=== PATIENT | female | born 1960 | race Caucasian/White ===

== ENCOUNTER → 2018-07-16 18:35 | Outpatient (CLI) | payer BC, SELFPAY ==
--- NOTE | 2018-07-16 | FLU_PTH ---
PATIENT: ALAY[facility] ERAZO [id number] AGE/SX: 64/F ROOM: RE07/16/[address]: Dr. Michelle Valerio DPM : 1960 BED: DIS: SPEC #: [id number] RECD: 07/17/18 13:59 STATUS: KALANI REYifan #: [id number] CHRISTOPHER: 07/16/18 00:[address]: Michelle Valerio DEPT: CYTOLOGY RECD BY: Rj Kinney ENTERED: 07/17/18 13:59 SP TYPE: Fluid OTHR DR: No Primary Care Phys Tissues: GANGLION CYST Procedures: Special Stain Group II Surgery Specimen Level IV Cytospin Fluid HEADER OPERATION: Not noted PRE-OP DIAGNOSIS: Ganglion cyst; soft tissue mass TISSUE SUBMITTED: Cytologic exam of aspirated fluid DIAGNOSIS CYTOLOGY Fine needle aspiration, ganglion cyst/soft tissue mass (cytospin and cell block): Consistent with benign ganglion cyst with no evidence of malignancy. AM:clinton 07/18/18 COMMENT Immunohistochemistry ([id number]) supports the above diagnosis. CYTOLOGY STUDY Slides are reviewed. CYTOLOGY GROSS Received is 0.5 ml of red cloudy fluid labeled with the patient's name and and designated per the requisition as aspirate. Submitted for cytology preparation including cell block. / 07/17/18 TC:5 CPT: 21397, 54381
--- NOTE | 2018-07-16 | IMM_PTH ---
PATIENT: ALAYNA ERAZO LOC: [facility] U#:[id number] AGE/SX: 64/F ROOM: RE07/16/[address]: Dr. Michelle Valerio DPM : 1960 BED: DIS: SPEC #: [id number] RECD: 07/18/18 12:59 STATUS: ALDENRima REYifan #: [id number] CHRISTOPHER: 07/16/18 00:[address]: Michelle Valerio DEPT: IMMUNOHISTOCHEMISTRY RECD BY: Seema Thompson ENTERED: 07/18/18 13:06 SP TYPE: IMMUNO OTHR DR: No Primary Care Phys Tissues: GANGLION CYST Procedures: SMA (add) CALPONIN-1 (add) KI-67 (add) P53 (add) Pankeratin (add) Vimentin (initial) PHYSICIAN & INSTITUTION [place] [address] SPECIMEN INFORMATION: Tissue Source: Ganglion cyst and soft tissue mass Clinical Info: Ganglion cyst and soft tissue mass Specimen Number: [id number] CPT code: 58927, 86248 x5 METHODOLOGY: Deparaffinized sections of prefer/formalin-fixed tissue or PAP/DQ stained slides are incubated with monoclonal/polyclonal antibodies/oligonucleotide probes. Localization is made via biotin free immunoperoxidase method. Appropriate controls are performed and reacted as expected. Results on target cell population are indicated in the following table: RESULTS: ANTIBODY / CLONE RESULT Vimentin (V9) positive Actin (1A4) negative Calponin-1 (ZP557C) negative P53 (DO-7) negative AE1-3 (AE1/AE3/PCK26) negative Ki-67 (30-9) positive, low These tests were developed and their performance characteristics determined by [facility]. They may not have been cleared or approved by the U.S. Food and Drug Administration. The FDA has determined that such clearance or approval is not necessary. INTERPRETATION: Ganglion cyst and soft tissue mass: Consistent with ganglion cyst contents. AM:clinton 07/19/18
[2018-07-16 18:39] LABS: Cytology, Body Fluid / CSF SEE PATHOLOGY REPORT
== END ==
PROVIDERS: Referring Provider Podiatrist; Visit Provider Podiatrist
DX: M79.672 Pain in left foot (principal); M79.9 Soft tissue disorder, unspecified
CPT/HCPCS: 88108; 88304; 88305; 88313; 88341; 88342

== ENCOUNTER 2022-06-10 10:38 | Inpatient (IN) | payer BC, SELFPAY ==
[2022-06-10] VITALS (9 sets, daily range): BP systolic 96–114; BP diastolic 53–78; PULSE 70–96; RESP 16–24; TEMP 36.3–36.8; O2SAT 93–98; BMI 34.2; BMI 32.0
--- NOTE | 2022-06-10 10:39 | CT_ITS ---
STUDY: CT BRAIN WITHOUT CONTRAST REASON FOR EXAM: Female, 61 years old. Neuro deficit, acute, stroke suspected RADIATION DOSAGE (If Supplied By Facility): CTDIvol = ( 44.99 ) mGy, DLP = ( 745.49 ) mGycm TECHNIQUE: Transaxial CT imaging of the brain was performed without administration of intravenous contrast material. Individualized dose optimization techniques were used for this CT. COMPARISON: No relevant priors. FINDINGS: Normal soft tissue structures. There is hyperostosis frontalis internus. Normal size ventricles and extra-axial spaces for the patient''s age. Normal white matter tracts of the cerebral hemispheres. Normal basal ganglia and thalami. Normal brainstem. Normal cerebellum. There is no intracranial hemorrhage. There are no findings of an acute ischemic infarction. Normal visualized paranasal sinuses. CT/STROKE Brain/Head without Cont IMPRESSION: Normal unenhanced CT scan of the brain. N.B. : The above Results were Read Back by Rocky Pride MD to Lc Poole and understanding confirmed on 06/10/2022 10:51:52 (ET). Electronically Signed: Rocky Pride MD at 10:53 EST ,
--- NOTE | 2022-06-10 10:40 | CT_ITS ---
STUDY: CTA HEAD AND NECK WITH CONTRAST REASON FOR EXAM: Female, 61 years old. Neuro deficit, acute, stroke suspected RADIATION DOSAGE (If Supplied By Facility): CTDIvol = ( 19.26 ) mGy, DLP = ( 750.67 ) mGycm TECHNIQUE: CT angiography was performed with a multi-detector CT scanner. Data acquisition was obtained from the skull base through the vertex following intravenous administration of IV 100mL Isovue-370. MIP images were reconstructed from the axial data set. Post-processing of the angiographic images was performed, with multiplanar reformation and 3D reconstruction. Individualized dose optimization techniques were used for this CT. COMPARISON: No relevant priors. FINDINGS: Normal bilateral petrous carotid arteries. Normal right cavernous carotid artery with a normal supraclinoid bifurcation. Normal left cavernous carotid artery with a normal supraclinoid bifurcation. Normal right A1 segments of the anterior cerebral artery. Normal left A1 segments of the anterior cerebral artery. Normal intact anterior communicating artery (ACOM). Normal bilateral A2 segments of the anterior cerebral arteries. Normal right M1 and M2 segments of the middle cerebral arteries, with a normal M1 bifurcation. Normal left M1 and M2 segments of the middle cerebral arteries, with a normal M1 bifurcation. Normal right posterior communicating artery (PCOM). Normal left posterior communicating artery (PCOM). Normal bilateral vertebral arteries. Normal basilar artery with a normal basilar bifurcation. The visualized bilateral superior cerebellar (SCA) arteries are normal. Normal bilateral P1, P2 and visualized P3 segments of the posterior cerebral arteries. There is no demonstrated aneurysm of the southern ute of [place]. There is no demonstrated abnormality of the visualized brain. AORTIC ARCH: Normal visualized aortic arch. Normal origins of the brachiocephalic, left common carotid, and left subclavian arteries. RIGHT CAROTID ARTERIES: Normal right common carotid artery (CCA). Normal right common carotid bulb. Normal origin of the right internal carotid (ICA) artery without a hemodynamically significant stenosis. Normal visualized cervical portion of the right internal carotid artery. Normal origin of the right external carotid artery (ECA). LEFT CAROTID ARTERIES: Normal left common carotid artery (CCA). Normal left common carotid bulb. Normal origin of the left internal carotid (ICA) artery without a hemodynamically significant stenosis. Normal visualized cervical portion of the left internal carotid artery. Normal origin of the left external carotid artery (ECA). VERTEBRAL ARTERIES: Normal bilateral vertebral arteries. CT/STROKE CTA Head AND Neck W/Con IMPRESSION: Normal CTA Head and neck with contrast. N.B. : The above Results were Read Back by Rocky Pride MD to [facility] and understanding confirmed on 06/10/2022 11:11:39 (ET). Electronically Signed: Rocky Pride MD at 11:12 EST ,
--- NOTE | 2022-06-10 10:45 | EDS_ITS ---
HPI History of Present Illness Chief Complaint: Neuro S/Sx Detail of Chief Complaint: Evaluate for stroke Informant: spouse/S.O., family and EMS Onset/Context/Timing Onset: - (Last known well at 1600 June 09) Context: - (Unknown) Timing: Continuous Quality and Location: Positive for Left Arm Weakness, Slurred Speech and Difficulty with Ambulation Current Severity: Mild Worsened by: Per HPI narrative and MDM Relieved by: Nothing Associated Symptoms Associated Symptoms: Positive for - (Unable to determine) Narrative Narrative: Patient is a 61-year-old woman with no significant medical problems. According to daughter she has history of depression. According to she came home from work yesterday. She vomited at 1600. She went to bed. She awoke this morning. He noted she was confused and had difficulty ambulating. Daughter had to help her to the restroom. Paramedics were called because of concern for stroke. Paramedics states she had slurred speech, weakness left upper extremity. According to daughter her legs were wobbly. She also commented that her urine was strong. Prior similar symptoms: No Recent Illness/Hospitalization: No PFSH PFSH Medical History (Updated 06/10/22 @ 12:[address] Lc Poole MD) delivery delivered Hypothyroid Skin cancer Medical History unable to obtain unable to obtain Home Medications omeprazole 20 mg capsule,delayed release 20 mg PO DAILY 06/10/22 [History Last Taken 06/09/22] Allergy/AdvReac Type Severity Reaction Status Date / Time Penicillins Allergy PT UNSURE Verified 06/10/22 10:40 OF REACTION Social History (Updated 06/10/22 @ 10:[address] Lc Poole MD) household members: spouse and children Smoking Status: Never smoker ROS ROS ED Review of Systems ROS Unobtainable: due to mental status EXAM Physical Exam Const Vital Signs: 06/10/22 10:44 06/10/22 10:40 06/10/22 10:40 Temperature 97.9 F Temperature Source Temporal Pulse Rate 96 96 Respiratory Rate 18 20 H Blood Pressure 106/53 L 106/53 L Blood Pressure Mean 70 70 Pulse Ox 93 95 Oxygen Delivery Method Room Air Room Air Room Air 06/10/22 10:40 06/10/22 11:09 06/10/22 11:30 Temperature 97.4 F L 97.8 F 97.6 F L Temperature Source Temporal Temporal Temporal Pulse Rate 94 94 92 Respiratory Rate 24 H 16 16 Blood Pressure 103/70 108/78 108/76 Blood Pressure Mean 81 88 86 Pulse Ox 94 95 95 Oxygen Delivery Method Room Air Room Air Room Air 06/10/22 12:00 06/10/22 12:00 Temperature 97.8 F 97.6 F L Temperature Source Temporal Temporal Pulse Rate 95 94 Respiratory Rate 20 H 20 H Blood Pressure 103/66 103/66 Blood Pressure Mean 78 78 Pulse Ox 94 94 Oxygen Delivery Method Room Air Room Air Positive well nourished and well developed General Appearance ED: well developed and NAD HEENT Reports TM's clear and dry mucous membranes atraumatic Nose: other Other Details: Nose normal. Posterior pharynx is normal. Uvula is midline. There is no deviation with protrusion. Tympanic Membrane ED: Yes TM's clear Mouth ED: Yes dry mucous membranes Mouth: dry mucous membranes Eyes PERRL and EOMs intact bilaterally General Eye ED: Negative for pale conjunctiva or scleral icterus Neck no lymphadenopathy, supple and no JVD Neck Narrative: There is no carotid bruit. Chest Wall inspection of chest normal and palpation of chest normal Resp normal respiratory effort and clear to auscultation bilaterally Cardio no murmurs Rate: regular rate Rhythm: regular rhythm Heart Sounds: S1 normal and S2 normal GI normal to inspection, nondistended, normoactive bowel sounds, soft to palpation, non-tender, non-distended and no masses Back/Spine no CVA tenderness Neuro No oriented x3 and CN's II-XII intact bilaterally [place] Coma Scale: document GCS findings Spontaneous Obeys Commands Confused 14 Sensorium / Orientation: Negative for alert Speech: Negative for speech normal Psych Psych Narrative: Unable to determine. Daughter states that her mother's been under significant stress since she returned home. Skin no wounds General Skin Exam: Negative for jaundice Lesions: no lesions Rashes: no rashes NIHSS NIHSS Initial: 1a Level of Consciousness: 1 1b LOC Questions (Score 2 if aphasic/stupor): 1 1c LOC Commands (Only score 1st attempt): 0 2 Best Gaze (If aphasic, use reflexive mvmts.): 0 4 Facial Palsy: 0 5 Motor Arm Right (UN = amputation/fusion): 0 5 Motor Arm Left: 1 6 Motor Leg Right: 0 6 Motor Leg Left: 0 7 Limb ataxia (Only + if out of proportion): 1 8 Sensory (Aphasia/stupor=0 or 1, coma=2): 0 (No response when asked.) 9 Best Language: 0 10 Dysarthria (mute, coma=2, intubated=UN): 1 11 Extinction and Inattention (only scored if +): 0 Total Score: 5 MDM MDM MDM Narrative Medical decision making narrative: Differential diagnoses include stroke, conversion reaction, need to evaluate for infectious cephalopathy in light of the fact that she urine is noted to be contracted and has odor per daughter. Stroke order set was initiated. Patient is outside window for thrombolytics. Stroke team was called prior to arrival. History & Record Review Discussion w/independent historian: EMS personnel (EMS inform you of their exam and document in the HPI), Patient, Family and Significant other Additional record(s) reviewed:: Prior inpatient record and No prior records (Only record available for review is from 2019 for foot pain.) Lab Data Attestation: I reviewed the patient's lab results. Lab results narrative: CBC is unremarkable. Coags are normal. Basic metabolic panel shows slight elevation of creatinine of 1.08 with a GFR 55. Glucose is elevated 149 with a normal CO2 and anion gap. Pulmonary normal. UA is unremarkable Labs: Laboratory Results - last 24 hr 06/10/22 06/10/22 06/10/22 10:50 10:50 10:50 WBC 10.5 RBC 4.39 Hgb 13.4 Hct 40.4 MCV 92.0 MCH 30.5 MCHC 33.2 RDW Std Deviation 45.4 H RDW Coeff of Valentine 13.2 Plt Count 209 MPV 11.0 Immature Gran % (Auto) 0.400 Neut % (Auto) 85.3 H Lymph % (Auto) 9.0 L [place] % (Auto) 5.1 Eos % (Auto) 0.0 Baso % (Auto) 0.2 Absolute Neuts (auto) 9.0 H Absolute Lymphs (auto) 0.95 Nucleated RBC % 0 PT 13.7 INR 1.1 APTT 25.6 Sodium 142 Potassium 3.6 Chloride 109 H Carbon Dioxide 23.0 Anion Gap 10 BUN 23 H Creatinine 1.08 H Estim Creat Clear Calc 38.79 Est GFR (MDRD) Af Amer 66 Est GFR (MDRD) Non-Af 55 L BUN/Creatinine Ratio 21.3 H Glucose 149 H Calcium 9.8 Troponin I High Sens 15 Urine Color Urine Clarity Urine pH Ur Specific Joice Urine Protein Urine Glucose (UA) Urine Ketones Urine Occult Blood Urine Nitrite Urine Bilirubin Urine Urobilinogen Ur Leukocyte Esterase Urine RBC Urine WBC Ur Squamous Epith Cells Urine Bacteria Hyaline Casts Urine Mucus 06/10/22 11:15 WBC RBC Hgb Hct MCV MCH MCHC RDW Std Deviation RDW Coeff of Valentine Plt Count MPV Immature Gran % (Auto) Neut % (Auto) Lymph % (Auto) [place] % (Auto) Eos % (Auto) Baso % (Auto) Absolute Neuts (auto) Absolute Lymphs (auto) Nucleated RBC % PT INR APTT Sodium Potassium Chloride Carbon Dioxide Anion Gap BUN Creatinine Estim Creat Clear Calc Est GFR (MDRD) Af Amer Est GFR (MDRD) Non-Af BUN/Creatinine Ratio Glucose Calcium Troponin I High Sens Urine Color Yellow Urine Clarity Clear Urine pH 5.0 Ur Specific Joice 1.025 Urine Protein 30 H Urine Glucose (UA) Normal Urine Ketones Negative Urine Occult Blood 10 H Urine Nitrite Negative Urine Bilirubin Negative Urine Urobilinogen Normal Ur Leukocyte Esterase 25 H Urine RBC 0-5 SEEN Urine WBC 0-5 SEEN Ur Squamous Epith Cells 0-5 SEEN Urine Bacteria 0 SEEN Hyaline Casts 0-5 SEEN Urine Mucus RARE Radiography Diagnostic Testing: Clinical Impression(s) from Imaging Studies Brain CT 06/10/22 10:39 IMPRESSION: Normal unenhanced CT scan of the brain. N.B. : The above Results were Read Back by Rocky Pride MD to Lc Poole and understanding confirmed on 06/10/2022 10:51:52 (ET). Electronically Signed: Rocky Pride MD at 10:53 EST , ADDENDUM: 06/10/22 1100 IMPRESSION: Normal unenhanced CT scan of the brain. N.B. : The above Results were Read Back by Rocky Pride MD to Lc Poole and understanding confirmed on 06/10/2022 10:51:52 (ET). Electronically Signed: Rocky Pride MD at 10:53 EST , Head/Neck CTA 06/10/22 10:40 IMPRESSION: Normal CTA Head and neck with contrast. N.B. : The above Results were Read Back by Rocky Pride MD to [facility] and understanding confirmed on 06/10/2022 11:11:39 (ET). Electronically Signed: Rocky Pride MD at 11:12 EST , ADDENDUM: 06/10/22 1119 IMPRESSION: Normal CTA Head and neck with contrast. N.B. : The above Results were Read Back by Rocky Pride MD to [facility] and understanding confirmed on 06/10/2022 11:11:39 (ET). Electronically Signed: Rocky Pride MD at 11:12 EST , Chest X-Ray 06/10/22 11:27 IMPRESSION: Questionable 8 mm calcified granuloma in the lateral aspect of the left midlung. Electronically Signed: Rocky Pride MD at 12:05 EST , Rhythm Strip Rhythm Strip: Sinus Rhythm Rate: 92 Ectopy: None EKG Initial EKG: Attestation: I personally reviewed and interpreted this EKG as follows: Interpretation: Sinus Rhythm (Rate is 97. There is evidence of first- degree AV block with a [place] interval of 216 ms. Cures duration 100 ms. QT duration is 374 ms. [place] to the right. There is no acute ischemic changes noted.) Differential Diagnosis Differential Diagnosis: Documented in the MDM portion of the chart Management Discussion w/another healthcare provider: Hospitalist, Diplomatic Officer (Neurologist at [facility]. Plan is transfer if evidence of LVO otherwise admit for stroke work-up at [facility].) and Radiologist (I spoke to Dr. Menendez at 1051. The unenhanced scan is unremarkable.) Stroke Documentation Questions Stroke Team Activated: Yes Reviewed Inclusion/Exclusion criteria: No IV Thrombolytic Administered: No (Patient outside window) No contraindications from thrombolytic administration: No Discharge Plan Dx/Rx/DC Orders Clinical Impression: Acute cerebrovascular accident (CVA), Elevated blood sugar level, Acute renal i nsufficiency Disposition Disposition: Acute Care Hospital [facility]
[2022-06-10 11:01] LABS: Absolute Lymphocyte Count 0.95 X10^3/uL (0.83-4.51); Basophil# 0.02 X10^3/uL; Basophil% 0.2 % (0-1); Hematocrit 40.4 % (37-47); Hemoglobin 13.4 g/dL (12.0-15.0); Lymphocyte # 0.95 X10^3/ul (0.83-4.51); Mean Corp Hgb Conc 33.2 g/dL (32-36); Mean Corpuscular Hgb 30.5 pg (27.0-32.0); Monocyte# 0.54 X10^3/uL; Monocyte% 5.1 % (0-10); NRBC Flagged by Analyzer 0 % (0-5); Neutrophil # 8.96 X10^3/uL (2.7-7.7); Neutrophil % 85.3 % (47-70); Platelet Count 209 K/mm3 (150-450); RBC Distribution Width CV 13.2 % (11.6-14.6); RBC Distribution Width SD 45.4 fl (35.1-43.9); Red Blood Count 4.39 M/mm3 (4.2-5.4); White Blood Count 10.5 K/mm3 (4.4-11.0)
[2022-06-10 11:14] LABS: International Normalized Ratio 1.1; Partial Thromboplast Time 25.6 Seconds (24.1-36.2); Prothrombin Time (Protime)PT. 13.7 SECONDS (11.7-14.9)
[2022-06-10 11:18] LABS: Anion Gap 10 (5-15); BUN 23 mg/dL (7-18); BUN/Creat Ratio 21.3 RATIO (10-20); Calcium,Total 9.8 mg/dL (8.5-10.1); Chloride 109 mmol/L (98-107); Creatinine, Serum 1.08 mg/dL (0.55-1.02); EST Glomerular Filtration Rate 55 mL/min (>60); Est Glom Filt Rate - Afr Amer 66 mL/min (>60); Estimated Creatinine Clearance 38.79 ml/min; Glucose 149 mg/dL (74-106); Potassium 3.6 mmol/L (3.5-5.1); Sodium Level 142 mmol/L (136-145); Troponin-I HS 15 pg/mL (3.0-54.0)
[2022-06-10 11:27] LABS: Bacteria 0 SEEN /hpf (None Seen)
--- NOTE | 2022-06-10 11:27 | RAD_ITS ---
STUDY: X-RAY CHEST REASON FOR EXAM: Female, 61 years old. Neuro deficit, acute, stroke suspected TECHNIQUE: Single AP portable view of the chest. COMPARISON: None. FINDINGS: EKG electrodes are seen. Questionable 8 mm granuloma in the lateral aspect of the left mid lung. There is no demonstrated pleural abnormality. Normal size heart. Normal mediastinum and gali. Normal visualized pulmonary arteries. There is atherosclerotic tortuosity of the aortic arch and descending thoracic aorta. There are diffuse degenerative changes of the visualized thoracic spine. Normal visualized ribs, clavicles, and shoulders. There is no demonstrated abnormality of the visualized soft tissue structures of the upper abdomen. RAD/Chest 1 View IMPRESSION: Questionable 8 mm calcified granuloma in the lateral aspect of the left midlung. Electronically Signed: Rocky Pride MD at 12:05 EST ,
[2022-06-10 11:30] LABS: Color, Urine Yellow (Yellow); Glucose, Dipstick Normal (Normal); Ketone-Dipstick Negative (Negative); Leukocyte Esterase-Dipstick 25 /ul (Negative); Nitrite-Dipstick Negative (Negative); Occult Blood-Urine 10 /ul (Negative); Protein-Dipstick 30 mg/dl (Negative); Specific Gravity, Urine 1.025 (1.002-1.030); Urine Bilirubin Dipstick Negative (Negative); Urine Clarity Clear (Clear); Urine Urobilinogen Normal (Normal)
[2022-06-10 11:36] LABS: Hyaline Cast 0-5 SEEN /lpf (0-5); Mucous, Urine RARE /hpf (<or=2+); Red Blood Cells-Urine 0-5 SEEN /hpf (0-5); Squamous Epithelial Cells - UA 0-5 SEEN /hpf (5-10); White Blood Cells 0-5 SEEN /hpf (0-5)
--- NOTE | 2022-06-10 12:21 | PCM.HP.STD ---
HPI - General General Date of Admission: 06/10/22 Date of Service: 06/10/22 Chief Complaint: , AMS, left arm and leg weakness, slurred speech difficulty ambulation, started about 1600 on June 09. HPI Narrative IHSAN ERAZO, is a 61 F was brought in by family member for evaluation of possible stroke. As per the , the patient was mild mental distress and as per daughter she has history of depression but not on any medication. As per , she vomited once at home about 1600 hrs. with and her daughter came to home. Then she went to bed and woke up in the morning. She was noted to be confused and difficulty ambulating, weakness in the leg, wobbly, spaghetti like walking as per the daughter. She also had slurred speech, garbled speech and low tone. EMS found slurred speech and weakness in the left upper extremity. In ED, patient is having hallucination, seeing objects which is not there, talking to herself, low-tone speech hard to understand. She is also confused and looks fearful and afraid. In ED, vitals were noted. BP 103/66. Twelve-lead EKG sinus rhythm with first-degree AV block, RAD, QRS 100 ms, QTc 472 ms. LAFB. Patient had [facility] teleneurology consult and had CT head and CTA head and neck with no LVO found therefore further admitted. Family history: Positive for stroke in her family. [facility] Medical History delivery delivered Hypothyroid Skin cancer Medical History unable to obtain Home Medications omeprazole 20 mg capsule,delayed release 20 mg PO DAILY 06/10/22 [History Last Taken 06/09/22] Allergy/AdvReac Type Severity Reaction Status Date / Time Penicillins Allergy PT UNSURE Verified 06/10/22 10:40 OF REACTION Social History household members: spouse and children Smoking Status: Never smoker ROS ROS Narrative 14 system ROS is incomplete as patient is confused disoriented and having hallucinations and hard to understand because of low tone. : Denies burning micturition, increased frequency and urgency. GI: Denies abdominal pain. Vomiting admission HPI. Respiratory/Chest: No chest pain, shortness of breath at rest or with exertion Musculoskeletal: Denies chronic joint pain and limited range of motion Neurologic: Admission HPI. skin: No ulcer. No rash Review of Systems ROS Unobtainable: due to encephalopathy Vital Signs Vital Signs Vital Signs: 06/10/22 10:44 06/10/22 10:40 06/10/22 10:40 Temperature 97.9 F Temperature Source Temporal Pulse Rate 96 96 Respiratory Rate 18 20 H Blood Pressure 106/53 L 106/53 L Blood Pressure Mean 70 70 Pulse Ox 93 95 Oxygen Delivery Method Room Air Room Air Room Air 06/10/22 10:40 06/10/22 11:09 06/10/22 11:30 Temperature 97.4 F L 97.8 F 97.6 F L Temperature Source Temporal Temporal Temporal Pulse Rate 94 94 92 Respiratory Rate 24 H 16 16 Blood Pressure 103/70 108/78 108/76 Blood Pressure Mean 81 88 86 Pulse Ox 94 95 95 Oxygen Delivery Method Room Air Room Air Room Air 06/10/22 12:00 06/10/22 12:00 Temperature 97.8 F 97.6 F L Temperature Source Temporal Temporal Pulse Rate 95 94 Respiratory Rate 20 H 20 H Blood Pressure 103/66 103/66 Blood Pressure Mean 78 78 Pulse Ox 94 94 Oxygen Delivery Method Room Air Room Air Weight Weight: 175 lb 0.752 oz Body Mass Index (BMI) 34.2 Physical Exam Narrative Physical exam General: Confused, disoriented to time and person. HEENT: Atraumatic, PERRLA, EOMI, Normocephalic Oral: Oral mucosa dry. No Gingival or Mucosal Lesions/ Ulcerations Neck: Supple, No JVD, Negative Carotid Bruits Lungs: Air entry diminished in bilateral lung bases. No crepitation/rhonchi Cardiovascular: Regular rate, Regular Rhythm, Normal S1, Normal S2, No murmurs Abdomen: Bowel Sounds Present, Soft, Non Tender, Non-Distended : No renal angle tenderness. No suprapubic tenderness. Extremities: No edema, Capillary Refill Less than 3 Seconds Skin: No rashes, No breakdown Musculoskeletal: Weakness in left lower extremity, drift,No Tenderness to Palpation of Joints or Extremities Neurological: left-sided facial droop, mild to moderate language deficit, dysarthria. Not alert. Extinction and inattention. NIH 7. Complete neuro exam unobtainable as patient is confused, disoriented does not follow commands adequately Psych/Mental Status: Possible anxiety, visual hallucination. Results Lab / Micro Data Result Diagrams: 06/10/22 10:50 06/10/22 10:50 Labs: Laboratory Results - last 24 hr 06/10/22 10:50: WBC 10.5, RBC 4.39, Hgb 13.4, Hct 40.4, MCV 92.0, MCH 30.5, MCHC 33.2, RDW Std Deviation 45.4 H, RDW Coeff of Valentine 13.2, Plt Count 209, MPV 11.0, Immature Gran % (Auto) 0.400, Neut % (Auto) 85.3 H, Lymph % (Auto) 9.0 L, [place] % (Auto) 5.1, Eos % (Auto) 0.0, Baso % (Auto) 0.2, Absolute Neuts (auto) 9.0 H, Absolute Lymphs (auto) 0.95, Nucleated RBC % 0 06/10/22 10:50: PT 13.7, INR 1.1, APTT 25.6 06/10/22 10:50: Sodium 142, Potassium 3.6, Chloride 109 H, Carbon Dioxide 23.0, Anion Gap 10, BUN 23 H, Creatinine 1.08 H, Estim Creat Clear Calc 38.79, Est GFR (MDRD) Af Amer 66, Est GFR (MDRD) Non-Af 55 L, BUN/Creatinine Ratio 21.3 H, Glucose 149 H, Calcium 9.8, Troponin I High Sens 15 06/10/22 11:15: Urine Color Yellow, Urine Clarity Clear, Urine pH 5.0, Ur Specific [place] 1.025, Urine Protein 30 H, Urine Glucose (UA) Normal, Urine Ketones Negative, Urine Occult Blood 10 H, Urine Nitrite Negative, Urine Bilirubin Negative, Urine Urobilinogen Normal, Ur Leukocyte Esterase 25 H, Urine RBC 0-5 SEEN, Urine WBC 0-5 SEEN, Ur Squamous Epith Cells 0-5 SEEN, Urine Bacteria 0 SEEN, Hyaline Casts 0-5 SEEN, Urine Mucus RARE Rhythm Strip Rhythm Strip: Sinus Rhythm Rate: 92 Ectopy: None Radiology Impression Brain CT 06/10/22 10:39 IMPRESSION: Normal unenhanced CT scan of the brain. N.B. : The above Results were Read Back by Rocky Pride MD to [facility] and understanding confirmed on 06/10/2022 10:51:52 (ET). Electronically Signed: Rocky Pride MD at 10:53 EST , ADDENDUM: 06/10/22 1100 IMPRESSION: Normal unenhanced CT scan of the brain. N.B. : The above Results were Read [facility] and understanding confirmed on 06/10/2022 10:51:52 (ET). Electronically Signed: Rocky Pride MD at 10:53 EST Reading Location ID and State: [facility] / ID , Service support , Head/Neck CTA 06/10/22 10:40 IMPRESSION: Normal CTA Head and neck with contrast. N.B. : The above Results were Read Back by Rocky Pride MD to [facility] and understanding confirmed on 06/10/2022 11:11:39 (ET). Electronically Signed: Rocky Pride MD at 11:12 EST , ADDENDUM: 06/10/22 1119 IMPRESSION: Normal CTA Head and neck with contrast. N.B. : The above Results were Read Back by [facility] Pride [facility] and understanding confirmed on 06/10/2022 11:11:39 (ET). Electronically Signed: Rocky Pride MD at 11:12 EST , Chest X-Ray 06/10/22 11:27 IMPRESSION: Questionable 8 mm calcified granuloma in the lateral aspect of the left midlung. Electronically Signed: Rocky Pride MD at 12:05 EST , Assessment & Plan Assessment/Plan (1) Acute cerebrovascular accident (CVA): (2) Acute encephalopathy: PLAN: Plan This is 61 years Is being admitted forleft-sided weakness, facial droop, mild to moderate language deficit, dysarthria, inattention, confusion and disorientation hallucination suggestive of acute encephalopathy and strokelike. 1. Most probably acute ischemic stroke: Patient is being admitted in PCU. MRI brain ordered. CT brain and CTA head and neck does not show acute abnormality. Patient was evaluated by [facility] teleneurologist and found the patient outside time window. Stroke work-up with MRI brain, 2D echo, lipid profile, A1c and TSH ordered. PT OT speech evaluation. BP control and Accu-Chek as per stroke protocol. Patient started on baby aspirin and high intensity statin. Depending upon MRI findings will need dual antiplatelet agent. 2. Acute encephalopathy, exact etiology unclear possible due to stroke/psychogenic: Patient confusion, disorientation, inattention, hallucination has increased since yesterday. Patient diagnosis of anxiety and depression is unclear as there is inconsistent history from patient's and her daughter. Not on any dedication. 3. Hypothyroidism and possible GERD: Patient is only on omeprazole 20 mg daily at home. Not on thyroid medication. TSH and free T4 tomorrow AM. VTE prophylaxis, enoxaparin 40 mill subcut daily from tomorrow AM. Living will/advanced directive/end of life care: Patient does not have living will or advanced directive. Her is next to kin. After discussion of benefits/risks procedures involved with full code, DNR CC arrest and DNR CC, patient's and son and daughter agreed for for full code. They do want artificial life support including intubation, tube feed, ventilator and/chest compression, central venous catheter, vasopressor and DC shock if needed Total time spent in [id number] encounter in discussion of advanced directive 17 minutes. Clinical Impression(s) from Imaging Studies Brain CT 06/10/22 10:39 IMPRESSION: Normal unenhanced CT scan of the brain. N.B. : The above Results were Read Back by Rocky Pride MD to [facility] and understanding confirmed on 06/10/2022 10:51:52 (ET). Electronically Signed: Rocky Pride MD at 10:53 EST , ADDENDUM: 06/10/22 1100 IMPRESSION: Normal unenhanced CT scan of the brain. N.B. : The above Results were Read Back by Rocky Pride MD to [facility] and understanding confirmed on 06/10/2022 10:51:52 (ET). Electronically Signed: Rocky Pride MD at 10:53 EST , Head/Neck CTA 06/10/22 10:40 IMPRESSION: Normal CTA Head and neck with contrast. Chest X-Ray 06/10/22 11:27 IMPRESSION: Questionable 8 mm calcified granuloma in the lateral aspect of the left midlung. Electronically Signed: Rocky Pride MD at 12:05 EST , Charges/Coding Visit Charges Inpatient E&M: 80933 Init Hosp L3 Procedures Hospitalists Procedures: 77908 Advncd Care Plan 30 Min
[2022-06-10 12:56] LABS: Magnesium 1.8 mg/dL (1.6-2.6)
--- NOTE | 2022-06-10 13:30 | ECHOD_ITS ---
Reason For Study: TIA/CVA Procedure This was a 2D Doppler, Color Flow transthoracic echocardiogram. The study was technically difficult. Exam performed portable in patient room. Left Ventricle Normal LV size. Mild concentric left ventricular hypertrophy. The left ventricular ejection fraction is 70 %. Normal diastology for age. Right Ventricle Normal right ventricle. Atria Normal left atrium. The right atrium is not well visualized. Bubble contrast study is negative for PFO/ASD. Mitral Valve The mitral valve is structurally normal. No prolapse or stenosis seen. Tricuspid Valve Trivial tricuspid valve insufficiency. Normal pulmonary artery pressure. Aortic Valve Normal aortic valve. Pulmonic Valve The pulmonic valve is not well visualized. Great Vessels Normal sized aortic root. Pericardium/Pleural No pericardial effusion. Medication Performed a rapid injection of agitated mix of 9 cc saline and 1cc air to assess for atrial septal defect. MMode/2D Measurements & Calculations LVIDd: 4.1 cm IVSd: 1.3 cm Ao root diam: 2.7 cm LVIDs: 2.7 cm LVPWd: 1.3 cm FS: 34.8 % LAV(MOD-bp): 35.4 ml LVAd ap4: 21.1 cm2 SV(MOD-sp4): 32.2 ml LAV(MOD-bp) Indexed: 20.1 ml/m2 LVLd ap4: 7.8 cm LAV(MOD-sp2): 25.2 ml EDV(MOD-sp4): 48.6 ml LAV(MOD-sp4): 46.3 ml EDV(sp4-el): 48.7 ml LVAs ap4: 11.1 cm2 LVLs ap4: 6.3 cm ESV(MOD-sp4): 16.4 ml ESV(sp4-el): 16.6 ml EF(MOD-sp4): 66.3 % EF(sp4-el): 66.0 % SV(sp4-el): 32.1 ml LA A4 area: 17.7 cm2 LA dimension(2D): 3.5 cm RA A4 area: 11.5 cm2 Time Measurements MV dec time: 0.18 sec Doppler Measurements & Calculations MV E max vivek: 69.7 cm/sec Lat Peak E' Vivek: 14.2 cm/sec Med Peak E' Vivek: 6.3 cm/sec MV A max vivek: 56.2 cm/sec E/E' lat: 4.9 E/E' med: 11.0 MV E/A: 1.2 MV V2 max: 70.5 cm/sec MV dec slope: 378.1 cm/sec2 Ao V2 max: 117.0 cm/sec MV max P.0 mmHg Ao max P.5 mmHg MV V2 mean: 49.0 cm/sec Ao V2 mean: 82.9 cm/sec MV mean P.1 mmHg Ao mean P.1 mmHg MV V2 VTI: 18.7 cm Ao V2 VTI: 26.9 cm AV (velocity ratio): 1.0 LV V1 max: 102.8 cm/sec PA V2 max: 91.9 cm/sec TR max vivek: 229.6 cm/sec LV V1 max P.2 mmHg PA V2 mean: 60.6 cm/sec TR max P.1 mmHg LV V1 mean P.4 mmHg LV V1 mean: 71.9 cm/sec LV V1 VTI: 28.1 cm ECHO/Echo Complete Interpretation Summary Mild concentric left ventricular hypertrophy. The left ventricular ejection fraction is 70 %. Bubble contrast study is negative for PFO/ASD. The study was technically difficult. Ordering Physician: Juvenal Mijares Referring Physician: KAROL LOWRY Performed By: Skye Hector RCS
--- NOTE | 2022-06-10 13:30 | MRI_ITS ---
STUDY: MRI BRAIN WITHOUT CONTRAST REASON FOR EXAM: Female, 61 years old. Stroke TECHNIQUE: Multiplanar multisequence imaging of the brain was performed without the administration of intravenous contrast. COMPARISON: None. FINDINGS: The ventricles, cisterns, and sulci are within normal limits for patients age. There is no restricted diffusion to suggest acute ischemia or infarction. No succeptibility artifict to suggest intracranial hemorrhage or mineralization. Major intracranial signal voids are preserved. There is no midline shift, mass effect, or extra axial fluid collections are seen. No CP angle or IAC mass is seen. The orbits are unremarkable. The sella turcica and craniovertebral junction are within normal limits. The visualized paranasal sinuses are clear. The mastoid air cells are clear. MRI/Brain without Contrast IMPRESSION: No intracranial hemorrhage, acute infarct, or space occupying lesion seen on this noncontrast MRI of the brain. Electronically Signed: Sanchez Mendez MD at 16:02 EST ,
[2022-06-10] MEDS: 0.9% Normal Saline 1,000 ML 75 ML IV (16:02)
[2022-06-10 17:25] LABS: Bedside Glucose 116 mg/dL (74-106)
[2022-06-10] MEDS: Atorvastatin Calcium 80 MG Tablet PO (23:13)
[2022-06-11 03:16] VITALS: BP 113/59; PULSE 63; RESP 18; TEMP 36.8; O2SAT 93
[2022-06-11 03:27] VITALS: BMI 32.0
[2022-06-11 06:00] VITALS: BMI 32.8
[2022-06-11 07:01] LABS: Bedside Glucose 88 mg/dL (74-106)
[2022-06-11 07:15] LABS: Absolute Lymphocyte Count 1.65 X10^3/uL (0.83-4.51); Absolute Neutrophil Count 4.9 X10^3/uL (2.0-7.7); Basophil# 0.04 X10^3/uL; Basophil% 0.6 % (0-1); Eosinophil# 0.02 X10^3/uL; Eosinophils% 0.3 % (0-5); Hematocrit 38.3 % (37-47); Hemoglobin 12.4 g/dL (12.0-15.0); Lymphocyte # 1.65 X10^3/ul (0.83-4.51); Mean Corp Hgb Conc 32.4 g/dL (32-36); Mean Corpuscular Hgb 30.4 pg (27.0-32.0); Mean Corpuscular Volume 93.9 fL (81-99); Monocyte# 0.53 X10^3/uL; Monocyte% 7.4 % (0-10); NRBC Flagged by Analyzer 0 % (0-5); Neutrophil % 68.4 % (47-70); Platelet Count 192 K/mm3 (150-450); RBC Distribution Width CV 13.6 % (11.6-14.6); RBC Distribution Width SD 47.4 fl (35.1-43.9); Red Blood Count 4.08 M/mm3 (4.2-5.4); White Blood Count 7.2 K/mm3 (4.4-11.0)
--- NOTE | 2022-06-11 07:47 | DCINST_ITS ---
Discharge Instructions Diet Discharge Diet: Low fat / Low cholesterol and 2000 mg Sodium Diet Activity Discharge Activity: Return to Normal Activity Weight Bearing Status: Weight bearing as tolerated Dressing / Incision Call your doctor if you observe: Fever of 101 or Higher, Coldness, Increased Pain, Numbness or Tingling, Change in Color, Inability to urinate, Inability to have a bowel movement, Using more than 1 pad per hour, Shortness of breath, Dizziness, Fainting spells, Swelling in the ankles, Chest pain, Prolonged hiccupping, Increased palpitations (irregular heartbeat) and Calf discomfort Follow Up Care When: IN 2 WEEKS Test Results: Test results from this visit will be discussed in further detail at your follow- up appointment, if applicable. Discharge Plan Admission Admit Date/Time: 06/10/22 12:14 Primary Reason for Your Visit: stroke ruled out Attending Provider: Juvenal Mijares Primary Care Provider: Shiela Troy Instructions Additional Instructions / Restrictions: Patient might be benefited by psychiatry consult or psychologist evaluation and counseling. Discharge Orders/Prescriptions Prescriptions: Continued omeprazole 20 mg Capsule,Delayed Release(Dr/Ec) 20 mg PO DAILY Referrals / Follow Up: Shiela Troy MD [Primary Care Provider] - Care Physician,No Primary [Non-Staff] - Disposition Disposition (needs filled in before D/C Order can be placed): Home, Self Care
[2022-06-11 07:56] VITALS: O2SAT 91
[2022-06-11 08:06] LABS: Anion Gap 8 (5-15); BUN 21 mg/dL (7-18); BUN/Creat Ratio 21.5 RATIO (10-20); Calcium,Total 9.1 mg/dL (8.5-10.1); Chloride 109 mmol/L (98-107); Cholesterol 121 mg/dL (200); Creatinine, Serum 0.98 mg/dL (0.55-1.02); EST Glomerular Filtration Rate 61 mL/min (>60); Est Glom Filt Rate - Afr Amer 74 mL/min (>60); Estimated Creatinine Clearance 42.75 ml/min; Glucose 88 mg/dL (74-106); High Density Lipoprotein 54 mg/dL; Potassium 3.7 mmol/L (3.5-5.1); Sodium Level 142 mmol/L (136-145); T4 Free Direct 0.99 ng/dL (0.76-1.46); Thyroid Stim Hormone (TSH) 1.57 uIU/mL (0.358-3.74); Triglycerides 52 mg/dL; Very Low Density Lipoprotein 10 mg/dL (5-40)
[2022-06-11 08:15] LABS: Hemoglobin A1c 5.6 % (3.8-5.6)
[2022-06-11] MEDS: Clopidogrel Bisulfate 75 MG Tablet PO (08:17)
[2022-06-11] MEDS: Aspirin 81 MG TAB.CHEW PO (08:17)
[2022-06-11 09:15] VITALS: BP 125/68; PULSE 68; RESP 18; TEMP 36.6; O2SAT 97
--- NOTE | 2022-06-11 09:41 | CASEMGMT ---
VICKIE ARCHER DC Planning Assessment: Face to Face with patient for initial transition planning/care coordination assessment. VICKIE ARCHER introduced self and role at [facility], pt voices understanding. Pt alert, oriented and agreeable to participating in assessment.? Care providers, pharmacy,?and demographics verified. ? Admitting Dx: CVA PCP: Shiela Troy Specialists: none Preferred Pharmacy: [facility] Insurance: [place] Prescription Benefit: yes? Living Will/HPOA: none LNOK: spouse Devan Living Arrangements: Pt lives with spouse in a single story home with 3 steps to enter with a handrail. Pt states she was independent with all ADLS prior to admission including self care and household tasks. Transportation: Pt drives and spouse is able to drive if pt unable. DME: none SNF/HHC: denies any previous Plan: Pt plans to return home at discharge with the support of her . Pt denies any concerns or needs at this time. Will continue to monitor for any recommendations from PT/OT evaluations and assist with any identified needs. Mckenzie Jenkins RN CM
--- NOTE | 2022-06-11 10:38 | OT ---
JUAN AROM EXERCISE, HANDOUT GIVEN, PATIENT VERBALIZING UNDERSTANDING
[2022-06-11 10:39] VITALS: BMI 32.8
--- NOTE | 2022-06-11 10:41 | PT ---
B LE exercise handout provided
--- NOTE | 2022-06-11 10:48 | DS.PCM_ITS ---
Providers Date of Admission: 06/10/22 Date of Discharge: 06/11/22 Primary Care Physician: Dr. Karol Troy MD Reason For Visit: STROKE Diagnosis Discharge Diagnosis (1) Acute cerebrovascular accident (CVA): Status: Acute Code(s): I63.9 - Cerebral infarction, unspecified (2) Acute encephalopathy: Status: Acute Code(s): G93.40 - Encephalopathy, unspecified Plan This is 61 years Is being admitted forleft-sided weakness, facial droop, mild to moderate language deficit, dysarthria, inattention, confusion and disorientation hallucination suggestive of acute encephalopathy and strokelike. 1. Most probably acute ischemic stroke: Patient is being admitted in PCU. MRI brain ordered. CT brain and CTA head and neck does not show acute abnormality. Patient was evaluated by [facility] teleneurologist and found the patient outside time window. Stroke work-up with MRI brain, 2D echo, lipid profile, A1c and TSH ordered. PT OT speech evaluation. BP control and Accu-Chek as per stroke protocol. Patient started on baby aspirin and high intensity statin. Chest x- ray questionable latent calcified granuloma in lateral aspect of left midlung. Follow with PCP. 06/11: Patient had completed stroke work-up. Fasting profile within normal limit. A1c 5.6% MRI brain reported no acute intracranial abnormality. 2D echo shows no PFO/ASD. EF 70%, mild concentric LVH. Patient is back to normal baseline. Does not have weakness of lower extremity. NIH stroke scale 0. Her speech has improved. Speech therapist recommended regular texture thin liquid with small bites small sips slow rate. Patient is discharged home and advised to follow-up with psychiatrist or psychologist for counseling. I suspect she might have mild depression. 2. Acute encephalopathy, exact etiology unclear possible due to stroke/psychogenic: Patient confusion, disorientation, inattention, hallucination has increased since yesterday. Patient diagnosis of anxiety and depression is unclear as there is inconsistent history from patient's and her daughter. Not on any dedication. 06/11: Acute encephalopathy resolved as patient is alert awake oriented x3. She can answer simple questions like month year and understands. Her speech tone has improved. I think acute distal most likely psychogenic possibility of mild anxiety/depression. Rest as mentioned above. 3. Hypothyroidism and possible GERD: Patient is only on omeprazole 20 mg daily at home. Not on thyroid medication. TSH and free T4 normal limit. 06/11: She might have hypertension but not diagnosed yet. Advised ambulatory BP monitoring at home BP monitoring and follow with PCP for diagnosis. 2D echo shows mild concentric LVH. VTE prophylaxis, enoxaparin 40 mill subcut daily from tomorrow AM. Living will/advanced directive/end of life care: Patient does not have living will or advanced directive. Her is next to kin. After discussion of benefits/risks procedures involved with full code, DNR CC arrest and DNR CC, patient's and son and daughter agreed for for full code. They do want artificial life support including intubation, tube feed, ventilator and/chest compression, central venous catheter, vasopressor and DC shock if needed Laboratory Results 06/10/22 10:50: WBC 10.5, RBC 4.39, Hgb 13.4, Hct 40.4, MCV 92.0, MCH 30.5, MCHC 33.2, RDW Std Deviation 45.4 H, RDW Coeff of Valentine 13.2, Plt Count 209, MPV 11.0, Immature Gran % (Auto) 0.400, Neut % (Auto) 85.3 H, Lymph % (Auto) 9.0 L, Mcdonald % (Auto) 5.1, Eos % (Auto) 0.0, Baso % (Auto) 0.2, Absolute Neuts (auto) 9.0 H, Absolute Lymphs (auto) 0.95, Nucleated RBC % 0 06/10/22 10:50: PT 13.7, INR 1.1, APTT 25.6 06/10/22 10:50: Sodium 142, Potassium 3.6, Chloride 109 H, Carbon Dioxide 23.0, Anion Gap 10, BUN 23 H, Creatinine 1.08 H, Estim Creat Clear Calc 38.79, Est GFR (MDRD) Af Amer 66, Est GFR (MDRD) Non-Af 55 L, BUN/Creatinine Ratio 21.3 H, Glucose 149 H, Calcium 9.8, Troponin I High Sens 15 06/10/22 10:50: Magnesium 1.8 06/10/22 11:15: Urine Color Yellow, Urine Clarity Clear, Urine pH 5.0, Ur Specific [place] 1.025, Urine Protein 30 H, Urine Glucose (UA) Normal, Urine Ketones Negative, Urine Occult Blood 10 H, Urine Nitrite Negative, Urine Bilirubin Negative, Urine Urobilinogen Normal, Ur Leukocyte Esterase 25 H, Urine RBC 0-5 SEEN, Urine WBC 0-5 SEEN, Ur Squamous Epith Cells 0-5 SEEN, Urine Bacteria 0 SEEN, Hyaline Casts 0-5 SEEN, Urine Mucus RARE 06/10/22 17:05: POC Glucose 116 H 06/11/22 06:33: POC Glucose 88 06/11/22 06:42: Sodium 142, Potassium 3.7, Chloride 109 H, Carbon Dioxide 25.0, Anion Gap 8, BUN 21 H, Creatinine 0.98, Estim Creat Clear Calc 42.75, Est GFR (MDRD) Af Amer 74, Est GFR (MDRD) Non-Af 61, BUN/Creatinine Ratio 21.5 H, Glucose 88, Calcium 9.1, Triglycerides 52, Cholesterol 121, LDL Cholesterol 57, VLDL Cholesterol 10, HDL Cholesterol 54, TSH 1.57, Free T4 0.99 06/11/22 06:42: Hemoglobin A1c 5.6 06/11/22 06:42: WBC 7.2, RBC 4.08 L, Hgb 12.4, Hct 38.3, MCV 93.9, MCH 30.4, MCHC 32.4, RDW Std Deviation 47.4 H, RDW Coeff of Valentine 13.6, Plt Count 192, MPV 1 1.0, Immature Gran % (Auto) 0.300, Neut % (Auto) 68.4, Lymph % (Auto) 23.0, Mcdonald % (Auto) 7.4, Eos % (Auto) 0.3, Baso % (Auto) 0.6, Absolute Neuts (auto) 4.9, Absolute Lymphs (auto) 1.65, Nucleated RBC % 0 Medications at Discharge Home Medications omeprazole 20 mg capsule,delayed release 20 mg PO DAILY 06/10/22 Physical Exam Narrative Physical exam General: Confused, disoriented to time and person. HEENT: Atraumatic, PERRLA, EOMI, Normocephalic Oral: Oral mucosa dry. No Gingival or Mucosal Lesions/ Ulcerations Neck: Supple, No JVD, Negative Carotid Bruits Lungs: Air entry diminished in bilateral lung bases. No crepitation/rhonchi Cardiovascular: Regular rate, Regular Rhythm, Normal S1, Normal S2, No murmurs Abdomen: Bowel Sounds Present, Soft, Non Tender, Non-Distended : No renal angle tenderness. No suprapubic tenderness. Extremities: No edema, Capillary Refill Less than 3 Seconds Skin: No rashes, No breakdown Musculoskeletal: Weakness in left lower extremity, drift,No Tenderness to Palpation of Joints or Extremities Neurological: left-sided facial droop, mild to moderate language deficit, dysarthria. Not alert. Extinction and inattention. NIH 7. Complete neuro exam unobtainable as patient is confused, disoriented does not follow commands adequately Psych/Mental Status: Possible anxiety, visual hallucination. Weight / BMI Weight Weight: 167 lb 12.348 oz Body Mass Index (BMI) 32.8 ABG / Lab / Microbiology Data Result Diagrams: 06/11/22 06:42 06/11/22 06:42 Laboratory: Laboratory Results - last 24 hr 06/10/22 10:50: WBC 10.5, RBC 4.39, Hgb 13.4, Hct 40.4, MCV 92.0, MCH 30.5, MCHC 33.2, RDW Std Deviation 45.4 H, RDW Coeff of Valentine 13.2, Plt Count 209, MPV 11.0, Immature Gran % (Auto) 0.400, Neut % (Auto) 85.3 H, Lymph % (Auto) 9.0 L, Mcd[place] % (Auto) 5.1, Eos % (Auto) 0.0, Baso % (Auto) 0.2, Absolute Neuts (auto) 9.0 H, Absolute Lymphs (auto) 0.95, Nucleated RBC % 0 06/10/22 10:50: PT 13.7, INR 1.1, APTT 25.6 06/10/22 10:50: Sodium 142, Potassium 3.6, Chloride 109 H, Carbon Dioxide 23.0, Anion Gap 10, BUN 23 H, Creatinine 1.08 H, Estim Creat Clear Calc 38.79, Est GFR (MDRD) Af Amer 66, Est GFR (MDRD) Non-Af 55 L, BUN/Creatinine Ratio 21.3 H, Glucose 149 H, Calcium 9.8, Troponin I High Sens 15 06/10/22 10:50: Magnesium 1.8 06/10/22 11:15: Urine Color Yellow, Urine Clarity Clear, Urine pH 5.0, Ur Specific [place] 1.025, Urine Protein 30 H, Urine Glucose (UA) Normal, Urine Ketones Negative, Urine Occult Blood 10 H, Urine Nitrite Negative, Urine Bilirubin Negative, Urine Urobilinogen Normal, Ur Leukocyte Esterase 25 H, Urine RBC 0-5 SEEN, Urine WBC 0-5 SEEN, Ur Squamous Epith Cells 0-5 SEEN, Urine Bacteria 0 SEEN, Hyaline Casts 0-5 SEEN, Urine Mucus RARE 06/10/22 17:05: POC Glucose 116 H 06/11/22 06:33: POC Glucose 88 06/11/22 06:42: Sodium 142, Potassium 3.7, Chloride 109 H, Carbon Dioxide 25.0, Anion Gap 8, BUN 21 H, Creatinine 0.98, Estim Creat Clear Calc 42.75, Est GFR (MDRD) Af Amer 74, Est GFR (MDRD) Non-Af 61, BUN/Creatinine Ratio 21.5 H, Glucose 88, Calcium 9.1, Triglycerides 52, Cholesterol 121, LDL Cholesterol 57, VLDL Cholesterol 10, HDL Cholesterol 54, TSH 1.57, Free T4 0.99 06/11/22 06:42: Hemoglobin A1c 5.6 06/11/22 06:42: WBC 7.2, RBC 4.08 L, Hgb 12.4, Hct 38.3, MCV 93.9, MCH 30.4, MCHC 32.4, RDW Std Deviation 47.4 H, RDW Coeff of Valentine 13.6, Plt Count 192, MPV 11.0, Immature Gran % (Auto) 0.300, Neut % (Auto) 68.4, Lymph % (Auto) 23.0, Mcdonald % (Auto) 7.4, Eos % (Auto) 0.3, Baso % (Auto) 0.6, Absolute Neuts (auto) 4.9, Absolute Lymphs (auto) 1.65, Nucleated RBC % 0 Radiography Diagnostic Testing: Radiology Impression Brain CT 06/10/22 10:39 IMPRESSION: Normal unenhanced CT scan of the brain. N.B. : The above Results were Read Back by Rocky Pride MD to [facility] and understanding confirmed on 06/10/2022 10:51:52 (ET). Electronically Signed: Rocky Pride MD at 10:53 EST , ADDENDUM: 06/10/22 1100 IMPRESSION: Normal unenhanced CT scan of the brain. N.B. : The above Results were Read Back by Rocky Pride MD to [facility] and understanding confirmed on 06/10/2022 10:51:52 (ET). Electronically Signed: Rocky Pride MD at 10:53 EST , Head/Neck CTA 06/10/22 10:40 IMPRESSION: Normal CTA Head and neck with contrast. N.B. : The above Results were Read Back by Rocky Pride MD to [facility] and understanding confirmed on 06/10/2022 11:11:39 (ET). Electronically Signed: Rocky Pride MD at 11:12 EST , ADDENDUM: 06/10/22 1119 IMPRESSION: Normal CTA Head and neck with contrast. N.B. : The above Results were Read Back by Rocky Pride MD to [facility] and understanding confirmed on 06/10/2022 11:11:39 (ET). Electronically Signed: Rocky Pride MD at 11:12 EST , Chest X-Ray 06/10/22 11:27 IMPRESSION: Questionable 8 mm calcified granuloma in the lateral aspect of the left midlung. Electronically Signed: Rocky Pride MD at 12:05 EST , Brain MRI 06/10/22 13:30 IMPRESSION: No intracranial hemorrhage, acute infarct, or space occupying lesion seen on this noncontrast MRI of the brain. Electronically Signed: Sanchez Mendez MD at 16:02 EST Reading Location ID and State: [address] [place] [address] Tel , Service support , Echocardiogram 06/10/22 13:30 Interpretation Summary Mild concentric left ventricular hypertrophy. The left ventricular ejection fraction is 70 %. Bubble contrast study is negative for PFO/ASD. The study was technically difficult. Ordering Physician: Juvenal Mijares Referring Physician: KAROL TROY Performed By: Skye Hector RCS D/C Instructions Discharge Diet: Low fat / Low cholesterol and 2000 mg Sodium Diet Weight Bearing Status: Weight bearing as tolerated Call your doctor if you observe: Fever of 101 or Higher, Coldness, Increased Pain, Numbness or Tingling, Change in Color, Inability to urinate, Inability to have a bowel movement, Using more than 1 pad per hour, Shortness of breath, Dizziness, Fainting spells, Swelling in the ankles, Chest pain, Prolonged hiccupping, Increased palpitations (irregular heartbeat) and Calf discomfort When: IN 2 WEEKS Meaningful Use Info Meaningful Use Diagnoses (Choose all that apply): None applicable Discharge Plan Admission Admit Date/Time: 06/10/22 12:14 Primary Reason for Your Visit: stroke ruled out Attending Provider: Juvenal Mijares Primary Care Provider: Karol Troy Instructions Additional Instructions / Restrictions: Patient might be benefited by psychiatry consult or psychologist evaluation and counseling. Discharge Orders/Prescriptions Prescriptions: Continued omeprazole 20 mg Capsule,Delayed Release(Dr/Ec) 20 mg PO DAILY Referrals / Follow Up: Karol Troy MD [Primary Care Provider] - Care Physician,No Primary [Non-Staff] - Disposition Disposition (needs filled in before D/C Order can be placed): Home, Self Care Charges/Coding Addendum Addendum: Patient was admitted as inpatient because she had left-sided weakness, could not walk, gait abnormality, language deficit and dysarthria and symptoms hypermobility of stroke on the basis of NIH stroke scale. MRI brain was negative and patient clinically recovered very soon than expected at time of admission. It seems psychogenic etiology. Visit Charges Inpatient E&M: 14875 Disch Hosp >30min
--- NOTE | 2022-06-11 11:20 | TELEMED_ITS ---
[facility] has confirmed receipt of a request for visit. This document confirms receipt of the order initiating the consult. To find the results of the consultation, please view the patient's reports for the scanned Telemed Consult.
--- NOTE | 2022-06-11 11:56 | PCM.PN.HOSP ---
Reason for Visit Reason for Visit: Diagnoses Encephalopathy, unspecified (06/10/22) Cerebral infarction, unspecified (06/10/22) Objective Data Objective Data Vital Signs: Vital Signs Temp Pulse Resp BP Pulse Ox O2 Del Method 97.9 F 68 18 162/103 H 97 Room Air 06/11/22 09:15 06/11/22 09:15 06/11/22 09:15 06/11/22 09:15 06/11/22 09:15 06/11/22 09:15 Oxygen Delivery Method Room Air Weight: 167 lb 12.348 oz Body Mass Index (BMI) 32.8 Intake & Output: Intake and Output for Last 24 Hours 06/09/22 06/10/22 06/11/22 23:59 23:59 23:59 Intake Total 1180 / 1180 Output Total 0 / 0 Balance 0 / 120 1180 / 1180 Lab / Micro Data Result Diagrams: 06/11/22 06:42 06/11/22 06:42 Labs: Laboratory Results - last 24 hr 06/10/22 10:50: Magnesium 1.8 06/10/22 17:05: POC Glucose 116 H 06/11/22 06:33: POC Glucose 88 06/11/22 06:42: Sodium 142, Potassium 3.7, Chloride 109 H, Carbon Dioxide 25.0, Anion Gap 8, BUN 21 H, Creatinine 0.98, Estim Creat Clear Calc 42.75, Est GFR (MDRD) Af Amer 74, Est GFR (MDRD) Non-Af 61, BUN/Creatinine Ratio 21.5 H, Glucose 88, Calcium 9.1, Triglycerides 52, Cholesterol 121, LDL Cholesterol 57, VLDL Cholesterol 10, HDL Cholesterol 54, TSH 1.57, Free T4 0.99 06/11/22 06:42: Hemoglobin A1c 5.6 06/11/22 06:42: WBC 7.2, RBC 4.08 L, Hgb 12.4, Hct 38.3, MCV 93.9, MCH 30.4, MCHC 32.4, RDW Std Deviation 47.4 H, RDW Coeff of Valentine 13.6, Plt Count 192, MPV 11.0, Immature Gran % (Auto) 0.300, Neut % (Auto) 68.4, Lymph % (Auto) 23.0, [place] % (Auto) 7.4, Eos % (Auto) 0.3, Baso % (Auto) 0.6, Absolute Neuts (auto) 4.9, Absolute Lymphs (auto) 1.65, Nucleated RBC % 0 Radiography Diagnostic Testing: Radiology Impression Chest X-Ray 06/10/22 11:27 IMPRESSION: Questionable 8 mm calcified granuloma in the lateral aspect of the left midlung. Electronically Signed: Rocky Pride MD at 12:05 EST , Brain MRI 06/10/22 13:30 IMPRESSION: No intracranial hemorrhage, acute infarct, or space occupying lesion seen on this noncontrast MRI of the brain. Electronically Signed: Sanchez Mendez MD at 16:02 EST , Echocardiogram 06/10/22 13:30 Interpretation Summary Mild concentric left ventricular hypertrophy. The left ventricular ejection fraction is 70 %. Bubble contrast study is negative for PFO/ASD. The study was technically difficult. Ordering Physician: Juvenal Mijares Referring Physician: KAROL LOWRY Performed By: Skye Hector RCS Rhythm Strip Rhythm Strip: Sinus Rhythm Rate: 92 Ectopy: None Physical Exam Narrative Patient's daughter does not agree with the discharge. She states he is still not back to baseline. Sometimes she has hallucination, weird thinking and feels extra sensitive to rn cardiac stated heart sore pinches. Physical exam General: Still confused, disoriented. Does not participate wholly in conversation. HEENT: Atraumatic, PERRLA, EOMI, Normocephalic Oral: Oral mucosa dry. No Gingival or Mucosal Lesions/ Ulcerations Neck: Supple, No JVD, Negative Carotid Bruits Lungs: Air entry diminished in bilateral lung bases. No crepitation/rhonchi Cardiovascular: Regular rate, Regular Rhythm, Normal S1, Normal S2, No murmurs Abdomen: Bowel Sounds Present, Soft, Non Tender, Non-Distended : No renal angle tenderness. No suprapubic tenderness. Extremities: No edema, Capillary Refill Less than 3 Seconds Skin: No rashes, No breakdown Musculoskeletal: Weakness in left lower extremity, drift,No Tenderness to Palpation of Joints or Extremities Neurological: left-sided facial droop, low-tone speech. No dysarthria or dysphagia. No language deficit Psych/Mental Status: Possible anxiety, visual hallucination. Assessment & Plan Assessment/Plan (1) Acute cerebrovascular accident (CVA): (2) Acute encephalopathy: PLAN: Plan This is 61 years Is being admitted forleft-sided weakness, facial droop, mild to moderate language deficit, dysarthria, inattention, confusion and disorientation hallucination suggestive of acute encephalopathy and strokelike. 1. Most probably acute ischemic stroke: Patient is being admitted in PCU. MRI brain ordered. CT brain and CTA head and neck does not show acute abnormality. Patient was evaluated by [facility] teleneurologist and found the patient outside time window. Stroke work-up with MRI brain, 2D echo, lipid profile, A1c and TSH ordered. PT OT speech evaluation. BP control and Accu-Chek as per stroke protocol. Patient started on baby aspirin and high intensity statin. Chest x-ray questionable latent calcified granuloma in lateral aspect of left midlung. Follow with PCP. 06/11: Patient had completed stroke work-up. Fasting profile within normal limit. A1c 5.6% MRI brain reported no acute intracranial abnormality. 2D echo shows no PFO/ASD. EF 70%, mild concentric LVH. Patient is back to normal baseline. Does not have focal weakness of lower extremity. NIH stroke scale 0. Her speech has improved. Speech therapist recommended regular texture thin liquid with small bites small sips slow rate. FRIAL score 11 11, high risk, the patient had fallen 1-2 times in the last 6 months.patient's family want second opinion from [facility] neurology consult although MRI stroke work-up is negative and patient seen by [facility] neurology yesterday. Crisis management also called. 2. Acute encephalopathy, exact etiology unclear possible due to stroke/psychogenic: Patient confusion, disorientation, inattention, hallucination has increased for 1 day prior to arrival patient diagnosis of anxiety and depression is unclear as there is inconsistent history from patient's and her daughter. Not on any dedication. 06/11: Acute encephalopathy fluctuates. Sometimes patient is good and sometimes confused disoriented. Inattention. Hallucination, easily irritable and sensitive. I think acute distal most likely psychogenic possibility of acute adjustment disorder or psychological stress. Crisis management called. 3. Hypothyroidism and possible GERD: Patient is only on omeprazole 20 mg daily at home. Not on thyroid medication. TSH and free T4 normal limit. 06/11: She might have hypertension but not diagnosed yet. Advised ambulatory BP monitoring at home BP monitoring and follow with PCP for diagnosis. 2D echo shows mild concentric LVH. VTE prophylaxis, enoxaparin 40 mill subcut daily from tomorrow AM. Living will/advanced directive/end of life care: Patient does not have living will or advanced directive. Her is next to kin. After discussion of benefits/risks procedures involved with full code, DNR CC arrest and DNR CC, patient's and son and daughter agreed for for full code. They do want artificial life support including intubation, tube feed, ventilator and/chest compression, central venous catheter, vasopressor and DC shock if needed Total time of the visit including total time spent in counseling or coordination of care, (more than 50% of the total time, spent in obtaining medical information from nurses and other ancillary care providers,explaining to the patient about labs, imaging, diagnosis and management of active complex medical conditions), discussion with family members, crisis management evaluation, [facility] consult, review of labs and imaging is 50 minutes. Laboratory Results 06/10/22 10:50: WBC 10.5, RBC 4.39, Hgb 13.4, Hct 40.4, MCV 92.0, MCH 30.5, MCHC 33.2, RDW Std Deviation 45.4 H, RDW Coeff of Valentine 13.2, Plt Count 209, MPV 11.0, Immature Gran % (Auto) 0.400, Neut % (Auto) 85.3 H, Lymph % (Auto) 9.0 L, [place] % (Auto) 5.1, Eos % (Auto) 0.0, Baso % (Auto) 0.2, Absolute Neuts (auto) 9.0 H, Absolute Lymphs (auto) 0.95, Nucleated RBC % 0 06/10/22 10:50: PT 13.7, INR 1.1, APTT 25.6 06/10/22 10:50: Sodium 142, Potassium 3.6, Chloride 109 H, Carbon Dioxide 23.0, Anion Gap 10, BUN 23 H, Creatinine 1.08 H, Estim Creat Clear Calc 38.79, Est GFR (MDRD) Af Amer 66, Est GFR (MDRD) Non-Af 55 L, BUN/Creatinine Ratio 21.3 H, Glucose 149 H, Calcium 9.8, Troponin I High Sens 15 06/10/22 10:50: Magnesium 1.8 06/10/22 11:15: Urine Color Yellow, Urine Clarity Clear, Urine pH 5.0, Ur Specific [place] 1.025, Urine Protein 30 H, Urine Glucose (UA) Normal, Urine Ketones Negative, Urine Occult Blood 10 H, Urine Nitrite Negative, Urine Bilirubin Negative, Urine Urobilinogen Normal, Ur Leukocyte Esterase 25 H, Urine RBC 0-5 SEEN, Urine WBC 0-5 SEEN, Ur Squamous Epith Cells 0-5 SEEN, Urine Bacteria 0 SEEN, Hyaline Casts 0-5 SEEN, Urine Mucus RARE 06/10/22 17:05: POC Glucose 116 H 06/11/22 06:33: POC Glucose 88 06/11/22 06:42: Sodium 142, Potassium 3.7, Chloride 109 H, Carbon Dioxide 25.0, Anion Gap 8, BUN 21 H, Creatinine 0.98, Estim Creat Clear Calc 42.75, Est GFR (MDRD) Af Amer 74, Est GFR (MDRD) Non-Af 61, BUN/Creatinine Ratio 21.5 H, Glucose 88, Calcium 9.1, Triglycerides 52, Cholesterol 121, LDL Cholesterol 57, VLDL Cholesterol 10, HDL Cholesterol 54, TSH 1.57, Free T4 0.99 06/11/22 06:42: Hemoglobin A1c 5.6 06/11/22 06:42: WBC 7.2, RBC 4.08 L, Hgb 12.4, Hct 38.3, MCV 93.9, MCH 30.4, MCHC 32.4, RDW Std Deviation 47.4 H, RDW Coeff of Valentine 13.6, Plt Count 192, MPV 11.0, Immature Gran % (Auto) 0.300, Neut % (Auto) 68.4, Lymph % (Auto) 23.0, [place] % (Auto) 7.4, Eos % (Auto) 0.3, Baso % (Auto) 0.6, Absolute Neuts (auto) 4.9, Absolute Lymphs (auto) 1.65, Nucleated RBC % 0 Charges/Coding Visit Charges Inpatient E&M: 79531 Subs Hosp L3
--- NOTE | 2022-06-11 12:07 | CASEMGMT ---
Social Work PHQ-9 not completed as pt did not have a stroke. SYLVIA Shah
[2022-06-11 15:08] VITALS: BP 132/62; PULSE 80; RESP 18; TEMP 37.1; O2SAT 95
[2022-06-11 15:16] VITALS: BMI 32.8
[2022-06-11 19:05] LABS: Amphetamine Urine VISTA NEGATIVE (<1000 ng/mL); Barbiturate Urine VISTA NEGATIVE (< 200 ng/mL); Benzodiazepine Urine VISTA NEGATIVE (< 200 ng/mL); Cocaine Urine VISTA NEGATIVE (< 300 ng/mL); Ecstacy Urine VISTA POSITIVE (< 500 ng/mL); Methadone Urine VISTA NEGATIVE (< 300 ng/mL); PCP Urine VISTA NEGATIVE (< 25 ng/mL); THC Urine VISTA NEGATIVE (< 50 ng/mL); Vista UDS pH Range 5
[2022-06-11 20:06] LABS: Erythrocyte Sedimentation Rate 5 mm/hr (0-30)
[2022-06-11 22:01] VITALS: BP 119/73; PULSE 69; RESP 16; TEMP 37.2; O2SAT 96
[2022-06-11] MEDS: 0.9% Saline Lock 10 ML Syringe IV (22:08)
[2022-06-11] MEDS: Atorvastatin Calcium 80 MG Tablet PO (22:08)
[2022-06-12 03:41] VITALS: BP 112/87; PULSE 68; RESP 16; TEMP 36.9; O2SAT 96
[2022-06-12 05:00] VITALS: BMI 32.8
[2022-06-12 06:00] VITALS: BMI 32.5
[2022-06-12 07:15] VITALS: O2SAT 95
--- NOTE | 2022-06-12 07:22 | PCM.PN.HOSP ---
Reason for Visit Reason for Visit: Diagnoses Encephalopathy, unspecified (06/10/22) Cerebral infarction, unspecified (06/10/22) Objective Data Objective Data Vital Signs: Vital Signs Temp Pulse Resp BP Pulse Ox O2 Del Method 98.5 F 68 16 112/87 H 95 Room Air 06/12/22 03:41 06/12/22 03:41 06/12/22 03:41 06/12/22 03:41 06/12/22 07:15 06/12/22 07:15 Oxygen Delivery Method Room Air Weight: 166 lb 10.711 oz Body Mass Index (BMI) 32.5 Intake & Output: Intake and Output for Last 24 Hours 06/10/22 06/11/22 06/13/22 23:59 23:59 00:59 Intake Total 2139 Output Total 0 / 0 Balance 0 / 120 2139 / 2139 Lab / Micro Data Result Diagrams: 06/11/22 06:42 06/11/22 06:42 Labs: Laboratory Results - last 24 hr 06/11/22 06:33: POC Glucose 88 06/11/22 06:42: Sodium 142, Potassium 3.7, Chloride 109 H, Carbon Dioxide 25.0, Anion Gap 8, BUN 21 H, Creatinine 0.98, Estim Creat Clear Calc 42.75, Est GFR (MDRD) Af Amer 74, Est GFR (MDRD) Non-Af 61, BUN/Creatinine Ratio 21.5 H, Glucose 88, Calcium 9.1, Triglycerides 52, Cholesterol 121, LDL Cholesterol 57, VLDL Cholesterol 10, HDL Cholesterol 54, TSH 1.57, Free T4 0.99 06/11/22 06:42: Hemoglobin A1c 5.6 06/11/22 06:42: WBC 7.2, RBC 4.08 L, Hgb 12.4, Hct 38.3, MCV 93.9, MCH 30.4, MCHC 32.4, RDW Std Deviation 47.4 H, RDW Coeff of Valentine 13.6, Plt Count 192, MPV 11.0, Immature Gran % (Auto) 0.300, Neut % (Auto) 68.4, Lymph % (Auto) 23.0, [place] % (Auto) 7.4, Eos % (Auto) 0.3, Baso % (Auto) 0.6, Absolute Neuts (auto) 4.9, Absolute Lymphs (auto) 1.65, Nucleated RBC % 0 06/11/22 18:00: Urine Opiates Screen NEGATIVE, Urine Methadone Screen NEGATIVE, Ur Barbiturates Screen NEGATIVE, Ur Phencyclidine Scrn NEGATIVE, Ur Amphetamines Screen NEGATIVE, MDMA (Ecstasy) Screen POSITIVE H, U Benzodiazepines Scrn NEGATIVE, Urine Cocaine Screen NEGATIVE, U Cannabinoids Screen NEGATIVE, Ur Drug Screen Comment 06/11/22 19:18: ESR 5 06/11/22 19:18: C-React Prot Ext Range 10.10 H, Folate 10.70 Micro: Microbiology 06/11/22 14:45 Nasal Secretion SARS-CoV-2 Antigen (Rapid) - Final Rhythm Strip Rhythm Strip: Sinus Rhythm Rate: 92 Ectopy: None Physical Exam Narrative Patient mental status returned to almost baseline. She remembers talking to [facility] neurologist yesterday when she did not had breakfast today. She denies burning micturition. Denies fever. Physical exam General: AAOx3. Speaks in full sentences. Fully comprehensive. HEENT: Atraumatic, PERRLA, EOMI, Normocephalic Oral: Oral mucosa dry. No Gingival or Mucosal Lesions/ Ulcerations Neck: Supple, No JVD, Negative Carotid Bruits Lungs: Air entry diminished in bilateral lung bases. No crepitation/rhonchi Cardiovascular: Regular rate, Regular Rhythm, Normal S1, Normal S2, No murmurs Abdomen: Bowel Sounds Present, Soft, Non Tender, Non-Distended : No renal angle tenderness. No suprapubic tenderness. Extremities: No edema, Capillary Refill Less than 3 Seconds Skin: No rashes, No breakdown Musculoskeletal: Weakness in left lower extremity, drift,No Tenderness to Palpation of Joints or Extremities Neurological: Muscle strength 5/5 at knee and hip joints. No dysarthria or dysphagia. No language deficit Psych/Mental Status: Possible anxiety, visual hallucination. Assessment & Plan Assessment/Plan (1) Acute cerebrovascular accident (CVA): (2) Acute encephalopathy: PLAN: Plan This is 61 years Is being admitted forleft-sided weakness, facial droop, mild to moderate language deficit, dysarthria, inattention, confusion and disorientation hallucination suggestive of acute encephalopathy and strokelike. 1. Most probably acute ischemic stroke: Patient is being admitted in PCU. MRI brain ordered. CT brain and CTA head and neck does not show acute abnormality. Patient was evaluated by [facility] teleneurologist and found the patient outside time window. Stroke work-up with MRI brain, 2D echo, lipid profile, A1c and TSH ordered. PT OT speech evaluation. BP control and Accu-Chek as per stroke protocol. Patient started on baby aspirin and high intensity statin. Chest x-ray questionable latent calcified granuloma in lateral aspect of left midlung. Follow with PCP. 06/11: Patient had completed stroke work-up. Fasting profile within normal limit. A1c 5.6% MRI brain reported no acute intracranial abnormality. 2D echo shows no PFO/ASD. EF 70%, mild concentric LVH. Patient is back to normal baseline. Does not have focal weakness of lower extremity. NIH stroke scale 0. Her speech has improved. Speech therapist recommended regular texture thin liquid with small bites small sips slow rate. FRIAL score 11 11, high risk, the patient had fallen 1-2 times in the last 6 months.patient's family want second opinion from [facility] neurology consult although MRI stroke work-up is negative and patient seen by [facility] neurology yesterday. Crisis management also called. 2. Acute encephalopathy, exact etiology unclear possible due to stroke/psychogenic: Patient confusion, disorientation, inattention, hallucination has increased for 1 day prior to arrival patient diagnosis of anxiety and depression is unclear as there is inconsistent history from patient's and her daughter. Not on any dedication. 06/11: Acute encephalopathy fluctuates. Sometimes patient is good and sometimes confused disoriented. Inattention. Hallucination, easily irritable and sensitive. I think acute distal most likely psychogenic possibility of acute adjustment disorder or psychological stress. Crisis management called. 3. Hypothyroidism and possible GERD: Patient is only on omeprazole 20 mg daily at home. Not on thyroid medication. TSH and free T4 normal limit. 06/11: She might have hypertension but not diagnosed yet. Advised ambulatory BP monitoring at home BP monitoring and follow with PCP for diagnosis. 2D echo shows mild concentric LVH. VTE prophylaxis, enoxaparin 40 mill subcut daily from tomorrow AM. Living will/advanced directive/end of life care: Patient does not have living will or advanced directive. Her is next to kin. After discussion of benefits/risks procedures involved with full code, DNR CC arrest and DNR CC, patient's and son and daughter agreed for for full code. They do want artificial life support including intubation, tube feed, ventilator and/chest compression, central venous catheter, vasopressor and DC shock if needed Total time of the visit including total time spent in counseling or coordination of care, (more than 50% of the total time, spent in obtaining medical information from nurses and other ancillary care providers,explaining to the patient about labs, imaging, diagnosis and management of active complex medical conditions), discussion with family members, crisis management evaluation, [facility] consult, review of labs and imaging is 50 minutes. Laboratory Results 06/10/22 10:50: WBC 10.5, RBC 4.39, Hgb 13.4, Hct 40.4, MCV 92.0, MCH 30.5, MCHC 33.2, RDW Std Deviation 45.4 H, RDW Coeff of Valentine 13.2, Plt Count 209, MPV 11.0, Immature Gran % (Auto) 0.400, Neut % (Auto) 85.3 H, Lymph % (Auto) 9.0 L, Frederick % (Auto) 5.1, Eos % (Auto) 0.0, Baso % (Auto) 0.2, Absolute Neuts (auto) 9.0 H, Absolute Lymphs (auto) 0.95, Nucleated RBC % 0 06/10/22 10:50: PT 13.7, INR 1.1, APTT 25.6 06/10/22 10:50: Sodium 142, Potassium 3.6, Chloride 109 H, Carbon Dioxide 23.0, Anion Gap 10, BUN 23 H, Creatinine 1.08 H, Estim Creat Clear Calc 38.79, Est GFR (MDRD) Af Amer 66, Est GFR (MDRD) Non-Af 55 L, BUN/Creatinine Ratio 21.3 H, Glucose 149 H, Calcium 9.8, Troponin I High Sens 15 06/10/22 10:50: Magnesium 1.8 06/10/22 11:15: Urine Color Yellow, Urine Clarity Clear, Urine pH 5.0, Ur Specific [place] 1.025, Urine Protein 30 H, Urine Glucose (UA) Normal, Urine Ketones Negative, Urine Occult Blood 10 H, Urine Nitrite Negative, Urine Bilirubin Negative, Urine Urobilinogen Normal, Ur Leukocyte Esterase 25 H, Urine RBC 0-5 SEEN, Urine WBC 0-5 SEEN, Ur Squamous Epith Cells 0-5 SEEN, Urine Bacteria 0 SEEN, Hyaline Casts 0-5 SEEN, Urine Mucus RARE 06/10/22 17:05: POC Glucose 116 H 06/11/22 06:33: POC Glucose 88 06/11/22 06:42: Sodium 142, Potassium 3.7, Chloride 109 H, Carbon Dioxide 25.0, Anion Gap 8, BUN 21 H, Creatinine 0.98, Estim Creat Clear Calc 42.75, Est GFR (MDRD) Af Amer 74, Est GFR (MDRD) Non-Af 61, BUN/Creatinine Ratio 21.5 H, Glucose 88, Calcium 9.1, Triglycerides 52, Cholesterol 121, LDL Cholesterol 57, VLDL Cholesterol 10, HDL Cholesterol 54, TSH 1.57, Free T4 0.99 06/11/22 06:42: Hemoglobin A1c 5.6 06/11/22 06:42: WBC 7.2, RBC 4.08 L, Hgb 12.4, Hct 38.3, MCV 93.9, MCH 30.4, MCHC 32.4, RDW Std Deviation 47.4 H, RDW Coeff of Valentine 13.6, Plt Count 192, MPV 11.0, Immature Gran % (Auto) 0.300, Neut % (Auto) 68.4, Lymph % (Auto) 23.0, Frederick % (Auto) 7.4, Eos % (Auto) 0.3, Baso % (Auto) 0.6, Absolute Neuts (auto) 4.9, Absolute Lymphs (auto) 1.65, Nucleated RBC % 0
[2022-06-12 08:46] LABS: Ammonia < 10.0 umol/L (11-32)
[2022-06-12 09:41] VITALS: BP 110/51; PULSE 74; RESP 18; TEMP 37.6; O2SAT 95
[2022-06-12] MEDS: Aspirin 81 MG TAB.CHEW PO (09:42)
[2022-06-12] MEDS: 0.9% Saline Lock 10 ML Syringe IV (09:44)
[2022-06-12 10:00] VITALS: BMI 32.5
--- NOTE | 2022-06-12 10:45 | DCINST_ITS ---
Discharge Instructions Diet Discharge Diet: Low fat / Low cholesterol and 2000 mg Sodium Diet Activity Weight Bearing Status: Weight bearing as tolerated Dressing / Incision Call your doctor if you observe: Fever of 101 or Higher, Coldness, Increased Pain, Numbness or Tingling, Change in Color, Inability to urinate, Inability to have a bowel movement, Using more than 1 pad per hour, Shortness of breath, Dizziness, Fainting spells, Swelling in the ankles, Chest pain, Prolonged hiccupping, Increased palpitations (irregular heartbeat) and Calf discomfort Follow Up Care Test Results: Test results from this visit will be discussed in further detail at your follow- up appointment, if applicable. Discharge Plan Admission Admit Date/Time: 06/10/22 12:14 Primary Reason for Your Visit: stroke ruled out Attending Provider: Juvenal Mijares Primary Care Provider: Shiela Troy Instructions Additional Instructions / Restrictions: Patient might be benefited by psychiatry consult or psychologist evaluation and counseling. Discharge Orders/Prescriptions Prescriptions: Continued omeprazole 20 mg Capsule,Delayed Release(Dr/Ec) 20 mg PO DAILY Referrals / Follow Up: Shiela Troy MD [Primary Care Provider] - Ty Wilson MD [Non-Staff -Ordering Privileges] - Within 2 Weeks (FOR AMS, encephalopathy) Chandu Woodruff DO [Med Staff - Mainstreaming Facilitator] - Within 1 Month Care Physician,No Primary [Non-Staff] - Disposition Disposition (needs filled in before D/C Order can be placed): Home, Self Care
[2022-06-12 10:48] VITALS: BP 134/91; PULSE 88; RESP 18; TEMP 36.7; O2SAT 98
--- NOTE | 2022-06-12 11:35 | PCM.DC.SUM ---
Providers Date of Admission: 06/10/22 Date of Discharge: 06/12/22 Primary Care Physician: Dr. Shiela Troy MD Reason For Visit: STROKE Diagnosis Discharge Diagnosis (1) Acute cerebrovascular accident (CVA): Status: Acute Code(s): I63.9 - Cerebral infarction, unspecified (2) Acute encephalopathy: Status: Acute Code(s): G93.40 - Encephalopathy, unspecified Plan This is 61 years Is being admitted forleft-sided weakness, facial droop, mild to moderate language deficit, dysarthria, inattention, confusion and disorientation hallucination suggestive of acute encephalopathy and strokelike. 1. Most probably acute ischemic stroke: Patient is being admitted in PCU. MRI brain ordered. CT brain and CTA head and neck does not show acute abnormality. Patient was evaluated by [facility] teleneurologist and found the patient outside time window. Stroke work-up with MRI brain, 2D echo, lipid profile, A1c and TSH ordered. PT OT speech evaluation. BP control and Accu-Chek as per stroke protocol. Patient started on baby aspirin and high intensity statin. Chest x-ray questionable latent calcified granuloma in lateral aspect of left midlung. Follow with PCP. 06/11: Patient had completed stroke work-up. Fasting profile within normal limit. A1c 5.6% MRI brain reported no acute intracranial abnormality. 2D echo shows no PFO/ASD. EF 70%, mild concentric LVH. Patient is back to normal baseline. Does not have focal weakness of lower extremity. NIH stroke scale 0. Her speech has improved. Speech therapist recommended regular texture thin liquid with small bites small sips slow rate. FRIAL score 11 11, high risk, the patient had fallen 1-2 times in the last 6 months.patient's family want second opinion from [facility] neurology consult although MRI stroke work-up is negative and patient seen by [facility] neurology yesterday. Crisis management also called. Patient was seen by [facility] neurologist and discussed with her. She recommended blood test and was done. She also recommended MRI with contrast, EEG and LP if her mental status does not improve. 06/12: Patient had much improvement in mental status. She remembers yesterday evening events and today morning events. She talks current with full eye contact, comprehensive speech. No dysarthria or dysphagia. CRP mildly elevated, ammonia normal, folic acid normal. B12 pending. I discussed about the positive after she is U-Tox about the patient and her . She is a never smoker and denies any substance use. She denies any recent [id number] cold medication, antispasmodic, antidepressant or SSRI. Earlier does not want to introduce MRI brain with contrast and patient does not want to do LP. I talked to the patient's over the phone and he is coming and possible discharge. I recommended to follow-up with in person neurologist Dr. Wilson in [address] Woodruff in about 1 month.. Exact etiology of acute encephalopathy unclear what patient almost recovered and acute encephalopathy resolved. As per nursing staff, patient walked code and does not need walking assistance or rehab. 2. Acute encephalopathy, exact etiology unclear possible due to stroke/psychogenic: Patient confusion, disorientation, inattention, hallucination has increased for 1 day prior to arrival patient diagnosis of anxiety and depression is unclear as there is inconsistent history from patient's and her daughter. 06/11: Acute encephalopathy fluctuates. Sometimes patient is good and sometimes confused disoriented. Inattention. Hallucination, easily irritable and sensitive. I think acute distal most likely psychogenic possibility of acute adjustment disorder or psychological stress. Crisis management called. 06/12: Admission of acute symptoms resolved and patient does not need inpatient psych transfer as suggested yesterday by crisis management because her mental status, hallucination and confusion has improved. 3. Hypothyroidism and possible GERD: Patient is only on omeprazole 20 mg daily at home. Not on thyroid medication. TSH and free T4 normal limit. 06/11: She might have hypertension but not diagnosed yet. Advised ambulatory BP monitoring at home BP monitoring and follow with PCP for diagnosis. 2D echo shows mild concentric LVH. VTE prophylaxis, enoxaparin 40 mill subcut daily Living will/advanced directive/end of life care: Patient does not have living will or advanced directive. Her is next to kin. After discussion of benefits/risks procedures involved with full code, DNR CC arrest and DNR CC, patient's and son and daughter agreed for for full code. They do want artificial life support including intubation, tube feed, ventilator and/chest compression, central venous catheter, vasopressor and DC shock if needed I talked to the patient, her , son and daughter present in the room in the presence of patient's nurse, Nuzhat. She does not have any acute complaint. She also walked around her hallway and no issues of off-balance disequilibrium. Family's question about after she presented in urine tox was answered to the best of my knowledge. Family agree to take the patient home Microbiology Past 72 Hours 06/11/22 14:45 Nasal Secretion SARS-CoV-2 Antigen (Rapid) - Final Laboratory Results 06/11/22 18:00: Urine Opiates Screen NEGATIVE, Urine Methadone Screen NEGATIVE, Ur Barbiturates Screen NEGATIVE, Ur Phencyclidine Scrn NEGATIVE, Ur Amphetamines Screen NEGATIVE, MDMA (Ecstasy) Screen POSITIVE H, U Benzodiazepines Scrn NEGATIVE, Urine Cocaine Screen NEGATIVE, U Cannabinoids Screen NEGATIVE, Ur Drug Screen Comment 06/11/22 19:18: ESR 5 06/11/22 19:18: C-React Prot Ext Range 10.10 H, Folate 10.70 06/11/22 19:18: Vitamin B12 Pending 06/11/22 19:18: JUNIOR-1 Antibody Pending, SS-A/Ro IgG Antibody Pending, SS-B/La IgG Antibody Pending, Sm ([place]) Antibody Pending, COUNTY EXTENSION AGENT Antibody Pending, Scl-70 Scleroderma Ab Pending, Double Strand DNA Ab Pending, Centromere B Antibody Pending 06/12/22 07:57: Ammonia < 10.0 L Medications at Discharge Home Medications omeprazole 20 mg capsule,delayed release 20 mg PO DAILY 06/10/22 Physical Exam Narrative Patient mental status returned to almost baseline. She remembers talking to [facility] neurologist yesterday when she did not had breakfast today. She denies burning micturition. Denies fever. Physical exam General: AAOx3. Speaks in full sentences. Fully comprehensive. HEENT: Atraumatic, PERRLA, EOMI, Normocephalic Oral: Oral mucosa dry. No Gingival or Mucosal Lesions/ Ulcerations Neck: Supple, No JVD, Negative Carotid Bruits Lungs: Air entry diminished in bilateral lung bases. No crepitation/rhonchi Cardiovascular: Regular rate, Regular Rhythm, Normal S1, Normal S2, No murmurs Abdomen: Bowel Sounds Present, Soft, Non Tender, Non-Distended : No renal angle tenderness. No suprapubic tenderness. Extremities: No edema, Capillary Refill Less than 3 Seconds Skin: No rashes, No breakdown Musculoskeletal: Weakness in left lower extremity, drift,No Tenderness to Palpation of Joints or Extremities Neurological: Muscle strength 5/5 at knee and hip joints. No dysarthria or dysphagia. No language deficit Psych/Mental Status: Possible anxiety, visual hallucination. Weight / BMI Weight Weight: 166 lb 10.711 oz Body Mass Index (BMI) 32.5 ABG / Lab / Microbiology Data Result Diagrams: 06/11/22 06:42 06/11/22 06:42 Laboratory: Laboratory Results - last 24 hr 06/11/22 18:00: Urine Opiates Screen NEGATIVE, Urine Methadone Screen NEGATIVE, Ur Barbiturates Screen NEGATIVE, Ur Phencyclidine Scrn NEGATIVE, Ur Amphetamines Screen NEGATIVE, MDMA (Ecstasy) Screen POSITIVE H, U Benzodiazepines Scrn NEGATIVE, Urine Cocaine Screen NEGATIVE, U Cannabinoids Screen NEGATIVE, Ur Drug Screen Comment 06/11/22 19:18: ESR 5 06/11/22 19:18: C-React Prot Ext Range 10.10 H, Folate 10.70 06/12/22 07:57: Ammonia < 10.0 L Microbiology: Microbiology 06/11/22 14:45 Nasal Secretion SARS-CoV-2 Antigen (Rapid) - Final D/C Instructions Discharge Diet: Low fat / Low cholesterol and 2000 mg Sodium Diet Weight Bearing Status: Weight bearing as tolerated Call your doctor if you observe: Fever of 101 or Higher, Coldness, Increased Pain, Numbness or Tingling, Change in Color, Inability to urinate, Inability to have a bowel movement, Using more than 1 pad per hour, Shortness of breath, Dizziness, Fainting spells, Swelling in the ankles, Chest pain, Prolonged hiccupping, Increased palpitations (irregular heartbeat) and Calf discomfort When: IN 2 WEEKS Meaningful Use Info Meaningful Use Diagnoses (Choose all that apply): None applicable Discharge Plan Admission Admit Date/Time: 06/10/22 12:14 Primary Reason for Your Visit: stroke ruled out Attending Provider: Juvenal Mijares Primary Care Provider: Shiela Troy Instructions Additional Instructions / Restrictions: Patient might be benefited by psychiatry consult or psychologist evaluation and counseling. Discharge Orders/Prescriptions Prescriptions: Continued omeprazole 20 mg Capsule,Delayed Release(Dr/Ec) 20 mg PO DAILY Referrals / Follow Up: Shiela Troy MD [Primary Care Provider] - Ty Wilson MD [Non-Staff -Ordering Privileges] - Within 2 Weeks (FOR AMS, encephalopathy) Chandu Woodruff DO [Med Staff - Territory Sales Consultant] - Within 1 Month Care Physician,No Primary [Non-Staff] - Disposition Disposition (needs filled in before D/C Order can be placed): Home, Self Care Charges/Coding Visit Charges Inpatient E&M: 23071 Disch Hosp >30min
[2022-06-12 13:18] VITALS: BMI 32.5
[2022-06-13 09:19] LABS: Vitamin B12 318 pg/mL (211-911)
[2022-06-14 19:07] LABS: Anti-Centromere B Ab <0.2 AI (0.0-0.9); Anti-Chromatin <0.2 AI (0.0-0.9); Anti-Jo <0.2 AI (0.0-0.9); Anti-Scleroderma-70 AB <0.2 AI (0.0-0.9); RNP Ab <0.2 AI (0.0-0.9); SJOGREN'S Anti-SS-A test < 0.2 AI (0.0-0.9); SJOGREN'S Anti-SS-B test < 0.2 AI (0.0-0.9); Smith Ab <0.2 AI (0.0-0.9)
[2022-06-15 08:14] LABS: Anti-dsDNA Ab 1 IU/mL (0-9)
== END 2022-06-12 15:15 | disposition home or self-care (01) | DRG 71 ==
LOC: ED 12:12 → PCU 13:26
PROVIDERS: Admitting Provider Internal Medicine; Emergency Provider Emergency Medicine; PCP Pediatrics; Visit Provider Internal Medicine
DX: G93.40 Encephalopathy, unspecified (principal); F32.0 Major depressive disorder, single episode, mild; E03.9 Hypothyroidism, unspecified; I10 Essential (primary) hypertension; K21.9 Gastro-esophageal reflux disease without esophagitis; R29.707 NIHSS score 7; Z51.5 Encounter for palliative care; N28.9 Disorder of kidney and ureter, unspecified; R73.9 Hyperglycemia, unspecified
CPT/HCPCS: 36415; 70450; 70496; 70498; 70551; 71045; 80048; 80061; 80307; 81001; 82140; 82607; 82746; 82962; 83036; 83735; 84439; 84443; 84484; 85025; 85610; 85652; 85730; 86140; 86225; 86235; 87426; 92526; 92610; 93005; 93306; 94668; 94762; 95819; 97162; 97165; 97535; 97802; 99252; 99285; J7030; P9612; Q9967; A4216; G0463

== ENCOUNTER 2024-11-25 03:09 | Observation (INO) | payer MEDICARE, OTHER, SELFPAY ==
[2024-11-25] VITALS (18 sets, daily range): BP systolic 105–178; BP diastolic 54–85; PULSE 50–88; RESP 12–18; TEMP 36.1–36.8; O2SAT 93–100; BMI 35.7; BMI 35.3
--- NOTE | 2024-11-25 03:29 | CT_ITS ---
PROCEDURE: ABDOMEN/PELVIS W IV CONT ONLY 11/25/2024 REASON FOR EXAM: ABD PAIN TECHNIQUE: ABDOMEN/PELVIS W IV CONT ONLY Coronal and Sagittal reconstruction series were provided. CONTRAST: Isovue-300 50 VOLUME: 100 mL One or more dose reduction techniques were used (e.g., Automated exposure control, adjustment of the mA and/or kV according to patient size, use of iterative reconstruction technique. RADIATION DOSE SUMMARY: CTDlvol: 23.07 mGy DLP: 1118 mGycm COMPARISON: None. FINDINGS: An impacted appendicolith in the base of the appendix. Enlarged diffusely thickened appendix measuring 1.3 cm. Diffuse thickening enhancement of the wall of the appendix suggestive of uncomplicated acute appendicitis without perforation or abscess formation. Small sliding hiatal hernia. Mild gastroparesis/gastritis. Scattered fluid-filled small bowels, probably enteritis. Fat containing umbilical hernia without incarceration. The visualized lung bases are unremarkable. Normal liver. Normal gallbladder and extrahepatic biliary system. Normal spleen. Normal pancreas. Normal bilateral adrenal glands. Normal size of the right kidney. There is no right renal mass. There are no right renal calculi. There is no right hydronephrosis. Normal visualized right ureter. Normal size of the left kidney. There is no left renal mass. There are no left renal calculi. There is no left hydronephrosis. Normal visualized left ureter. Normal colon. There is no demonstrated peritoneal fluid. Normal abdominal aorta. Normal inferior vena cava. Normal retroperitoneum. Normal urinary bladder. There is no pelvic mass lesion or lymphadenopathy. There is no pelvic fluid. Normal abdominal wall. Normal osseous structures. CT/Abdomen/Pelvis W IV Cont ONLY IMPRESSION: An impacted appendicolith in the base of the appendix. Enlarged diffusely thickened appendix measuring 1.3 cm. Diffuse thickening enhancement of the wall of the appendix suggestive of uncomp licated acute appendicitis without perforation or abscess formation. Small sliding hiatal hernia. Mild gastroparesis/gastritis. Scattered fluid-filled small bowels, probably enteritis. Fat containing umbilical hernia without incarceration. Reading Location: [place] [id number]
[2024-11-25] MEDS: 0.9% Normal Saline (1000mL) 1,000 ML 999 ML IV (03:43)
[2024-11-25 03:48] LABS: Hematocrit 42.6 % (37-47); Hemoglobin 14.4 g/dL (12.0-15.0); Immature Granulocytes Count 0.050 X10^3/uL (0.0-0.0); Mean Corp Hgb Conc 33.8 g/dL (32-36); Mean Corpuscular Volume 90.1 fL (81-99); Mean Platelet Vol. 11.7 fl (6.2-12.0); NRBC Flagged by Analyzer 0 % (0-5); Platelet Count 178 K/mm3 (150-450); RBC Distribution Width CV 13.4 % (11.6-14.6); RBC Distribution Width SD 44.2 fl (35.1-43.9); Red Blood Count 4.73 M/mm3 (4.2-5.4); White Blood Count 10.3 K/mm3 (4.4-11.0)
--- NOTE | 2024-11-25 04:05 | EDS_ITS ---
HPI History of Present Illness Chief Complaint: Abd Pain Informant: patient Narrative Narrative: Patient is 63-year-old female with past medical history of hypertension. She states that over the past 4 to 5 days she has been having mild nausea without vomiting and bouts of diarrhea. She denies any dark discoloration or blood in the stool. She states has been no known sick contact. She states this evening she was sleeping and she awoke with increased pain in the abdomen. She states her father from a history of cancer causing a gastric perforation. She states that with her sudden increase in pain she is concerned for that and therefore comes in for evaluation [facility] Medical History Hypertension Elevated blood sugar level Skin cancer delivery delivered Hypothyroid Home Medications ?Medication ?Instructions ?Recorded ?Last Taken ?Type omeprazole 20 mg capsule,delayed 20 mg PO DAILY 06/09/22 History release Allergy/AdvReac Type Severity Reaction Status Date / Time Penicillins Allergy PT UNSURE Verified 11/25/24 03:10 OF REACTION Social History household members: spouse and children Smoking Status: Never smoker ROS ROS ED Constitutional Constitutional ED: Denies chills or fever(s) Eyes Eyes: Denies change in vision ENT ENT ED: Denies sore throat Cardiovascular Cardiovascular: Denies chest pain Respiratory/Chest Respiratory/Chest: Denies cough or dyspnea Gastrointestinal Gastrointestinal: Reports abdominal pain, diarrhea and nausea; Denies vomiting Genitourinary Genitourinary ED: Denies dysuria or hematuria Musculoskeletal Musculoskeletal: Denies back pain Integumentary Denies rash Neurologic Neurologic: Denies headache(s) Hematologic/Lymphatic Hematologic/Lymphatic: Denies easy bleeding or easy bruising EXAM Physical Exam Const Vital Signs: 11/25/24 03:10 11/25/24 05:10 11/25/24 06:46 Temperature 98.2 F 98.3 F Temperature Source Oral Pulse Rate 58 L 59 L 53 L Respiratory Rate 18 18 18 Blood Pressure 178/73 H 178/71 H 131/57 H Blood Pressure Mean 108 106 81 Pulse Ox 100 100 99 Oxygen Delivery Method Room Air Room Air 11/25/24 07:00 Temperature Temperature Source Pulse Rate 50 L Respiratory Rate 18 Blood Pressure 127/54 H Blood Pressure Mean 78 Pulse Ox 98 Oxygen Delivery Method Room Air Positive well nourished and well developed General Appearance ED: well developed; Negative for pallor HEENT HEENT Narrative: Normocephalic atraumatic Eyes PERRL and EOMs intact bilaterally General Eye ED: Negative for scleral icterus Neck supple Neck Narrative: No nuchal rigidity or meningeal signs Resp normal respiratory effort and clear to auscultation bilaterally Cardio regular rate and regular rhythm Rate: other Other Details: Regular rate and rhythm without murmurs rubs or gallop Radial and carotid pulses are equal and symmetric GI non-distended and no masses GI Narrative: Abdomen is soft and nondistended with normal active bowel sounds. There is diffuse pain with palpation. No voluntary guarding or rigidity. No pulsatile mass or fluid wave. No peritoneal signs noted. Auscultation: normoactive bowel sounds Palpation: soft Extremity normal to inspection Neuro oriented x3, CN's II-XII intact bilaterally and no sensory deficits noted Sensorium / Orientation: alert Motor Exam: strength 5/5 throughout Psych Mood & Affect: anxious Skin no rashes or lesions noted and no wounds General Skin Exam: Negative for jaundice or pallor MDM MDM MDM Narrative Medical decision making narrative: Patient arrived to the ER hypertensive otherwise with stable vitals. She denies a history of hypertension and therefore this is most likely stress secondary to pain driving the higher blood pressure. With concern for gastritis versus perforated ulcer versus pancreatitis or biliary colic or intestinal infection such as colitis or diverticulitis I did elect to perform basic laboratory studies as well as a CT scan with IV contrast. Labs revealed no leukocytosis or left shift. Lipase is normal going against pancreatitis. Patient's liver enzymes are also normal going against biliary colic or acute cholecystitis. The patient CT scan does show findings consistent with gastritis which would fit her history of previous ulcer and there is mild intestinal information which would correlate with enteritis. However there is an appendicolith with a dilated appendix consistent with acute appendicitis. As there is no intestinal perforation or obstruction this is most likely the cause of her increased pain. Secondary to this the case was discussed with general surgeon Dr. Do. He will come to evaluate the patient in the ER. He recommends patient be given Invanz based on her penicillin allergy therefore this was ordered as well. As the patient will require further treatment regarding her acute appendicitis she will be admitted to the hospital for continued care History & Record Review Discussion w/independent historian: Patient Lab Data Attestation: I reviewed the patient's lab results. Labs: Laboratory Results - last 24 hr 11/25/24 03:17 WBC 10.3 RBC 4.73 Hgb 14.4 Hct 42.6 MCV 90.1 MCH 30.4 MCHC 33.8 RDW Std Deviation 44.2 H RDW Coeff of Valentine 13.4 Plt Count 178 MPV 11.7 Immature Gran % (Auto) 0.500 Neut % (Auto) 62.0 Lymph % (Auto) 28.2 [place] % (Auto) 6.9 Eos % (Auto) 1.9 Baso % (Auto) 0.5 Absolute Neuts (auto) 6.4 Absolute Lymphs (auto) 2.90 Nucleated RBC % 0 Sodium 141 Potassium 3.9 Chloride 103 Carbon Dioxide 23.1 Anion Gap 16 H BUN 21 H Creatinine 0.92 Estim Creat Clear Calc 59.04 Est GFR (MDRD) Non-Af 69 BUN/Creatinine Ratio 22.4 H Glucose 126 H Lactic Acid 1.3 Calcium 10.2 Total Bilirubin 0.46 Direct Bilirubin 0.20 AST 18 ALT 17 Alkaline Phosphatase 73 Total Protein 7.1 Albumin 4.3 Globulin 2.8 Lipase 18 Radiography Diagnostic Testing: Clinical Impression(s) from Imaging Studies Abdomen/Pelvis CT 11/25/24 03:29 IMPRESSION: An impacted appendicolith in the base of the appendix. Enlarged diffusely thickened appendix measuring 1.3 cm. Diffuse thickening enhancement of the wall of the appendix suggestive of uncomplicated acute appendicitis without perforation or abscess formation. Small sliding hiatal hernia. Mild gastroparesis/gastritis. Scattered fluid-filled small bowels, probably enteritis. Fat containing umbilical hernia without incarceration. Reading [facility] [id number] Management Discussion w/another healthcare provider: Director Of [employer] And Bever[employer] Services Discharge Plan Dx/Rx/DC Orders Clinical Impression: Acute appendicitis, Gastritis Disposition Disposition: [facility]
[2024-11-25 04:23] LABS: AST(SGOT) 18 U/L (<=31); Alanine Aminotransfer ALT/SGPT 17 U/L (<=34); Albumin, Serum 4.3 g/dL (3.4-4.8); Alkaline Phosphatase 73 U/L (35-104); Anion Gap 16 (5-15); BUN 21 mg/dL (4-19); BUN/Creat Ratio 22.4 RATIO (10-20); Bilirubin, Direct 0.20 mg/dL (0.00-0.30); Calcium,Total 10.2 mg/dL (7.6-11.0); Carbon Dioxide 23.1 mmol/L (21.0-32.0); Chloride 103 mmol/L (98-108); Estimated Creatinine Clearance 59.04 ml/min (50-250); Globulin 2.8 g/dL (2.2-4.2); Glucose 126 mg/dL (70-99); Lipase 18 U/L (13-75); Potassium 3.9 mmol/L (3.3-5.1)
[2024-11-25] MEDS: Lidocaine 2% Viscous15 ML UDC 15 ML PO (04:45)
--- OUTSIDE RECORDS SUMMARY | 2024-11-25 05:29 | XMS RPT_ITS | CCD ---
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 Lc Poole Emergency Provider [phone] Shiela Troy Primary Care Provider [phone] Dr. Juvenal Mijares Admit Provider [phone] Juvenal Mijares Attending Provider Dr. Juvenal Mijares Other Provider Dr. Mame Rock Attending Provider Juvenal Mijares Attending Unavailable Juvenal Mijares Admitting Unavailable Shiela Troy Primary Care Unavailable Juvenal Mijares Consulting Unavailable Juvenal Mijares Attending Unavailable Juvenal Mijares Admitting Unavailable Shiela Troy Primary Care Unavailable Mame [place] Attending Unavailable Shiela Troy Primary Care Unavailable Shiela Troy MD Primary Care Provider Shiela Troy MD Unavailable Juanito Braxton RN Unavailable Unavailable Allergies Allergy Classification Reported Allergen(s) Allergy Type Date of Onset Reaction(s) Facility (2 sources) Penicillins Allergy to substance 3 PT UNSURE OF REACTION [facility] (1 source) Penicillins Drug allergy (disorder) 3 [facility] Repository Medications Current Medications Medication Drug Class(es) Dates Sig (Normalized) Sig (Original) [id number] 200 actuat albuterol 0.09 mg/actuat metered dose inhaler (2 sources) beta2-Adrenergic Agonist Start: 12-12-2012 take 2 puff(s) by inhalation every four hours for cough albuterol 90 mcg/actuation inhaler Inhale 2 puffs every 4 hours if needed for wheezing (cough). 0 12/12/2012 Active Start: 12-12-2012 take 2 puff(s) by in halation every four hours as needed for cough Albuterol Sulfate HFA 108 (90 Base) MCG/ACT Inhalation Aerosol Solution INHALE 2 PUFFS EVERY 4 HOURS NEEDED FOR COUGH AND WHEEZE. Quantity: 1 Refills: 0 Ordered: 29-Jan-2021 Shiela Troy MD Start : 12-Dec-2012 Active aspirin 81 mg delayed release oral tablet (1 source) Platelet Aggregation Inhibitor, Nonsteroidal Anti-inflammatory Drug take 1 tablet by mouth once daily aspirin 81 mg EC tablet Take 1 tablet (81 mg) by mouth once daily. 0 Active atorvastatin 80 mg oral tablet (1 source) HMG-CoA Reductase Inhibitor take 0.5 tablet by mouth once daily atorvastatin (Lipitor) 80 mg tablet Indications: prevention of cerebrovascular accident Take 0.5 tablets (40 mg) by mouth once daily. 0 Active ergocalciferol 1.25 mg oral capsule (8 sources) Provitamin D2 Compound Start: 2017 take 1 capsule by mouth every week ergocalciferol (Vitamin D-2) 1.25 MG (33178 UT) capsule Take 1 capsule (1,250 mcg) by mouth 1 (one) time per week. 0 10/12/2017 Active Start: 10-12-2017 take 1 capsule by [facility] every week Vitamin D (Ergocalciferol) 1.25 MG (47468 UT) Oral Capsule TAKE 1 CAPSULE WEEKLY. Quantity: 12 Refills: 0 Ordered: 12-Oct-2017 Shiela Troy MD Start : 12-Oct-2017 Active levothyroxine sodium 0.025 mg oral tablet (1 source) l-Thyroxine take 1 tablet by mouth once daily levothyroxine (Synthroid, Levoxyl) 25 mcg tablet Take 1 tablet (25 mcg) by mouth once daily. 0 Active mupirocin 0.02 mg/mg topical ointment (5 sources) RNA Synthetase Inhibitor Antibacterial Start: 11-14-19 21 mupirocin (Bactroban) 2 % ointment 3 times a day. APPLY A SMALL AMOUNT as directed 0 11/13/2020 Active Start: 11-13-2020 Mupirocin 2 % External Ointment APPLY A SMALL AMOUNT 3 TIMES DAILY DIRECTED. Quantity: 1 Refills: 0 Ordered: 13-Nov-2020 Shiela Troy MD Start : 13-Nov-2020 Active omeprazole 20 mg delayed release oral capsule (10 sources) Proton Pump Inhibitor Start: 06-10-2022 take 20 mg by mouth once daily Omeprazole Active 20 MG PO DAILY June 10, 2022 1:00am Start: 05-22-2012 take 1 capsule by [facility] once daily before mealtime omeprazole (PriLOSEC) [address] capsule Take 1 capsule (40 mg) by mouth once daily in the morning. Take before meals. 0 05/22/2012 Active Completed/Discontinued Medications Medication Drug Class(es) Dates Sig (Normalized) Sig (Original) cephalexin 500 mg oral tablet (4 sources) Cephalosporin Antibacterial Start: 11-13-2020 take 1 tablet by mouth three times daily Cephalexin 500 MG Oral Tablet TAKE 1 TABLET 3 TIMES DAILY. Quantity: 42 Refills: 0 Ordered: 13-Nov-2020 Shiela Troy MD Start : 13-Nov-2020 Active Problems Active Problems Problem Classification Problem Date Documented Da te Episodic/Chronic Acute cerebrovascular disease (6 sources) Cerebrovascular accident; Translations: [Cerebral infarction, unspecified] Onset: 3 06-10-2022 Chronic Asthma (8 sources) Asthma; Translations: [Asthma, unspecified type, unspecified] Onset: 3 07-04-2022 Chronic Coagulation and hemorrhagic disorders (5 sources) Platelet count below reference range; Translations: [Thrombocytopenia, unspecified] Onset: 3 07-04-2022 Chronic Diabetes mellitus without complication (4 sources) Hyperglycemia; Translations: [Hyperglycemia, unspecified] 06-10-2022 Episodic Esophageal disorders (8 sources) Gastroesophageal reflux disease; Translations: [Esophageal reflux] Onset: 3 07-04-2022 Chronic Malaise and fatigue (8 sources) Fatigue; Translations: [Other malaise and fatigue] Onset: 3 07-04-2022 Episodic Nutritional deficiencies (8 sources) Vitamin D deficiency; Translations: [Unspecified vitamin D deficiency] Onset: 3 07-04-2022 Chronic Other diseases of kidney and ureters (2 sources) Acute renal insufficiency; Translations: [Disorder of kidney and ureter, unspecified] 06-10-2022 Episodic Other diseases of kidney and ureters (2 sources) Disorder of kidney and ureter, unspecified; Translations: [Unspecified disorder of kidney and ureter] 06-10-2022 Episodic Other gastrointestinal disorders (7 sources) Personal history of other diseases of the digestive system; Translations: [History of gastroesophageal reflux disease] Episodic Other lower respiratory disease (1 source) Nodule of lung; Translations: [Solitary pulmonary nodule] 07-04-2022 Episodic Other nervous system disorders (2 sources) Disorder of brain; Translations: [Encephalopathy, unspecified] 06-10-2022 Chronic Other nervous system disorders (3 sources) Encephalopathy, unspecified; Translations: [Encephalopathy, unspecified] Onset: 3 06-10-2022 Chronic Other screening for suspected conditions (not mental disorders or infectious disease) (20 sources) Platelet count below reference range; Translations: [Thyroid function tests abnormal] Onset: Resolved: 3 07-04-2022 Episodic Other upper respiratory infections (7 sources) Acute sinusitis; Translations: [Acute sinusitis, unspecified] Episodic Screening and history of mental health and substance abuse codes (1 source) Patient condition resolved; Translations: [Personal history of other mental and behavioral disorders] 07-04-2022 Episodic Past or Other Problems Problem Classification Problem Date Documented Date Episodic/Chronic Menopausal disorders (5 sources) Postmenopausal bleeding; Translations: [Postmenopausal bleeding] Onset: 07-04-2022 Resolved: 07-04-2022 07-04-2022 Chronic Other and unspecified benign neoplasm (8 sources) Benign neoplasm of soft tissue; Translations: [Benign neoplasm of skin, site unspecified] Onset: 07-04-2022 Resolved: 07-04-2022 07-04-2022 Episodic Other connective tissue disease (5 sources) Pain in limb; Translations: [Pain in limb] Onset: 07-04-2022 Resolved: 07-04-2022 07-04-2022 Episodic Skin and subcutaneous tissue infections (5 sources) Impetigo; Translations: [Impetigo] Onset: 07-04-2022 Resolved: 07-04-2022 07-04-2022 Episodic Unclassified (3 sources) Patient encounter status; Translations: [Visit for screening mammogram] NEGATED: Highlighted row has not occurred!Residual codes; unclassified (4 sources) Disease Episodic Results Test Name Value Interpretation Reference Range Facility [facility]TT[facility] Comprehensive Panelon COLLETTE TABLE Comment Normal . [facility] Comment on above: Result Comment: Auto antibody Disease Association Condition Frequency --------- Antinuclear Antibody, SLE, mixed connective Direct (COLLETTE-D) tissue diseases --------- dsDNA SLE 40 - 60% --------- Chromatin Drug induced SLE 90% SLE 48 - 97% --------- SSA (Ro) SLE 25 - 35% Sjogren's Syndrome 40 - 70% Lupus 100% --------- SSB (La) SLE 10% Sjogren's Syndrome 30% --------- Sm (anti-Mckeon) SLE 15 - 30% --------- OFFSET PROOF PRESS OPERATOR Mixed Connective Tissue Disease 95% (U1 nRNP, SLE 30 - 50% anti-ribonucleoprotein) Polymyositis and/or Dermatomyositis 20% --------- Scl-70 (antiDNA Scleroderma (diffuse) 20 - 35% topoisomerase) Crest 13% --------- Rayne-1 Polymyositis and/or Dermatomyositis 20 - 40% --------- Centromere B Scleroderma - Crest variant 80% Performed at: [address] [id number] Nursing Agency Manager: Ezequiel Marin PhD, Phone: [phone] Performed By: #### L 926.3685, X952.4201, A533.7698, P925.4293 #### [facility] [place], [address] ANTI-DNA (DS)AB 1 IU/mL Normal 0-9 [facility] Comment on above: Result Comment: Nega tive <5 Equivocal 5 - 9 Positive >9 Performed By: #### L 506.0400, L500.4100, L500.2500, L501.9520 #### [facility] [address] [place], [address] COLLETTE Comprehensive Panelon ANTI-CENT B AB <0.2 Normal 0.0-0.9 [facility] Comment on above: Performed By: #### L 506.0400, L500.4100, L500.2500, L501.9520 #### [facility] [address] [place], [address] ANTI-RAYNE-1 <0.2 Normal 0.0-0.9 [facility] Comment on above: Performed By: #### L 506.0400, L500.4100, L500.2500, L501.9520 #### [facility] [address] [place], [address] ANTI-SS-A < 0.2 Normal 0.0-0.9 [facility] Comment on above: Performed By: #### L 506.0400, L500.4100, L500.2500, L501.9520 #### [facility] [address] [place], [address] Anti-SS-B < 0.2 Normal 0.0-0.9 [facility] Comment on above: Performed By: #### L 506.0400, L500.4100, L500.2500, L501.9520 #### [facility] [address] [place], [address] ANTICHROMATIN <0.2 Normal 0.0-0.9 [facility] Comment on above: Performed By: #### L 506.0400, L500.4100, L500.2500, L501.9520 #### [facility] [address] [place], [address] ANTISCLERODERM <0.2 Normal 0.0-0.9 [facility] Comment on above: Performed By: #### L 506.0400, L500.4100, L500.2500, L501.9520 #### [facility] [address] [place], [address] OFFSET PROOF PRESS OPERATOR Ab <0.2 Normal 0.0-0.9 [facility] Comment on above: Performed By: #### L 506.0400, L500.4100, L500.2500, L501.9520 #### [facility] [address] [place], [address] MCKEON Ab <0.2 Normal 0.0-0.9 [facility] Comment on above: Performed By: #### L 506.0400, L500.4100, L500.2500, L501.9520 #### [facility] [address] [place], [address] Vitamin B12on 06-13-2022 Cobalamin (Vitamin B12) [Mass/Vol] 318 pg/mL Normal 211-911 [facility] Comment on above: Performed By: #### L 501.6710, L503.0105, L101.9900, L506.0250 #### [facility] [address] [place], [address] Ammoniaon 06-12-2022 Ammonia (P) [Mass/Vol] ug/dL Low - [facility] Comment on above: Performed By: #### L 503.5510 #### [facility] [address] [place], [address] Basophil percentageOrdered B y: Dr. Mijares on 06-12-2022 Basophil percentage < 10.0 umol/L [facility] Discharge Instructionon 06-01 Discharge Instruction [facility] Medical Records Department [address] [place] [address] Instructions for Home/Discharge Instructions 06/12/22 1045 MR#: [id number] Acct: [id number] Name: IHSAN MARCELO Rep #: [id number] : 1960 61 From: Juvenal Mijares MD PCP: Dr. Shiela Troy MD Status:ADM IN Discharge Instructions Diet Discharge Diet: Low fat / Low cholesterol and 2000 mg Sodium Diet Activity Weight Bearing Status: Weight bearing as tolerated Dressing / Incision Call your doctor if you observe: Fever of 101 or Higher, Coldness, Increased Pain, Numbness or Tingling, Change in Color, Inability to urinate, Inability to have a bowel movement, Using more than 1 pad per hour, Shortness of breath, Dizziness, Fainting spells, Swelling in the ankles, Chest pain, Prolonged hiccupping, Increased palpitations (irregular heartbeat) and Calf discomfort Follow Up Care Test Results: Test results from this visit will be discussed in further detail at your follow-up appointment, if applicable. Discharge Plan Admission Admit Date/Time: 06/10/22 12:14 Primary Reason for Your Visit: stroke ruled out Attending Provider: Juvenal Mijares Primary Care Provider: Shiela Troy Instructions Additional Instructions / Restrictions: Patient might be benefited by psychiatry consult or psychologist evaluation and counseling. Discharge Orders/Prescriptions Prescriptions: Continued omeprazole 20 mg Capsule,Delayed Release(Dr/Ec) 20 mg PO DAILY Referrals / Follow Up: Shiela Troy MD [Primary Care Provider] - Ty Wilson MD [Non-Staff -Ordering Privileges] - Within 2 Weeks (FOR AMS, encephalopathy) Chandu Woodruff DO [Med Staff - Truck Packer] - Within 1 Month Care Physician,No Primary [Non-Staff] - Disposition Disposition (needs filled in before D/C Order can be placed): Home, Self Care 06/12/22 1224 Juvenal Mijares MD CC: Dr. Shiela Troy MD Signed Normal [facility] Absolute lymphocyte countOrd ered By: Dr. Mijares on 06-11-2022 Lymphocytes Auto (Unsp spec) [#/Vol] 1.65 10*3/uL 0.83-4.51 [facility] Basic Metabolic Profile (BMP )on 06-11-2022 BUN/CRE 21.5 RATIO High 01-20 [facility] Comment on above: Performed By: #### L 506.0400, L500.4100, L500.2500, L501.9520 #### [facility] [address] [place], [address] CA,Total 9.1 mg/dL Normal 8.5-10.1 [facility] Comment on above: Performed By: #### L 506.0400, L500.4100, L500.2500, L501.9520 #### [facility] [address] [place], [address] Chloride [Moles/Vol] 109 mmol/L High 98-107 [facility] Comment on above: Performed By: #### L 506.0400, L500.4100, L500.2500, L501.9520 #### [facility] [address] [place], [address] CO2 [Moles/Vol] 25.0 mmol/L Normal 21.0-32.0 [facility] Comment on above: Performed By: #### L 506.0400, L500.4100, L500.2500, L501.9520 #### [facility] [address] [place], [address] Creatinine [Mass/Vol] 0.98 mg/dL Normal 0.55-1.02 [facility] Comment on above: Result Comment: The validity of the calculated GFR GFRAA in patients over 70 years has not been determined. Clinical correlation is essential. Performed By: #### L 506.0400, L500.4100, L500.2500, L501.9520 #### [facility] [address] [place], [address] ECRCL 42.75 ml/min Normal [facility] Comment on above: Performed By: #### L 506.0400, L500.4100, L500.2500, L501.9520 #### [facility] [address] [place], [address] EST GFR - AA 74 mL/min Normal >60 [facility] Comment on above: Result Comment: Afri can Niuean GFR Calc Performed By: #### L 506.0400, L500.4100, L500.2500, L501.9520 #### [facility] [address] [place], [address] GAP 8 Normal 5-15 [facility] Comment on above: Performed By: #### L 506.0400, L500.4100, L500.2500, L501.9520 #### [facility] [address] [place], [address] GFR/1.73 sq M.predicted among non-blacks MDRD (S/P/Bld) [Vol rate/Area] 61 mL/min/{1.73_m2} Normal >60 [facility] Comment on above: Result Comment: Non- GFR Calc Performed By: #### L 506.0400, L500.4100, L500.2500, L501.9520 #### [facility] [address] [place], [address] Glucose [Mass/Vol] 88 mg/dL Normal 74-106 [facility] Comment on above: Performed By: #### L 506.0400, L500.4100, L500.2500, L501.9520 #### [facility] [address] [place], [address] Potassium [Moles/Vol] 3.7 mmol/L Normal 3.5-5.1 [facility] Comment on above: Performed By: #### L 506.0400, L500.4100, L500.2500, L501.9520 #### [facility] [address] [place], [address] Sodium [Moles/Vol] 142 mmol/L Normal 136-145 [facility] Comment on above: Performed By: #### L 506.0400, L500.4100, L500.2500, L501.9520 #### [facility] [address] [place], [address] Urea nitrogen [Mass/Vol] 21 mg/dL High 7-18 [facility] Comment on above: Performed By: #### L 506.0400, L500.4100, L500.2500, L501.9520 #### [facility] [address] [place], [address] Basophil percentageOrdered B y: Dr. Mijares on 06-11-2022 Basophils/100 WBC (Bld) 0.6 % 0-1 [facility] Chloride [Moles/Vol] 109 mmol/L 98-107 [facility] Cholesterol [Mass/Vol] 121 mg/dL <200 [facility] Comment on above: <200 mg/dL Desirable 200-240 mg/dL Borderline >240 mg/dL High Risk Eosinophils/100 WBC (Bld) 0.3 % 0-5 [facility] Glucose [Mass/Vol] 88 mg/dL 74-106 [facility] Neutrophils (Bld) [#/Vol] 4.9 10*3/uL 2.0-7.7 [facility] Neutrophils/100 WBC (Bld) 68.4 % 47-70 [facility] Potassium [Moles/Vol] 3.7 mmol/L 3.5-5.1 [facility] Sodium [Moles/Vol] 142 mmol/L 136-145 [facility] Triglyceride [Mass/Vol] 52 mg/dL <199 [facility] Comment on above: The drugs N-Acetylcy steine and Metamizole may falsely depress this assay.Serum Triglycerides Reference Interval Normal <150 mg/dL Borderline high 150 - 199 mg/dL High 200 - 499 mg/dL Very High > or = 500 mg/dL WBC (Bld) [#/Vol] 7.2 10*3/uL 4.4-11.0 [facility] Bedside Glucoseon 06-11-2022 FINGERSTICK GLU 88 mg/dL Normal 74-106 [facility] Comment on above: Result Comment: YADY MCCORMICK OF PATIENT CARE PER NURSING PROTOCOL Performed By: #### L 506.0400, L500.4100, L500.2500, L501.9520 #### [facility] [address] [place], [address] Blood erythrocytes count (nu mber/volume)Ordered By: Dr. Mijares on 06-11-2022 RBC (Bld) [#/Vol] 4.08 10*6/uL 4.2-5.4 [facility] Blood hemoglobin measurement (mass/volume)Ordered By: Dr. Mijares on 06-11-2022 Hemoglobin (Bld) [Mass/Vol] 12.4 g/dL 12.0-15.0 [facility] Blood lymphocytes/100 leukoc ytesOrdered By: Dr. Mijares on 06-11-2022 Lymphocytes/100 WBC (Bld) 23.0 % 19-41 [facility] Blood monocytes/100 leukocyt esOrdered By: Dr. Mijares on 06-11-2022 Monocytes/100 WBC (Bld) 7.4 % 0-10 [facility] Blood platelet mean volumeOr dered By: Dr. Mijares on 06-11-2022 Platelet mean volume (Bld) [Entitic vol] 11.0 fL 6.2-12.0 [facility] CBC W/Diff, Automatedon 06-01 Absolute Lymph 1.65 X10 3/uL Normal 0.83-4.51 [facility] Comment on above: Performed By: #### L 506.0400, L500.4100, L500.2500, L501.9520 #### [facility] [address] [place], [address] Absolute Neut 4.9 X10 3/uL Normal 2.0-7.7 [facility] Comment on above: Performed By: #### L 506.0400, L500.4100, L500.2500, L501.9520 #### [facility] [address] [place], [address] Basophils/100 WBC (Bld) 0.6 % Normal 0-1 [facility] Comment on above: Performed By: #### L 506.0400, L500.4100, L500.2500, L501.9520 #### [facility] [address] [place], [address] Eosinophils/100 WBC (Bld) 0.3 % Normal 0-5 [facility] Comment on above: Performed By: #### L 506.0400, L500.4100, L500.2500, L501.9520 #### [facility] [address] [place], [address] Erythrocyte distribution width (RBC) [Ratio] 13.6 % Normal 11.6-14.6 [facility] Comment on above: Performed By: #### L 506.0400, L500.4100, L500.2500, L501.9520 #### [facility] [address] [place], [address] Hematocrit (Bld) [Volume fraction] 38.3 % Normal 37-47 [facility] Comment on above: Performed By: #### L 506.0400, L500.4100, L500.2500, L501.9520 #### [facility] [address] [place], [address] Hemoglobin (Bld) [Mass/Vol] 12.4 g/dL Normal 12.0-15.0 [facility] Comment on above: Performed By: #### L 506.0400, L500.4100, L500.2500, L501.9520 #### [facility] [address] [place], [address] IG% 0.300 Normal 0.0-0.9 [facility] Comment on above: Result Comment: IG% - Immature Granulocytes (promyelocytes, myelocytes and metamyelocytes) > 1% indicates that a LEFT SHIFT is Present. Performed By: #### L 506.0400, L500.4100, L500.2500, L501.9520 #### [facility] [address] [place], [address] Lymphocytes/100 WBC (Bld) 23.0 % Normal 19-41 [facility] Comment on above: Performed By: #### L 506.0400, L500.4100, L500.2500, L501.9520 #### [facility] [address] [place], [address] MCH (RBC) [Entitic mass] 30.4 pg Normal 27.0-32.0 [facility] Comment on above: Performed By: #### L 506.0400, L500.4100, L500.2500, L501.9520 #### [facility] [address] [place], [address] MCHC (RBC) [Mass/Vol] 32.4 g/dL Normal 32-36 [facility] Comment on above: Performed By: #### L 506.0400, L500.4100, L500.2500, L501.9520 #### [facility] [address] [place], [address] MCV (RBC) [Entitic vol] 93.9 fL Normal 81-99 [facility] Comment on above: Performed By: #### L 506.0400, L500.4100, L500.2500, L501.9520 #### [facility] [address] [place], [address] Monocytes/100 WBC (Bld) 7.4 % Normal 0-10 [facility] Comment on above: Performed By: #### L 506.0400, L500.4100, L500.2500, L501.9520 #### [facility] [address] [place], [address] Neutrophils/100 WBC (Bld) 68.4 % Normal 47-70 [facility] Comment on above: Performed By: #### L 506.0400, L500.4100, L500.2500, L501.9520 #### [facility] [address] [place], [address] Nucleated RBC (Bld) [#/Vol] 0 10*3/uL Normal 0-5 [facility] Comment on above: Performed By: #### L 506.0400, L500.4100, L500.2500, L501.9520 #### [facility] [address] [place], [address] Platelet mean volume (Bld) [Entitic vol] 11.0 fL Normal 6.2-12.0 [facility] Comment on above: Performed By: #### L 506.0400, L500.4100, L500.2500, L501.9520 #### [facility] [address] [place], [address] Platelets (Bld) [#/Vol] 192 10*3/uL Normal 150-450 [facility] Comment on above: Performed By: #### L 506.0400, L500.4100, L500.2500, L501.9520 #### [facility] [address] [place], [address] RBC (Bld) [#/Vol] 4.08 10*6/uL Low 4.2-5.4 [facility] Comment on above: Performed By: #### L 506.0400, L500.4100, L500.2500, L501.9520 #### [facility] [address] [place], [address] RDW SD 47.4 fl High 35.1-43.9 [facility] Comment on above: Performed By: #### L 506.0400, L500.4100, L500.2500, L501.9520 #### [facility] [address] [place], [address] WBC (Bld) [#/Vol] 7.2 10*3/uL Normal 4.4-11.0 [facility] Comment on above: Performed By: #### L 506.0400, L500.4100, L500.2500, L501.9520 #### [facility] [address] [place], [address] COVID 19 AG RAPID (RN COLLEC T)on 06-11-2022 SARS-CoV-2 (COVID-19) RNA RAFY+probe Ql (Unsp spec) SARS-CoV-2 (COVID 19) Negative RAPID METHOD Quidel Lori Analyzer JUAN DAVID Normal [facility] Comment on above: Performed By: #### L 506.0400, L500.4100, L500.2500, L501.9520 #### [facility] [address] [place], [address] COVID-19 virus antigen assay Ordered By: Dr. Mijares on 06-11-2022 SARS-CoV-2 (COVID-19) Ag IA.rapid Ql (Resp) [facility] CRPon 06-11-2022 C-REACTIVE PROT 10.10 mg/L High 0.0-3.0 [facility] Comment on above: Result Comment: C-Re active Protein (CRP) provides useful information for the diagnosis, therapy and monitoring of inflammatory processes and associated diseases. For the evaluation of Relative Risk for Cardiovascular Disease, a High Sensitivity CRP (HSCRP) should be ordered. Performed By: #### L 501.6710, L503.0105, L101.9900, L506.0250 #### [facility] [address] [place], [address] Consult: TeleCare Non-Emerge nton 06-11-2022 Consult: TeleCare Non-Emergent [facility] Medical Records Department [address] [place] [address] Telemedicine Confirmation Receipt 06/11/22 MR#: [id number] Acct: [id number] Name: IHSAN MARCELO Rep #: [id number] : 1960 61 From: Juvenal Mijares MD PCP: Dr. Shiela Troy MD Status:ADM IN [facility] has confirmed receipt of a request for visit. This document confirms receipt of the order initiating the consult. To find the results of the consultation, please view the patient's reports for the scanned Telemed Consult. Normal [facility] Determination of erythrocyte mean corpuscular volume (MCV)Ordered By: Dr. Mijares on 06-11-2022 MCV (RBC) [Entitic vol] 93.9 fL 81-99 [facility] Discharge Instructionon 06-01 Discharge Instruction [facility] Medical Records Department [address] [place] [address] Instructions for Home/Discharge Instructions 06/11/22 0747 MR#: [id number] Acct: [id number] Name: IHSAN MARCELO Rep #: [id number] : 1960 61 From: Juvenal Mijares MD PCP: Dr. Shiela Troy MD Status:ADM IN Discharge Instructions Diet Discharge Diet: Low fat / Low cholesterol and 2000 mg Sodium Diet Activity Discharge Activity: Return to Normal Activity Weight Bearing Status: Weight bearing as tolerated Dressing / Incision Call your doctor if you observe: Fever of 101 or Higher, Coldness, Increased Pain, Numbness or Tingling, Change in Color, Inability to urinate, Inability to have a bowel movement, Using more than 1 pad per hour, Shortness of breath, Dizziness, Fainting spells, Swelling in the ankles, Chest pain, Prolonged hiccupping, Increased palpitations (irregular heartbeat) and Calf discomfort Follow Up Care When: IN 2 WEEKS Test Results: Test results from this visit will be discussed in further detail at your follow-up appointment, if applicable. Discharge Plan Admission Admit Date/Time: 06/10/22 12:14 Primary Reason for Your Visit: stroke ruled out Attending Provider: Juvenal Mijares Primary Care Provider: Shiela Troy Instructions Additional Instructions / Restrictions: Patient might be benefited by psychiatry consult or psychologist evaluation and counseling. Discharge Orders/Prescriptions Prescriptions: Continued omeprazole 20 mg Capsule,Delayed Release(Dr/Ec) 20 mg PO DAILY Referrals / Follow Up: Shiela Troy MD [Primary Care Provider] - Care Physician,No Primary [Non-Staff] - Disposition Disposition (needs filled in before D/C Order can be placed): Home, Self Care 06/11/22 1048 Juvenal Mijares MD CC: Dr. Shiela Troy MD Signed Normal [facility] Erythrocyte Sed Rateon 06-11 SED RATE 5 mm/hr Normal 0-30 [facility] Comment on above: Performed By: #### L 501.6710, L503.0105, L101.9900, L506.0250 #### [facility] [address] [place], [address] Erythrocyte sedimentation ra teOrdered By: Dr. Mijares on 06-11-2022 ESR (Bld) [Velocity] 5 mm/h 0-30 [facility] Folates, (Folic Acid)on 06-01 FOLATES 10.70 ng/mL Normal 3.1-55.4 [facility] Comment on above: Performed By: #### L 501.6710, L503.0105, L101.9900, L506.0250 #### [facility] [address] [place], [place], [address] Glucose Glucometer (BldC) [M ass/Vol]Ordered By: Dr. Mijares on 06-11-2022 Glucose [Mass/Vol] 88 mg/dL 74-106 [facility] Comment on above: MANAGEMENT OF PATIEN T CARE PER NURSING PROTOCOL Hematocrit Auto (Bld) [Volum e fraction]Ordered By: Dr. Mijares on 06-11-2022 Hematocrit (Bld) [Volume fraction] 38.3 % 37-47 [facility] Hemoglobin A1con 06-11-2022 HbA1c (Bld) [Mass fraction] 5.6 % Normal 3.8-5.6 [facility] Comment on above: Result Comment: Norm al < 5.7 % Prediabetic 5.7 - 6.4 % Diabetic >or= 6.5 % Please note range changes. Performed By: #### L 506.0400, L500.4100, L500.2500, L501.9520 #### [facility] [address] [place], [address] Laboratory - Chemistry and C hemistry - challengeOrdered By: Dr. Mijares on 06-11-2022 CO2 [Moles/Vol] 25.0 mmol/L 21.0-32.0 [facility] Free T4 [Mass/Vol] 0.99 ng/dL 0.76-1.46 [facility] Urea nitrogen/Creatinine [Mass ratio] 21.5 mg/mg 10-20 [facility] - Drug toxicology Ordered By: Dr. Mijares on 06-11-2022 Amphetamines Ql (U) Negative <1000 ng/mL [facility] Benzodiazepines Ql (U) Negative < 200 ng/mL [facility] Cannabinoids Screen Ql (U) Negative < 50 ng/mL [facility] Cocaine Ql (U) Negative < 300 ng/mL [facility] Opiates Ql (U) Negative < 300 ng/mL [facility] - Hematology and Cell countsOrdered By: Dr. Mijares on 06-11-2022 Erythrocyte distribution width (RBC) [Entitic vol] 47.4 fL 35.1-43.9 [facility] Erythrocyte distribution width (RBC) [Ratio] 13.6 % 11.6-14.6 [facility] Immature granulocytes/100 WBC (Bld) 0.300 % 0.0-0.9 [facility] Comment on above: IG% - Immature Granu locytes (promyelocytes, myelocytes and metamyelocytes) > 1% indicates that a LEFT SHIFT is Present. MCH (RBC) [Entitic mass] 30.4 pg 27.0-32.0 [facility] Nucleated RBC/100 WBC (Bld) [Ratio] 0 % 0-5 [facility] Lipid Profileon 06-11-2022 Cholesterol [Mass/Vol] 121 mg/dL Normal 200 [facility] Comment on above: Result Comment: <200 mg/dL Desirable 200-240 mg/dL Borderline >240 mg/dL High Risk Performed By: #### L 506.0400, L500.4100, L500.2500, L501.1617 #### [facility] [address] [place], [address] Cholesterol in HDL [Mass/Vol] 54 mg/dL Normal [facility] Comment on above: Result Comment: The drugs N-Acetylcysteine and Metamizole may falsely depress this assay. Reference Range HDL <40 mg/dL Low HDL Cholesterol HDL >or= 60 mg/dL High HDL Cholesterol Performed By: #### L 506.0400, L500.4100, L500.2500, L501.9520 #### [facility] [address] [place], [address] Cholesterol in LDL [Mass/Vol] 57 mg/dL Normal 0-130 [facility] Comment on above: Performed By: #### L 506.0400, L500.4100, L500.2500, L501.9520 #### [facility] [address] [place], [address] Cholesterol in VLDL [Mass/Vol] 10 mg/dL Normal 5-40 [facility] Comment on above: Performed By: #### L 506.0400, L500.4100, L500.2500, L501.9520 #### [facility] [address] [place], [address] Triglyceride [Mass/Vol] 52 mg/dL Normal [facility] Comment on above: Result Comment: The drugs N-Acetylcysteine and Metamizole may falsely depress this assay. Serum Triglycerides Reference Interval Normal <150 mg/dL Borderline high 150 - 199 mg/dL High 200 - 499 mg/dL Very High > or = 500 mg/dL Performed By: #### L 506.0400, L500.4100, L500.2500, L501.9520 #### [facility] [address] [place], [address] MCHC Auto (RBC) [Mass/Vol]Or dered By: Dr. Mijares on 06-11-2022 MCHC (RBC) [Mass/Vol] 32.4 g/dL 32-36 [facility] No Panel InformationOrdered By: Dr. Mijares on 06-11-2022 MDMA (Ecstasy) Screen Positive < 500 ng/mL [facility] Urine Barbiturates Screen Negative < 200 ng/mL [facility] Urine Drug Screen Comment [facility] Comment on above: CONFIRMATORY TESTING FOR ALL POSITIVE URINE DRUG SCREENRESULTS WILL ONLY BE SENT OUT UPON PHYSICIAN ORDER. [facility]IST[facility] Urine Drug Screen methods provide only preliminaryanalytical test results. A more specific alternate chemicalmethod must be used in order to obtain a confirmedanalytical result. Gas chromatography/mass spectrometery(GC/MS) is the preferred confirmatory method. Clinicalconsideration and professional judgement should be appliedto any drug of abuse test result, particularly whenpreliminary positive results are used. URINE TCA TESTING MUST BE ORDERED SEPARATELY. USE TESTMNEMONIC: [facility] Urine Methadone Screen Negative < 300 ng/mL [facility] Estimated Creatinine Clearance Calc 42.75 ml/min [facility] Estimated GFR (MDRD) Amer 74 mL/min >60 [facility] Comment on above: GFR Calc Estimated GFR (MDRD) Non-Af Amer 61 mL/min >60 [facility] Comment on above: Non- GFR Calc Thyroid Stimulating Hormone (TSH) 1.57 uIU/mL 0.358-3.74 [facility] Platelets bldOrdered By: Dr. Mijares on 06-11-2022 Platelets (Bld) [#/Vol] 192 10*3/uL 150-450 [facility] Serum or plasma C reactive p rotein measurement (mass/volume)Ordered By: Dr. Mijares on 06-11-2022 CRP [Mass/Vol] 10.10 mg/L 0.0-3.0 [facility] Comment on above: C-Reactive Protein ( CRP) provides useful information for thediagnosis, therapy and monitoring of inflammatory processesand associated diseases. For the evaluation of Relative Riskfor Cardiovascular Disease, a High Sensitivity CRP (HSCRP)should be ordered. Serum or plasma calcium marlen urement (mass/volume)Ordered By: Dr. Mijares on 06-11-2022 Calcium [Mass/Vol] 9.1 mg/dL 8.5-10.1 [facility] Serum or plasma cholesterol in HDL measurement (mass/volume)Ordered By: Dr. Mijares on 06-11-2022 Cholesterol in HDL [Mass/Vol] 54 mg/dL >40 [facility] Comment on above: The drugs N-Acetylcy steine and Metamizole may falsely depress this assay. Reference Range HDL <40 mg/dL Low HDL Cholesterol HDL >or= 60 mg/dL High HDL Cholesterol Serum or plasma cholesterol in VLDL measurement (mass/volume)Ordered By: Dr. Mijares on 06-11-2022 Cholesterol in VLDL [Mass/Vol] 10 mg/dL 5-40 [facility] Serum or plasma creatinine m easurement (mass/volume)Ordered By: Dr. Mijares on 06-11-2022 Creatinine [Mass/Vol] 0.98 mg/dL 0.55-1.02 [facility] Comment on above: The validity of the calculated GFR & GFRAA in patients over 70 years has not been determined. Clinical correlation is essential. Serum or plasma folate measu rement (mass/volume)Ordered By: Dr. Mijares on 06-11-2022 Folate [Mass/Vol] 10.70 ng/mL 3.1-55.4 [facility] Serum or plasma low density lipoprotein (LDL) cholesterol measurement (mass/volume)Ordered By: Dr. Mijares on 06-11-2022 Cholesterol in LDL [Mass/Vol] 57 mg/dL 0-130 [facility] Serum or plasma urea nitroge n measurement (mass/volume)Ordered By: Dr. Mijares on 06-11-2022 Urea nitrogen [Mass/Vol] 21 mg/dL 7-18 [facility] T4 Free Directon 06-11-2022 T4 FREE DIRECT 0.99 ng/dL Normal 0.76-1.46 [facility] Comment on above: Performed By: #### L 506.0400, L500.4100, L500.2500, L501.9520 #### [facility] [address] [facility] [place], [address] [facility] EEG Read/Int-PSN ON [place] 06-11-2022 [facility] EEG Read/Int-PSN ONLY [facility] Medical Records Department [address] [place] [address] Telemedicine Confirmation Receipt 06/11/22 MR#: [id number] Acct: [id number] Name: IHSAN MARCELO Rep #: [id number] : 1960 61 From: Juvenal Mijares MD PCP: Dr. Shiela Sydni, MD Status:ADM IN [facility] has confirmed receipt of a request for visit. This document confirms receipt of the order initiating the consult. To find the results of the consultation, please view the patient's reports for the scanned Telemed Consult. Normal [facility] Thin prep Papanicolaou smear with manual screeningOrdered By: Dr. Mijares on 06-11-2022 Thin prep Papanicolaou smear with manual screening 8 5-15 [facility] Thyroid Stim Hormone (TSH)on 06-11-2022 TSH 1.57 uIU/mL Normal 0.358-3.74 [facility] Comment on above: Performed By: #### L 506.0400, L500.4100, L500.2500, L501.9520 #### [facility] [address] [place], [address] Urine Drug Screen (VISTA)on 06-11-2022 AMPHETAMINES Negative Normal <1000 ng/mL [facility] Comment on above: Order Comment: SENT LABEL TO FLOOR FOR COLLECTIONplease add on to urine from ED Performed By: #### L 506.0400, L500.4100, L500.2500, L501.9520 #### [facility] [address] [place], [address] BARBITIURATES Negative Normal < 200 ng/mL [facility] Comment on above: Order Comment: SENT LABEL TO FLOOR FOR COLLECTIONplease add on to urine from ED Performed By: #### L 506.0400, L500.4100, L500.2500, L501.9520 #### [facility] [address] [place], [address] BENZODIAZIPINE Negative Normal < 200 ng/mL [facility] Comment on above: Order Comment: SENT LABEL TO FLOOR FOR COLLECTIONplease add on to urine from ED Performed By: #### L 506.0400, L500.4100, L500.2500, L501.9520 #### [facility] [address] [place], [address] COCAINE Negative Normal < 300 ng/mL [facility] Comment on above: Order Comment: SENT LABEL TO FLOOR FOR COLLECTIONplease add on to urine from ED Performed By: #### L 506.0400, L500.4100, L500.2500, L501.9520 #### [facility] [address] [place], [address] ECSTACY Positive Abnormal < 500 ng/mL [facility] Comment on above: Order Comment: SENT LABEL TO FLOOR FOR COLLECTIONplease add on to urine from ED Performed By: #### L 506.0400, L500.4100, L500.2500, L501.9520 #### [facility] [address] [place], [address] METHADONE Negative Normal < 300 ng/mL [facility] Comment on above: Order Comment: SENT LABEL TO FLOOR FOR COLLECTIONplease add on to urine from ED Performed By: #### L 506.0400, L500.4100, L500.2500, L501.9520 #### [facility] [address] [place], [address] OPIATES Negative Normal < 300 ng/mL [facility] Comment on above: Order Comment: SENT LABEL TO FLOOR FOR COLLECTIONplease add on to urine from ED Performed By: #### L 506.0400, L500.4100, L500.2500, L501.9520 #### [facility] [address] [facility] [address] PCP Negative Normal < 25 ng/mL [facility] Comment on above: Order Comment: SENT LABEL TO FLOOR FOR COLLECTIONplease add on to urine from ED Performed By: #### L 506.0400, L500.4100, L500.2500, L501.9520 #### [facility] [address] [facility] [address] THC Negative Normal < 50 ng/mL [facility] Comment on above: Order Comment: SENT LABEL TO FLOOR FOR COLLECTIONplease add on to urine from ED Performed By: #### L 506.0400, L500.4100, L500.2500, L501.9520 #### [facility] [address] [place], [address] VISTA UDS PH 5 Normal [facility] Comment on above: Order Comment: SENT LABEL TO FLOOR FOR COLLECTIONplease add on to urine from ED Performed By: #### L 506.0400, L500.4100, L500.2500, L501.9520 #### [facility] [address] [place], [address] Urine phencyclidine (PCP) de tectionOrdered By: Dr. Mijares on 06-11-2022 Phencyclidine Ql (U) Negative < 25 ng/mL [facility] Whole blood hemoglobin A1c/t otal hemoglobin ratio (mass fraction)Ordered By: Dr. Mijares on 06-11-2022 HbA1c (Bld) [Mass fraction] 5.6 % 3.8-5.6 [facility] Comment on above: Normal < 5.7 % Predi abetic 5.7 - 6.4 % Diabetic >or= 6.5 % Please note range changes. Absolute lymphocyte countOrd ered By: Dr. Poole on 06-10-2022 Lymphocytes Auto (Unsp spec) [#/Vol] 0.95 10*3/uL 0.83-4.51 [facility] Basic Metabolic Profile (BMP )on 06-10-2022 BUN/CRE 21.3 RATIO High - [facility] Comment on above: Order Comment: 'TROP ' Serial specimen #1, #2 or #3: 1 Performed By: #### L 506.0400, L500.4100, L500.2500, L501.9520 #### [facility] [address] [place], [address] CA,Total 9.8 mg/dL Normal 8.5-10.1 [facility] Comment on above: Order Comment: 'TROP ' Serial specimen #1, #2 or #3: 1 Performed By: #### L 506.0400, L500.4100, L500.2500, L501.9520 #### [facility] [address] [place], [address] Chloride [Moles/Vol] 109 mmol/L High 98-107 [facility] Comment on above: Order Comment: 'TROP ' Serial specimen #1, #2 or #3: 1 Performed By: #### L 506.0400, L500.4100, L500.2500, L501.9520 #### [facility] [address] [place], [address] CO2 [Moles/Vol] 23.0 mmol/L Normal 21.0-32.0 [facility] Comment on above: Order Comment: 'TROP ' Serial specimen #1, #2 or #3: 1 Performed By: #### L 506.0400, L500.4100, L500.2500, L501.9520 #### [facility] [address] [place], [address] Creatinine [Mass/Vol] 1.08 mg/dL High 0.55-1.02 [facility] Comment on above: Order Comment: 'TROP ' Serial specimen #1, #2 or #3: 1 Result Comment: The validity of the calculated GFR GFRAA in patients over 70 years has not been determined. Clinical correlation is essential. Performed By: #### L 506.0400, L500.4100, L500.2500, L501.9520 #### [facility] [address] [place], [address] ECRCL 38.79 ml/min Normal [facility] Comment on above: Order Comment: 'TROP ' Serial specimen #1, #2 or #3: 1 Performed By: #### L 506.0400, L500.4100, L500.2500, L501.9520 #### [facility] [address] [place], [address] EST GFR - AA 66 mL/min Normal >60 [facility] Comment on above: Order Comment: 'TROP ' Serial specimen #1, #2 or #3: 1 Result Comment: Afri can Niuean GFR Calc Performed By: #### L 506.0400, L500.4100, L500.2500, L501.9520 #### [facility] [address] [place], [address] GAP 10 Normal 5-15 [facility] Comment on above: Order Comment: 'TROP ' Serial specimen #1, #2 or #3: 1 Performed By: #### L 506.0400, L500.4100, L500.2500, L501.9520 #### [facility] [address] [place], [address] GFR/1.73 sq M.predicted among non-blacks MDRD (S/P/Bld) [Vol rate/Area] 55 mL/min/{1.73_m2} Low >60 [facility] Comment on above: Order Comment: 'TROP ' Serial specimen #1, #2 or #3: 1 Result Comment: Non- GFR Calc Performed By: #### L 506.0400, L500.4100, L500.2500, L501.9520 #### [facility] [address] [place], [address] Glucose [Mass/Vol] 149 mg/dL High 74-106 [facility] Comment on above: Order Comment: 'TROP ' Serial specimen #1, #2 or #3: 1 Result Comment: Fast ing Glucose result greater than or equal to 126 mg/dL suggests DIABETES MELLITUS per A.D.A. criteria. Performed By: #### L 506.0400, L500.4100, L500.2500, L501.9520 #### [facility] [address] [place], [address] Potassium [Moles/Vol] 3.6 mmol/L Normal 3.5-5.1 [facility] Comment on above: Order Comment: 'TROP ' Serial specimen #1, #2 or #3: 1 Performed By: #### L 506.0400, L500.4100, L500.2500, L501.9520 #### [facility] [address] [place], [address] Sodium [Moles/Vol] 142 mmol/L Normal 136-145 [facility] Comment on above: Order Comment: 'TROP ' Serial specimen #1, #2 or #3: 1 Performed By: #### L 506.0400, L500.4100, L500.2500, L501.9520 #### [facility] [address] [place], [address] Urea nitrogen [Mass/Vol] 23 mg/dL High 7-18 [facility] Comment on above: Order Comment: 'TROP ' Serial specimen #1, #2 or #3: 1 Performed By: #### L 506.0400, L500.4100, L500.2500, L501.9520 #### [facility] [address] [place], [address] Basophil percentageOrdered B y: Dr. Poole on 06-10-2022 Basophil percentage 0-5 SEEN /hpf 0-5 [facility] Basophils/100 WBC (Bld) 0.2 % 0-1 [facility] Chloride [Moles/Vol] 109 mmol/L 98-107 [facility] Eosinophils/100 WBC (Bld) 0.0 % 0-5 [facility] Glucose [Mass/Vol] 149 mg/dL 74-106 [facility] Comment on above: Fasting Glucose resu lt greater than or equal to 126 mg/dL suggests DIABETES MELLITUS per A.D.A. criteria. Neutrophils (Bld) [#/Vol] 9.0 10*3/uL 2.0-7.7 [facility] Neutrophils/100 WBC (Bld) 85.3 % 47-70 [facility] Potassium [Moles/Vol] 3.6 mmol/L 3.5-5.1 [facility] Sodium [Moles/Vol] 142 mmol/L 136-145 [facility] WBC (Bld) [#/Vol] 10.5 10*3/uL 4.4-11.0 [facility] Bedside Glucoseon 06-10-2022 FINGERSTICK GLU 116 mg/dL High 74-106 [facility] Comment on above: Result Comment: YADY MCCORMICK OF PATIENT CARE PER NURSING PROTOCOL Performed By: #### L 506.0400, L500.4100, L500.2500, L501.9510 #### [facility] [address] [place], [address] Bilirubin Test strip Ql (U)O rdered By: Dr. Poole on 06-10-2022 Bilirubin Ql (U) Negative Negative [facility] Blood erythrocytes count (nu mber/volume)Ordered By: Dr. Poole on 06-10-2022 RBC (Bld) [#/Vol] 4.39 10*6/uL 4.2-5.4 [facility] Blood hemoglobin measurement (mass/volume)Ordered By: Dr. Poole on 06-10-2022 Hemoglobin (Bld) [Mass/Vol] 13.4 g/dL 12.0-15.0 [facility] Blood lymphocytes/100 leukoc ytesOrdered By: Dr. Poole on 06-10-2022 Lymphocytes/100 WBC (Bld) 9.0 % 19-41 [facility] Blood monocytes/100 leukocyt esOrdered By: Dr. Poole on 06-10-2022 Monocytes/100 WBC (Bld) 5.1 % 0-10 [facility] Blood platelet mean volumeOr dered By: Dr. Poole on 06-10-2022 Platelet mean volume (Bld) [Entitic vol] 11.0 fL 6.2-12.0 [facility] Brain without Contraston Brain without Contrast [facility] Imaging Services [address] [place] [address] Brain without Contrast MR#: [id number] Acct: [id number] Name: IHSAN MARCELO Claude Rep #: [id number] : 1960 F 61 From: Sanchez Mendez MD PCP: Dr. Shiela Troy MD Status: ADM IN Study: Brain without Contrast Date of Exam: 06/10/22 Exam# [id number] Ordering Dr: Juvenal Mijares MD STUDY: MRI BRAIN WITHOUT CONTRAST REASON FOR EXAM: Female, 61 years old. Stroke TECHNIQUE: Multiplanar multisequence imaging of the brain was performed without the administration of intravenous contrast. COMPARISON: None. FINDINGS: The ventricles, cisterns, and sulci are within normal limits for patients age. There is no restricted diffusion to suggest acute ischemia or infarction. No succeptibility artifict to suggest intracranial hemorrhage or mineralization. Major intracranial signal voids are preserved. There is no midline shift, mass effect, or extra axial fluid collections are seen. No CP angle or IAC mass is seen. The orbits are unremarkable. The sella turcica and craniovertebral junction are within normal limits. The visualized paranasal sinuses are clear. The mastoid air cells are clear. MRI/Brain without Contrast IMPRESSION: No intracranial hemorrhage, acute infarct, or space occupying lesion seen on this noncontrast MRI of the brain. Electronically Signed: Sanchez Mendez MD at 16:02 EST , CC: Dr. Shiela Troy MD; Dr. Juvenal Mijares MD Recreation Activities Coordinator: Signed Normal [facility] CBC W/Diff, Automatedon 06-01 Absolute Lymph 0.95 X10 3/uL Normal 0.83-4.51 [facility] Comment on above: Performed By: #### L 506.0400, L500.4100, L500.2500, L501.9520 #### [facility] [address] [place], [place], [id number] Absolute Neut 9.0 X10 3/uL High 2.0-7.7 [facility] Comment on above: Performed By: #### L 506.0400, L500.4100, L500.2500, L501.9520 #### [facility] [address] [place], [address] Basophils/100 WBC (Bld) 0.2 % Normal 0-1 [facility] Comment on above: Performed By: #### L 506.0400, L500.4100, L500.2500, L501.9520 #### [facility] [address] [place], [address] Eosinophils/100 WBC (Bld) 0.0 % Normal 0-5 [facility] Comment on above: Performed By: #### L 506.0400, L500.4100, L500.2500, L501.9520 #### [facility] [address] [place], [address] Erythrocyte distribution width (RBC) [Ratio] 13.2 % Normal 11.6-14.6 [facility] Comment on above: Performed By: #### L 506.0400, L500.4100, L500.2500, L501.9520 #### [facility] [address] [place], [address] Hematocrit (Bld) [Volume fraction] 40.4 % Normal 37-47 [facility] Comment on above: Performed By: #### L 506.0400, L500.4100, L500.2500, L501.9520 #### [facility] [address] [place], [address] Hemoglobin (Bld) [Mass/Vol] 13.4 g/dL Normal 12.0-15.0 [facility] Comment on above: Performed By: #### L 506.0400, L500.4100, L500.2500, L501.9520 #### [facility] [address] [place], [address] IG% 0.400 Normal 0.0-0.9 [facility] Comment on above: Result Comment: IG% - Immature Granulocytes (promyelocytes, myelocytes and metamyelocytes) > 1% indicates that a LEFT SHIFT is Present. Performed By: #### L 506.0400, L500.4100, L500.2500, L501.9520 #### [facility] [address] [place], [address] Lymphocytes/100 WBC (Bld) 9.0 % Low 19-41 [facility] Comment on above: Performed By: #### L 506.0400, L500.4100, L500.2500, L501.9520 #### [facility] [address] [place], [address] MCH (RBC) [Entitic mass] 30.5 pg Normal 27.0-32.0 [facility] Comment on above: Performed By: #### L 506.0400, L500.4100, L500.2500, L501.9520 #### [facility] [address] [place], [address] MCHC (RBC) [Mass/Vol] 33.2 g/dL Normal 32-36 [facility] Comment on above: Performed By: #### L 506.0400, L500.4100, L500.2500, L501.9520 #### [facility] [address] [place], [address] MCV (RBC) [Entitic vol] 92.0 fL Normal 81-99 [facility] Comment on above: Performed By: #### L 506.0400, L500.4100, L500.2500, L501.9520 #### [facility] [address] [place], [address] Monocytes/100 WBC (Bld) 5.1 % Normal 0-10 [facility] Comment on above: Performed By: #### L 506.0400, L500.4100, L500.2500, L501.9520 #### [facility] [address] [place], [address] Neutrophils/100 WBC (Bld) 85.3 % High 47-70 [facility] Comment on above: Performed By: #### L 506.0400, L500.4100, L500.2500, L501.9520 #### [facility] [address] [place], [address] Nucleated RBC (Bld) [#/Vol] 0 10*3/uL Normal 0-5 [facility] Comment on above: Performed By: #### L 506.0400, L500.4100, L500.2500, L501.9520 #### [facility] [address] [place], [address] Platelet mean volume (Bld) [Entitic vol] 11.0 fL Normal 6.2-12.0 [facility] Comment on above: Performed By: #### L 506.0400, L500.4100, L500.2500, L501.9520 #### [facility] [address] [place], [address] Platelets (Bld) [#/Vol] 209 10*3/uL Normal 150-450 [facility] Comment on above: Performed By: #### L 506.0400, L500.4100, L500.2500, L501.9520 #### [facility] [address] [place], [address] RBC (Bld) [#/Vol] 4.39 10*6/uL Normal 4.2-5.4 [facility] Comment on above: Performed By: #### L 506.0400, L500.4100, L500.2500, L501.9520 #### [facility] [address] [place], [address] RDW SD 45.4 fl High 35.1-43.9 [facility] Comment on above: Performed By: #### L 506.0400, L500.4100, L500.2500, L501.9520 #### [facility] [address] [place], [address] WBC (Bld) [#/Vol] 10.5 10*3/uL Normal 4.4-11.0 [facility] Comment on above: Performed By: #### L 506.0400, L500.4100, L500.2500, L501.9520 #### [facility] [address] [place], [address] Chest 1 Viewon 06-10-[address] [facility] Imaging Services [address] [place] [address] Chest 1 View MR#: [id number] Acct: [id number] Name: IHSAN MARCELO Rep #: [id number] : 1960 F 61 From: Rocky blakely MD PCP: Care Physician,No Primary Status: [facility] ER Study: Chest 1 View Date of Exam: 06/10/22 Exam# [id number] Ordering Dr: Lc Poole MD STUDY: X-RAY CHEST REASON FOR EXAM: Female, 61 years old. Neuro deficit, acute, stroke suspected TECHNIQUE: Single AP portable view of the chest. COMPARISON: None. FINDINGS: EKG electrodes are seen. Questionable 8 mm granuloma in the lateral aspect of the left mid lung. There is no demonstrated pleural abnormality. Normal size heart. Normal mediastinum and gali. Normal visualized pulmonary arteries. There is atherosclerotic tortuosity of the aortic arch and descending thoracic aorta. There are diffuse degenerative changes of the visualized thoracic spine. Normal visualized ribs, clavicles, and shoulders. There is no demonstrated abnormality of the visualized soft tissue structures of the upper abdomen. RAD/Chest 1 View IMPRESSION: Questionable 8 mm calcified granuloma in the lateral aspect of the left midlung. Electronically Signed: Rocky Pride MD at 12:05 EST , CC: Dr. Lc Poole MD; No Primary Care Physician Recreation Activities Coordinator: Signed Normal [facility] Determination of erythrocyte mean corpuscular volume (MCV)Ordered By: Dr. Poole on 06-10-2022 MCV (RBC) [Entitic vol] 92.0 fL 81-99 [facility] Echo Completeon 06-10-2022 Echo Complete [facility] [address] [place] [address] Echo Complete 06/10/22 1418 MR#: [id number] Acct: [id number] Name: IHSAN MARCELO Rep #: [id number] : 1960 61 From: Mame Rock MD Attending Dr: Dr. Juvenal Mijares MD Status: ADM IN Ordering Dr: Juvenal Mijares MD Date: 06/10/22 Location: PCU Sex: F C Admitted: 06/10/22 Reason For Study: TIA/CVA Procedure This was a 2D Doppler, Color Flow transthoracic echocardiogram. The study was technically difficult. Exam performed portable in patient room. Left Ventricle Normal LV size. Mild concentric left ventricular hypertrophy. The left ventricular ejection fraction is 70 %. Normal diastology for age. Right Ventricle Normal right ventricle. Atria Normal left atrium. The right atrium is not well visualized. Bubble contrast study is negative for PFO/ASD. Mitral Valve The mitral valve is structurally normal. No prolapse or stenosis seen. Tricuspid Valve Trivial tricuspid valve insufficiency. Normal pulmonary artery pressure. Aortic Valve Normal aortic valve. Pulmonic Valve The pulmonic valve is not well visualized. Great Vessels Normal sized aortic root. Pericardium/Pleural No pericardial effusion. Medication Performed a rapid injection of agitated mix of 9 cc saline and 1cc air to assess for atrial septal defect. MMode/2D Measurements Calculations LVIDd: 4.1 cm IVSd: 1.3 cm Ao root diam: 2.7 cm LVIDs: 2.7 cm LVPWd: 1.3 cm FS: 34.8 % LAV(MOD-bp): 35.4 ml LVAd ap4: 21.1 cm2 SV(MOD-sp4): 32.2 ml LAV(MOD-bp) Indexed: 20.1 ml/m2 LVLd ap4: 7.8 cm LAV(MOD-sp2): 25.2 ml EDV(MOD-sp4): 48.6 ml LAV(MOD-sp4): 46.3 ml EDV(sp4-el): 48.7 ml LVAs ap4: 11.1 cm2 LVLs ap4: 6.3 cm ESV(MOD-sp4): 16.4 ml ESV(sp4-el): 16.6 ml EF(MOD-sp4): 66.3 % EF(sp4-el): 66.0 % SV(sp4-el): 32.1 ml LA A4 area: 17.7 cm2 LA dimension(2D): 3.5 cm RA A4 area: 11.5 cm2 Time Measurements MV dec time: 0.18 sec Doppler Measurements Calculations MV E max vivek: 69.7 cm/sec Lat Peak E' Vivek: 14.2 cm/sec Med Peak E' Vivek: 6.3 cm/sec MV A max vivek: 56.2 cm/sec E/E' lat: 4.9 E/E' med: 11.0 MV E/A: 1.2 MV V2 max: 70.5 cm/sec MV dec slope: 378.1 cm/sec2 Ao V2 max: 117.0 cm/sec MV max P.0 mmHg Ao max P.5 mmHg MV V2 mean: 49.0 cm/sec Ao V2 mean: 82.9 cm/sec MV mean P.1 mmHg Ao mean P.1 mmHg MV V2 VTI: 18.7 cm Ao V2 VTI: 26.9 cm AV (velocity ratio): 1.0 LV V1 max: 102.8 cm/sec PA V2 max: 91.9 cm/sec TR max vivek: 229.6 cm/sec LV V1 max P.2 mmHg PA V2 mean: 60.6 cm/sec TR max P.1 mmHg LV V1 mean P.4 mmHg LV V1 mean: 71.9 cm/sec LV V1 VTI: 28.1 cm ECHO/Echo Complete Interpretation Summary Mild concentric left ventricular hypertrophy. The left ventricular ejection fraction is 70 %. Bubble contrast study is negative for PFO/ASD. The study was technically difficult. Ordering Physician: Juvenal Mijares Referring Physician: SHIELA TROY Performed By: Skye Hector RCS 06/10/22 1510 Date Mame Rock MD CC: Dr. Shiela Troy MD; Dr. Juvenal Mijares MD Date Dictated: 06/10/22 1418 Date Transcribed: 06/10/22 151 Recreation Activities Coordinator: Signed Normal [facility] Emergency Department Summary on 06-10-2022 Emergency Department Summary [facility] Medical Records Department [address] [place] [address] Emergency Department Summary 06/10/22 MR#: [id number] Acct: [id number] Name: IHSAN MARCELO Rep #: [id number] : 1960 61 From: Lc Poole MD PCP: Dr. Shiela Troy MD Status:REG ER Location: ED HPI History of Present Illness Chief Complaint: Neuro S/Sx Detail of Chief Complaint: Evaluate for stroke Informant: spouse/S.O., family and EMS Onset/Context/Timing Onset: - (Last known well at 1600 June 09) Context: - (Unknown) Timing: Continuous Quality and Location: Positive for Left Arm Weakness, Slurred Speech and Difficulty with Ambulation Current Severity: Mild Worsened by: Per HPI narrative and MDM Relieved by: Nothing Associated Symptoms Associated Symptoms: Positive for - (Unable to determine) Narrative Narrative: Patient is a 61-year-old woman with no significant medical problems. According to daughter she has history of depression. According to she came home from work yesterday. She vomited at 1600. She went to bed. She awoke this morning. He noted she was confused and had difficulty ambulating. Daughter had to help her to the restroom. Paramedics were called because of concern for stroke. Paramedics states she had slurred speech, weakness left upper extremity. According to daughter her legs were wobbly. She also commented that her urine was strong. Prior similar symptoms: No Recent Illness/Hospitalization : No PFSH PFSH Medical History (Updated 06/10/22 @ 12:[address] Lc Poole MD) delivery delivered Hypothyroid Skin cancer Medical History unable to obtain unable to obtain Home Medications omeprazole 20 mg capsule,delayed release 20 mg PO DAILY 06/10/22 [History Last Taken 06/09/22] Allergy/AdvReac Type Severity Reaction Status Date / Time Penicillins Allergy PT UNSURE Verified 06/10/22 10:40 OF REACTION Social History (Updated 06/10/22 @ 10:[address] Lc Poole MD) household members: spouse and children Smoking Status: Never smoker ROS ROS ED Review of Systems ROS Unobtainable: due to mental status EXAM Physical Exam Const Vital Signs: 06/10/22 10:44 06/10/22 10:40 06/10/22 10:40 Temperature 97.9 F Temperature Source Temporal Pulse Rate 96 96 Respiratory Rate 18 20 H Blood Pressure 106/53 L 106/53 L Blood Pressure Mean 70 70 Pulse Ox 93 95 Oxygen Delivery Method Room Air Room Air Room Air 06/10/22 10:40 06/10/22 11:09 06/10/22 11:30 Temperature 97.4 F L 97.8 F 97.6 F L Temperature Source Temporal Temporal Temporal Pulse Rate 94 94 92 Respiratory Rate 24 H 16 16 Blood Pressure 103/70 108/78 108/76 Blood Pressure Mean 81 88 86 Pulse Ox 94 95 95 Oxygen Delivery Method Room Air Room Air Room Air 06/10/22 12:00 06/10/22 12:00 Temperature 97.8 F 97.6 F L Temperature Source Temporal Temporal Pulse Rate 95 94 Respiratory Rate 20 H 20 H Blood Pressure 103/66 103/66 Blood Pressure Mean 78 78 Pulse Ox 94 94 Oxygen Delivery Method Room Air Room Air Positive well nourished and well developed General Appearance ED: well developed and NAD HEENT Reports TM's clear and dry mucous membranes atraumatic Nose: other Other Details: Nose normal. Posterior pharynx is normal. Uvula is midline. There is no deviation with protrusion. Tympanic Membrane ED: Yes TM's clear Mouth ED: Yes dry mucous membranes Mouth: dry mucous membranes Eyes PERRL and EOMs intact bilaterally General Eye ED: Negative for pale conjunctiva or scleral icterus Neck no lymphadenopathy, supple and no JVD Neck Narrative: There is no carotid bruit. Chest Wall inspection of chest normal and palpation of chest normal Resp normal respiratory effort and clear to auscultation bilaterally Cardio no murmurs Rate: regular rate Rhythm: regular rhythm Heart Sounds: S1 normal and S2 normal GI normal to inspection, nondistended, normoactive bowel sounds, soft to palpation, non-tender, non- distended and no masses Back/Spine no CVA tenderness Neuro No oriented x3 and CN's II-XII intact bilaterally Deborah Coma Scale: document GCS findings Spontaneous Obeys Commands Confused 14 Sensorium / Orientation: Negative for alert Speech: Negative for speech normal Psych Psych Narrative: Unable to determine. Daughter states that her mother's been under significant stress since she returned home. Skin no wounds General Skin Exam: Negative for jaundice Lesions: no lesions Rashes: no rashes NIHSS NIHSS Initial: 1a Level of Consciousness: 1 1b LOC Questions (Score 2 if aphasic/stupor): 1 1c LOC Commands (Only score 1st attempt): 0 2 Best Gaze (If aphasic, use reflexive mvmts.): 0 4 Facial Palsy: 0 5 Motor Arm Right (UN = (more content not included)... Normal [facility] H AND P Exam - Hospitaliston 06-10-2022 H&P Exam - Hospitalist [facility] Medical Records Department [address] [place] [address] H P Exam - Hospitalist 06/10/22 1221 MR#: [id number] Acct: [id number] Name: IHSAN MARCELO Rep #: [id number] : 1960 61 From: Juvenal Mijares MD PCP: Dr. Shiela Troy MD Status:ADM IN Location: [place] [id number] HPI - General General Date of Admission: 06/10/22 Date of Service: 06/10/22 Chief Complaint: , AMS, left arm and leg weakness, slurred speech difficulty ambulation, started about 1600 on June 09. HPI Narrative IHSAN MARCELO, is a 61 F was brought in by family member for evaluation of possible stroke. As per the , the patient was mild mental distress and as per daughter she has history of depression but not on any medication. As per , she vomited once at home about 1600 hrs. with and her daughter came to home. Then she went to bed and woke up in the morning. She was noted to be confused and difficulty ambulating, weakness in the leg, wobbly, spaghetti like walking as per the daughter. She also had slurred speech, garbled speech and low tone. EMS found slurred speech and weakness in the left upper extremity. In ED, patient is having hallucination, seeing objects which is not there, talking to herself, low- tone speech hard to understand. She is also confused and looks fearful and afraid. In ED, vitals were noted. BP 103/66. Twelve-lead EKG sinus rhythm with first-degree AV block, RAD, QRS 100 ms, QTc 472 ms. LAFB. Patient had [facility] teleneurology consult and had CT head and CTA head and neck with no LVO found therefore further admitted. Family history: Positive for stroke in her family. [facility] Medical History delivery delivered Hypothyroid Skin cancer Medical History unable to obtain Home Medications omeprazole 20 mg capsule,delayed release 20 mg PO DAILY 06/10/22 [History Last Taken 06/09/22] Allergy/AdvReac Type Severity Reaction Status Date / Time Penicillins Allergy PT UNSURE Verified 06/10/22 10:40 OF REACTION Social History household members: spouse and children Smoking Status: Never smoker ROS ROS Narrative 14 system ROS is incomplete as patient is confused disoriented and having hallucinations and hard to understand because of low tone. : Denies burning micturition, increased frequency and urgency. GI: Denies abdominal pain. Vomiting admission HPI. Respiratory/Chest: No chest pain, shortness of breath at rest or with exertion Musculoskeletal: Denies chronic joint pain and limited range of motion Neurologic: Admission HPI. skin: No ulcer. No rash Review of Systems ROS Unobtainable: due to encephalopathy Vital Signs Vital Signs Vital Signs: 06/10/22 10:44 06/10/22 10:40 06/10/22 10:40 Temperature 97.9 F Temperature Source Temporal Pulse Rate 96 96 Respiratory Rate 18 20 H Blood Pressure 106/53 L 106/53 L Blood Pressure Mean 70 70 Pulse Ox 93 95 Oxygen Delivery Method Room Air Room Air Room Air 06/10/22 10:40 06/10/22 11:09 06/10/22 11:30 Temperature 97.4 F L 97.8 F 97.6 F L Temperature Source Temporal Temporal Temporal Pulse Rate 94 94 92 Respiratory Rate 24 H 16 16 Blood Pressure 103/70 108/78 108/76 Blood Pressure Mean 81 88 86 Pulse Ox 94 95 95 Oxygen Delivery Method Room Air Room Air Room Air 06/10/22 12:00 06/10/22 12:00 Temperature 97.8 F 97.6 F L Temperature Source Temporal Temporal Pulse Rate 95 94 Respiratory Rate 20 H 20 H Blood Pressure 103/66 103/66 Blood Pressure Mean 78 78 Pulse Ox 94 94 Oxygen Delivery Method Room Air Room Air Weight Weight: 175 lb 0.752 oz Body Mass Index (BMI) 34.2 Physical Exam Narrative Physical exam General: Confused, disoriented to time and person. HEENT: Atraumatic, PERRLA, EOMI, Normocephalic Oral: Oral mucosa dry. No Gingival or Mucosal Lesions/ Ulcerations Neck: Supple, No JVD, Negative Carotid Bruits Lungs: Air entry diminished in bilateral lung bases. No crepitation/rhonchi Cardiovascular: Regular rate, Regular Rhythm, Normal S1, Normal S2, No murmurs Abdomen: Bowel Sounds Present, Soft, Non Tender, Non-Distended : No renal angle tenderness. No suprapubic tenderness. Extremities: No edema, Capillary Refill Less than 3 Seconds Skin: No rashes, No breakdown Musculoskeletal: Weakness in left lower extremity, drift,No Tenderness to Palpation of Joints or Extremities Neurological: left-sided facial droop, mild to moderate language deficit, dysarthria. Not alert. Extinction and inattention. NIH 7. Complete neuro exam unobtainable as patient is confused, disoriented does not follow commands adequately Psych/Mental Status: Possible an (more content not included)... Normal [facility] Hematocrit Auto (Bld) [Volum e fraction]Ordered By: Dr. Poole on 06-10-2022 Hematocrit (Bld) [Volume fraction] 40.4 % 37-47 [facility] Hyaline casts LM.LPF (Urine sed) [#/Area]Ordered By: Dr. Poole on 06-10-2022 Hyaline casts (Urine sed) [#/Area] 0 /[LPF] 0-5 [facility] INR in Blood by Coagulation assayOrdered By: Dr. Poole on 06-10-2022 INR Coag (Bld) [Relative time] 1.1 {INR} [facility] Ketones Test strip Ql (U)Ord ered By: Dr. Poole on 06-10-2022 Ketones Ql (U) Negative Negative [facility] L501.4020on 06-10-2022 TROPONIN-I HS 15 pg/mL Normal 3.0-54.0 [facility] Comment on above: Order Comment: 'TROP ' Serial specimen #1, #2 or #3: 1 Result Comment: Plea se Note: New Test Units and Gender Specific Reference Ranges. For more information see Policy Stat Procedure [place] High Sensitivity Troponin (TNIH) and attachments. Performed By: #### L 506.0400, L500.4100, L500.2500, L501.9520 #### [facility] [address] [place], [place], [id number] Laboratory - Chemistry and C hemistry - challengeOrdered By: Dr. Poole on 06-10-2022 CO2 [Moles/Vol] 23.0 mmol/L 21.0-32.0 [facility] Urea nitrogen/Creatinine [Mass ratio] 21.3 mg/mg 10-20 [facility] - Chemistry and C hemistry - challengeOrdered By: Dr. Mijares on 06-10-2022 Magnesium [Mass/Vol] 1.8 mg/dL 1.6-2.6 [facility] - CoagulationOrde red By: Dr. Poole on 06-10-2022 aPTT Coag (Bld) [Time] 25.6 s 24.1-36.2 [facility] PT Coag (PPP) [Time] 13.7 s 11.7-14.9 [facility] - Hematology and Cell countsOrdered By: Dr. Poole on 06-10-2022 Erythrocyte distribution width (RBC) [Entitic vol] 45.4 fL 35.1-43.9 [facility] Erythrocyte distribution width (RBC) [Ratio] 13.2 % 11.6-14.6 [facility] Immature granulocytes/100 WBC (Bld) 0.400 % 0.0-0.9 [facility] Comment on above: IG% - Immature Granu locytes (promyelocytes, myelocytes and metamyelocytes) > 1% indicates that a LEFT SHIFT is Present. MCH (RBC) [Entitic mass] 30.5 pg 27.0-32.0 [facility] Nucleated RBC/100 WBC (Bld) [Ratio] 0 % 0-5 [facility] MCHC Auto (RBC) [Mass/Vol]Or dered By: Dr. Poole on 06-10-2022 MCHC (RBC) [Mass/Vol] 33.2 g/dL 32-36 [facility] Magnesiumon 06-10-2022 Magnesium [Mass/Vol] 1.8 mg/dL Normal 1.6-2.6 [facility] Comment on above: Performed By: #### L 506.0400, L500.4100, L500.2500, L501.9520 #### [facility] [address] [place] [address], [address] Mucus LM Ql (Urine sed)Order ed By: Dr. Poole on 06-10-2022 Mucus Ql (Urine sed) RARE /hpf [facility] Nitrite Test strip Ql (U)Ord ered By: Dr. Poole on 06-10-2022 Nitrite Ql (U) Negative Negative [facility] No Panel InformationOrdered By: Dr. Poole on 06-10-2022 Estimated Creatinine Clearance Calc 38.79 ml/min [facility] Estimated GFR (MDRD) Amer 66 mL/min >60 [facility] Comment on above: GFR Calc Estimated GFR (MDRD) Non-Af Amer 55 mL/min >60 [facility] Comment on above: Non- GFR Calc Troponin I High Sensitivity 15 pg/mL 3.0-54.0 [facility] Comment on above: Please Note: New [place] t Units and Gender Specific Reference Ranges. For more information see Policy Stat Procedure [place] High Sensitivity Troponin (TNIH) and attachments. Partial Thromboplast Timeon 06-10-2022 aPTT Coag (Bld) [Time] 25.6 s Normal 24.1-36.2 [facility] Comment on above: Performed By: #### L 506.0400, L500.4100, L500.2500, L501.9520 #### [facility] [address] [place], [address] Platelets bldOrdered By: Dr. Poole on 06-10-2022 Platelets (Bld) [#/Vol] 209 10*3/uL 150-450 [facility] Protein Test strip Ql (U)Ord ered By: Dr. Poole on 06-10-2022 Protein Ql (U) 30 mg/dl Negative [facility] Prothrombin Time w/INRon INR Coag (PPP) [Relative time] 1.1 {INR} Normal [facility] Comment on above: Performed By: #### L 506.0400, L500.4100, L500.2500, L501.9520 #### [facility] [address] [place], [address] PT Coag (PPP) [Time] 13.7 s Normal 11.7-14.9 [facility] Comment on above: Performed By: #### L 506.0400, L500.4100, L500.2500, L501.9520 #### [facility] [address] [place], [address] STROKE Brain/Head without Co nton 06-10-2022 STROKE Brain/Head without Cont [facility] Imaging Services [address] [place] [address] STROKE Brain/Head without Cont MR#: [id number] Acct: [id number] Name: IHSAN MARCELO Rep #: [id number] : 1960 F 61 From: Rocky blakely MD PCP: Care Physician,No Primary Status: REG ER Study: STROKE Brain/Head without Cont Date of Exam: 0 06/10/22 Exam# [id number] Ordering Dr: Lc Poole MD ADDENDUM by Dr. Rocky Pride MD on 06/10/22 at 1053 STUDY: CT BRAIN WITHOUT CONTRAST REASON FOR EXAM: Female, 61 years old. Neuro deficit, acute, stroke suspected RADIATION DOSAGE (If Supplied By Facility): CTDIvol = ( 44.99 ) mGy, DLP = ( 745.49 ) mGycm TECHNIQUE: Transaxial CT imaging of the brain was performed without administration of intravenous contrast material. Individualized dose optimization techniques were used for this CT. COMPARISON: No relevant priors. FINDINGS: Normal soft tissue structures. There is hyperostosis frontalis internus. Normal size ventricles and extra-axial spaces for the patient''s age. Normal white matter tracts of the cerebral hemispheres. Normal basal ganglia and thalami. Normal brainstem. Normal cerebellum. There is no intracranial hemorrhage. There are no findings of an acute ischemic infarction. Normal visualized paranasal sinuses. 06/10/22 1053 Date cc: Dr. Lc Poole MD; No Primary Care Physician * Signed ADDENDUM by Dr. Rocky Pride MD on 06/10/[address]/STROKE Brain/Head without Cont IMPRESSION: Normal unenhanced CT scan of the brain. N.B. : The above Results were Read Back by Rocky Pride MD to Lc Poole and understanding confirmed on 06/10/2022 10:51:52 (ET). Electronically Signed: Rocky Pride MD at 10:53 EST , 06/10/22 1100 Date cc: Dr. Lc Poole MD; No Primary Care Physician * Signed STUDY: CT BRAIN WITHOUT CONTRAST REASON FOR EXAM: Female, 61 years old. Neuro deficit, acute, stroke suspected RADIATION DOSAGE (If Supplied By Facility): CTDIvol = ( 44.99 ) mGy, DLP = ( 745.49 ) mGycm TECHNIQUE: Transaxial CT imaging of the brain was performed without administration of intravenous contrast material. Individualized dose optimization techniques were used for this CT. COMPARISON: No relevant priors. FINDINGS: Normal soft tissue structures. There is hyperostosis frontalis internus. Normal size ventricles and extra-axial spaces for the patient''s age. Normal white matter tracts of the cerebral hemispheres. Normal basal ganglia and thalami. Normal brainstem. Normal cerebellum. There is no intracranial hemorrhage. There are no findings of an acute ischemic infarction. Normal visualized paranasal sinuses. CT/STROKE Brain/Head without Cont IMPRESSION: Normal unenhanced CT scan of the brain. N.B. : The above Results were Read Back by Rocky Pride MD to Lc Poole and understanding confirmed on 06/10/2022 10:51:52 (ET). Electronically Signed: Rocky Pride MD at 10:53 EST Reading Location ID and State: [facility] / [place] , Service support , CC: Dr. Lc Poole MD; No Primary Care Physician Recreation Activities Coordinator: Signed Normal [facility] STROKE CTA Head AND Neck W/C onon 06-10-2022 STROKE CTA Head AND Neck W/Con [facility] Imaging Services [address] [place] [id number] STROKE CTA Head AND Neck W/Con MR#: [id number] Acct: [id number] Name: IHSAN MARCELO Rep #: [id number] : 1960 F 61 From: Rocky blakely MD PCP: Care Physician,No Primary Status: REG ER Study: STROKE CTA Head AND Neck W/Con Date of Exam: 0 06/10/22 Exam# [id number] Ordering Dr: Lc Poole MD ADDENDUM by Dr. Rocky Pride MD on 06/10/22 at 1112 STUDY: CTA HEAD AND NECK WITH CONTRAST REASON FOR EXAM: Female, 61 years old. Neuro deficit, acute, stroke suspected RADIATION DOSAGE (If Supplied By Facility): CTDIvol = ( 19.26 ) mGy, DLP = ( 750.67 ) mGycm TECHNIQUE: CT angiography was performed with a multi-detector CT scanner. Data acquisition was obtained from the skull base through the vertex following intravenous administration of IV 100mL Isovue-370. MIP images were reconstructed from the axial data set. Post-processing of the angiographic images was performed, with multiplanar reformation and 3D reconstruction. Individualized dose optimization techniques were used for this CT. COMPARISON: No relevant priors. FINDINGS: Normal bilateral petrous carotid arteries. Normal right cavernous carotid artery with a normal supraclinoid bifurcation. Normal left cavernous carotid artery with a normal supraclinoid bifurcation. Normal right A1 segments of the anterior cerebral artery. Normal left A1 segments of the anterior cerebral artery. Normal intact anterior communicating artery (ACOM). Normal bilateral A2 segments of the anterior cerebral arteries. Normal right M1 and M2 segments of the middle cerebral arteries, with a normal M1 bifurcation. Normal left M1 and M2 segments of the middle cerebral arteries, with a normal M1 bifurcation. Normal right posterior communicating artery (PCOM). Normal left posterior communicating artery (PCOM). Normal bilateral vertebral arteries. Normal basilar artery with a normal basilar bifurcation. The visualized bilateral superior cerebellar (SCA) arteries are normal. Normal bilateral P1, P2 and visualized P3 segments of the posterior cerebral arteries. There is no demonstrated aneurysm of the [place]. There is no demonstrated abnormality of the visualized brain. AORTIC ARCH: Normal visualized aortic arch. Normal origins of the brachiocephalic, left common carotid, and left subclavian arteries. RIGHT CAROTID ARTERIES: Normal right common carotid artery (CCA). Normal right common carotid bulb. Normal origin of the right internal carotid (ICA) artery without a hemodynamically significant stenosis. Normal visualized cervical portion of the right internal carotid artery. Normal origin of the right external carotid artery (ECA). LEFT CAROTID ARTERIES: Normal left common carotid artery (CCA). Normal left common carotid bulb. Normal origin of the left internal carotid (ICA) artery without a hemodynamically significant stenosis. Normal visualized cervical portion of the left internal carotid artery. Normal origin of the left external carotid artery (ECA). VERTEBRAL ARTERIES: Normal bilateral vertebral arteries. 06/10/22 1112 Date cc: Dr. Lc Poole MD; No Primary Care Physician * Signed ADDENDUM by Dr. Rocky Pride MD on 06/10/[address]/STROKE CTA Head AND Neck W/Con IMPRESSION: Normal CTA Head and neck with contrast. N.B. : The above Results were Read Back by Rocky Pride MD to Lc Poole and understanding confirmed on 06/10/2022 11:11:39 (ET). Electronically Signed: Rocky Pride MD at 11:12 EST Reading Location ID and State: [address] [place] [address] , Service support , 06/10/22 1119 Date cc: Dr. Lc Poole MD; No Primary Care Physician * Signed STUDY: CTA HEAD AND NECK WITH CONTRAST REASON FOR EXAM: Female, 61 years old. Neuro deficit, acute, stroke suspected RADIATION DOSAGE (If Supplied By Facility): CTDIvol = ( 19.26 ) mGy, DLP = ( 750.67 ) mGycm TECHNIQUE: CT angiography was performed with a multi-detector CT scanner. Data acquisition was obtained from the skull base through the vertex following intravenous administration of IV 100mL Isovue-370. MIP images were reconstructed from the axial data set. Post-processing of the angiographic images was performed, with multiplanar reformation and 3D reconstruction. Individualized dose optimization techniques were used for this CT. COMPARISON: No relevant priors. FINDINGS: Normal bilateral petrous carotid arteries. Normal right cavernous carotid artery with a normal supraclinoid bifurcation. Normal left cavernous carotid artery with a normal supraclino (more content not included)... Normal [facility] Serum or plasma calcium marlen urement (mass/volume)Ordered By: Dr. Poole on 06-10-2022 Calcium [Mass/Vol] 9.8 mg/dL 8.5-10.1 [facility] Serum or plasma creatinine m easurement (mass/volume)Ordered By: Dr. Poole on 06-10-2022 Creatinine [Mass/Vol] 1.08 mg/dL 0.55-1.02 [facility] Comment on above: The validity of the calculated GFR & GFRAA in patients over 70 years has not been determined. Clinical correlation is essential. Serum or plasma urea nitroge n measurement (mass/volume)Ordered By: Dr. Poole on 06-10-2022 Urea nitrogen [Mass/Vol] 23 mg/dL 7-18 [facility] Squamous epithelial cells de tection in urine sediment by light microscopyOrdered By: Dr. Poole on 06-10-2022 Epithelial cells.squamous LM Ql (Urine sed) 0-5 SEEN /hpf -10 [facility] Thin prep Papanicolaou smear with manual screeningOrdered By: Dr. Poole on 06-10-2022 Thin prep Papanicolaou smear with manual screening 10 -15 [facility] Urinalysis, Completeon 06-10 CAST,HYALINE 0-5 SEEN Normal 0-5 [facility] Comment on above: Order Comment: LOREN CTOR TO SPECIFY Performed By: #### L 400.0001 #### [facility] [address] [place], [address] EPI,SQUAMOUS 0-5 SEEN Normal -10 [facility] Comment on above: Order Comment: LOREN CTOR TO SPECIFY Performed By: #### L 400.0001 #### [facility] [address] [place], [address] Mucus Ql (Urine sed) RARE Normal [facility] Comment on above: Order Comment: COLLE CTOR TO SPECIFY Performed By: #### L 400.0001 #### [facility] [address] [place], [address] RBC 0-5 SEEN Normal 0-5 [facility] Comment on above: Order Comment: COLLE CTOR TO SPECIFY Performed By: #### L 400.0001 #### [facility] [address] [place], [address] WBC 0-5 SEEN Normal 0-5 [facility] Comment on above: Order Comment: LOREN CTOR TO SPECIFY Performed By: #### L 400.0001 #### [facility] [address] [place], [address] BACTERIA 0 SEEN Normal None Seen [facility] Comment on above: Order Comment: LOREN CTOR TO SPECIFY Performed By: #### L 400.0001 #### [facility] [address] [place], [address] Urine blood detectionOrdered By: Dr. Poole on 06-10-2022 RBC Ql (U) 10 /ul Negative [facility] RBC Ql (U) 0-5 SEEN /hpf 0-5 [facility] Urine clarityOrdered By: Dr. Poole on 06-10-2022 Clarity (U) Clear Clear [facility] Urine color determinationOrd ered By: Dr. Poole on 06-10-2022 Color (U) Yellow Yellow [facility] Urine glucose detectionOrder ed By: Dr. Poole on 06-10-2022 Glucose Ql (U) Normal mg/dl Normal [facility] Urine leukocyte esterase det ection by dipstickOrdered By: Dr. Poole on 06-10-2022 Leukocyte esterase Test strip Ql (U) 25 /ul Negative [facility] Urine pHOrdered By: Dr. Rut seaman on 06-10-2022 pH (U) 5.0 [pH] 5.0 - 8.0 [facility] Urine sediment bacteria coun t by microscopy (number/high power field)Ordered By: Dr. Poole on 06-10-2022 Bacteria LM.HPF (Urine sed) [#/Area] 0 /[HPF] None Seen [facility] Urine specific gravity measu rementOrdered By: Dr. Poole on 06-10-2022 Specific gravity (U) [Rel density] 1.025 1.002-1.030 [facility] Urobilinogen Auto test strip Ql (U)Ordered By: Dr. Poole on 06-10-2022 Urobilinogen Ql (U) Normal mg/dl Normal [facility] BASIC METABOLIC PANELon 11-01 Anion gap [Moles/Vol] 13 mmol/L Normal 10 - 20 [facility] Comment on above: Performed By: #### B MP #### [facility] [address] [place] [address] Calcium [Mass/Vol] 10.9 mg/dL High 8.6 - 10.6 [facility] [place] Comment on above: Performed By: #### B MP #### [facility] [address] [place] [address] Chloride [Moles/Vol] 108 mmol/L High 98 - 107 [facility] Comment on above: Performed By: #### B MP #### [facility] [address] [place] [address] Creatinine [Mass/Vol] 0.96 mg/dL Normal 0.50 - 1.05 [facility] Comment on above: Performed By: #### B MP #### [facility] [address] [place] [address] GFR- AM. 71 mL/min/1.73m2 Normal >60 [facility] Comment on above: Result Comment: CALC ULATIONS OF ESTIMATED GFR ARE PERFORMED USING THE MDRD STUDY EQUATION FOR THE IDMS-TRACEABLE CREATININE METHODS. CLIN CHEM 2007;53:766-72 Performed By: #### B MP #### [facility] [address] [place] [address] GFR-NON AM. 59 mL/min/1.73m2 Abnormal >60 [facility] Comment on above: Performed By: #### B MP #### [facility] [address] [place] [address] Glucose [Mass/Vol] 92 mg/dL Normal 74 - 99 [facility] [place] Comment on above: Performed By: #### B MP #### [facility] [address] [place] [address] HCO3 (Bld) [Moles/Vol] 26 mmol/L Normal 21 - 32 [facility] Comment on above: Performed By: #### B MP #### [facility] [address] [place] [address] Potassium [Moles/Vol] 4.4 mmol/L Normal 3.5 - 5.3 [facility] Comment on above: Performed By: #### B MP #### [facility] [address] [place] [address] Sodium [Moles/Vol] 143 mmol/L Normal 136 - 145 [facility] [place] Comment on above: Performed By: #### B MP #### [facility] [address] [place] [address] Urea nitrogen [Mass/Vol] 19 mg/dL Normal 6 - 23 [facility] Comment on above: Performed By: #### B MP #### [facility] [address] [place] [address] CBC AND DIFFERENTIALon 11-14 % AUTOMATED IMMATURE GRAN 0.2 % Normal 0.0 - 0.9 [facility] Comment on above: Result Comment: Estephania ture Granulocyte Count (IG) includes promyelocytes, myelocytes and metamyelocytes but does not include bands. Percent differential counts (%) should be interpreted in the context of the absolute cell counts (cells/L). Performed By: #### C BCDF #### [facility] [address] [place] [address] Basophils (Bld) [#/Vol] 0.03 10*3/uL Normal 0.00 - 0.1 0 [facility] Comment on above: Performed By: #### C BCDF #### [facility] [address] [place] [address] Basophils/100 WBC (Bld) 0.5 % Normal 0.0 - 2.0 [facility] Comment on above: Performed By: #### C BCDF #### [facility] [address] [place] [address] Eosinophils (Bld) [#/Vol] 0.08 10*3/uL Normal 0.00 - 0.70 [facility] Comment on above: Performed By: #### C BCDF #### [facility] [address] [place] [address] Eosinophils/100 WBC (Bld) 1.3 % Normal 0.0 - 6.0 [facility] Comment on above: Performed By: #### C BCDF #### [facility] [address] [place] [address] Erythrocyte distribution width (RBC) [Ratio] 13.2 % Normal 11.5 - 14.5 [facility] Comment on above: Performed By: #### C BCDF #### [facility] [address] [place] [address] Hematocrit (Bld) [Volume fraction] 44.2 % Normal 36.0 - 46.0 [facility] Comment on above: Performed By: #### C BCDF #### [facility] [address] [place] [address] Hemoglobin (Bld) [Mass/Vol] 14.7 g/dL Normal 12.0 - 16.0 [facility] Comment on above: Performed By: #### C BCDF #### [facility] [address] [place] [address] Lymphocytes (Bld) [#/Vol] 1.83 10*3/uL Normal 1.20 - 4.80 [facility] Comment on above: Performed By: #### C BCDF #### [facility] [address] [place] [address] Lymphocytes/100 WBC (Bld) 30.8 % Normal 13.0 - 44.0 [facility] Comment on above: Performed By: #### C BCDF #### [facility] [address] [place] [address] MCHC (RBC) [Mass/Vol] 33.3 g/dL Normal 32.0 - 36.0 [facility] Comment on above: Performed By: #### C BCDF #### [facility] [address] [place] [address] MCV (RBC) [Entitic vol] 95 fL Normal 80 - 100 [facility] Comment on above: Performed By: #### C BCDF #### [facility] [address] [place] [address] Monocytes (Bld) [#/Vol] 0.46 10*3/uL Normal 0.10 - 1.0 0 [facility] Comment on above: Performed By: #### C BCDF #### [facility] [address] [place] [address] Monocytes/100 WBC (Bld) 7.7 % Normal 2.0 - 10.0 [facility] Comment on above: Performed By: #### C BCDF #### [facility] [address] [place] [address] Neutrophils (Bld) [#/Vol] 3.53 10*3/uL Normal 1.20 - 7.70 [facility] Comment on above: Performed By: #### C BCDF #### [facility] [address] [place] [address] Neutrophils/100 WBC (Bld) 59.5 % Normal 40.0 - 80.0 [facility] Comment on above: Performed By: #### C BCDF #### [facility] [address] [place] [address] NUCLEATED RBC 0.0 /100 WBC Normal 0.0-0.0 [facility] Comment on above: Performed By: #### C BCDF #### [facility] [address] [place] [address] Platelets (Bld) [#/Vol] 198 10*3/uL Normal 150 - 450 [facility] Comment on above: Performed By: #### C BCDF #### [facility] [address] [place] [address] RBC 4.67 x10E12/L Normal 4.00 - 5.20 [facility] [place] Comment on above: Performed By: #### C BCDF #### [facility] [address] [place] [address] WBC (Bld) [#/Vol] 5.9 10*3/uL Normal 4.4 - 11.3 [facility] [place] Comment on above: Performed By: #### C BCDF #### [facility] [address] [place] [address] LIPID PANEL (CORONARY RISK 2 )on 11-14-2020 Cholesterol [Mass/Vol] 173 mg/dL Normal 0 - 199 [facility] Comment on above: Result Comment: . AGE DESIRABLE BORDERLINE HIGH HIGH 0-19 Y 0 - 169 170 - 199 >/= 200 20-24 Y 0 - 189 190 - 224 >/= 225 >24 Y 0 - 199 200 - 239 >/= 240 All ranges are based on fasting samples. Specific therapeutic targets will vary based on patient-specific cardiac risk. . Pediatric guidelines reference:Pediatrics 2011, 128(S5). Adult guidelines reference: NCEP ATPIII Guidelines, LUISITO 2001, 258:2486-97 . Venipuncture immediately after or during the administration of Metamizole may lead to falsely low results. Testing should be performed immediately prior to Metamizole dosing. Performed By: #### L IPID #### [facility] [address] [place] [address] Cholesterol in HDL [Mass/Vol] 57.1 mg/dL Normal [facility] Comment on above: Result Comment: . AGE VERY LOW LOW NORMAL HIGH 0-19 Y < 35 < 40 40-45 ---- 20-24 Y ---- < 40 >45 ---- >24 Y ---- < 40 40-60 >60 . Performed By: #### L IPID #### [facility] [address] [place] [address] Cholesterol in LDL [Mass/Vol] 97 mg/dL Normal 0 - 99 [facility] Comment on above: Result Comment: . NEAR BORD AGE DESIRABLE OPTIMAL HIGH HIGH VERY HIGH 0-19 Y 0 - 109 --- 110-129 >/= 130 ---- 20-24 Y 0 - 119 --- 120-159 >/= 160 ---- >24 Y 0 - 99 100-129 130-159 160-189 >/=190 . Performed By: #### L IPID #### [facility] [address] [place] [address] Cholesterol in VLDL [Mass/Vol] 19 mg/dL Normal 0 - 40 [facility] Comment on above: Performed By: #### L IPID #### [facility] [address] [place] [address] Cholesterol.total/Bea sterol in HDL [Mass ratio] 3.0 {ratio} Normal [facility] Comment on above: Result Comment: REF VALUES DESIRABLE < 3.4 HIGH RISK > 5.0 Performed By: #### L IPID #### [facility] [address] [place] [address] Triglyceride [Mass/Vol] 94 mg/dL Normal 0 - 149 [facility] Comment on above: Result Comment: . AGE DESIRABLE BORDERLINE HIGH HIGH VERY HIGH 0 D-90 D 19 - 174 ---- ---- ---- 91 D- 9 Y 0 - 74 75 - 99 >/= 100 ---- 10-19 Y 0 - 89 90 - 129 >/= 130 ---- 20-24 Y 0 - 114 115 - 149 >/= 150 ---- >24 Y 0 - 149 150 - 199 200- 499 >/= 500 . Venipuncture immediately after or during the administration of Metamizole may lead to falsely low results. Testing should be performed immediately prior to Metamizole dosing. Performed By: #### L IPID #### [facility] [address] [place] [address] THYROXINE,FREEon 11-14-2020 THYROXINE,FREE 1.13 ng/dL Normal 0.78 - 1.48 [facility] Comment on above: Result Comment: Thyr oxine Free testing is performed using different testing methodology at [facility] than at other [facility]. Direct result comparisons should only be made within the same method. Performed By: #### T 4FRE #### [facility] [address] [place] [address] TRIIODOTHYRONINEon TRIIODOTHYRONINE 130 ng/dL Normal 60 - 200 [facility] Comment on above: Performed By: #### T 3 #### [facility] [address] [place] [address] TSHon 11-14-2020 TSH Qn 2.69 m[IU]/L Normal 0.44 - 3.98 [facility] Comment on above: Result Comment: TSH testing is performed using different testing methodology at [facility] than at other [facility]. Direct result comparisons should only be made within the same method. Performed By: #### T SH2 #### [facility] [address] [place] [address] VITAMIN D, 25-HYDROXYon 11-01 VITAMIN D, 25-HYDROXY 32 ng/mL Normal [facility] Comment on above: Result Comment: . DEFICIENCY: < 20 NG/ML INSUFFICIENCY: 20-29 NG/ML SUFFICIENCY: 30-100 NG/ML THIS ASSAY ACCURATELY QUANTIFIES THE SUM OF VITAMIN D3, 25-HYDROXY AND VIT D2,25-HYDROXY. Performed By: #### V TDOH #### [facility] [address] [place] [address] Complete Blood Count + Diffe rentialon 11-13-2020 Basophils/100 WBC (Bld) 0.5 % 0.0 - 2.0 M [facility] Work Phone: Erythrocyte distribution width (RBC) [Ratio] 13.2 % See Below [facility] Work Phone: Comment on above: Reference Range: 11. 5 - 14.5 Hematocrit (Bld) [Volume fraction] 44.2 % See Below [facility] Work Phone: Comment on above: Reference Range: 36. 0 - 46.0 Hemoglobin (Bld) [Mass/Vol] 14.7 g/dL See Below [facility] Work Phone: Comment on above: Reference Range: 12. 0 - 16.0 Lymphocytes/100 WBC (Bld) 30.8 % See Below [facility] Work Phone: Comment on above: Reference Range: 13. 0 - 44.0 MCHC (RBC) [Mass/Vol] 33.3 g/dL See Below [facility] Work Phone: Comment on above: Reference Range: 32. 0 - 36.0 MCV (RBC) [Entitic vol] 95 fL 80 - 100 [facility] Work Phone: [phone] Monocytes/100 WBC (Bld) 7.7 % 2.0 - 10.0 M [facility] Work Phone: [phone] Neutrophils/100 WBC (Bld) 59.5 % See Below [facility] Work Phone: Comment on above: Reference Range: 40. 0 - 80.0 Platelets (Bld) [#/Vol] 198 10*3/uL 150 - 450 [facility] Work Phone: [phone] RBC (Bld) [#/Vol] 4.67 {x10E12/L} See Below [facility] Work Phone: Comment on above: Reference Range: 4.0 0 - 5.20 WBC (Bld) [#/Vol] 5.9 10*3/uL 4.4 - 11.3 [facility] Work Phone: [phone] Complete Blood Count + Differential 0.03 {x10E9/L} See Below [facility] Work Phone: [phone] Comment on above: Reference Range: 0.0 0 - 0.10 Complete Blood Count + Differential 0.08 {x10E9/L} See Below [facility] Work Phone: [phone] Comment on above: Reference Range: 0.0 0 - 0.70 Complete Blood Count + Differential 0.46 {x10E9/L} See Below [facility] Work Phone: [phone] Comment on above: Reference Range: 0.1 0 - 1.00 Complete Blood Count + Differential 1.83 {x10E9/L} See Below [facility] Work Phone: Comment on above: Reference Range: 1.2 0 - 4.80 Complete Blood Count + Differential 3.53 {x10E9/L} See Below [facility] Work Phone: Comment on above: Reference Range: 1.2 0 - 7.70 Complete Blood Count + Differential 1.3 % 0.0 - 6.0 [facility] Work Phone: Complete Blood Count + Differential 0.2 % 0.0 - 0.9 [facility] Work Phone: Comment on above: Immature Granulocyte Count (IG) includes promyelocytes, myelocytes and metamyelocytes but does not include bands. Percent differential counts (%) should be interpreted in the context of the absolute cell counts (cells/L). Complete Blood Count + Differential 0.0 {/100_WBC} 0.0-0.0 [facility] Work Phone: Laboratory - Chemistry and C hemistry - challengeon 11-13-2020 Anion gap [Moles/Vol] 13 mmol/L 10 - 20 [facility] Work Phone: Calcium [Mass/Vol] 10.9 mg/dL above high threshold 8.6 - 10.6 [facility] Work Phone: [phone] Chloride [Moles/Vol] 108 mmol/L above high threshold 98 - 107 [facility] Work Phone: [phone] CO2 [Moles/Vol] 26 mmol/L 21 - 32 [facility] Physician [facility] Work Phone: [phone] Creatinine [Mass/Vol] 0.96 mg/dL See Below [facility] Work Phone: [phone] Comment on above: Reference Range: 0.5 0 - 1.05 Glucose [Mass/Vol] 92 mg/dL 74 - 99 [facility] Work Phone: [phone] Potassium [Moles/Vol] 4.4 mmol/L 3.5 - 5.3 [facility] Work Phone: Sodium [Moles/Vol] 143 mmol/L 136 - 145 [facility] Work Phone: Urea nitrogen [Mass/Vol] 19 mg/dL 6 - 23 [facility] Work Phone: Lipid Panelon 11-13-2020 Cholesterol [Mass/Vol] 173 mg/dL 0 - 199 [facility] Work Phone: Comment on above: . AGE DESIRABLE BORD KOBI HIGH HIGH 0-19 Y 0 - 169 170 - 199 >/= 200 20-24 Y 0 - 189 190 - 224 >/= 225 >24 Y 0 - 199 200 - 239 >/= 240 All ranges are based on fasting samples. Specific therapeutic targets will vary based on patient-specific cardiac risk.. Pediatric guidelines reference:Pediatrics 2011, 128(S5). Adult guidelines reference: NCEP ATPIII Guidelines, LUISITO 2001, 258:2486-97. Venipuncture immediately after or during the administration of Metamizole may lead to falsely low results. Testing should be performed immediately prior to Metamizole dosing. Cholesterol in HDL [Mass/Vol] 57.1 mg/dL [facility] Physician [facility] Work Phone: Comment on above: . AGE VERY LOW LOW N ORMAL HIGH 0-19 Y < 35 < 40 40-45 ---- 20-24 Y ---- < 40 >45 ---- >24 Y ---- < 40 40-60 >60. Cholesterol in LDL [Mass/Vol] 97 mg/dL 0 - 99 [facility] Work Phone: Comment on above: . NEAR BORD AGE ANA LUISA RABLE OPTIMAL HIGH HIGH VERY HIGH 0-19 Y 0 - 109 --- 110-129 >/= 130 ---- 20-24 Y 0 - 119 --- 120-159 >/= 160 ---- >24 Y 0 - 99 100-129 130-159 160-189 >/=190. Cholesterol.total/Bea sterol in HDL [Mass ratio] 3.0 {ratio} [facility] Work Phone: Comment on above: REF VALUESDESIRABLE < 3.4HIGH RISK > 5.0 Triglyceride [Mass/Vol] 94 mg/dL 0 - 149 M [facility] Work Phone: Comment on above: . AGE DESIRABLE BORD KOBI HIGH HIGH VERY HIGH 0 D-90 D 19 - 174 ---- ---- ----91 D- 9 Y 0 - 74 75 - 99 >/= 100 ---- 10-19 Y 0 - 89 90 - 129 >/= 130 ---- 20-24 Y 0 - 114 115 - 149 >/= 150 ---- >24 Y 0 - 149 150 - 199 200- 499 >/= 500. Venipuncture immediately after or during the administration of Metamizole may lead to falsely low results. Testing should be performed immediately prior to Metamizole dosing. Lipid Panel 19 mg/dL 0 - 40 [facility] Work Phone: No Panel Informationon 11-13 71 {mL/min/1.73m2} >60 [facility] Work Phone: Comment on above: CALCULATIONS OF ANGEL MATED GFR ARE PERFORMED USING THE MDRD STUDY EQUATION FOR THE IDMS-TRACEABLE CREATININE METHODS. CLIN CHEM 2007;53:766-72 59 {mL/min/1.73m2} Abnormal >60 [facility] Work Phone: Office Visit ([facility])on 11-13-2020 Follow-up visit Diagnoses/Problems Thrombocytopenia (287.5) (D69.6) Vitamin D deficiency, unspecified (268.9) (E55.9) Abnormal thyroid screen (blood) (790.6) (R79.89) Postmenopausal bleeding (627.1) (N95.0) Impetigo (684) (L01.00) Limb pain (729.5) (M79.609) Orders Abnormal thyroid screen (blood), Health Maintenance, Thrombocytopenia, Vitamin D deficiency, unspecified Basic Metabolic Panel; Status:In Progress - Specimen/Data Collected; Done: [id number] Education Material Provided for Patient; Status:Complete; Done: [id number] Complete Blood Count + Differential; Status:In Progress - Specimen/Data Collected; Done: [id number] Lipid Panel; Status:In Progress - Specimen/Data Collected; Done: [id number] T4 - Free Thyroxine, Serum; Status:In Progress - Specimen/Data Collected; Done: [id number] Triiodothyronine, Level (T3); Status:In Progress - Specimen/Data Collected; Done: [id number] TSH - Thyroid Stimulating Hormone, Serum; Status:In Progress - Specimen/Data Collected; Done: [id number] Vitamin D 25-Hydroxy; Status:In Progress - Specimen/Data Collected; Done: [id number] Impetigo Start: Cephalexin 500 MG Oral Tablet (Cephalexin Monohydrate); TAKE 1 TABLET 3 TIMES DAILY Start: Mupirocin 2 % External Ointment; APPLY A SMALL AMOUNT 3 TIMES DAILY DIRECTED Postmenopausal bleeding Gynecology Referral Evaluation and Treatment Evaluate AND Treat Status: Hold For - Scheduling Requested for: [id number] Patient Discussion/Summary By signing my name below, I, Samir Polanco, attest that this documentation has been prepared under the direction and in the presence of Dr. Shiela Troy. All medical record entries made by the Scribe were at my direction and personally dictated by me. I have reviewed the chart and agree that the record accurately reflects my personal performance of the history, physical exam, discussion and plan. Provider Impressions Referral to camp advisor. Dr. Hernandez or Jose for breakthrough vaginal bleeding. Keflex, mupirocin ointment Rx sent to pharmacy. Will do Keflex for 1 week only, has extra Rx in case of repeat symptoms. Call with issues or if symptoms worsen or don't improve. Blood work ordered, fasting, BMP, CBCD, lipid panel, T3, T4, TSH, vit D. Follow up with me for a full physical. Chief Complaint Chief Complaint: ALEJANDRA MARCELO is here with a chief complaint of . red raised area under chin that has yellow drainage ,pt also had a day og vaginal bleeding. History of Present Illness 59 year old female presenting for red raised area under chin that has yellow drainage. Patient also had a day breakthrough vaginal bleeding. Rash onset 2 months ago. She reports yellow crusting Is not spreading. waxes and wanes No fever, chills. She has not seen a doctor in a while. Has not been taking Synthroid in a while. No recent blood work. Reports Synthroid was not helping her. She reports a breakthrough bleeding. Only for 1 day. Does not have grid maker. her dter told her to go but she did not Has thigh pain. Has started walking. Thinks pain is due to weight. feels better since started walking no blood work in a long time Review of Systems Constitutional: no chills, no fever and no night sweats. Eyes: no blurred vision and no eyesight problems. ENT: no hearing loss, no nasal congestion, no nasal discharge, no hoarseness and no sore throat. Neck: no mass(es) and no swelling. Cardiovascular: no chest pain, no intermittent leg claudication, no lower extremity edema, no palpitations and no syncope. Respiratory: no cough, no shortness of breath during exertion, no shortness of breath at rest and no wheezing. Gastrointestinal: no abdominal pain, no constipation, no diarrhea, no nausea and no vomiting. Genitourinary: unexplained vaginal bleeding, but as noted in HPI, no dysuria, no change in urinary frequency, no urinary hesitancy, no feelings of urinary urgency and no vaginal discharge. Musculoskeletal: limb pain, but as noted in HPI, no arthralgias, no back pain and no myalgias. Integumentary: new skin lesion, but as noted in HPI and no rashes . crusty, no current yellow. Neurological: no difficulty walking, no headache, no limb weakness, no numbness and no tingling. Psychiatric: no anxiety, no depression, no anhedonia and no substance use disorders. Endocrine: no recent weight gain and no recent weight loss. Hematologic/Lymphatic: no tendency for easy bruising and no swollen glands. Active Problems Abnormal thyroid screen (blood) (790.6) (R79.89) Acute sinusitis (461.9) (J01.90) Asthma (493.90) (J45.909) Borderline abnormal thyroid function test (794.5) (R94.6) Colon cancer screening (V76.51) (Z12.11) Fatigue (780.79) (R53.83) GERD (gastroesophageal reflux disease) (530.81) (K21.9) Nevus (216.9) (D22.9) Thrombocytopenia (287.5) (D69.6) Visit for screening mammogram (V76.12) (Z12.31) Vitamin D deficiency, unspecified (268.9) (E55.9) Past Medical Histo (more content not included)... Normal [facility] T4 - Free Thyroxine, Serumon 11-13-2020 Free T4 [Mass/Vol] 1.13 ng/dL See Below [facility] Work Phone: Comment on above: Reference Range: 0.7 8 - 1.48 Thyroxine Free testing is performed using different testing methodology at [facility] than at other [facility]. Direct result comparisons should only be made within the same method. TSH - Thyroid Stimulating Ho rmone, Serumon 11-13-2020 TSH Qn 2.69 m[IU]/L See Below [facility] Work Phone: Comment on above: Reference Range: 0.4 4 - 3.98 TSH testing is performed using different testing methodology at [facility] than at other [facility]. Direct result comparisons should only be made within the same method. Triiodothyronine, Level (T3) on 11-13-2020 T3 [Mass/Vol] 130 ng/dL 60 - 200 [facility] Work Phone: Vitamin D 25-Hydroxyon 11-13 25-hydroxyvitamin D3 [Mass/Vol] 32 ng/mL [facility] Work Phone: Comment on above: .DEFICIENCY: < 20 NG /MLINSUFFICIENCY: 20-29 NG/MLSUFFICIENCY: 30-100 NG/MLTHIS ASSAY ACCURATELY QUANTIFIES THE SUM OFVITAMIN D3, 25-HYDROXY AND VIT D2,25-HYDROXY. Complete Blood Count + Diffe rentialon 12-01-2018 Basophils (Bld) [#/Vol] 0.04 {x10E9/L} See Art ngo [facility] Work Phone: Comment on above: Reference Range: 0.0 0 - 0.10 Basophils/100 WBC (Bld) 0.7 % 0.0 - 2.0 [facility] Work Phone: Eosinophils (Bld) [#/Vol] 0.11 {x10E9/L} See Below [facility] Work Phone: [phone] Comment on above: Reference Range: 0.0 0 - 0.70 Eosinophils/100 WBC (Bld) 1.9 % 0.0 - 6.0 [facility] Work Phone: [phone] Erythrocyte distribution width (RBC) [Ratio] 13.1 % See Below [facility] Work Phone: [phone] Comment on above: Reference Range: 11. 5 - 14.5 Hematocrit (Bld) [Volume fraction] 43.6 % See Below [facility] Work Phone: [phone] Comment on above: Reference Range: 36. 0 - 46.0 Hemoglobin (Bld) [Mass/Vol] 13.9 g/dL See Below [facility] Work Phone: [phone] Comment on above: Reference Range: 12. 0 - 16.0 Lymphocytes (Bld) [#/Vol] 2.01 {x10E9/L} See Below [facility] Work Phone: [phone] Comment on above: Reference Range: 1.2 0 - 4.80 Lymphocytes/100 WBC (Bld) 34.0 % See Below [facility] Work Phone: [phone] Comment on above: Reference Range: 13. 0 - 44.0 MCHC (RBC) [Mass/Vol] 31.9 g/dL below low threshold See Below [facility] Work Phone: [phone] Comment on above: Reference Range: 32. 0 - 36.0 MCV (RBC) [Entitic vol] 94 fL 80 - 100 M [facility] Work Phone: [phone] Monocytes (Bld) [#/Vol] 0.51 {x10E9/L} See Bel[place] w [facility] Work Phone: [phone] Comment on above: Reference Range: 0.1 0 - 1.00 Monocytes/100 WBC (Bld) 8.6 % 2.0 - 10.0 [facility] Work Phone: Neutrophils (Bld) [#/Vol] 3.21 {x10E9/L} See Below [facility] Physician [facility] Work Phone: Comment on above: Reference Range: 1.2 0 - 7.70 Neutrophils/100 WBC (Bld) 54.3 % See Below [facility] Physician [facility] Work Phone: Comment on above: Reference Range: 40. 0 - 80.0 Platelets (Bld) [#/Vol] 189 {x10E9/L} 150 - 450 [facility] Physician [facility] Work Phone: RBC (Bld) [#/Vol] 4.66 {x10E12/L} See Below [facility] Work Phone: Comment on above: Reference Range: 4.0 0 - 5.20 WBC (Bld) [#/Vol] 5.9 {x10E9/L} 4.4 - 11.3 [facility] Physician [facility] Work Phone: WBC (Bld) [#/Vol] 0.0 {/100_WBC} 0.0-0.0 [facility] Work Phone: Complete Blood Count + Differential 0.5 % 0.0 - 0.9 [facility] Work Phone: Comment on above: Percent differential counts (%) should be interpreted in the context of the absolute cell counts (cells/L). Lipid Panelon 12-01-2018 Cholesterol [Mass/Vol] 186 mg/dL 0 - 199 [facility] Physician [facility] Work Phone: Comment on above: . AGE DESIRABLE BORD KOBI HIGH HIGH 0-19 Y 0 - 169 170 - 199 >/= 200 20-24 Y 0 - 189 190 - 224 >/= 225 >24 Y 0 - 199 200 - 239 >/= 240 All ranges are based on fasting samples. Specific therapeutic targets will vary based on patient-specific cardiac risk.. Pediatric guidelines reference:Pediatrics 2011, 128(S5). Adult guidelines reference: NCEP ATPIII Guidelines, LUISITO 2001, 258:2486-97. Venipuncture immediately after or during the administration of Metamizole may lead to falsely low results. Testing should be performed immediately prior to Metamizole dosing. Cholesterol in HDL [Mass/Vol] 48.3 mg/dL [facility] Work Phone: Comment on above: . AGE VERY LOW LOW N ORMAL HIGH 0-19 Y < 35 < 40 40-45 ---- 20-24 Y ---- < 40 >45 ---- >24 Y ---- < 40 40-60 >60. Cholesterol in LDL [Mass/Vol] 123 mg/dL above high threshold 0 - 99 [facility] Physician [facility] Work Phone: Comment on above: . NEAR BORD AGE ANA LUISA RABLE OPTIMAL HIGH HIGH VERY HIGH 0-19 Y 0 - 109 --- 110-129 >/= 130 ---- 20-24 Y 0 - 119 --- 120-159 >/= 160 ---- >24 Y 0 - 99 100-129 130-159 160-189 >/=190. Cholesterol.total/Bea sterol in HDL [Mass ratio] 3.9 {ratio} [facility] Work Phone: Comment on above: REF VALUESDESIRABLE < 3.4HIGH RISK > 5.0 Triglyceride [Mass/Vol] 76 mg/dL 0 - 149 M [facility] Work Phone: Comment on above: . AGE DESIRABLE BORD KOBI HIGH HIGH VERY HIGH 0 D-90 D 19 - 174 ---- ---- ----91 D- 9 Y 0 - 74 75 - 99 >/= 100 ---- 10-19 Y 0 - 89 90 - 129 >/= 130 ---- 20-24 Y 0 - 114 115 - 149 >/= 150 ---- >24 Y 0 - 149 150 - 199 200- 499 >/= 500. Venipuncture immediately after or during the administration of Metamizole may lead to falsely low results. Testing should be performed immediately prior to Metamizole dosing. Lipid Panel 15 mg/dL 0 - 40 [facility] Work Phone: Metabolic Panelon 12-01-2018 Anion gap [Moles/Vol] 13 mmol/L 10 - 20 [facility] Work Phone: Calcium [Mass/Vol] 9.8 mg/dL 8.6 - 10.6 [facility] Physician [facility] Work Phone: Chloride [Moles/Vol] 106 mmol/L 98 - 107 [facility] Physician [facility] Work Phone: CO2 [Moles/Vol] 26 mmol/L 21 - 32 [facility] Work Phone: Creatinine [Mass/Vol] 0.78 mg/dL See Below [facility] Work Phone: Comment on above: Reference Range: 0.5 0 - 1.05 Glucose [Mass/Vol] 108 mg/dL above high threshold 74 - 99 [facility] Work Phone: Potassium [Moles/Vol] 4.0 mmol/L 3.5 - 5.3 [facility] Work Phone: Sodium [Moles/Vol] 141 mmol/L 136 - 145 [facility] Work Phone: Urea nitrogen [Mass/Vol] 16 mg/dL 6 - 23 [facility] Work Phone: Otheron 12-01-2018 >60 >60 [facility] Work Phone: Comment on above: CALCULATIONS OF ANGEL MATED GFR ARE PERFORMED USING THE MDRD STUDY EQUATION FOR THE IDMS-TRACEABLE CREATININE METHODS. CLIN CHEM 2007;53:766-72 T4 - Free Thyroxine, Serumon 12-01-2018 Free T4 [Mass/Vol] 1.00 ng/dL See Below [facility] Physician [facility] Work Phone: Comment on above: Reference Range: 0.7 8 - 1.48 Thyroxine Free testing is performed using different testing methodology at [facility] than at [facility]. Direct result comparisons should only be made within the same method.. Patients receiving more than 5 mg/day of biotin may have interference in test results. A sample should be taken no sooner than eight hours after previous dose. Contact [phone] for additional information. TSH - Thyroid Stimulating Ho estrella, Serumon 12-01-2018 TSH Qn 3.39 {mIU/L} See Below [facility] Work Phone: Comment on above: Reference Range: 0.4 4 - 3.98 TSH testing is performed using different testing methodology at [facility] than at other [facility]. Direct result comparisons should only be made within the same method.. Patients receiving more than 5 mg/day of biotin may have interference in test results. A sample should be taken no sooner than eight hours after previous dose. Contact [phone] for additional information. Vitamin D 25-Hydroxyon 12-01 Calcidiol [Mass/Vol] 29 ng/mL Abnormal [facility] Work Phone: Comment on above: .DEFICIENCY: < 20 NG /MLINSUFFICIENCY: 20-29 NG/MLOPTIMUM LEVEL: 30-80 NG/MLPOSSIBLE TOXICITY: > 80 NG/MLTHIS ASSAY ACCURATELY QUANTIFIES THE SUM OFVITAMIN D3, 25-HYDROXY AND VIT D2,25-HYDROXY. Vital Signs Date Time Vital Sign Value Performing Clinician Faci lity 06-12-2022 13:18-0400 Body mass index (BMI) [Ratio] 32.5 kg/m2 Dr. Lc Poole Work Phone: [facility] 06-12-2022 09:41-0400 Body temperature 99.6 [degF] Dr. Lc Poole Work Phone: [facility] 06-12-2022 09:41-0400 Diastolic blood pressure 51 mm[Hg] Dr. Lc Poole Work Phone: [facility] 06-12-2022 09:41-0400 Heart rate 74 /min Dr. Lc Poole Work Phone: [facility] 06-12-2022 09:41-0400 Respiratory rate 18 /min Dr. Lc Poole Work Phone: [facility] 06-12-2022 09:41-0400 SaO2% (BldA) [Mass fraction] 95 % Dr. Lc Poole Work Phone: [facility] 06-12-2022 09:41-0400 Systolic blood pressure 110 mm[Hg] Dr. Lc Poole Work Phone: [facility] 06-12-2022 06:00-0400 Body weight 75.[address] Lc Poole Work Phone: [facility] 06-11-2022 13:44-0500 Body height 152.[address] Lc Poole Work Phone: [facility] 06-10-2022 12:44-0500 Body temperature 97.6 [degF] [facility] 06-10-2022 12:44-0500 Diastolic blood pressure 69 mm[Hg] [facility] 06-10-2022 12:44-0500 Heart rate 86 /min [facility] 06-10-2022 12:44-0500 Respiratory rate 16 /min [facility] 06-10-2022 12:44-0500 SaO2% (BldA) [Mass fraction] 97 % [facility] 06-10-2022 12:44-0500 Systolic blood pressure 110 mm[Hg] [facility] 06-10-2022 10:40-0500 Body height 152.4 cm [facility] 06-10-2022 10:40-0500 Body mass index (BMI) [Ratio] 34.2 kg/m2 [facility] 06-10-2022 10:40-0500 Body weight 79.4 kg [facility] 11-13-2020 11:19-0400 Body height 152.4 cm Shiela Troy Work Phone: [facility] Work Phone: 11-13-2020 11:19-0400 Body mass index (BMI) [Ratio] 34.76 kg/m2 Shiela Troy Work Phone: [facility] Work Phone: 11-13-2020 11:19-0400 Body surface area Derived from formula 1.78 m2 Shiela Troy Work Phone: [facility] Work Phone: 11-13-2020 11:19-0400 Body temperature 98.5 [degF] Shiela Troy Work Phone: [facility] Work Phone: 11-13-2020 11:19-0400 Body weight 80.74 kg Shiela Troy Work Phone: [facility] Work Phone: 11-13-2020 11:19-0400 Diastolic blood pressure 72 mm[Hg] Shiela Troy Work Phone: [facility] Work Phone: 11-13-2020 11:19-0400 Heart rate 70 /min Shiela Troy Work Phone: [facility] Work Phone: 11-13-2020 11:19-0400 Respiratory rate 18 /min Shiela Troy Work Phone: [facility] Work Phone: 11-13-2020 11:19-0400 Systolic blood pressure 124 mm[Hg] Shiela Troy Work Phone: [facility] Work Phone: 11-27-2018 17:13-0400 BMI (Body Mass Index) 35.74 kg/m2 Shiela Tiradomel [facility] Work Phone: 11-27-2018 17:13-0400 Body Temperature 98.2 [degF] Shiela Tiradomel [facility] Work Phone: 11-27-2018 17:13-0400 Body weight 83.01 kg [facility] Work Phone: 11-27-2018 17:13-0400 BP Diastolic 74 mm[Hg] [facility] Work Phone: 11-27-2018 17:13-0400 BP Systolic 116 mm[Hg] [facility] Work Phone: 11-27-2018 17:13-0400 BSA (Body Surface Area) 1.8 m2 [facility] Work Phone: 11-27-2018 17:13-0400 Height 152.4 cm [facility] Work Phone: 11-27-2018 17:13-0400 Pulse (Heart Rate) 60 /min [facility] Work Phone: 11-27-2018 17:13-0400 Pulse Oximetry 99 % [facility] Work Phone: Encounters Encounter Date Encounter Type Care Provider Facility Start: 07-04-2022 End: 07-04-2022 Office outpatient visit 25 minutes Shiela Troy MD Work Phone: [facility] Internal Medicine/Peds Comment on above: Mental status change resolved (Primary Dx); Pulmonary nodule Start: 06-12-2022 Non-patient / Non-visit Dr. Vale Poole Work Phone: [facility] Start: 06-11-2022 Non-patient / Non-visit Dr. Vale Poole Work Phone: [facility] Start: 06-10-2022 ambulatory Mame Pranav Facility:[facility] Start: 06-10-2022 Non-patient / Non-visit Dr. Vale Poole Work Phone: [facility] Start: [facility] Start: 06-10-2022 End: 06-12-2022 Evaluation and management of inpatient [facility] Facility:[facility] Start: 06-10-2022 Non-patient / Non-visit Dr. Vale Poole Work Phone: [facility] Start: 06-10-2022 End: 06-12-2022 Evaluation and management of inpatient [facility]-Pro[facility] Unit Start: 01-29-2021 AUDIT Shiela Troy Work Phone: [facility] Work Phone: Start: 11-13-2020 Office outpatient vi sit 25 minutes Shiela Troy Work Phone: [facility] Work Phone: Start: 11-27-2018 Patient encounter procedure Shiela Troy [facility] Work Phone: Start: 10-03-2017 Patient encounter procedure Shiela Troy [facility] Work Phone: Procedures Date Procedure Procedure Detail Performing Clinician Start: 06-10-2022 MRI of brain without contrast Dr. Lc Poole Work Phone: Start: 06-10-2022 Plain chest X-ray Start: 06-10-2022 CT angiography of he ad and neck Start: 06-10-2022 CT of head without contrast Start: 11-13-2020 Lipid 1996 panel - S yenni or Plasma Shiela Troy MD Work Phone: Start: 11-13-2020 Thyrotropin [Units/v olume] in Serum or Plasma Shiela Troy MD Work Phone: Start: 11-27-2018 25 hydroxy includes fractions if performed Shiela Troy Start: 11-27-2018 Assay of free thyroxine Shiela Troy Start: 11-27-2018 Assay of thyroid stimulating hormone tsh Shiela Troy Start: 11-27-2018 Basic metabolic 1998 panel - Serum or Plasma Shiela Troy Start: 11-27-2018 Blood count complete auto&auto difrntl wbc Shiela Troy Start: 11-27-2018 Lipid panel Shiela Grimaldo el section Shiela Samson l Tonsillectomy Shiela Troy Viral antigen assay Dr. Lc Poole Work Phone: Plan of Treatment Date Care Activity Detail Author Start: 11-13-2025 Lipid panel Lipid Panel [facility] Start: 12-02-2022 Influenza vaccination Influenz a Vaccine (Season Ended) [facility] Start: 08-10-2022 End: 08-10-2022 Patient encounter procedure 08/10/2022 4:00 PM EDT Office Visit [facility] Internal Medicine/Peds [address] [facility] [address] [place] [address] Shiela Troy MD [address] [facility] [address] [place] [address] [facility]/Peds Start: 07-04-2022 End: 07-05-2023 25-hydroxyvitamin D3 [Mass/volume] in Serum or Plasma Vitamin D 25-Hydroxy,Total Lab Routine Mental status change resolved Expected: 07/04/2022 (Approximate), Expires: 07/05/2023 [facility] Work Phone: Comment on above: Expected: 07/04/2022 (Approximate), Expires: 07/05/2023 Start: 07-04-2022 End: 07-05-2023 [facility] reactive protein [Mass/volume] in Serum or Plasma C-Reactive Protein Lab Routine Mental status change resolved Expected: 07/04/2022 (Approximate), Expires: 07/05/2023 [facility] Work Phone: Comment on above: Expected: 07/04/2022 (Approximate), Expires: 07/05/2023 Start: 07-04-2022 End: 07-05-2023 CBC W Auto Differential panel - Blood CBC and Auto Differential Lab Routine Mental status change resolved Expected: 07/04/2022 (Approximate), Expires: 07/05/2023 [facility] Service Area Work Phone: Comment on above: Expected: 07/04/2022 (Approximate), Expires: 07/05/2023 Start: 07-04-2022 End: 07-05-2023 Comprehensive metabolic 2000 panel - Serum or Plasma Comprehensive Metabolic Panel Lab Routine Mental status change resolved Expected: 07/04/2022 (Approximate), Expires: 07/05/2023 [facility] Work Phone: Comment on above: Expected: 07/04/2022 (Approximate), Expires: 07/05/2023 Start: 07-04-2022 End: 07-05-2023 CT Chest W contrast IV CT chest w IV contrast Imaging Routine Pulmonary nodule Expected: 07/04/2022, Expires: 07/05/2023 [facility] Work Phone: Comment on above: Expected: 07/04/2022 , Expires: 07/05/2023 Start: 07-04-2022 End: 07-05-2023 Magnesium [Mass/volume] in Serum or Plasma Magnesium Lab Routine Mental status change resolved Expected: 07/04/2022 (Approximate), Expires: 07/05/2023 [facility] Work Phone: Comment on above: Expected: 07/04/2022 (Approximate), Expires: 07/05/2023 Start: 07-04-2022 End: 07-05-2023 TSH with reflex to Free T4 if abnormal TSH with reflex to Free T4 if abnormal Lab Routine Mental status change resolved Expected: 07/04/2022 (Approximate), Expires: 07/05/2023 [facility] Work Phone: Comment on above: Expected: 07/04/2022 (Approximate), Expires: 07/05/2023 Start: 06-12-2022 Patient discharge [facility] Start: 06-11-2022 Vitamin B12 measurement [facility] Start: 06-11-2022 [facility] Start: 06-11-2022 Consultation [facility] Start: 06-11-2022 Thyroid stimulating hormone measurement [facility] Start: 06-10-2022 [facility] Start: 06-10-2022 Following clinical pathway protocol [facility] Start: 06-10-2022 Ambulation without limitation [facility] Start: 06-10-2022 Assessment of risk o f venous thromboembolism [facility] Start: 06-10-2022 Cardiac monitoring [facility] Start: 06-10-2022 Care regimes management [facility] Start: 06-10-2022 Catheterization of vein [facility] Start: 06-10-2022 Elevation of head of bed [facility] Start: 06-10-2022 Exercises [facility] Start: 06-10-[address] anned interventions [facility] Start: 06-10-2022 Insertion of cathete r into peripheral vein [facility] Start: 06-10-2022 Measuring intake and output [facility] Start: 06-10-2022 Notification of physician [facility] Start: 06-10-2022 Providing care accor ding to standard [facility] Start: 06-10-2022 Referral to occupati onal therapist [facility] Start: 06-10-2022 Referral to service [facility] Start: 06-10-2022 Speech therapy assessment [facility] Start: 06-10-2022 Tobacco use cessatio n education [facility] Start: 06-10-2022 [facility] Start: 06-10-2022 Admission procedure [facility] Start: 06-10-2022 Oxygen therapy [facility] Start: 06-10-2022 End: 06-10-2022 [facility] Start: 06-10-2022 Patient referral to dietitian [facility] Start: 11-13-2021 Thyroid stimulating hormone measurement TSH Level [facility] Start: 11-28-2009 Zoster Vaccines (1 of 2) Zoste r Vaccines (1 of 2) [facility] Start: 1999 Screening for malign ant neoplasm of breast Mammogram [facility] Start: 11-28-1981 DTaP/Tdap/Td Vaccine s (1 - Tdap) DTaP/Tdap/Td Vaccines (1 - Tdap) [facility] Start: 11-28-1980 Screening for malign ant neoplasm of cervix [facility] Start: 11-28-1977 Diabetes mellitus screening Diabetes Screening [facility] Start: 11-28-1977 Hepatitis C screening Hepatitis C [facility] Start: 11-28-1960 MMR Vaccines (1 of 1 - Standard series) MMR Vaccines (1 of 1 - Standard series) [facility] Start: 05-31-1960 COVID-19 Vaccine (#1) COVID-19 Vacci ne (#1) [facility] Start: 1959 HIV screening HIV Screening [facility] Start: 1959 Screening for malign ant neoplasm of colon [facility] Start: 1960 Yearly Adult Physical Yearly Adult P hysical [facility] Antibody to lupus La protein measurement [facility] Antibody to SS-A measurement [facility] Centromere protein B Ab [Units/volume] in Serum [facility] Chromatin Ab [Units/volume] in Serum or Plasma [facility] DNA double strand Ab [Units/volume] in Serum [facility] Rayne-1 extractable nuc lear Ab [Units/volume] in Serum [facility] Patient referral [facility] Work Phone: SCL-70 extractable nuclear Ab [Units/volume] in Serum by Immunoassay [facility] Mckeon extractable nu clear Ab [Presence] in Serum [facility] Payers Date Payer Category Payer Self-pay [id number] 2022 Unknown [id number] 2021 Unknown Unknown [id number] Unknown [id number] Unknown [id number] Unknown [id number] Unknown [id number] Social History Date Type Detail Facility Assertion Unknown if ever smoked [facility] Work Phone: [facility] Work Phone: Start: 06-10-2022 End: 06-12-2022 Tobacco smoking status NHIS Unknown if ever smoked [facility] Start: 1960 Sex Assigned At Female [facility] Start: 1960 Sex Assigned At Not on file [facility] Work Phone: Gender identity Not on file [facility] Work Phone: Start: 06-24-2022 End: 07-04-2022 Exposure to SARS-CoV-2 (event) Not sure [facility] NEGATED: Highlighted row Denies Social alcohol use Denies Social alcohol use [facility] Work Phone: Goals Date Patient Goal Desired Activity /State Functional Status Date Assessment Result Facility 06-12-2022 Functional status Ambulates;Bath room Privilege [facility] Work Phone: NEGATED: Highlighted row Functional performance Functional status health issues are not documented Disease [facility] Work Phone: Mental Status Date Assessment Result Facility 06-12-2022 Cognitive function Voice/Name [facility] Work Phone: 06-10-2022 Cognitive function Alert;Drowsy [facility] Work Phone: NEGATED: Highlighted row Cognitive function [Interpretation] Cognitive status health issues are not documented Disease [facility] Work Phone: Clinical Notes 09-15-2020 to 07-04-2022 Shiela Troy MD - 07/04/2022 2:45 PM EDT Note Date & Type Note Facility 07-04-2022 History of Present illness Narrative Subjective Patient ID: Alejandra Marcelo is a 61 y.o. female who presents for No chief complaint on file.. HPI Patient presents today for follow-up hospital. She was discharged from [facility] on 313. She was admitted for 4 days for the diagnosis of change of mental status. She states she has been very busy she has been sleeping a lot between shifts at 2 different jobs. On this particular day she had come home and falling asleep and her was unable to arouse her. Squad was called she was taken in the hospital on evening on and Monday she was in and out of consciousness and does not recall much of the time. All of her test evaluations for cardiac and neurological findings were negative. She was found to have a lung granuloma on chest x-ray which needs follow-up. Ultimately they felt it was a anxiety/depressive episode and she was discharged home. She is not interested in seeking counseling. She states her has been going through a transition at work and they are not sure if they will be moving or not and her daughter was recently discharged from the and has bought a house nearby. She states that she quit one of her jobs after this incident she is going to work every day for the last 2 weeks and has been doing well without issue Denies chest pain shortness of breath swelling edema or any other issues. No further neurological issues no numbness weakness or tingling Review of Systems Review of systems was performed and is otherwise negative except as noted in HPI. Objective There were no vitals filed for this visit. Physical Exam CONSTITUTIONAL - well nourished, well developed, looks like stated age, in no acute distress, not ill-appearing, and not tired appearing SKIN - normal skin color and pigmentation, normal skin turgor without rash, lesions, or nodules visualized HEAD - no trauma, normocephalic EYES -normal ENT - TM's intact, no injection, no exudate, nasal passage without discharge and patent NECK - supple without rigidity, no neck mass was observed, no thyromegaly or thyroid nodules CHEST - clear to auscultation, no wheezing, no crackles and no rales, good effort CARDIAC - regular rate and regular rhythm, no skipped beats, no murmur ABDOMEN - no organomegaly, soft, nontender, nondistended, normal bowel sounds, no guarding/rebound/rigidity EXTREMITIES - no edema, no deformities NEUROLOGICAL -no acute deficits PSYCHIATRIC - alert, pleasant and cordial, age-appropriate LYMPHATIC- no cervical lymphadenopathy Assessment/Plan Diagnoses and all orders for this visit: Mental status change resolved - CBC and Auto Differential; Future - Magnesium; Future - TSH with reflex to Free T4 if abnormal; Future - Comprehensive Metabolic Panel; Future - C-Reactive Protein; Future - CBC and Auto Differential; Future - Vitamin D 25-Hydroxy,Total; Future - Referral to Neurology; Future Pulmonary nodule - CT chest w IV contrast; Future Patient will be referred to neurology Blood work orders were placed Due to probable granulomas seen on the chest x-ray I ordered a chest CT Shiela Troy MD documented in this encounter [facility] Work Phone: 06-12-2022 Discharge summary Note Date/Time June 12, 2022 11:41am [facility] Medical Records Department [address] [place] [address] Discharge Summary 06/12/22 1135 MR#: [id number] Acct: [id number] Name: IHSAN MARCELO Rep #:[id number] : 1960 61 From: Juvenal Degroot PCP: Dr. Shiela Troy MD Status:ADM I N Location: [place] [address] Providers Date of Admission: 06/10/22 Date of Discharge: 06/12/22 Primary Care Physician: Dr. Shiela Troy MD Reason For Visit: STROKE Diagnosis Discharge Diagnosis (1) Acute cerebrovascular accident (CVA): Status: Acute Code(s): I63.9 - Cerebral infarction, unspecified (2) Acute encephalopathy: Status: Acute Code(s): G93.40 - Encephalopathy, unspecified Plan This is 61 years Is being admitted forleft-sided weakness, facial droop, mild tomoderate language deficit, dysarthria, inattention, confusion and disorientationhallucination suggestive of acute encephalopathy and strokelike. 1. Most probably acute ischemic stroke: Patient is being admitted in PCU. MRI brain ordered. CT brain and CTA head and neck does not show acute abnormality. Patient was evaluated by [facility] teleneurologist and found the patient outside time window. Stroke work-up with MRI brain, 2D echo, lipid profile, A1c and TSH ordered. PT OT speech evaluation. BP control and Accu-Chek as per stroke protocol. Patient started on baby aspirin and high intensity statin. Chest x-ray questionable latent calcified granuloma in lateral aspect of left midlung. Follow with PCP. 06/11: Patient had completed stroke work-up. Fasting profile within normal limit. A1c 5.6% MRI brain reported no acute intracranial abnormality. 2D echo shows no PFO/ASD. EF 70%, mild concentric LVH. Patient is back to normal baseline. Does not have focal weakness of lower extremity. NIH stroke scale 0. Her speech has improved. Speech therapist recommended regular texture thin liquid with small bites small sips slow rate. FRIAL score 11 11, high risk, the patient had fallen 1-2 times in the last 6 months.patient's family want second opinion from [facility] neurology consult although MRI stroke work-up is negative and patient seen by [facility] neurology yesterday. Crisis management also called. Patient was seen by [facility] neurologist and discussed with her. She recommended blood test and was done. She also recommended MRI with contrast, EEG and LP if her mental status does not improve. 06/12: Patient had much improvement in mental status. She remembers yesterday evening events and today morning events. She talks current with full eye contact, comprehensive speech. No dysarthria or dysphagia. CRP mildly elevated, ammonia normal, folic acid normal. B12 pending. I discussed about the positive after she is U-Tox about the patient and her . She is a never smoker and denies any substance use. She denies any recent [id number] cold medication, antispasmodic, antidepressant or SSRI. Earlier does not want to introduce MRI brain with contrast and patient does not want to do LP. I talked to the patient's over the phone and heis coming and possible discharge. I recommended to follow-up with in person neurologist Dr. Wilson in [address] Woodruff in about 1 month.. Exact etiology of acute encephalopathy unclear what patient almost recovered andacute encephalopathy resolved. As per nursing staff, patient walked code and does not need walking assistance or rehab. 2. Acute encephalopathy, exact etiology unclear possible due to stroke/psychogenic: Patient confusion, disorientation, inattention, hallucination has increased for 1 day prior to arrival patient diagnosis of anxiety and depression is unclear as there is inconsistent history from patient's and her daughter. 06/11: Acute encephalopathy fluctuates. Sometimes patient is good and sometimes confused disoriented. Inattention. Hallucination, easily irritable and sensitive. I think acute distal most likely psychogenic possibility of acute adjustment disorder or psychological stress. Crisis management called. 06/12: Admission of acute symptoms resolved and patient does not need inpatient psych transfer as suggested yesterday by crisis management because her mental status, hallucination and confusion has improved. 3. Hypothyroidism and possible GERD: Patient is only on omeprazole 20 mg daily at home. Not on thyroid medication. TSH and free T4 normal limit. 06/11: She might have hypertension but not diagnosed yet. Advised ambulatory BP monitoring at home BP monitoring and follow with PCP for diagnosis. 2D echo shows mild concentric LVH. VTE prophylaxis, enoxaparin 40 mill subcut daily Living will/advanced directive/end of life care: Patient does not have living will or advanced directive. Her is next to kin. After discussion of benefits/risks procedures involved with full code, DNR CC arrest and DNR CC, patient's and son and daughter agreed for for full code. They do want artificial life support including intubation, tube feed, ventilatorand/chest compression, central venous catheter, vasopressor and DC shock if needed I talked to the patient, her , son and daughter present in the room in the presence of patient's nurse, Nuzhat. She does not have any acute complaint. She also walked around her hallway and no issues of off-balance disequilibrium. Family's question about after she presented in urine tox was answered to the best of my knowledge. Family agree to take the patient home Microbiology Past 72 Hours 06/11/22 14:45 Nasal Secretion SARS-CoV-2 Antigen (Rapid) - Final Laboratory Results 06/11/22 18:00: Urine Opiates Screen NEGATIVE, Urine Methadone Screen NEGATIVE, Ur Barbiturates Screen NEGATIVE, Ur Phencyclidine Scrn NEGATIVE, Ur AmphetaminesScreen NEGATIVE, MDMA (Ecstasy) Screen POSITIVE H, U Benzodiazepines Scrn NEGATIVE, Urine Cocaine Screen NEGATIVE, U Cannabinoids Screen NEGATIVE, Ur DrugScreen Comment 06/11/22 19:18: ESR 5 06/11/22 19:18: C-React Prot Ext Range 10.10 H, Folate 10.70 06/11/22 19:18: Vitamin B12 Pending 06/11/22 19:18: RAYNE-1 Antibody Pending, SS-A/Ro IgG Antibody Pending, SS-B/La IgGAntibody Pending, Sm (Mckeon) Antibody Pending, OFFSET PROOF PRESS OPERATOR Antibody Pending, Scl-70 Scleroderma Ab Pending, Double Strand DNA Ab Pending, Centromere B Antibody Pending 06/12/22 07:57: Ammonia < 10.0 L Medications at Discharge Home Medications omeprazole 20 mg capsule,delayed release 20 mg PO DAILY 06/10/22 Physical Exam Narrative Patient mental status returned to almost baseline. She remembers talking to [facility] yesterday when she did not had breakfast today. She denies burning micturition. Denies fever. Physical exam General: AAOx3. Speaks in full sentences. Fully comprehensive. HEENT: Atraumatic, PERRLA, EOMI, Normocephalic Oral: Oral mucosa dry. No Gingival or Mucosal Lesions/ Ulcerations Neck: Supple, No JVD, Negative Carotid Bruits Lungs: Air entry diminished in bilateral lung bases. No crepitation/rhonchi Cardiovascular: Regular rate, Regular Rhythm, Normal S1, Normal S2, No murmurs Abdomen: Bowel Sounds Present, Soft, Non Tender, Non-Distended : No renal angle tenderness. No suprapubic tenderness. Extremities: No edema, Capillary Refill Less than 3 Seconds Skin: No rashes, No breakdown Musculoskeletal: Weakness in left lower extremity, drift,No Tenderness to Palpation of Joints or Extremities Neurological: Muscle strength 5/5 at knee and hip joints. No dysarthria or dysphagia. No language deficit Psych/Mental Status: Possible anxiety, visual hallucination. Weight / BMI Weight Weight: 166 lb 10.711 oz Body Mass Index (BMI) 32.5 ABG / Lab / Microbiology Data Result Diagrams: 06/11/22 06:42 06/11/22 06:42 Laboratory: Laboratory Results - last 24 hr 06/11/22 18:00: Urine Opiates Screen NEGATIVE, Urine Methadone Screen NEGATIVE, Ur Barbiturates Screen NEGATIVE, Ur Phencyclidine Scrn NEGATIVE, Ur AmphetaminesScreen NEGATIVE, MDMA (Ecstasy) Screen POSITIVE H, U Benzodiazepines Scrn NEGATIVE, Urine Cocaine Screen NEGATIVE, U Cannabinoids Screen NEGATIVE, Ur DrugScreen Comment 06/11/22 19:18: ESR 5 06/11/22 19:18: C-React Prot Ext Range 10.10 H, Folate 10.70 06/12/22 07:57: Ammonia < 10.0 L Microbiology: Microbiology 06/11/22 14:45 Nasal Secretion SARS-CoV-2 Antigen (Rapid) - Final D/C Instructions Discharge Diet: Low fat / Low cholesterol and 2000 mg Sodium Diet Weight Bearing Status: Weight bearing as tolerated Call your doctor if you observe: Fever of 101 or Higher, Coldness, Increased Pain, Numbness or Tingling, Change in Color, Inability to urinate, Inability to have a bowel movement, Using more than 1 pad per hour, Shortness of breath, Dizziness, Fainting spells, Swelling in the ankles, Chest pain, Prolonged hiccupping, Increased palpitations (irregular heartbeat) and Calf discomfort When: IN 2 WEEKS Meaningful Use Info Meaningful Use Diagnoses (Choose all that apply): None applicable Discharge Plan Admission Admit Date/Time: 06/10/22 12:14 Primary Reason for Your Visit: stroke ruled out Attending Provider: Juvenal Mijares Primary Care Provider: Shiela Troy Instructions Additional Instructions / Restrictions: Patient might be benefited by psychiatry consult or psychologist evaluation and counseling. Discharge Orders/Prescriptions Prescriptions: Continued omeprazole 20 mg Capsule,Delayed Release(Dr/Ec) 20 mg PO DAILY Referrals / Follow Up: Shiela Troy MD [Primary Care Provider] - Ty Wilson MD [Non-Staff -Ordering Privileges] - Within 2 Weeks (FOR AMS, encephalopathy) Chandu Woodruff DO [Med Staff - Truck Packer] - Within 1 Month Care Physician,No Primary [Non-Staff] - Disposition Disposition (needs filled in before D/C Order can be placed): Home, Self Care Charges/Coding Visit Charges Inpatient E&M: 71933 Disch Hosp >30min 06/12/22 1226 <Electronically signed by Juvenal Mijares MD> Cosigner Signature (if applicable): CC: Dr. Shiela Troy MD; Dr. Juvenal Mijares MD~ Signed [facility] Work Phone: 1(348) 214-516003-12-[address] [facility] [facility] June 12, 2022 12:24pm Note Date/Time June 12, 2022 11: 34am [facility] Medical Records Department [address] [place] [address] Instructions for Home/Discharge Instructions 06/12/22 1045 MR#: [id number] Acct: [id number] Name: IHSAN MARCELO Rep #:[id number] : 1960 61 From: Juvenal Degroot PCP: Dr. Shiela Troy MD Status:ADM I N Discharge Instructions Diet Discharge Diet: Low fat / Low cholesterol and 2000 mg Sodium Diet Activity Weight Bearing Status: Weight bearing as tolerated Dressing / Incision Call your doctor if you observe: Fever of 101 or Higher, Coldness, Increased Pain, Numbness or Tingling, Change in Color, Inability to urinate, Inability to have a bowel movement, Using more than 1 pad per hour, Shortness of breath, Dizziness, Fainting spells, Swelling in the ankles, Chest pain, Prolonged hiccupping, Increased palpitations (irregular heartbeat) and Calf discomfort Follow Up Care Test Results: Test results from this visit will be discussed in further detail at your follow- up appointment, if applicable. Discharge Plan Admission Admit Date/Time: 06/10/22 12:14 Primary Reason for Your Visit: stroke ruled out Attending Provider: Juvenal Mjiares Primary Care Provider: Shiela Troy Instructions Additional Instructions / Restrictions: Patient might be benefited by psychiatry consult or psychologist evaluation and counseling. Discharge Orders/Prescriptions Prescriptions: Continued omeprazole 20 mg Capsule,Delayed Release(Dr/Ec) 20 mg PO DAILY Referrals / Follow Up: Shiela Troy MD [Primary Care Provider] - Ty Wilson MD [Non-Staff -Ordering Privileges] - Within 2 Weeks (FOR AMS, encephalopathy) Chandu Woodruff DO [Med Staff - Truck Packer] - Within 1 Month Care Physician,No Primary [Non-Staff] - Disposition Disposition (needs filled in before D/C Order can be placed): Home, Self Care 06/12/22 1224<Electronically signed by Juvenal Mijares MD>Juvenal Mijares MD CC: Dr. Shiela Troy MD ~ Signed [facility] Work Phone: 1(665) 176-535203-12-2023 [facility] Medical Records Department [address] [place] [address] Discharge Summary 06/12/22 1135 MR#: [id number] Acct: [id number] Name: IHSAN MARCELO Rep #: [id number] : 1960 61 From: Juvenal Mijares MD PCP: Dr. Shiela Troy MD Status:ADM IN Location: PCU [id number] Providers Date of Admission: 06/10/22 Date of Discharge: 06/12/22 Primary Care Physician: Dr. Shiela Troy MD Reason For Visit: STROKE Diagnosis Discharge Diagnosis (1) Acute cerebrovascular accident (CVA): Status: Acute Code(s): I63.9 - Cerebral infarction, unspecified (2) Acute encephalopathy: Status: Acute Code(s): G93.40 - Encephalopathy, unspecified Plan This is 61 years Is being admitted forleft-sided weakness, facial droop, mild to moderate language deficit, dysarthria, inattention, confusion and disorientation hallucination suggestive of acute encephalopathy and strokelike. 1. Most probably acute ischemic stroke: Patient is being admitted in PCU. MRI brain ordered. CT brain and CTA head and neck does not show acute abnormality. Patient was evaluated by [facility] teleneurologist and found the patient outside time window. Stroke work-up with MRI brain, 2D echo, lipid profile, A1c and TSH ordered. PT OT speech evaluation. BP control and Accu-Chek as per stroke protocol. Patient started on baby aspirin and high intensity statin. Chest x-ray questionable latent calcified granuloma in lateral aspect of left midlung. Follow with PCP. 06/11: Patient had completed stroke work-up. Fasting profile within normal limit. A1c 5.6% MRI brain reported no acute intracranial abnormality. 2D echo shows no PFO/ASD. EF 70%, mild concentric LVH. Patient is back to normal baseline. Does not have focal weakness of lower extremity. NIH stroke scale 0. Her speech has improved. Speech therapist recommended regular texture thin liquid with small bites small sips slow rate. FRIAL score 11 11, high risk, the patient had fallen 1-2 times in the last 6 months.patient's family want second opinion from [facility] neurology consult although MRI stroke work-up is negative and patient seen by [facility] neurology yesterday. Crisis management also called. Patient was seen by [facility] neurologist and discussed with her. She recommended blood test and was done. She also recommended MRI with contrast, EEG and LP if her me ntal status does not improve. 06/12: Patient had much improvement in mental status. She remembers yesterday evening events and today morning events. She talks current with full eye contact, comprehensive speech. No dysarthria or dysphagia. CRP mildly elevated, ammonia normal, folic acid normal. B12 pending. I discussed about the positive after she is [employer] about the patient and her . She is a never smoker and denies any substance use. She denies any recent [id number] cold medication, antispasmodic, antidepressant or SSRI. Earlier does not want to introduce MRI brain with contrast and patient does not want to do LP. I talked to the patient's over the phone and he is coming and possible discharge. I recommended to follow-up with in person neurologist Dr. Wilson in [address] Woodruff in about 1 month.. Exact etiology of acute encephalopathy unclear what patient almost recovered and acute encephalopathy resolved. As per nursing staff, patient walked code and does not need walking assistance or rehab. 2. Acute encephalopathy, exact etiology unclear possible due to stroke/psychogenic: Patient confusion, disorientation, inattention, hallucination has increased for 1 day prior to arrival patient diagnosis of anxiety and depression is unclear as there is inconsistent history from patient's and her daughter. 06/11: Acute encephalopathy fluctuates. Sometimes patient is good and sometimes confused disoriented. Inattention. Hallucination, easily irritable and sensitive. I think acute distal most likely psychogenic possibility of acute adjustment disorder or psychological stress. Crisis management called. 06/12: Admission of acute symptoms resolved and patient does not need inpatient psych transfer as suggested yesterday by crisis management because her mental status, hallucination and confusion has improved. 3. Hypothyroidism and possible GERD: Patient is only on omeprazole 20 mg daily at home. Not on th yroid medication. TSH and free T4 normal limit. 06/11: She might have hypertension but not diagnosed yet. Advised ambulatory BP monitoring at home BP monitoring and follow with PCP for diagnosis. 2D echo shows mild concentric LVH. VTE prophylaxis, enoxaparin 40 mill subcut daily Living will/advanced directive/end of life care: Patient does not have living will or advanced directive. Her is next to kin. After discussion of benefits/risks procedures involved with full code, DNR CC arrest and DNR CC, patient's husban (more content not included)...[facility]03-11-[address] Mijares [facility] June 11, 2022 5:29pm Note Date/Time June 11, 2022 5:[address] [facility] Medical Records Department [address] [place] [address] Telemedicine Confirmation Receipt 06/11/22 MR#: [id number] Acct: [id number] Name: IHSAN MARCELO Rep #:[id number] : 1960 61 From: Juvenal Degroot PCP: Dr. Shiela Troy MD Status:ADM I N [facility] has confirmed receipt of a request for visit. This document confirms receipt of the order initiating the consult. To find the results of the consultation, please view the patient's reports for the scanned Telemed Consult. [facility] Work Phone: 1(877) 730-529703-11-[address] Mijares [facility] June 11, 2022 2:51pm Note Date/Time June 11, 2022 12: 04pm [facility] Medical Records Department [address] [place] [id number] Progress Note - Hospitalist 06/11/22 1156 MR#: [id number] Acct: [id number] Name: IHSAN MARCELO Rep #:[id number] : 1960 61 From: Juvenal Degroot PCP: Dr. Shiela Troy MD Status:ADM I N Location: [place] [address] Reason for Visit Reason for Visit: Diagnoses Encephalopathy, unspecified (06/10/22) Cerebral infarction, unspecified (06/10/22) Objective Data Objective Data Vital Signs: Vital Signs Temp Pulse Resp BP Pulse Ox O2 Del Method 97.9 F 68 18 162/103 H 97 Room Air 06/11/22 09:15 06/11/22 09:15 06/11/22 09:15 06/11/22 09:15 06/11/22 09:15 06/11/22 09:15 Oxygen Delivery Method Room Air Weight: 167 lb 12.348 oz Body Mass Index (BMI) 32.8 Intake & Output: Intake and Output for Last 24 Hours 06/09/22 06/10/22 06/11/22 23:59 23:59 23:59 Intake Total 1180 / 1180 Output Total 0 / 0 Balance 0 / 120 1180 / 1180 Lab / Micro Data Result Diagrams: 06/11/22 06:42 06/11/22 06:42 Labs: Laboratory Results - last 24 hr 06/10/22 10:50: Magnesium 1.8 06/10/22 17:05: POC Glucose 116 H 06/11/22 06:33: POC Glucose 88 06/11/22 06:42: Sodium 142, Potassium 3.7, Chloride 109 H, Carbon Dioxide 25.0, Anion Gap 8, BUN 21 H, Creatinine 0.98, Estim Creat Clear Calc 42.75, Est GFR (MDRD) Af Amer 74, Est GFR (MDRD) Non-Af 61, BUN/Creatinine Ratio 21.5 H, Glucose 88, Calcium 9.1, Triglycerides 52, Cholesterol 121, LDL Cholesterol 57, VLDL Cholesterol 10, HDL Cholesterol 54, TSH 1.57, Free T4 0.99 06/11/22 06:42: Hemoglobin A1c 5.6 06/11/22 06:42: WBC 7.2, RBC 4.08 L, Hgb 12.4, Hct 38.3, MCV 93.9, MCH 30.4, MCHC 32.4, RDW Std Deviation 47.4 H, RDW Coeff of Valentine 13.6, Plt Count 192, MPV 11.0, Immature Gran % (Auto) 0.300, Neut % (Auto) 68.4, Lymph % (Auto) 23.0, [place] % (Auto) 7.4, Eos % (Auto) 0.3, Baso % (Auto) 0.6, Absolute Neuts (auto) 4.9, Absolute Lymphs (auto) 1.65, Nucleated RBC % 0 Radiography Diagnostic Testing: Radiology Impression Chest X-Ray 06/10/22 11:27 IMPRESSION: Questionable 8 mm calcified granuloma in the lateral aspect of the left midlung. Electronically Signed: Rocky Pride MD at 12:05 EST , Brain MRI 06/10/22 13:30 IMPRESSION: No intracranial hemorrhage, acute infarct, or space occupying lesion seen on this noncontrast MRI of the brain. Electronically Signed: Sanchez Mendez MD at 16:02 EST , Echocardiogram 06/10/22 13:30 Interpretation Summary Mild concentric left ventricular hypertrophy. The left ventricular ejection fraction is 70 %. Bubble contrast study is negative for PFO/ASD. The study was technically difficult. Ordering Physician: Juvenal Mijares Referring Physician: SHIELA TROY Performed By: Skye Hector RCS Rhythm Strip Rhythm Strip: Sinus Rhythm Rate: 92 Ectopy: None Physical Exam Narrative Patient's daughter does not agree with the discharge. She states he is still not back to baseline. Sometimes she has hallucination, weird thinking and feelsextra sensitive to cardiac cath lab manager stated heart sore pinches. Physical exam General: Still confused, disoriented. Does not participate wholly in conversation. HEENT: Atraumatic, PERRLA, EOMI, Normocephalic Oral: Oral mucosa dry. No Gingival or Mucosal Lesions/ Ulcerations Neck: Supple, No JVD, Negative Carotid Bruits Lungs: Air entry diminished in bilateral lung bases. No crepitation/rhonchi Cardiovascular: Regular rate, Regular Rhythm, Normal S1, Normal S2, No murmurs Abdomen: Bowel Sounds Present, Soft, Non Tender, Non-Distended : No renal angle tenderness. No suprapubic tenderness. Extremities: No edema, Capillary Refill Less than 3 Seconds Skin: No rashes, No breakdown Musculoskeletal: Weakness in left lower extremity, drift,No Tenderness to Palpation of Joints or Extremities Neurological: left-sided facial droop, low-tone speech. No dysarthria or dysphagia. No language deficit Psych/Mental Status: Possible anxiety, visual hallucination. Assessment & Plan Assessment/Plan (1) Acute cerebrovascular accident (CVA): (2) Acute encephalopathy: PLAN: Plan This is 61 years Is being admitted forleft-sided weakness, facial droop, mild tomoderate language deficit, dysarthria, inattention, confusion and disorientationhallucination suggestive of acute encephalopathy and strokelike. 1. Most probably acute ischemic stroke: Patient is being admitted in PCU. MRI brain ordered. CT brain and CTA head and neck does not show acute abnormality. Patient was evaluated by [facility] teleneurologist and found the patient outside time window. Stroke work-up with MRI brain, 2D echo, lipid profile, A1c and TSH ordered. PT OT speech evaluation. BP control and Accu-Chek as per stroke protocol. Patient started on baby aspirin and high intensity statin. Chest x-ray questionable latent calcified granuloma in lateral aspect of left midlung. Follow with PCP. 06/11: Patient had completed stroke work-up. Fasting profile within normal limit. A1c 5.6% MRI brain reported no acute intracranial abnormality. 2D echo shows no PFO/ASD. EF 70%, mild concentric LVH. Patient is back to normal baseline. Does not have focal weakness of lower extremity. NIH stroke scale 0. Her speech has improved. Speech therapist recommended regular texture thin liquid with small bites small sips slow rate. FRIAL score 11 11, high risk, the patient had fallen 1-2 times in the last 6 months.patient's family want second opinion from [facility] neurology consult although MRI stroke work-up is negative and patient seen by [facility] neurology yesterday. Crisis management also called. 2. Acute encephalopathy, exact etiology unclear possible due to stroke/psychogenic: Patient confusion, disorientation, inattention, hallucination has increased for 1 day prior to arrival patient diagnosis of anxiety and depression is unclear as there is inconsistent history from patient's and her daughter. Not on any dedication. 06/11: Acute encephalopathy fluctuates. Sometimes patient is good and sometimes confused disoriented. Inattention. Hallucination, easily irritable and sensitive. I think acute distal most likely psychogenic possibility of acute adjustment disorder or psychological stress. Crisis management called. 3. Hypothyroidism and possible GERD: Patient is only on omeprazole 20 mg daily at home. Not on thyroid medication. TSH and free T4 normal limit. 06/11: She might have hypertension but not diagnosed yet. Advised ambulatory BP monitoring at home BP monitoring and follow with PCP for diagnosis. 2D echo shows mild concentric LVH. VTE prophylaxis, enoxaparin 40 mill subcut daily from tomorrow AM. Living will/advanced directive/end of life care: Patient does not have living will or advanced directive. Her is next to kin. After discussion of benefits/risks procedures involved with full code, DNR CC arrest and DNR CC, patient's and son and daughter agreed for for full code. They do want artificial life support including intubation, tube feed, ventilatorand/chest compression, central venous catheter, vasopressor and DC shock if needed Total time of the visit including total time spent in counseling or coordination of care, (more than 50% of the total time, spent in obtaining medical information from nurses and other ancillary care providers,explaining tothe patient about labs, imaging, diagnosis and management of active complex medical conditions), discussion with family members, crisis management evaluation, [facility] consult, review of labs and imaging is 50 minutes. Laboratory Results 06/10/22 10:50: WBC 10.5, RBC 4.39, Hgb 13.4, Hct 40.4, MCV 92.0, MCH 30.5, MCHC33.2, RDW Std Deviation 45.4 H, RDW Coeff of Valentine 13.2, Plt Count 209, MPV 11.0, Immature Gran % (Auto) 0.400, Neut % (Auto) 85.3 H, Lymph % (Auto) 9.0 L, [place] %(Auto) 5.1, Eos % (Auto) 0.0, Baso % (Auto) 0.2, Absolute Neuts (auto) 9.0 H, Absolute Lymphs (auto) 0.95, Nucleated RBC % 0 06/10/22 10:50: PT 13.7, INR 1.1, APTT 25.6 06/10/22 10:50: Sodium 142, Potassium 3.6, Chloride 109 H, Carbon Dioxide 23.0, Anion Gap 10, BUN 23 H, Creatinine 1.08 H, Estim Creat Clear Calc 38.79, Est GFR(MDRD) Af Amer 66, Est GFR (MDRD) Non-Af 55 L, BUN/Creatinine Ratio 21.3 H, Glucose 149 H, Calcium 9.8, Troponin I High Sens 15 06/10/22 10:50: Magnesium 1.8 06/10/22 11:15: Urine Color Yellow, Urine Clarity Clear, Urine pH 5.0, Ur Specific [place] 1.025, Urine Protein 30 H, Urine Glucose (UA) Normal, Urine Ketones Negative, Urine Occult Blood 10 H, Urine Nitrite Negative, Urine Bilirubin Negative, Urine Urobilinogen Normal, Ur Leukocyte Esterase 25 H, UrineRBC 0-5 SEEN, Urine WBC 0- 5 SEEN, Ur Squamous Epith Cells 0-5 SEEN, Urine Bacteria 0 SEEN, Hyaline Casts 0-5 SEEN, Urine Mucus RARE 06/10/22 17:05: POC Glucose 116 H 06/11/22 06:33: POC Glucose 88 06/11/22 06:42: Sodium 142, Potassium 3.7, Chloride 109 H, Carbon Dioxide 25.0, Anion Gap 8, BUN 21 H, Creatinine 0.98, Estim Creat Clear Calc 42.75, Est GFR (MDRD) Af Amer 74, Est GFR (MDRD) Non-Af 61, BUN/Creatinine Ratio 21.5 H, Glucose 88, Calcium 9.1, Triglycerides 52, Cholesterol 121, LDL Cholesterol 57, VLDL Cholesterol 10, HDL Cholesterol 54, TSH 1.57, Free T4 0.99 06/11/22 06:42: Hemoglobin A1c 5.6 06/11/22 06:42: WBC 7.2, RBC 4.08 L, Hgb 12.4, Hct 38.3, MCV 93.9, MCH 30.4, MCHC 32.4, RDW Std Deviation 47.4 H, RDW Coeff of Valentine 13.6, Plt Count 192, MPV 11.0, Immature Gran % (Auto) 0.300, Neut % (Auto) 68.4, Lymph % (Auto) 23.0, [place] % (Auto) 7.4, Eos % (Auto) 0.3, Baso % (Auto) 0.6, Absolute Neuts (auto) 4.9, Absolute Lymphs (auto) 1.65, Nucleated RBC % 0 Charges/Coding Visit Charges Inpatient E&M: 77361 Subs Hosp L3 06/11/22 1204 <Electronically signed by Juvenal Mijares MD> Cosigner Signature (if applicable): CC: ~ Signed ADDENDUM by Dr. Juvenal Mijares MD on 06/11/22 at 1451 Addendum I again saw the patient about 2:30 PM and talk to the family member. Her son and daughter present in the room. Had question regarding incidental finding of 8 mm calcified granuloma in left midlung. I said usually it is benign causes. Patient can have CT chest throughPCP to decide further about that calcified granuloma. Patient initially was evaluated by crisis management team and suggested patient might need inpatient psych facility. Family decided greenly do not want inpatient psych facility. [facility] is yet to see the patient. Patient's feels that she has improved. 06/11/22 1451<Electronically signed by Juvenal Mijares MD> Cosigner Signature (if applicable): cc: ~* Signed [facility] Work Phone: [phone]) 944-844103-11-[address] Mijares [facility] June 11, 2022 11:23am Note Date/Time June 11, 2022 11: 23am [facility] Medical Records Department [address] [place] [id number] Telemedicine Confirmation Receipt 06/11/22 MR#: [id number] Acct: [id number] Name: IHSAN MARCELO Rep #:[id number] : 1960 61 From: Juvenal Degroot PCP: Dr. Shiela Troy MD Status:ADM I N [facility] has confirmed receipt of a request for visit. This document confirms receipt of the order initiating the consult. To find the results of the consultation, please view the patient's reports for the scanned Telemed Consult. [facility] Work Phone: [phone]) 999-801803-11-[address] Mijares [facility] June 11, 2022 10:56am Note Date/Time June 11, 2022 10: 56am [facility] Medical Records Department [address] [place] [address] Discharge Summary 06/11/22 1048 MR#: [id number] Acct: [id number] Name: IHSAN MARCELO Rep #:[id number] : 1960 61 From: Juvenal Degroot PCP: Dr. Shiela Troy MD Status:ADM I N Location: [facility] [place] [address] Providers Date of Admission: 06/10/22 Date of Discharge: 06/11/22 Primary Care Physician: Dr. Shiela Troy MD Reason For Visit: STROKE Diagnosis Discharge Diagnosis (1) Acute cerebrovascular accident (CVA): Status: Acute Code(s): I63.9 - Cerebral infarction, unspecified (2) Acute encephalopathy: Status: Acute Code(s): G93.40 - Encephalopathy, unspecified Plan This is 61 years Is being admitted forleft-sided weakness, facial droop, mild tomoderate language deficit, dysarthria, inattention, confusion and disorientationhallucination suggestive of acute encephalopathy and strokelike. 1. Most probably acute ischemic stroke: Patient is being admitted in PCU. MRI brain ordered. CT brain and CTA head and neck does not show acute abnormality. Patient was evaluated by [facility] teleneurologist and found the patient outside time window. Stroke work-up with MRI brain, 2D echo, lipid profile, A1c and TSH ordered. PT OT speech evaluation. BP control and Accu-Chek as per stroke protocol. Patient started on baby aspirin and high intensity statin. Chest x-ray questionable latent calcified granuloma in lateral aspect of left midlung. Follow with PCP. 06/11: Patient had completed stroke work-up. Fasting profile within normal limit. A1c 5.6% MRI brain reported no acute intracranial abnormality. 2D echo shows no PFO/ASD. EF 70%, mild concentric LVH. Patient is back to normal baseline. Does not have weakness of lower extremity. NIH stroke scale 0. Her speech has improved. Speech therapist recommended regular texture thin liquid with small bites small sips slow rate. Patient is discharged home and advised to follow-up with psychiatrist or psychologist for counseling. I suspect she might have mild depression. 2. Acute encephalopathy, exact etiology unclear possible due to stroke/psychogenic: Patient confusion, disorientation, inattention, hallucination has increased since yesterday. Patient diagnosis of anxiety and depression is unclear as there is inconsistent history from patient's and her daughter. Not on any dedication. 06/11: Acute encephalopathy resolved as patient is alert awake oriented x3. She can answer simple questions like month year and understands. Her speech tone has improved. I think acute distal most likely psychogenic possibility of mild anxiety/depression. Rest as mentioned above. 3. Hypothyroidism and possible GERD: Patient is only on omeprazole 20 mg daily at home. Not on thyroid medication. TSH and free T4 normal limit. 06/11: She might have hypertension but not diagnosed yet. Advised ambulatory BP monitoring at home BP monitoring and follow with PCP for diagnosis. 2D echo shows mild concentric LVH. VTE prophylaxis, enoxaparin 40 mill subcut daily from tomorrow AM. Living will/advanced directive/end of life care: Patient does not have living will or advanced directive. Her is next to kin. After discussion of benefits/risks procedures involved with full code, DNR CC arrest and DNR CC, patient's and son and daughter agreed for for full code. They do want artificial life support including intubation, tube feed, ventilatorand/chest compression, central venous catheter, vasopressor and DC shock if needed Laboratory Results 06/10/22 10:50: WBC 10.5, RBC 4.39, Hgb 13.4, Hct 40.4, MCV 92.0, MCH 30.5, MCHC33.2, RDW Std Deviation 45.4 H, RDW Coeff of Valentine 13.2, Plt Count 209, MPV 11.0, Immature Gran % (Auto) 0.400, Neut % (Auto) 85.3 H, Lymph % (Auto) 9.0 L, [place] %(Auto) 5.1, Eos % (Auto) 0.0, Baso % (Auto) 0.2, Absolute Neuts (auto) 9.0 H, Absolute Lymphs (auto) 0.95, Nucleated RBC % 0 06/10/22 10:50: PT 13.7, INR 1.1, APTT 25.6 06/10/22 10:50: Sodium 142, Potassium 3.6, Chloride 109 H, Carbon Dioxide 23.0, Anion Gap 10, BUN 23 H, Creatinine 1.08 H, Estim Creat Clear Calc 38.79, Est GFR(MDRD) Af Amer 66, Est GFR (MDRD) Non-Af 55 L, BUN/Creatinine Ratio 21.3 H, Glucose 149 H, Calcium 9.8, Troponin I High Sens 15 06/10/22 10:50: Magnesium 1.8 06/10/22 11:15: Urine Color Yellow, Urine Clarity Clear, Urine pH 5.0, Ur Specific [place] 1.025, Urine Protein 30 H, Urine Glucose (UA) Normal, Urine Ketones Negative, Urine Occult Blood 10 H, Urine Nitrite Negative, Urine Bilirubin Negative, Urine Urobilinogen Normal, Ur Leukocyte Esterase 25 H, Urine RBC 0-5 SEEN, Urine WBC 0-5 SEEN, Ur Squamous Epith Cells 0-5 SEEN, Urine Bacteria 0 SEEN, Hyaline Casts 0-5 SEEN, Urine Mucus RARE 06/10/22 17:05: POC Glucose 116 H 06/11/22 06:33: POC Glucose 88 06/11/22 06:42: Sodium 142, Potassium 3.7, Chloride 109 H, Carbon Dioxide 25.0, Anion Gap 8, BUN 21 H, Creatinine 0.98, Estim Creat Clear Calc 42.75, Est GFR (MDRD) Af Amer 74, Est GFR (MDRD) Non-Af 61, BUN/Creatinine Ratio 21.5 H, Glucose 88, Calcium 9.1, Triglycerides 52, Cholesterol 121, LDL Cholesterol 57, VLDL Cholesterol 10, HDL Cholesterol 54, TSH 1.57, Free T4 0.99 06/11/22 06:42: Hemoglobin A1c 5.6 06/11/22 06:42: WBC 7.2, RBC 4.08 L, Hgb 12.4, Hct 38.3, MCV 93.9, MCH 30.4, MCHC 32.4, RDW Std Deviation 47.4 H, RDW Coeff of Valentine 13.6, Plt Count 192, MPV 11.0, Immature Gran % (Auto) 0.300, Neut % (Auto) 68.4, Lymph % (Auto) 23.0, [place] % (Auto) 7.4, Eos % (Auto) 0.3, Baso % (Auto) 0.6, Absolute Neuts (auto) 4.9, Absolute Lymphs (auto) 1.65, Nucleated RBC % 0 Medications at Discharge Home Medications omeprazole 20 mg capsule,delayed release 20 mg PO DAILY 06/10/22 Physical Exam Narrative Physical exam General: Confused, disoriented to time and person. HEENT: Atraumatic, PERRLA, EOMI, Normocephalic Oral: Oral mucosa dry. No Gingival or Mucosal Lesions/ Ulcerations Neck: Supple, No JVD, Negative Carotid Bruits Lungs: Air entry diminished in bilateral lung bases. No crepitation/rhonchi Cardiovascular: Regular rate, Regular Rhythm, Normal S1, Normal S2, No murmurs Abdomen: Bowel Sounds Present, Soft, Non Tender, Non-Distended : No renal angle tenderness. No suprapubic tenderness. Extremities: No edema, Capillary Refill Less than 3 Seconds Skin: No rashes, No breakdown Musculoskeletal: Weakness in left lower extremity, drift,No Tenderness to Palpation of Joints or Extremities Neurological: left-sided facial droop, mild to moderate language deficit, dysarthria. Not alert. Extinction and inattention. NIH 7. Complete neuro examunobtainable as patient is confused, disoriented does not follow commands adequately Psych/Mental Status: Possible anxiety, visual hallucination. Weight / BMI Weight Weight: 167 lb 12.348 oz Body Mass Index (BMI) 32.8 ABG / Lab / Microbiology Data Result Diagrams: 06/11/22 06:42 06/11/22 06:42 Laboratory: Laboratory Results - last 24 hr 06/10/22 10:50: WBC 10.5, RBC 4.39, Hgb 13.4, Hct 40.4, MCV 92.0, MCH 30.5, MCHC33.2, RDW Std Deviation 45.4 H, RDW Coeff of Valentine 13.2, Plt Count 209, MPV 11.0, Immature Gran % (Auto) 0.400, Neut % (Auto) 85.3 H, Lymph % (Auto) 9.0 L, [place] %(Auto) 5.1, Eos % (Auto) 0.0, Baso % (Auto) 0.2, Absolute Neuts (auto) 9.0 H, Absolute Lymphs (auto) 0.95, Nucleated RBC % 0 06/10/22 10:50: PT 13.7, INR 1.1, APTT 25.6 06/10/22 10:50: Sodium 142, Potassium 3.6, Chloride 109 H, Carbon Dioxide 23.0, Anion Gap 10, BUN 23 H, Creatinine 1.08 H, Estim Creat Clear Calc 38.79, Est GFR(MDRD) Af Amer 66, Est GFR (MDRD) Non-Af 55 L, BUN/Creatinine Ratio 21.3 H, Glucose 149 H, Calcium 9.8, Troponin I High Sens 15 06/10/22 10:50: Magnesium 1.8 06/10/22 11:15: Urine Color Yellow, Urine Clarity Clear, Urine pH 5.0, Ur Specific [place] 1.025, Urine Protein 30 H, Urine Glucose (UA) Normal, Urine Ketones Negative, Urine Occult Blood 10 H, Urine Nitrite Negative, Urine Bilirubin Negative, Urine Urobilinogen Normal, Ur Leukocyte Esterase 25 H, UrineRBC 0-5 SEEN, Urine WBC 0- 5 SEEN, Ur Squamous Epith Cells 0-5 SEEN, Urine Bacteria 0 SEEN, Hyaline Casts 0-5 SEEN, Urine Mucus RARE 06/10/22 17:05: POC Glucose 116 H 06/11/22 06:33: POC Glucose 88 06/11/22 06:42: Sodium 142, Potassium 3.7, Chloride 109 H, Carbon Dioxide 25.0, Anion Gap 8, BUN 21 H, Creatinine 0.98, Estim Creat Clear Calc 42.75, Est GFR (MDRD) Af Amer 74, Est GFR (MDRD) Non-Af 61, BUN/Creatinine Ratio 21.5 H, Glucose 88, Calcium 9.1, Triglycerides 52, Cholesterol 121, LDL Cholesterol 57, VLDL Cholesterol 10, HDL Cholesterol 54, TSH 1.57, Free T4 0.99 06/11/22 06:42: Hemoglobin A1c 5.6 06/11/22 06:42: WBC 7.2, RBC 4.08 L, Hgb 12.4, Hct 38.3, MCV 93.9, MCH 30.4, MCHC 32.4, RDW Std Deviation 47.4 H, RDW Coeff of Valentine 13.6, Plt Count 192, MPV 11.0, Immature Gran % (Auto) 0.300, Neut % (Auto) 68.4, Lymph % (Auto) 23.0, [place]% (Auto) 7.4, Eos % (Auto) 0.3, Baso % (Auto) 0.6, Absolute Neuts (auto) 4.9, Absolute Lymphs (auto) 1.65, Nucleated RBC % 0 Radiography Diagnostic Testing: Radiology Impression Brain CT 06/10/22 10:39 IMPRESSION: Normal unenhanced CT scan of the brain. N.B. : The above Results were Read Back by Rocky Pride MD to [facility] Poole and understanding confirmed on 06/10/2022 10:51:52 (ET). Electronically Signed: Rocky Pride MD at 10:53 EST , ADDENDUM: 06/10/22 1100 IMPRESSION: Normal unenhanced CT scan of the brain. N.B. : The above Results were Read Back by Rocky Pride MD to [facility] Po[facility] and understanding confirmed on 06/10/2022 10:51:52 (ET). Electronically Signed: Rocky Pride MD at 10:53 EST , Head/Neck CTA 06/10/22 10:40 IMPRESSION: Normal CTA Head and neck with contrast. N.B. : The above Results were Read Back by Rocky Pride MD to [facility] and understanding confirmed on 06/10/2022 11:11:39 (ET). Electronically Signed: Rocky Pride MD at 11:12 EST , ADDENDUM: 06/10/22 1119 IMPRESSION: Normal CTA Head and neck with contrast. N.B. : The above Results were Read Back by Rocky Pride MD to [facility] Poole and understanding confirmed on 06/10/2022 11:11:39 (ET). Electronically Signed: Rocky Pride MD at 11:12 EST , Chest X-Ray 06/10/22 11:27 IMPRESSION: Questionable 8 mm calcified granuloma in the lateral aspect of the left midlung. Electronically Signed: Rocky Pride MD at 12:05 EST , Brain MRI 06/10/22 13:30 IMPRESSION: No intracranial hemorrhage, acute infarct, or space occupying lesion seen on this noncontrast MRI of the brain. Electronically Signed: Sanchez Mendez MD at 16:02 EST , Echocardiogram 06/10/22 13:30 Interpretation Summary Mild concentric left ventricular hypertrophy. The left ventricular ejection fraction is 70 %. Bubble contrast study is negative for PFO/ASD. The study was technically difficult. Ordering Physician: Juvenal Mijares Referring Physician: SHIELA TROY Performed By: Skye Hector RCS D/C Instructions Discharge Diet: Low fat / Low cholesterol and 2000 mg Sodium Diet Weight Bearing Status: Weight bearing as tolerated Call your doctor if you observe: Fever of 101 or Higher, Coldness, Increased Pain, Numbness or Tingling, Change in Color, Inability to urinate, Inability to have a bowel movement, Using more than 1 pad per hour, Shortness of breath, Dizziness, Fainting spells, Swelling in the ankles, Chest pain, Prolonged hiccupping, Increased palpitations (irregular heartbeat) and Calf discomfort When: IN 2 WEEKS Meaningful Use Info Meaningful Use Diagnoses (Choose all that apply): None applicable Discharge Plan Admission Admit Date/Time: 06/10/22 12:14 Primary Reason for Your Visit: stroke ruled out Attending Provider: Juvenal Mijares Primary Care Provider: Shiela Troy Instructions Additional Instructions / Restrictions: Patient might be benefited by psychiatry consult or psychologist evaluation and counseling. Discharge Orders/Prescriptions Prescriptions: Continued omeprazole 20 mg Capsule,Delayed Release(Dr/Ec) 20 mg PO DAILY Referrals / Follow Up: Shiela Troy MD [Primary Care Provider] - Care Physician,No Primary [Non-Staff] - Disposition Disposition (needs filled in before D/C Order can be placed): Home, Self Care Charges/Coding Addendum Addendum: Patient was admitted as inpatient because she had left-sided weakness, could notwalk, gait abnormality, language deficit and dysarthria and symptoms hypermobility of stroke on the basis of NIH stroke scale. MRI brain was negative and patient clinically recovered very soon than expected at time of admission. It seems psychogenic etiology. Visit Charges Inpatient E&M: 75924 Disch Hosp >30min 06/11/22 1056 <Electronically signed by Juvenal Mijares MD> Cosigner Signature (if applicable): CC: Dr. Shiela Troy MD; Dr. Juvenal Mijares MD~ Signed [facility] Work Phone: 1(193) 810-343603-11-[address] Mijares [facility] June 11, 2022 10:48am Note Date/Time June 11, 2022 7:4 8am [facility] Medical Records Department [address] [place] [address] Instructions for Home/Discharge Instructions 06/11/22 0747 MR#: [id number] Acct: [id number] Name: IHSAN MARCELO Rep #:[id number] : 1960 61 From: Juvenal Degroot PCP: Dr. Shiela Troy MD Status:ADM I N Discharge Instructions Diet Discharge Diet: Low fat / Low cholesterol and 2000 mg Sodium Diet Activity Discharge Activity: Return to Normal Activity Weight Bearing Status: Weight bearing as tolerated Dressing / Incision Call your doctor if you observe: Fever of 101 or Higher, Coldness, Increased Pain, Numbness or Tingling, Change in Color, Inability to urinate, Inability to have a bowel movement, Using more than 1 pad per hour, Shortness of breath, Dizziness, Fainting spells, Swelling in the ankles, Chest pain, Prolonged hiccupping, Increased palpitations (irregular heartbeat) and Calf discomfort Follow Up Care When: IN 2 WEEKS Test Results: Test results from this visit will be discussed in further detail at your follow- up appointment, if applicable. Discharge Plan Admission Admit Date/Time: 06/10/22 12:14 Primary Reason for Your Visit: stroke ruled out Attending Provider: Juvenal Mijares Primary Care Provider: Shiela Troy Instructions Additional Instructions / Restrictions: Patient might be benefited by psychiatry consult or psychologist evaluation and counseling. Discharge Orders/Prescriptions Prescriptions: Continued omeprazole 20 mg Capsule,Delayed Release(Dr/Ec) 20 mg PO DAILY Referrals / Follow Up: Shiela Troy MD [Primary Care Provider] - Care Physician,No Primary [Non-Staff] - Disposition Disposition (needs filled in before D/C Order can be placed): Home, Self Care 06/11/22 1048<Electronically signed by Juvenal Mijares MD>Juvenal Mijares MD CC: Dr. Shiela Troy MD ~ Signed [facility] Work Phone: [phone]) 666-143303-11-[address] [facility] Medical Records Department [address] [place] [address] Discharge Summary 06/11/22 1048 MR#: [id number] Acct: [id number] Name: IHSAN MARCELO Rep #: [id number] : 1960 61 From: Juevnal Mijares MD PCP: Dr. Shiela Troy MD Status:ADM IN [id number] Providers Date of Admission: 06/10/22 Date of Discharge: 06/11/22 Primary Care Physician: Dr. Shiela Troy MD Reason For Visit: STROKE Diagnosis Discharge Diagnosis (1) Acute cerebrovascular accident (CVA): Status: Acute Code(s): I63.9 - Cerebral infarction, unspecified (2) Acute encephalopathy: Status: Acute Code(s): G93.40 - Encephalopathy, unspecified Plan This is 61 years Is being admitted forleft-sided weakness, facial droop, mild to moderate language deficit, dysarthria, inattention, confusion and disorientation hallucination suggestive of acute encephalopathy and strokelike. 1. Most probably acute ischemic stroke: Patient is being admitted in PCU. MRI brain ordered. CT brain and CTA head and neck does not show acute abnormality. Patient was evaluated by [facility] teleneurologist and found the patient outside time window. Stroke work-up with MRI brain, 2D echo, lipid profile, A1c and TSH ordered. PT OT speech evaluation. BP control and Accu-Chek as per stroke protocol. Patient started on baby aspirin and high intensity statin. Chest x-ray questionable latent calcified granuloma in lateral aspect of left midlung. Follow with PCP. 06/11: Patient had completed stroke work-up. Fasting profile within normal limit. A1c 5.6% MRI brain reported no acute intracranial abnormality. 2D echo shows no PFO/ASD. EF 70%, mild concentric LVH. Patient is back to normal baseline. Does not have weakness of lower extremity. NIH stroke scale 0. Her speech has improved. Speech therapist recommended regular texture thin liquid with small bites small sips slow rate. Patient is discharged home and advised to follow-up with psychiatrist or psychologist for counseling. I suspect she might have mild depression. 2. Acute encephalopathy, exact etiology unclear possible due to stroke/psychogenic: Patient confusion, disorientation, inattention, hallucination has increased since yesterday. Patient d iagnosis of anxiety and depression is unclear as there is inconsistent history from patient's husban d and her daughter. Not on any dedication. 3: Acute encephalopathy resolved as patient is alert awake oriented x3. She can answer simple questions like month year and understands. Her speech tone has improved. I think acute distal most likely psychogenic possibility of mild anxiety/depression. Rest as mentioned above. 3. Hypothyroidism and possible GERD: Patient is only on omeprazole 20 mg daily at home. Not on thyroid medication. TSH and free T4 normal limit. 06/11: She might have hypertension but not diagnosed yet. Advised ambulatory BP monitoring at home BP monitoring and follow with PCP for diagnosis. 2D echo shows mild concentric LVH. VTE prophylaxis, enoxaparin 40 mill subcut daily from tomorrow AM. Living will/advanced directive/end of life care: Patient does not have living will or advanced directive. Her is next to kin. After discussion of benefits/risks procedures involved with full code, DNR CC arrest and DNR CC, patient's and son and daughter agreed for for full code. They do want artificial life support including intubation, tube feed, ventilator and/chest compression, central venous catheter, vasopressor and DC shock if needed Laboratory Results 06/10/22 10:50: WBC 10.5, RBC 4.39, Hgb 13.4, Hct 40.4, MCV 92.0, MCH 30.5, MCHC 33.2, RDW Std Deviation 45.4 H, RDW Coeff of Valentine 13.2, Plt Count 209, MPV 11.0, Immature Gran % (Auto) 0.400, Neut % (Auto) 85.3 H, Lymph % (Auto) 9.0 L, [place] % (Auto) 5.1, Eos % (Auto) 0.0, Baso % (Auto) 0.2, Absolute Neuts (auto) 9.0 H, Absolute Lymphs (auto) 0.95, Nucleated RBC % 0 06/10/22 10:50: PT 13.7, INR 1.1, APTT 25.6 06/10/22 10:50: Sodium 142, Potassium 3.6, Chloride 109 H, Carbon Dioxide 23.0, Anion Gap 10, BUN 23 H, Creatinine 1.08 H, Estim Creat Clear Calc 38.79, Est GFR (MDRD) Af Amer 66, Est GFR (MDRD) Non-Af 55 L, BUN/Creatinine Ratio 21.3 H, Glucose 149 H, Calcium 9.8, Troponin I High Sens 15 06/10/22 10:50: Magnesium 1.8 06/10/22 11:15: Urine Color Yellow, Urine Clarity Clear, Urine pH 5.0, Ur Specific [place] 1.025, Urine Protein 30 H, Urine Glucose (UA) Normal, Urine Ketones Negative, Urine Occult Blood 10 H, Urine Nitrite Negative, Urine Bilirubin Negative, Urine Urobilinogen Normal, Ur Leukocyte Esterase 25 H, Urine RBC 0-5 SEEN, Urine WBC 0-5 SEEN, Ur Squamous Epith Cells 0-5 SEEN, Urine Bacteria 0 SEEN, Hyaline Casts 0-5 SEEN, Urine Mucus RARE 06/10/22 17:05: POC Glucose 116 H 06/11/22 06:33: POC Glucose 88 06/11/22 06:42: Sodium 142, Potassium 3.7, Chloride 109 H, Carbon (more content not included)...[facility]03-10-2023 History and physical note Author Dr. Mijares [facility] June 10, 2022 1:28pm Note Date/Time June 10, 2022 12: 22pm [facility] Medical Records Department [address] [place] [address] H&P Exam - Hospitalist 06/10/22 1221 MR#: [id number] Acct: [id number] Name: IHSAN MARCELO Rep #:[id number] : 1960 61 From: Juvenal Degroot PCP: Dr. Shiela Troy MD Status:ADM I N Location: [place] [address] HPI - General General Date of Admission: 06/10/22 Date of Service: 06/10/22 Chief Complaint: , AMS, left arm and leg weakness, slurred speech difficulty ambulation, started about 1600 on June 09. HPI Narrative IHSAN MARCELO, is a 61 F was brought in by family member for evaluation of possible stroke. As per the , the patient was mild mental distress and as per daughter she has history of depression but not on any medication. As perhusband, she vomited once at home about 1600 hrs. with and her daughter came to home. Then she went to bed and woke up in the morning. She was noted to be confused and difficulty ambulating, weakness in the leg, wobbly, spaghettilike walking as per the daughter. She also had slurred speech, garbled speech and low tone. EMS found slurred speech and weakness in the left upper extremity. In ED, patient is having hallucination, seeing objects which is not there, talking to herself, low-tone speech hard to understand. She is also confused and looks fearful and afraid. In ED, vitals were noted. BP 103/66. Twelve-lead EKG sinus rhythm with first- degree AV block, RAD, QRS 100 ms, QTc 472 ms. LAFB. Patient had [facility] teleneurology consult and had CT head and CTA head and neck with no LVO found therefore further admitted. Family history: Positive for stroke in her family. [facility] Medical History delivery delivered Hypothyroid Skin cancer Medical History unable to obtain Home Medications omeprazole 20 mg capsule,delayed release 20 mg PO DAILY 06/10/22 [History Last Taken 06/09/22] Allergy/AdvReac Type Severity Reaction Status Date / Time Penicillins Allergy PT UNSURE Verified 06/10/22 10:40 OF REACTION Social History household members: spouse and children Smoking Status: Never smoker ROS ROS Narrative 14 system ROS is incomplete as patient is confused disoriented and having hallucinations and hard to understand because of low tone. : Denies burning micturition, increased frequency and urgency. GI: Denies abdominal pain. Vomiting admission HPI. Respiratory/Chest: No chest pain, shortness of breath at rest or with exertion Musculoskeletal: Denies chronic joint pain and limited range of motion Neurologic: Admission HPI. skin: No ulcer. No rash Review of Systems ROS Unobtainable: due to encephalopathy Vital Signs Vital Signs Vital Signs: 06/10/22 10:44 06/10/22 10:40 06/10/22 10:40 Temperature 97.9 F Temperature Source Temporal Pulse Rate 96 96 Respiratory Rate 18 20 H Blood Pressure 106/53 L 106/53 L Blood Pressure Mean 70 70 Pulse Ox 93 95 Oxygen Delivery Method Room Air Room Air Room Air 06/10/22 10:40 06/10/22 11:09 06/10/22 11:30 Temperature 97.4 F L 97.8 F 97.6 F L Temperature Source Temporal Temporal Temporal Pulse Rate 94 94 92 Respiratory Rate 24 H 16 16 Blood Pressure 103/70 108/78 108/76 Blood Pressure Mean 81 88 86 Pulse Ox 94 95 95 Oxygen Delivery Method Room Air Room Air Room Air 06/10/22 12:00 06/10/22 12:00 Temperature 97.8 F 97.6 F L Temperature Source Temporal Temporal Pulse Rate 95 94 Respiratory Rate 20 H 20 H Blood Pressure 103/66 103/66 Blood Pressure Mean 78 78 Pulse Ox 94 94 Oxygen Delivery Method Room Air Room Air Weight Weight: 175 lb 0.752 oz Body Mass Index (BMI) 34.2 Physical Exam Narrative Physical exam General: Confused, disoriented to time and person. HEENT: Atraumatic, PERRLA, EOMI, Normocephalic Oral: Oral mucosa dry. No Gingival or Mucosal Lesions/ Ulcerations Neck: Supple, No JVD, Negative Carotid Bruits Lungs: Air entry diminished in bilateral lung bases. No crepitation/rhonchi Cardiovascular: Regular rate, Regular Rhythm, Normal S1, Normal S2, No murmurs Abdomen: Bowel Sounds Present, Soft, Non Tender, Non-Distended : No renal angle tenderness. No suprapubic tenderness. Extremities: No edema, Capillary Refill Less than 3 Seconds Skin: No rashes, No breakdown Musculoskeletal: Weakness in left lower extremity, drift,No Tenderness to Palpation of Joints or Extremities Neurological: left-sided facial droop, mild to moderate language deficit, dysarthria. Not alert. Extinction and inattention. NIH 7. Complete neuro examunobtainable as patient is confused, disoriented does not follow commands adequately Psych/Mental Status: Possible anxiety, visual hallucination. Results Lab / Micro Data Result Diagrams: 06/10/22 10:50 06/10/22 10:50 Labs: Laboratory Results - last 24 hr 06/10/22 10:50: WBC 10.5, RBC 4.39, Hgb 13.4, Hct 40.4, MCV 92.0, MCH 30.5, MCHC33.2, RDW Std Deviation 45.4 H, RDW Coeff of Valentine 13.2, Plt Count 209, MPV 11.0, Immature Gran % (Auto) 0.400, Neut % (Auto) 85.3 H, Lymph % (Auto) 9.0 L, [place] %(Auto) 5.1, Eos % (Auto) 0.0, Baso % (Auto) 0.2, Absolute Neuts (auto) 9.0 H, Absolute Lymphs (auto) 0.95, Nucleated RBC % 0 06/10/22 10:50: PT 13.7, INR 1.1, APTT 25.6 06/10/22 10:50: Sodium 142, Potassium 3.6, Chloride 109 H, Carbon Dioxide 23.0, Anion Gap 10, BUN 23 H, Creatinine 1.08 H, Estim Creat Clear Calc 38.79, Est GFR(MDRD) Af Amer 66, Est GFR (MDRD) Non-Af 55 L, BUN/Creatinine Ratio 21.3 H, Glucose 149 H, Calcium 9.8, Troponin I High Sens 15 06/10/22 11:15: Urine Color Yellow, Urine Clarity Clear, Urine pH 5.0, Ur Specific [place] 1.025, Urine Protein 30 H, Urine Glucose (UA) Normal, Urine Ketones Negative, Urine Occult Blood 10 H, Urine Nitrite Negative, Urine Bilirubin Negative, Urine Urobilinogen Normal, Ur Leukocyte Esterase 25 H, UrineRBC 0-5 SEEN, Urine WBC 0- 5 SEEN, Ur Squamous Epith Cells 0-5 SEEN, Urine Bacteria 0 SEEN, Hyaline Casts 0-5 SEEN, Urine Mucus RARE Rhythm Strip Rhythm Strip: Sinus Rhythm Rate: 92 Ectopy: None Radiology Impression Brain CT 06/10/22 10:39 IMPRESSION: Normal unenhanced CT scan of the brain. N.B. : The above Results were Read Back by Rocky Pride MD to [facility] Poole and understanding confirmed on 06/10/2022 10:51:52 (ET). Electronically Signed: Rocky Pride MD at 10:53 EST , ADDENDUM: 06/10/22 1100 IMPRESSION: Normal unenhanced CT scan of the brain. N.B. : The above Results were Read Back by Rocky Pride MD to [facility] and understanding confirmed on 06/10/2022 10:51:52 (ET). Electronically Signed: Rocky Pride MD at 10:53 EST , Head/Neck CTA 06/10/22 10:40 IMPRESSION: Normal CTA Head and neck with contrast. N.B. : The above Results were Read Back by Rocky Pride MD to [facility] Poole and understanding confirmed on 06/10/2022 11:11:39 (ET). Electronically Signed: Rocky Pride MD at 11:12 EST , ADDENDUM: 06/10/22 1119 IMPRESSION: Normal CTA Head and neck with contrast. N.B. : The above Results were Read Back by Rocky Pride MD to [facility] Poole and understanding confirmed on 06/10/2022 11:11:39 (ET). Electronically Signed: Rocky Pride MD at 11:12 EST , Chest X-Ray 06/10/22 11:27 IMPRESSION: Questionable 8 mm calcified granuloma in the lateral aspect of the left midlung. Electronically Signed: Rocky Pride MD at 12:05 EST , Assessment & Plan Assessment/Plan (1) Acute cerebrovascular accident (CVA): (2) Acute encephalopathy: PLAN: Plan This is 61 years Is being admitted forleft-sided weakness, facial droop, mild tomoderate language deficit, dysarthria, inattention, confusion and disorientationhallucination suggestive of acute encephalopathy and strokelike. 1. Most probably acute ischemic stroke: Patient is being admitted in PCU. MRI brain ordered. CT brain and CTA head and neck does not show acute abnormality. Patient was evaluated by [facility] teleneurologist and found the patient outside time window. Stroke work-up with MRI brain, 2D echo, lipid profile, A1c and TSH ordered. PT OT speech evaluation. BP control and Accu-Chek as per stroke protocol. Patient started on baby aspirin and high intensity statin. Depending upon MRI findings will need dual antiplatelet agent. 2. Acute encephalopathy, exact etiology unclear possible due to stroke/psychogenic: Patient confusion, disorientation, inattention, hallucination has increased since yesterday. Patient diagnosis of anxiety and depression is unclear as there is inconsistent history from patient's and her daughter. Not on any dedication. 3. Hypothyroidism and possible GERD: Patient is only on omeprazole 20 mg daily at home. Not on thyroid medication. TSH and free T4 tomorrow AM. VTE prophylaxis, enoxaparin 40 mill subcut daily from tomorrow AM. Living will/advanced directive/end of life care: Patient does not have living will or advanced directive. Her is next to kin. After discussion of benefits/risks procedures involved with full code, DNR CC arrest and DNR CC, patient's and son and daughter agreed for for full code. They do want artificial life support including intubation, tube feed, ventilatorand/chest compression, central venous catheter, vasopressor and DC shock if needed Total time spent in [id number] encounter in discussion of advanced directive 17 minutes. Clinical Impression(s) from Imaging Studies Brain CT 06/10/22 10:39 IMPRESSION: Normal unenhanced CT scan of the brain. N.B. : The above Results were Read Back by Rocky Pride MD to [facility] and understanding confirmed on 06/10/2022 10:51:52 (ET). Electronically Signed: Rocky Pride MD at 10:53 EST , ADDENDUM: 06/10/22 1100 IMPRESSION: Normal unenhanced CT scan of the brain. N.B. : The above Results were Read Back by Rocky Pride MD to [facility] and understanding confirmed on 06/10/2022 10:51:52 (ET). Electronically Signed: Rocky Pride MD at 10:53 EST , Head/Neck CTA 06/10/22 10:40 IMPRESSION: Normal CTA Head and neck with contrast. Chest X-Ray 06/10/22 11:27 IMPRESSION: Questionable 8 mm calcified granuloma in the lateral aspect of the left midlung. Electronically Signed: Rocky Pride MD at 12:05 EST Reading Location ID and State: [address] [place] [address] , Service support , Charges/Coding Visit Charges Inpatient E&M: 53214 Init Hosp L3 Procedures Hospitalists Procedures: 87754 Advncd Care Plan 30 Min 06/10/22 1328 <Electronically signed by Juvenal Mijares MD> Cosigner Signature (if applicable): CC: Dr. Shiela Troy MD; Dr. Juvenal Mijares MD~ Signed [facility] Work Phone: 1(711) 411-232103-10-[address] Poole [facility] June 10, 2022 12:24pm Note Date/Time June 10, 2022 10: 51am [facility] Medical Records Department [address] [place] [address] Emergency Department Summary 06/10/22 MR#: [id number] Acct: [id number] Name: IHSAN MARCELO Rep #:[id number] : 1960 61 From: Lc Poole MD PCP: Dr. Shiela Troy MD Status:REG E R Location: ED HPI History of Present Illness Chief Complaint: Neuro S/Sx Detail of Chief Complaint: Evaluate for stroke Informant: spouse/S.O., family and EMS Onset/Context/Timing Onset: - (Last known well at 1600 June 09) Context: - (Unknown) Timing: Continuous Quality and Location: Positive for Left Arm Weakness, Slurred Speech and Difficulty with Ambulation Current Severity: Mild Worsened by: Per HPI narrative and MDM Relieved by: Nothing Associated Symptoms Associated Symptoms: Positive for - (Unable to determine) Narrative Narrative: Patient is a 61-year-old woman with no significant medical problems. According to daughter she has history of depression. According to she came home from work yesterday. She vomited at 1600. She went to bed. She awoke this morning. He noted she was confused and had difficulty ambulating. Daughter hadto help her to the restroom. Paramedics were called because of concern for stroke. Paramedics states she had slurred speech, weakness left upper extremity. According to daughter her legs were wobbly. She also commented that her urine was strong. Prior similar symptoms: No Recent Illness/Hospitalization: No PFSH PFSH Medical History (Updated 06/10/22 @ 12:[address] Lc Poole MD) delivery delivered Hypothyroid Skin cancer Medical History unable to obtain unable to obtain Home Medications omeprazole 20 mg capsule,delayed release 20 mg PO DAILY 06/10/22 [History Last Taken 06/09/22] Allergy/AdvReac Type Severity Reaction Status Date / Time Penicillins Allergy PT UNSURE Verified 06/10/22 10:40 OF REACTION Social History (Updated 06/10/22 @ 10:[address] Lc Poole MD) household members: spouse and children Smoking Status: Never smoker ROS ROS ED Review of Systems ROS Unobtainable: due to mental status EXAM Physical Exam Const Vital Signs: 06/10/22 10:44 06/10/22 10:40 06/10/22 10:40 Temperature 97.9 F Temperature Source Temporal Pulse Rate 96 96 Respiratory Rate 18 20 H Blood Pressure 106/53 L 106/53 L Blood Pressure Mean 70 70 Pulse Ox 93 95 Oxygen Delivery Method Room Air Room Air Room Air 06/10/22 10:40 06/10/22 11:09 06/10/22 11:30 Temperature 97.4 F L 97.8 F 97.6 F L Temperature Source Temporal Temporal Temporal Pulse Rate 94 94 92 Respiratory Rate 24 H 16 16 Blood Pressure 103/70 108/78 108/76 Blood Pressure Mean 81 88 86 Pulse Ox 94 95 95 Oxygen Delivery Method Room Air Room Air Room Air 06/10/22 12:00 06/10/22 12:00 Temperature 97.8 F 97.6 F L Temperature Source Temporal Temporal Pulse Rate 95 94 Respiratory Rate 20 H 20 H Blood Pressure 103/66 103/66 Blood Pressure Mean 78 78 Pulse Ox 94 94 Oxygen Delivery Method Room Air Room Air Positive well nourished and well developed General Appearance ED: well developed and NAD HEENT Reports TM's clear and dry mucous membranes atraumatic Nose: other Other Details: Nose normal. Posterior pharynx is normal. Uvula is midline. There is no deviation with protrusion. Tympanic Membrane ED: Yes TM's clear Mouth ED: Yes dry mucous membranes Mouth: dry mucous membranes Eyes PERRL and EOMs intact bilaterally General Eye ED: Negative for pale conjunctiva or scleral icterus Neck no lymphadenopathy, supple and no JVD Neck Narrative: There is no carotid bruit. Chest Wall inspection of chest normal and palpation of chest normal Resp normal respiratory effort and clear to auscultation bilaterally Cardio no murmurs Rate: regular rate Rhythm: regular rhythm Heart Sounds: S1 normal and S2 normal GI normal to inspection, nondistended, normoactive bowel sounds, soft to palpation,non-tender, non-distended and no masses Back/Spine no CVA tenderness Neuro No oriented x3 and CN's II-XII intact bilaterally Deborah Coma Scale: document GCS findings Spontaneous Obeys Commands Confused 14 Sensorium / Orientation: Negative for alert Speech: Negative for speech normal Psych Psych Narrative: Unable to determine. Daughter states that her mother's been under significant stress since she returned home. Skin no wounds General Skin Exam: Negative for jaundice Lesions: no lesions Rashes: no rashes NIHSS NIHSS Initial: 1a Level of Consciousness: 1 1b LOC Questions (Score 2 if aphasic/stupor): 1 1c LOC Commands (Only score 1st attempt): 0 2 Best Gaze (If aphasic, use reflexive mvmts.): 0 4 Facial Palsy: 0 5 Motor Arm Right (UN = amputation/fusion): 0 5 Motor Arm Left: 1 6 Motor Leg Right: 0 6 Motor Leg Left: 0 7 Limb ataxia (Only + if out of proportion): 1 8 Sensory (Aphasia/stupor=0 or 1, coma=2): 0 (No response when asked.) 9 Best Language: 0 10 Dysarthria (mute, coma=2, intubated=UN): 1 11 Extinction and Inattention (only scored if +): 0 Total Score: 5 MDM MDM MDM Narrative Medical decision making narrative: Differential diagnoses include stroke, conversion reaction, need to evaluate forinfectious cephalopathy in light of the fact that she urine is noted to be contracted and has odor per daughter. Stroke order set was initiated. Patient is outside window for thrombolytics. Stroke team was called prior to arrival. History & Record Review Discussion w/independent historian: EMS personnel (EMS inform you of their exam and document in the HPI), Patient, Family and Significant other Additional record(s) reviewed:: Prior inpatient record and No prior records (Only record available for review is from 2019 for foot pain.) Lab Data Attestation: I reviewed the patient's lab results. Lab results narrative: CBC is unremarkable. Coags are normal. Basic metabolic panel shows slight elevation of creatinine of 1.08 with a GFR 55. Glucose is elevated 149 with a normal CO2 and anion gap. Pulmonary normal. UA is unremarkable Labs: Laboratory Results - last 24 hr 06/10/22 06/10/22 06/10/22 10:50 10:50 10:50 WBC 10.5 RBC 4.39 Hgb 13.4 Hct 40.4 MCV 92.0 MCH 30.5 MCHC 33.2 RDW Std Deviation 45.4 H RDW Coeff of Valentine 13.2 Plt Count 209 MPV 11.0 Immature Gran % (Auto) 0.400 Neut % (Auto) 85.3 H Lymph % (Auto) 9.0 L [place] % (Auto) 5.1 Eos % (Auto) 0.0 Baso % (Auto) 0.2 Absolute Neuts (auto) 9.0 H Absolute Lymphs (auto) 0.95 Nucleated RBC % 0 PT 13.7 INR 1.1 APTT 25.6 Sodium 142 Potassium 3.6 Chloride 109 H Carbon Dioxide 23.0 Anion Gap 10 BUN 23 H Creatinine 1.08 H Estim Creat Clear Calc 38.79 Est GFR (MDRD) Af Amer 66 Est GFR (MDRD) Non-Af 55 L BUN/Creatinine Ratio 21.3 H Glucose 149 H Calcium 9.8 Troponin I High Sens 15 Urine Color Urine Clarity Urine pH Ur Specific [place] Urine Protein Urine Glucose (UA) Urine Ketones Urine Occult Blood Urine Nitrite Urine Bilirubin Urine Urobilinogen Ur Leukocyte Esterase Urine RBC Urine WBC Ur Squamous Epith Cells Urine Bacteria Hyaline Casts Urine Mucus 06/10/22 11:15 WBC RBC Hgb Hct MCV MCH MCHC RDW Std Deviation RDW Coeff of Valentine Plt Count MPV Immature Gran % (Auto) Neut % (Auto) Lymph % (Auto) [place] % (Auto) Eos % (Auto) Baso % (Auto) Absolute Neuts (auto) Absolute Lymphs (auto) Nucleated RBC % PT INR APTT Sodium Potassium Chloride Carbon Dioxide Anion Gap BUN Creatinine Estim Creat Clear Calc Est GFR (MDRD) Af Amer Est GFR (MDRD) Non-Af BUN/Creatinine Ratio Glucose Calcium Troponin I High Sens Urine Color Yellow Urine Clarity Clear Urine pH 5.0 Ur Specific [place] 1.025 Urine Protein 30 H Urine Glucose (UA) Normal Urine Ketones Negative Urine Occult Blood 10 H Urine Nitrite Negative Urine Bilirubin Negative Urine Urobilinogen Normal Ur Leukocyte Esterase 25 H Urine RBC 0-5 SEEN Urine WBC 0-5 SEEN Ur Squamous Epith Cells 0-5 SEEN Urine Bacteria 0 SEEN Hyaline Casts 0-5 SEEN Urine Mucus RARE Radiography Diagnostic Testing: Clinical Impression(s) from Imaging Studies Brain CT 06/10/22 10:39 IMPRESSION: Normal unenhanced CT scan of the brain. N.B. : The above Results were Read Back by Rocky Pride MD to [facility] and understanding confirmed on 06/10/2022 10:51:52 (ET). Electronically Signed: Rocky Pride MD at 10:53 EST , ADDENDUM: 06/10/22 1100 IMPRESSION: Normal unenhanced CT scan of the brain. N.B. : The above Results were Read Back by Rocky Pride MD to [facility] and understanding confirmed on 06/10/2022 10:51:52 (ET). Electronically Signed: Rocky Pride MD at 10:53 EST , Head/Neck CTA 06/10/22 10:40 IMPRESSION: Normal CTA Head and neck with contrast. N.B. : The above Results were Read Back by Rocky Pride MD to [facility] and understanding confirmed on 06/10/2022 11:11:39 (ET). Electronically Signed: Rocky Pride MD at 11:12 EST , ADDENDUM: 06/10/22 1119 IMPRESSION: Normal CTA Head and neck with contrast. N.B. : The above Results were Read Back by Rocky Pride MD to L[facility] Poole and understanding confirmed on 06/10/2022 11:11:39 (ET). Electronically Signed: Rocky Pride MD at 11:12 EST , Chest X-Ray 06/10/22 11:27 IMPRESSION: Questionable 8 mm calcified granuloma in the lateral aspect of the left midlung. Electronically Signed: Rocky Pride MD at 12:05 EST , Rhythm Strip Rhythm Strip: Sinus Rhythm Rate: 92 Ectopy: None EKG Initial EKG: Attestation: I personally reviewed and interpreted this EKG as follows: Interpretation: Sinus Rhythm (Rate is 97. There is evidence of first-degree AV block with a SC interval of 216 ms. Cures duration 100 ms. QT duration is 374 ms. [place] to the right. There is no acute ischemic changes noted.) Differential Diagnosis Differential Diagnosis: Documented in the MDM portion of the chart Management Discussion w/another healthcare provider: Hospitalist, Veterinary Receptionist (Neurologist at [facility]. Plan is transfer if evidence of LVO otherwise admit for stroke work-up at [facility].) and Radiologist (I spoke to Dr. Menendez at 1051. The unenhanced scan is unremarkable.) Stroke Documentation Questions Stroke Team Activated: Yes Reviewed Inclusion/Exclusion criteria: No IV Thrombolytic Administered: No (Patient outside window) No contraindications from thrombolytic administration: No Discharge Plan Dx/Rx/DC Orders Clinical Impression: Acute cerebrovascular accident (CVA), Elevated blood sugar level, Acute renal insufficiency Disposition Disposition: Acute Care Hospital [facility] What to do if you have Problems For any increased pain, shortness of breath, bleeding, nausea or vomiting, chestpain, or any unexpected problems, contact your Primary Care Provider. Call [facility] ([phone]) or report to the closest Emergency Room. Call 911 if necessary. 06/10/22 1215 <Electronically signed by Lc Poole MD> Cosigner Signature (if applicable): CC: Dr. Shiela Troy MD ~ Signed ADDENDUM by Dr. Lc Poole MD on 06/10/22 at 1224 Chest x-ray was obtained per stroke protocol. Patient has 5 to 1 cm nodule noted left lung mid field. There is no prior for comparison. This will need marge evaluated. This was independently viewed and interpreted by me. 06/10/22 1224<Electronically signed by Lc Poole MD> Cosigner Signature (if applicable): cc: Dr. Shiela Troy MD ~* Signed [facility] Work Phone: [phone] 376-435903-10-[address] Poole [facility] June 10, 2022 12:24pm Note Date/Time June 10, 2022 10: 51am [facility] Medical Records Department [address] [place] [id number] Emergency Department Summary 06/10/22 MR#: [id number] Acct: [id number] Name: IHSAN MARCELO Rep #:[id number] : 1960 61 From: Lc Poole MD PCP: Dr. Shiela Troy MD Status:REG E R Location: ED HPI History of Present Illness Chief Complaint: Neuro S/Sx Detail of Chief Complaint: Evaluate for stroke Informant: spouse/S.O., family and EMS Onset/Context/Timing Onset: - (Last known well at 1599June 09) Context: - (Unknown) Timing: Continuous Quality and Location: Positive for Left Arm Weakness, Slurred Speech and Difficulty with Ambulation Current Severity: Mild Worsened by: Per HPI narrative and MDM Relieved by: Nothing Associated Symptoms Associated Symptoms: Positive for - (Unable to determine) Narrative Narrative: Patient is a 61-year-old woman with no significant medical problems. According to daughter she has history of depression. According to she came home from work yesterday. She vomited at 1600. She went to bed. She awoke this morning. He noted she was confused and had difficulty ambulating. Daughter hadto help her to the restroom. Paramedics were called because of concern for stroke. Paramedics states she had slurred speech, weakness left upper extremity. According to daughter her legs were wobbly. She also commented that her urine was strong. Prior similar symptoms: No Recent Illness/Hospitalization: No PFSH PFSH Medical History (Updated 06/10/22 @ 12:[address] Lc Poole MD) delivery delivered Hypothyroid Skin cancer Medical History unable to obtain unable to obtain Home Medications omeprazole 20 mg capsule,delayed release 20 mg PO DAILY 06/10/22 [History Last Taken 06/09/22] Allergy/AdvReac Type Severity Reaction Status Date / Time Penicillins Allergy PT UNSURE Verified 06/10/22 10:40 OF REACTION Social History (Updated 06/10/22 @ 10:[address] Lc Poole MD) household members: spouse and children Smoking Status: Never smoker ROS ROS ED Review of Systems ROS Unobtainable: due to mental status EXAM Physical Exam Const Vital Signs: 06/10/22 10:44 06/10/22 10:40 06/10/22 10:40 Temperature 97.9 F Temperature Source Temporal Pulse Rate 96 96 Respiratory Rate 18 20 H Blood Pressure 106/53 L 106/53 L Blood Pressure Mean 70 70 Pulse Ox 93 95 Oxygen Delivery Method Room Air Room Air Room Air 06/10/22 10:40 06/10/22 11:09 06/10/22 11:30 Temperature 97.4 F L 97.8 F 97.6 F L Temperature Source Temporal Temporal Temporal Pulse Rate 94 94 92 Respiratory Rate 24 H 16 16 Blood Pressure 103/70 108/78 108/76 Blood Pressure Mean 81 88 86 Pulse Ox 94 95 95 Oxygen Delivery Method Room Air Room Air Room Air 06/10/22 12:00 06/10/22 12:00 Temperature 97.8 F 97.6 F L Temperature Source Temporal Temporal Pulse Rate 95 94 Respiratory Rate 20 H 20 H Blood Pressure 103/66 103/66 Blood Pressure Mean 78 78 Pulse Ox 94 94 Oxygen Delivery Method Room Air Room Air Positive well nourished and well developed General Appearance ED: well developed and NAD HEENT Reports TM's clear and dry mucous membranes atraumatic Nose: other Other Details: Nose normal. Posterior pharynx is normal. Uvula is midline. There is no deviation with protrusion. Tympanic Membrane ED: Yes TM's clear Mouth ED: Yes dry mucous membranes Mouth: dry mucous membranes Eyes PERRL and EOMs intact bilaterally General Eye ED: Negative for pale conjunctiva or scleral icterus Neck no lymphadenopathy, supple and no JVD Neck Narrative: There is no carotid bruit. Chest Wall inspection of chest normal and palpation of chest normal Resp normal respiratory effort and clear to auscultation bilaterally Cardio no murmurs Rate: regular rate Rhythm: regular rhythm Heart Sounds: S1 normal and S2 normal GI normal to inspection, nondistended, normoactive bowel sounds, soft to palpation,non-tender, non-distended and no masses Back/Spine no CVA tenderness Neuro No oriented x3 and CN's II-XII intact bilaterally Deborah Coma Scale: document GCS findings Spontaneous Obeys Commands Confused 14 Sensorium / Orientation: Negative for alert Speech: Negative for speech normal Psych Psych Narrative: Unable to determine. Daughter states that her mother's been under significant stress since she returned home. Skin no wounds General Skin Exam: Negative for jaundice Lesions: no lesions Rashes: no rashes NIHSS NIHSS Initial: 1a Level of Consciousness: 1 1b LOC Questions (Score 2 if aphasic/stupor): 1 1c LOC Commands (Only score 1st attempt): 0 2 Best Gaze (If aphasic, use reflexive mvmts.): 0 4 Facial Palsy: 0 5 Motor Arm Right (UN = amputation/fusion): 0 5 Motor Arm Left: 1 6 Motor Leg Right: 0 6 Motor Leg Left: 0 7 Limb ataxia (Only + if out of proportion): 1 8 Sensory (Aphasia/stupor=0 or 1, coma=2): 0 (No response when asked.) 9 Best Language: 0 10 Dysarthria (mute, coma=2, intubated=UN): 1 11 Extinction and Inattention (only scored if +): 0 Total Score: 5 MDM MDM MDM Narrative Medical decision making narrative: Differential diagnoses include stroke, conversion reaction, need to evaluate forinfectious cephalopathy in light of the fact that she urine is noted to be contracted and has odor per daughter. Stroke order set was initiated. Patient is outside window for thrombolytics. Stroke team was called prior to arrival. History & Record Review Discussion w/independent historian: EMS personnel (EMS inform you of their exam and document in the HPI), Patient, Family and Significant other Additional record(s) reviewed:: Prior inpatient record and No prior records (Only record available for review is from 2019 for foot pain.) Lab Data Attestation: I reviewed the patient's lab results. Lab results narrative: CBC is unremarkable. Coags are normal. Basic metabolic panel shows slight elevation of creatinine of 1.08 with a GFR 55. Glucose is elevated 149 with a normal CO2 and anion gap. Pulmonary normal. UA is unremarkable Labs: Laboratory Results - last 24 hr 06/10/22 06/10/22 06/10/22 10:50 10:50 10:50 WBC 10.5 RBC 4.39 Hgb 13.4 Hct 40.4 MCV 92.0 MCH 30.5 MCHC 33.2 RDW Std Deviation 45.4 H RDW Coeff of Valentine 13.2 Plt Count 209 MPV 11.0 Immature Gran % (Auto) 0.400 Neut % (Auto) 85.3 H Lymph % (Auto) 9.0 L [place] % (Auto) 5.1 Eos % (Auto) 0.0 Baso % (Auto) 0.2 Absolute Neuts (auto) 9.0 H Absolute Lymphs (auto) 0.95 Nucleated RBC % 0 PT 13.7 INR 1.1 APTT 25.6 Sodium 142 Potassium 3.6 Chloride 109 H Carbon Dioxide 23.0 Anion Gap 10 BUN 23 H Creatinine 1.08 H Estim Creat Clear Calc 38.79 Est GFR (MDRD) Af Amer 66 Est GFR (MDRD) Non-Af 55 L BUN/Creatinine Ratio 21.3 H Glucose 149 H Calcium 9.8 Troponin I High Sens 15 Urine Color Urine Clarity Urine pH Ur Specific [place] Urine Protein Urine Glucose (UA) Urine Ketones Urine Occult Blood Urine Nitrite Urine Bilirubin Urine Urobilinogen Ur Leukocyte Esterase Urine RBC Urine WBC Ur Squamous Epith Cells Urine Bacteria Hyaline Casts Urine Mucus 06/10/22 11:15 WBC RBC Hgb Hct MCV MCH MCHC RDW Std Deviation RDW Coeff of Valentine Plt Count MPV Immature Gran % (Auto) Neut % (Auto) Lymph % (Auto) [place] % (Auto) Eos % (Auto) Baso % (Auto) Absolute Neuts (auto) Absolute Lymphs (auto) Nucleated RBC % PT INR APTT Sodium Potassium Chloride Carbon Dioxide Anion Gap BUN Creatinine Estim Creat Clear Calc Est GFR (MDRD) Af Amer Est GFR (MDRD) Non-Af BUN/Creatinine Ratio Glucose Calcium Troponin I High Sens Urine Color Yellow Urine Clarity Clear Urine pH 5.0 Ur Specific [place] 1.025 Urine Protein 30 H Urine Glucose (UA) Normal Urine Ketones Negative Urine Occult Blood 10 H Urine Nitrite Negative Urine Bilirubin Negative Urine Urobilinogen Normal Ur Leukocyte Esterase 25 H Urine RBC 0-5 SEEN Urine WBC 0-5 SEEN Ur Squamous Epith Cells 0-5 SEEN Urine Bacteria 0 SEEN Hyaline Casts 0-5 SEEN Urine Mucus RARE Radiography Diagnostic Testing: Clinical Impression(s) from Imaging Studies Brain CT 06/10/22 10:39 IMPRESSION: Normal unenhanced CT scan of the brain. N.B. : The above Results were Read Back by Rocky Pride MD to [facility] and understanding confirmed on 06/10/2022 10:51:52 (ET). Electronically Signed: Rocky Pride MD at 10:53 EST , ADDENDUM: 06/10/22 1100 IMPRESSION: Normal unenhanced CT scan of the brain. N.B. : The above Results were Read Back by Rocky Pride MD to [facility] and understanding confirmed on 06/10/2022 10:51:52 (ET). Electronically Signed: Rocky Pride MD at 10:53 EST , Head/Neck CTA 06/10/22 10:40 IMPRESSION: Normal CTA Head and neck with contrast. N.B. : The above Results were Read Back by Rocky Pride MD to [facility] and understanding confirmed on 06/10/2022 11:11:39 (ET). Electronically Signed: Rocky Pride MD at 11:12 EST , ADDENDUM: 06/10/22 1119 IMPRESSION: Normal CTA Head and neck with contrast. N.B. : The above Results were Read Back by Rocky Pride MD to [facility] and understanding confirmed on 06/10/2022 11:11:39 (ET). Electronically Signed: Rocky Pride MD at 11:12 EST , Chest X-Ray 06/10/22 11:27 IMPRESSION: Questionable 8 mm calcified granuloma in the lateral aspect of the left midlung. Electronically Signed: Rocky Pride MD at 12:05 EST , Rhythm Strip Rhythm Strip: Sinus Rhythm Rate: 92 Ectopy: None EKG Initial EKG: Attestation: I personally reviewed and interpreted this EKG as follows: Interpretation: Sinus Rhythm (Rate is 97. There is evidence of first-degree AV block with a SC interval of 216 ms. Cures duration 100 ms. QT duration is 374 ms. [place] to the right. There is no acute ischemic changes noted.) Differential Diagnosis Differential Diagnosis: Documented in the MDM portion of the chart Management Discussion w/another healthcare provider: Hospitalist, Veterinary Receptionist (Neurologist at [facility]. Plan is transfer if evidence of LVO otherwise admit for stroke work-up at [facility].) and Radiologist (I spoke to Dr. Menendez at 1051. The unenhanced scan is unremarkable.) Stroke Documentation Questions Stroke Team Activated: Yes Reviewed Inclusion/Exclusion criteria: No IV Thrombolytic Administered: No (Patient outside window) No contraindications from thrombolytic administration: No Discharge Plan Dx/Rx/DC Orders Clinical Impression: Acute cerebrovascular accident (CVA), Elevated blood sugar level, Acute renal insufficiency Disposition Disposition: Acute Care Hospital [facility] What to do if you have Problems For any increased pain, shortness of breath, bleeding, nausea or vomiting, chestpain, or any unexpected problems, contact your Primary Care Provider. Call [facility] ([phone]) or report to the closest Emergency Room. Call 911 if necessary. 06/10/22 1215 <Electronically signed by Lc Poole MD> Cosigner Signature (if applicable): CC: Dr. Shiela Troy MD ~ Signed ADDENDUM by Dr. Lc Poole MD on 06/10/22 at 1224 Chest x-ray was obtained per stroke protocol. Patient has 5 to 1 cm nodule noted left lung mid field. There is no prior for comparison. This will need marge evaluated. This was independently viewed and interpreted by me. 06/10/22 1224<Electronically signed by Lc Poole MD> Cosigner Signature (if applicable): cc: Dr. Shiela Troy MD ~* Signed [facility] Work Phone: [phone] 221-372706-24-2021 History of Present illness Narrative* 59 year old female presenting for red raised area under chin that has yellow drainage. * Patient also had a day breakthrough vaginal bleeding. * Rash onset 2 months ago. * She reports yellow crusting * Is not spreading. waxes and wanes * No fever, chills. * She has not seen a doctor in a while. * Has not been taking Synthroid in a while. * No recent blood work. * Reports Synthroid was not helping her. * She reports a breakthrough bleeding. * Only for 1 day. * Does not have grid maker. her dter told her to go but she did not * Has thigh pain. * Has started walking. * Thinks pain is due to weight. feels better since started walking * no blood work in a long time [facility] Work Phone: [phone]) 898-430606-16-2021 History of Present illness Narrative* 59 year old female presenting for red raised area under chin that has yellow drainage. * Patient also had a day breakthrough vaginal bleeding. * Rash onset 2 months ago. * She reports yellow crusting * Is not spreading. waxes and wanes * No fever, chills. * She has not seen a doctor in a while. * Has not been taking Synthroid in a while. * No recent blood work. * Reports Synthroid was not helping her. * She reports a breakthrough bleeding. * Only for 1 day. * Does not have grid maker. her dter told her to go but she did not * Has thigh pain. * Has started walking. * Thinks pain is due to weight. feels better since started walking * no blood work in a long time [facility] Work Phone: [phone] 777-747706-15-2021 History of Present illness Narrative* 59 year old female presenting for red raised area under chin that has yellow drainage. * Patient also had a day breakthrough vaginal bleeding. * Rash onset 2 months ago. * She reports yellow crusting * Is not spreading. waxes and wanes * No fever, chills. * She has not seen a doctor in a while. * Has not been taking Synthroid in a while. * No recent blood work. * Reports Synthroid was not helping her. * She reports a breakthrough bleeding. * Only for 1 day. * Does not have grid maker. her dter told her to go but she did not * Has thigh pain. * Has started walking. * Thinks pain is due to weight. feels better since started walking * no blood work in a long time [facility] Work Phone: Evaluation note* Diagnosis Onset Date Resolution Status Acute cerebrovascular accident (CVA) acute Acute encephalopathy acute Acute renal insufficiency ac havasupai Elevated blood sugar level a [facility] Work Phone: Evaluation note* Diagnosis Mental status change resolved- Primary Pulmonary nodule Other diseases of lung, not elsewhere classified documented in this encounter [facility] Work Phone: Family History Mother Name Dates Details Family history of malignant neoplasm of brain(V16.8, Z80.8) Status:Active Father Name Dates Details Family history of myocardial infarction(V17.3, Z82.49) Status:Active Family history of hyperlipid emia(V18.19, Z83.438) Status:Active Mother Name Dates Details Family history of malignant neoplasm of brain(V16.8, Z80.8) Status:Active Father Name Dates Details Family history of myocardial infarction(V17.3, Z82.49) Status:Active Family history of hyperlipid emia(V18.19, Z83.438) Status:Active Mother Name Dates Details Family history of malignant neoplasm of brain(V16.8, Z80.8) Status:Active Father Name Dates Details Family history of myocardial infarction(V17.3, Z82.49) Status:Active Family history of hyperlipid emia(V18.19, Z83.438) Status:Active Unknown Family Member Name Dates Details Family history of hyperlipid emia: Father(V18.19, Z83.438) Status:Active Family history of myocardial infarction: Father(V17.3, Z82.49) Status:Active Family history of malignant neoplasm of brain: Mother(V16.8, Z80.8) Status:Active Unknown Family Member Name Dates Details Family history of hyperlipid emia: Father(V18.19, Z83.438) Status:Active Family history of myocardial infarction: Father(V17.3, Z82.49) Status:Active Family history of malignant neoplasm of brain: Mother(V16.8, Z80.8) Status:Active Unknown Family Member Name Dates Details Family history of malignant neoplasm of brain: Mother(V16.8, Z80.8) Status:Active Family history of myocardial infarction: Father(V17.3, Z82.49) Status:Active Family history of hyperlipid emia: Father(V18.19, Z83.438) Status:Active Unknown Family Member Name Dates Details Family history of malignant neoplasm of brain: Mother(V16.8, Z80.8) Status:Active Family history of myocardial infarction: Father(V17.3, Z82.49) Status:Active Family history of hyperlipid emia: Father(V18.19, Z83.438) Status:Active Summary Purpose Advance Directives Advance Directive Response Recorded Date/ Time Living Will No June 10, 2022 10:40am Power of Manager Data No June 10 10:40am Advance Directive Response Recorded Date/ Time Living Will No June 10, 2022 2:32pm Power of Manager Data No June 10 2:32pm Chief Complaint Chief Complaint: ALEJANDRA MARCELO is here with a chief complaint of . red raised area under chin that has yellow drainage ,pt also had a day og vaginal bleeding.Chief Complaint: ALEJANDRA MARCELO is here with a chief complaint of . red raised area under chin that has yellow drainage ,pt also had a day og vaginal bleeding.Chief Complaint: ALEJANDRA MARCELO is here with a chief complaint of . red raised area under chin that has yellow drainage ,pt also had a day og vaginal bleeding. Chief Complaint and Reason for Visit Chief Complaint STROKE Reason for Visit Acute cerebrovascula r accident (CVA) Acute encephalopathy Acute renal insufficiency Elevated blood sugar level Chief Complaint STROKE STROKE STROKE STROKE Reason for Visit Acute cerebrovascula r accident (CVA) Acute encephalopathy Acute renal insufficiency Elevated blood sugar level Reason for Referral Specialty Diagnoses / Procedures Referred By Contac t Referred To Contact Radiology Diagnoses Pulmonary nodule Procedures CT chest w IV contrast Shiela Troy MD [address] [facility], [place] [address] Referral ID Status Reason Start Date Expiration Date Visits Requested Visits Authorized [id number] Authorized Perform Procedure 07/04/2022 12/31/2022 1 1 Specialty Diagnoses / Procedures Referred By Contac t Referred To Contact Neurology Diagnoses Mental status change resolved Procedures SC OFFICE/OUTPATIENT NEW HIGH MDM 60-74 MINUTES Shiela Troy MD [address] [facility], [place] [address] Referral ID Status Reason Start Date Expiration Date Visits Requested Visits Authorized [id number] Authorized Specialty Services Required 07/04/2022 12/31/2022 1 1 Additional Source Comments INFORMATION SOURCE (unrecogn ized section and content) DATE CREATED AUTHOR 11/14/2020 [facility] DATE CREATED AUTHOR AUTHOR'S ORGANIZ ATION 11/15/2020 [employer] DATE CREATED AUTHOR AUTHOR'S ORGANIZ ATION [facility]22/20[facility] Care Teams (unrecognized sec tion and content) Team Status: Active Member Role Status Dates No Primary Care Physician Family Provider Active Dr. Shiela Troy MD Primary Care Provider Active Team Status: Active Member Role Status Dates Dr. Lc Poole MD Emergency Provider Active Dr. Shiela Troy MD Primary Care Provider Active Dr. Juvenal Mijares MD Admit Provider, Attending Provi bon Active Team Status: Active Member Role Status Dates Dr. Lc Poole MD Emergency Provider Active Dr. Shiela Troy MD Primary Care Provider Active Dr. Juvenal Mijares MD Admit Provider, A ttending Provider, Other Provider Active Team Status: Active Member Role Status Dates Dr. Shiela Troy MD Primary Care Provider Active Dr. Mame Rock MD Attending Provider Active Team Status: Inactive Member Role Status Dates Dr. Lc Poole MD Emergency Provider Active Dr. Shiela Troy MD Primary Care Provider Active Dr. 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 Relationship Specialty Start Date End Date Shiela Troy MD [address] [facility], [facility] [address] [place] [address] PCP - General 10/04/17 Shiela Troy MD [address] [facility], [facility] [address] [place] [address] PCP - Brissa ACO PCP 09/01/21 Juanito Braxton, wood products manufacturerRor Engineer 06/13/22 Goals (unrecognized section and content) Goals may be documented in a n alternate section FOR RECORDS PERTAINING TO PATIENTS WHO ARE OR HAVE BEEN ENROLLED IN A CHEMICAL DEPENDENCY/SUBSTANCEABUSE PROGRAM, SOME INFORMATION MAY BE OMITTED. This clinical summary was aggregated from multiple sources. Caution should be exercised in using it in the provision of clinical care. This summary normalizes information from multiple sources, and as a consequence, information in this document may materially change the coding, format and clinical context of patient data. In addition, data may be omitted in some cases. CLINICAL DECISIONS SHOULD BE BASED ON THE PRIMARY CLINICAL RECORDS. [facility]. provides no warranty or guarantee of the accuracy or completeness of information in this document.
[2024-11-25] MEDS: Pantoprazole Sodium 40 MG in 0.9% Normal Saline (100mL MB+) 100 ML 300 MG IV (06:41)
[2024-11-25] MEDS: metroNIDAZOLE 500 MG/100 ML BAG 100 MG IV (07:41)
--- NOTE | 2024-11-25 08:43 | HP.PCM_ITS ---
HPI - General General Date of Admission: 11/25/24 Date of Service: 11/25/24 Chief Complaint: Abdominal pain HPI Narrative ALAYNA ERAZO, is a 63 F who presents with 1 day history of right lower quadrant pain. Patient notes 4 to 5 days she has had mild nausea and diarrhea. She notes yesterday evening she woke up from her sleep with increased abdominal pain. She noted her father had a gastric perforation and . She was concerned with her presenting symptoms and came into the ED for evaluation. She notes having 4 c-sections. She notes previous history of stroke in 2022. CT scan of the ab/pel demonstrated: IMPRESSION: An impacted appendicolith in the base of the appendix. Enlarged diffusely thickened appendix measuring 1.3 cm. Diffuse thickening enhancement of the wall of the appendix suggestive of uncomplicated acute appendicitis without perforation or abscess formation. Small sliding hiatal hernia. Mild gastroparesis/gastritis. Scattered fluid-filled small bowels, probably enteritis. Fat containing umbilical hernia without incarceration. [facility] Medical History Hypertension Elevated blood sugar level Skin cancer delivery delivered Hypothyroid Home Medications ?Medication ?Instructions ?Recorded ?Last Taken ?Type omeprazole 20 mg capsule,delayed 20 mg PO DAILY 06/09/22 History release Allergy/AdvReac Type Severity Reaction Status Date / Time Penicillins Allergy PT UNSURE Verified 11/25/24 09:32 OF REACTION meperidine (From Demerol) AdvReac Nausea Verified 11/25/24 09:32 Social History household members: spouse and children Smoking Status: Never smoker ROS Constitutional Constitutional: Reports systems reviewed and no addt'l complaints, except as documented Eyes Eyes: Reports systems reviewed and no addt'l complaints, except as documented; Denies as per HPI, none, acute decrease in peripheral vision, blindness, blind spots, bloody eye, blurry vision, burning, change in eye color, change in vision, decreased night vision, diplopia, discharge from eye(s), discongugate gaze, double vision, dry eyes, erythema, excessive blinking, exophthalmos, eye pain, floaters, foreign body, halo effect, irritation, itchy eyes, loss of central vision, loss of peripheral vision, loss of vision, miosis, mydriasis, numbness, nystagmus, other visual disturbances, periorbital itching, photophobia, ptosis, puffy eyes, requires corrective lenses, seeing flashes, spots in vision, sunken eyes, tearing, tunnel vision or other ENT HEENT: Reports systems reviewed and no addt'l complaints, except as documented Cardiovascular Cardiovascular: Reports systems reviewed and no addt'l complaints, except as documented Respiratory/Chest Respiratory/Chest: Reports systems reviewed and no addt'l complaints, except as documented Gastrointestinal Gastrointestinal: Reports systems reviewed and no addt'l complaints, except as documented Genitourinary Genitourinary: Reports systems reviewed and no addt'l complaints, except as documented Musculoskeletal Musculoskeletal: Reports systems reviewed and no addt'l complaints, except as documented Integumentary Integumentary: Reports systems reviewed and no addt'l complaints, except as documented Neurologic Neurologic: Reports systems reviewed and no addt'l complaints, except as documented Psychiatric Psychiatric: Reports systems reviewed and no addt'l complaints, except as documented Endocrine Endocrinology: Reports systems reviewed and no addt'l complaints, except as documented Hematologic/Lymphatic Hematologic/Lymphatic: Reports systems reviewed and no addt'l complaints, except as documented Allergic/Immunologic Allergic/Immunologic: Reports systems reviewed and no addt'l complaints, except as documented Vital Signs Vital Signs Vital Signs: 11/25/24 03:10 11/25/24 05:10 11/25/24 06:46 Temperature 98.2 F 98.3 F Temperature Source Oral Pulse Rate 58 L 59 L 53 L Respiratory Rate 18 18 18 Blood Pressure 178/73 H 178/71 H 131/57 H Blood Pressure Mean 108 106 81 Pulse Ox 100 100 99 Oxygen Delivery Method Room Air Room Air 11/25/24 07:00 Temperature Temperature Source Pulse Rate 50 L Respiratory Rate 18 Blood Pressure 127/54 H Blood Pressure Mean 78 Pulse Ox 98 Oxygen Delivery Method Room Air Weight Weight: 183 lb 3.266 oz Body Mass Index (BMI) 35.7 Physical Exam Const alert, oriented x3 and no apparent distress HEENT normocephalic and head/scalp atraumatic Eyes PERRL Neck full ROM Resp normal respiratory effort and clear to auscultation bilaterally Cardio regular rate and regular rhythm GI GI Narrative: Abdomen- soft, tenderness in the right lower quadrant no CVA tenderness Back/Spine no CVA tenderness Extremity normal to inspection Skin no rashes or lesions noted Neuro no focal motor deficits and no sensory deficits noted Psych mental status grossly normal Results Lab / Micro Data 11/25/24 03:17 11/25/24 03:17 Labs: Laboratory Results - last 24 hr 11/25/24 03:17: WBC 10.3, RBC 4.73, Hgb 14.4, Hct 42.6, MCV 90.1, MCH 30.4, MCHC 33.8, RDW Std Deviation 44.2 H, RDW Coeff of Valentine 13.4, Plt Count 178, MPV 11.7, Immature Gran % (Auto) 0.500, Neut % (Auto) 62.0, Lymph % (Auto) 28.2, [place] % (Auto) 6.9, Eos % (Auto) 1.9, Baso % (Auto) 0.5, Absolute Neuts (auto) 6.4, Absolute Lymphs (auto) 2.90, Nucleated RBC % 0, Sodium 141, Potassium 3.9, Chloride 103, Carbon Dioxide 23.1, Anion Gap 16 H, BUN 21 H, Creatinine 0.92, Estim Creat Clear Calc 59.04, Est GFR (MDRD) Non-Af 69, BUN/Creatinine Ratio 22.4 H, Glucose 126 H, Lactic Acid 1.3, Calcium 10.2, Total Bilirubin 0.46, Direct Bilirubin 0.20, AST 18, ALT 17, Alkaline Phosphatase 73, Total Protein 7.1, Albumin 4.3, Globulin 2.8, Lipase 18 Imaging Radiology Impression Abdomen/Pelvis CT 11/25/24 03:29 IMPRESSION: An impacted appendicolith in the base of the appendix. Enlarged diffusely thickened appendix measuring 1.3 cm. Diffuse thickening enhancement of the wall of the appendix suggestive of uncomplicated acute appendicitis without perforation or abscess formation. Small sliding hiatal hernia. Mild gastroparesis/gastritis. Scattered fluid-filled small bowels, probably enteritis. Fat containing umbilical hernia without incarceration. Reading Location: [place] [address] Assessment & Plan Assessment/Plan (1) Acute appendicitis: QUALIFIERS: Acute appendicitis type: with localized peritonitis A ppendicitis gangrene presence: without gangrene Appendicitis perforation presence: without perforation Appendicitis abscess presence: without abscess Q ualified Code(s): K35.30 - Acute appendicitis with localized peritonitis, without perforation or gangrene PLAN: I am seeing this patient in conjunction with Dr. Do. He has independently evaluated this patient. Patient is a 63 y/p F with 1 day history of abdominal pain. CT scan demonstrated acute appendicitis with an appendicolith. Dr. Do will plan to perform a laparoscopic appendectomy. Plan to admit patient for observation. Procedure details, risks and benefits have been explained. Patient has had the opportunity to ask and have questions answered. Patient verbally understands and agrees with the proposed plan. Thank you for allowing us to participate in this patient's care. Charges/Coding Visit Charges OBSV E&M: 10503 Observ/hosp same date L2
--- OUTSIDE RECORDS SUMMARY | 2024-11-25 08:44 | XMS RPT_ITS | CCD ---
Author Organization [facility] Care Team Providers Care Manager Welding Name Role Phone Shiela Troy Unavailable Unavailable Shiela Troy Unavailable Unavailable Shiela Troy Unavailable Unavailable Unavailable Dr. Lc Poole Emergency Provider [phone] Shiela Troy Primary Care Provider Dr. Juvenal Mijares Admit Provider [phone] Juvenal Mijares Attending Provider [phone] Dr. Juvenal Mijares Other Provider Dr. Mame Rock Attending Provider Juvenal Mijares Attending Unavailable Juvenal Mijares Admitting Unavailable Shiela Troy Primary Care Unavailable Juvenal Mijares Consulting Unavailable Juvenal Mijares Attending Unavailable Juvenal Mijares Admitting Unavailable Shiela Troy Primary Care Unavailable Mame Rock Attending Unavailable Shiela Troy Primary Care Unavailable Shiela Troy MD Primary Care Provider [phone] Shiela Troy MD Unavailable Juanito Braxton RN Unavailable Unavailable Allergies Allergy Classification Reported Allergen(s) Allergy Type Date of Onset Reaction(s) Facility (2 sources) Penicillins Allergy to substance 3 PT UNSURE OF REACTION [facility] (1 source) Penicillins Drug allergy (disorder) 3 [facility] Repository Medications Current Medications Medication Drug Class(es) Dates Sig (Normalized) Sig (Original) [id number] actuat albuterol 0.09 mg/actuat metered dose [...] every week ergocalciferol (Vitamin D-2) 1.25 MG (96497 UT) capsule Take 1 capsule (1,250 mcg) by mouth 1 (one) time per week. 0 10/12/2017 Active Start: 10-12-[address] [facility] every week Vitamin D (Ergocalciferol) 1.25 MG (40087 UT) Oral Capsule TAKE 1 CAPSULE WEEKLY. [...] 1:00am Start: 05-22-2012 [address] [facility] once daily before mealtime omeprazole (PriLOSEC) [...] Comprehensive Panelon COLLETTE TABLE Comment Normal . [facility] Comment on above: Result Comment: Auto [...] Sm (anti-Mckeon) SLE 15 - 30% --------- EDGER SAW OPERATOR Mixed Connective Tissue Disease 95% (U1 nRNP, SLE 30 - 50% anti-ribonucleoprotein) Polymyositis and/or Dermatomyositis 20% --------- Scl-70 (antiDNA Scleroderma (diffuse) 20 - 35% topoisomerase) Crest 13% --------- Rayne-1 Polymyositis and/or Dermatomyositis 20 - 40% --------- Centromere B Scleroderma - Crest variant 80% Performed at: [address] [id number] Food Service Coordinator: Ezequiel Marin PhD, Phone: [phone] Performed By: #### L 871.7161, C799.2743, U760.5797, M836.0472 #### [facility] [place], [address] ANTI-DNA (DS)AB 1 IU/mL Normal 0-9 [facility] Comment on above: Result Comment: Nega tive <5 Equivocal 5 - 9 Positive >9 Performed By: #### L 506.0400, L500.4100, L500.2500, L501.9520 #### [facility] [address] [place], [address] COLLETTE Comprehensive Panelon ANTI-CENT B AB <0.2 Normal 0.0-0.9 [facility] Comment on above: Performed By: #### L 506.0400, L500.4100, L500.2500, L501.9520 #### [facility] [address] [place], [address] ANTI-RAYNE-1 <0.2 Normal 0.0-0.9 [facility] Comment on above: Performed By: #### L 506.0400, L500.4100, L500.2500, L501.9520 #### [facility] [address] [place], [address] ANTI-SS-A < 0.2 Normal 0.0-0.9 [facility] Comment on above: Performed By: #### L 506.0400, L500.4100, L500.2500, L501.9520 #### [facility] [address] [place], [address] Anti-SS-B < 0.2 Normal 0.0-0.9 [facility] Comment on above: Performed By: #### L 506.0400, L500.4100, L500.2500, L501.9520 #### [facility] [address] [place], [address] ANTICHROMATIN <0.2 Normal 0.0-0.9 [facility] Comment on above: Performed By: #### L 506.0400, L500.4100, L500.2500, L501.9520 #### [facility] [address] [place], [address] ANTISCLERODERM <0.2 Normal 0.0-0.9 [facility] Comment on above: Performed By: #### L 506.0400, L500.4100, L500.2500, L501.9520 #### [facility] [address] [place], [address] EDGER SAW OPERATOR Ab <0.2 Normal 0.0-0.9 [facility] Comment on above: Performed By: #### L 506.0400, L500.4100, L500.2500, L501.9520 #### [facility] [address] [place], [address] MCKEON Ab <0.2 Normal 0.0-0.9 [facility] Comment on above: Performed By: #### L 506.0400, L500.4100, L500.2500, L501.9520 #### [facility] [address] [place], [address] Vitamin B12on 06-13-2022 Cobalamin (Vitamin B12) [Mass/Vol] 318 pg/mL Normal 211-911 [facility] Comment on above: Performed By: #### L 501.6710, L503.0105, L101.9900, L506.0250 #### [facility] [address] [place], [address] Ammoniaon 06-12-2022 Ammonia (P) [Mass/Vol] ug/dL Low - [facility] Comment on above: Performed By: #### L 503.5510 #### [facility] [address] [place], [address] Basophil percentageOrdered B y: Dr. Mijares on 06-12-2022 Basophil percentage < 10.0 umol/L [facility] Discharge Instructionon 06-01 Discharge Instruction [facility] Medical Records Department [address] [place] [address] Instructions for Home/Discharge Instructions 06/12/22 1045 MR#: [id number] Acct: [id number] Name: IHSAN MARCELO Rep #: [id number] : 1960 61 From: Juvenal Mijares MD [...] encephalopathy) Chandu Woodruff DO [Med Staff - Transportation Planning Technician] - Within 1 Month Care Physician,No Primary [Non-Staff] - Disposition Disposition (needs filled in before D/C Order can be placed): Home, Self Care 06/12/22 1224 Juvenal Mijares MD CC: Dr. Shiela Troy MD Signed Normal [facility] Absolute lymphocyte countOrd ered By: Dr. Mijares on 06-11-2022 Lymphocytes Auto (Unsp spec) [#/Vol] 1.65 10*3/uL 0.83-4.51 [facility] Basic Metabolic Profile (BMP )on 06-11-2022 BUN/CRE 21.5 RATIO High 01-20 [facility] Comment on above: Performed By: #### L 506.0400, L500.4100, L500.2500, L501.9520 #### [facility] [address] [place], [address] CA,Total 9.1 mg/dL Normal 8.5-10.1 [facility] Comment on above: Performed By: #### L 506.0400, L500.4100, L500.2500, L501.9520 #### [facility] [address] [place], [address] Chloride [Moles/Vol] 109 mmol/L High 98-107 [facility] Comment on above: Performed By: #### L 506.0400, L500.4100, L500.2500, L501.9520 #### [facility] [address] [place], [address] CO2 [Moles/Vol] 25.0 mmol/L Normal 21.0-32.0 [facility] Comment on above: Performed By: #### L 506.0400, L500.4100, L500.2500, L501.9520 #### [facility] [address] [place], [address] Creatinine [Mass/Vol] 0.98 mg/dL Normal 0.55-1.02 [facility] Comment on above: Result Comment: The validity of the calculated GFR GFRAA in patients over 70 years has not been determined. Clinical correlation is essential. Performed By: #### L 506.0400, L500.4100, L500.2500, L501.9520 #### [facility] [address] [place], [address] ECRCL 42.75 ml/min Normal [facility] Comment on above: Performed By: #### L 506.0400, L500.4100, L500.2500, L501.9520 #### [facility] [address] [place], [address] EST GFR - AA 74 mL/min Normal >60 [facility] Comment on above: Result Comment: Afri can Djib[place] GFR Calc Performed By: #### L 506.0400, L500.4100, L500.2500, L501.9520 #### [facility] [address] [place], [address] GAP 8 Normal 5-15 [facility] Comment on above: Performed By: #### L 506.0400, L500.4100, L500.2500, L501.9520 #### [facility] [address] [place], [address] GFR/1.73 sq M.predicted among non-blacks MDRD (S/P/Bld) [Vol rate/Area] 61 mL/min/{1.73_m2} Normal >60 [facility] Comment on above: Result Comment: Non- GFR Calc Performed By: #### L 506.0400, L500.4100, L500.2500, L501.9520 #### [facility] [address] [place], [address] Glucose [Mass/Vol] 88 mg/dL Normal 74-106 [facility] Comment on above: Performed By: #### L 506.0400, L500.4100, L500.2500, L501.9520 #### [facility] [address] [place], [address] Potassium [Moles/Vol] 3.7 mmol/L Normal 3.5-5.1 [facility] Comment on above: Performed By: #### L 506.0400, L500.4100, L500.2500, L501.9520 #### [facility] [address] [place], [address] Sodium [Moles/Vol] 142 mmol/L Normal 136-145 [facility] Comment on above: Performed By: #### L 506.0400, L500.4100, L500.2500, L501.9520 #### [facility] [address] [place], [address] Urea nitrogen [Mass/Vol] 21 mg/dL High 7-18 [facility] Comment on above: Performed By: #### L 506.0400, L500.4100, L500.2500, L501.9520 #### [facility] [address] [place], [address] Basophil percentageOrdered B y: Dr. Mijares on 06-11-2022 Basophils/100 WBC (Bld) 0.6 % 0-1 [facility] Chloride [Moles/Vol] 109 mmol/L 98-107 [facility] Cholesterol [Mass/Vol] 121 mg/dL <200 [facility] Comment on above: <200 mg/dL Desirable 200-240 mg/dL Borderline >240 mg/dL High Risk Eosinophils/100 WBC (Bld) 0.3 % 0-5 [facility] Glucose [Mass/Vol] 88 mg/dL 74-106 [facility] Neutrophils (Bld) [#/Vol] 4.9 10*3/uL 2.0-7.7 [facility] Neutrophils/100 WBC (Bld) 68.4 % 47-70 [facility] Potassium [Moles/Vol] 3.7 mmol/L 3.5-5.1 [facility] Sodium [Moles/Vol] 142 mmol/L 136-145 [facility] Triglyceride [Mass/Vol] 52 mg/dL <199 [facility] Comment on above: The drugs N-Acetylcy steine and Metamizole may falsely depress this assay.Serum Triglycerides Reference Interval Normal <150 mg/dL Borderline high 150 - 199 mg/dL High 200 - 499 mg/dL Very High > or = 500 mg/dL WBC (Bld) [#/Vol] 7.2 10*3/uL 4.4-11.0 [facility] Bedside Glucoseon 06-11-2022 FINGERSTICK GLU 88 mg/dL Normal 74-106 [facility] Comment on above: Result Comment: YADY MCCORMICK OF PATIENT CARE PER NURSING PROTOCOL Performed By: #### L 506.0400, L500.4100, L500.2500, L501.9520 #### [facility] [address] [place], [address] Blood erythrocytes count (nu mber/volume)Ordered By: Dr. Mijares on 06-11-2022 RBC (Bld) [#/Vol] 4.08 10*6/uL 4.2-5.4 [facility] Blood hemoglobin measurement (mass/volume)Ordered By: Dr. Mijares on 06-11-2022 Hemoglobin (Bld) [Mass/Vol] 12.4 g/dL 12.0-15.0 [facility] Blood lymphocytes/100 leukoc ytesOrdered By: Dr. Mijares on 06-11-2022 Lymphocytes/100 WBC (Bld) 23.0 % 19-41 [facility] Blood monocytes/100 leukocyt esOrdered By: Dr. Mijares on 06-11-2022 Monocytes/100 WBC (Bld) 7.4 % 0-10 [facility] Blood platelet mean volumeOr dered By: Dr. Mijares on 06-11-2022 Platelet mean volume (Bld) [Entitic vol] 11.0 fL 6.2-12.0 [facility] CBC W/Diff, Automatedon 06-01 Absolute Lymph 1.65 X10 3/uL Normal 0.83-4.51 [facility] Comment on above: Performed By: #### L 506.0400, L500.4100, L500.2500, L501.9520 #### [facility] [address] [place], [address] Absolute Neut 4.9 X10 3/uL Normal 2.0-7.7 [facility] Comment on above: Performed By: #### L 506.0400, L500.4100, L500.2500, L501.9520 #### [facility] [address] [place], [address] Basophils/100 WBC (Bld) 0.6 % Normal 0-1 [facility] Comment on above: Performed By: #### L 506.0400, L500.4100, L500.2500, L501.9520 #### [facility] [address] [place], [address] Eosinophils/100 WBC (Bld) 0.3 % Normal 0-5 [facility] Comment on above: Performed By: #### L 506.0400, L500.4100, L500.2500, L501.9520 #### [facility] [address] [place], [address] Erythrocyte distribution width (RBC) [Ratio] 13.6 % Normal 11.6-14.6 [facility] Comment on above: Performed By: #### L 506.0400, L500.4100, L500.2500, L501.9520 #### [facility] [address] [place], [address] Hematocrit (Bld) [Volume fraction] 38.3 % Normal 37-47 [facility] Comment on above: Performed By: #### L 506.0400, L500.4100, L500.2500, L501.9520 #### [facility] [address] [place], [address] Hemoglobin (Bld) [Mass/Vol] 12.4 g/dL Normal 12.0-15.0 [facility] Comment on above: Performed By: #### L 506.0400, L500.4100, L500.2500, L501.9520 #### [facility] [address] [place], [address] IG% 0.300 Normal 0.0-0.9 [facility] Comment on above: Result Comment: IG% - Immature Granulocytes (promyelocytes, myelocytes and metamyelocytes) > 1% indicates that a LEFT SHIFT is Present. Performed By: #### L 506.0400, L500.4100, L500.2500, L501.9520 #### [facility] [address] [place], [address] Lymphocytes/100 WBC (Bld) 23.0 % Normal 19-41 [facility] Comment on above: Performed By: #### L 506.0400, L500.4100, L500.2500, L501.9520 #### [facility] [address] [place], [address] MCH (RBC) [Entitic mass] 30.4 pg Normal 27.0-32.0 [facility] Comment on above: Performed By: #### L 506.0400, L500.4100, L500.2500, L501.9520 #### [facility] [address] [place], [address] MCHC (RBC) [Mass/Vol] 32.4 g/dL Normal 32-36 [facility] Comment on above: Performed By: #### L 506.0400, L500.4100, L500.2500, L501.9520 #### [facility] [address] [place], [address] MCV (RBC) [Entitic vol] 93.9 fL Normal 81-99 [facility] Comment on above: Performed By: #### L 506.0400, L500.4100, L500.2500, L501.9520 #### [facility] [address] [place], [address] Monocytes/100 WBC (Bld) 7.4 % Normal 0-10 [facility] Comment on above: Performed By: #### L 506.0400, L500.4100, L500.2500, L501.9520 #### [facility] [address] [place], [address] Neutrophils/100 WBC (Bld) 68.4 % Normal 47-70 [facility] Comment on above: Performed By: #### L 506.0400, L500.4100, L500.2500, L501.9520 #### [facility] [address] [place], [address] Nucleated RBC (Bld) [#/Vol] 0 10*3/uL Normal 0-5 [facility] Comment on above: Performed By: #### L 506.0400, L500.4100, L500.2500, L501.9520 #### [facility] [address] [place], [address] Platelet mean volume (Bld) [Entitic vol] 11.0 fL Normal 6.2-12.0 [facility] Comment on above: Performed By: #### L 506.0400, L500.4100, L500.2500, L501.9520 #### [facility] [address] [place], [address] Platelets (Bld) [#/Vol] 192 10*3/uL Normal 150-450 [facility] Comment on above: Performed By: #### L 506.0400, L500.4100, L500.2500, L501.9520 #### [facility] [address] [place], [address] RBC (Bld) [#/Vol] 4.08 10*6/uL Low 4.2-5.4 [facility] Comment on above: Performed By: #### L 506.0400, L500.4100, L500.2500, L501.9520 #### [facility] [address] [place], [address] RDW SD 47.4 fl High 35.1-43.9 [facility] Comment on above: Performed By: #### L 506.0400, L500.4100, L500.2500, L501.9520 #### [facility] [address] [place], [address] WBC (Bld) [#/Vol] 7.2 10*3/uL Normal 4.4-11.0 [facility] Comment on above: Performed By: #### L 506.0400, L500.4100, L500.2500, L501.9520 #### [facility] [address] [place], [address] COVID 19 AG RAPID (RN COLLEC T)on 06-11-2022 SARS-CoV-2 (COVID-19) RNA RAFY+probe Ql (Unsp spec) SARS-CoV-2 (COVID 19) Negative RAPID METHOD Quidel Lori Analyzer JUAN DAVID Normal [facility] Comment on above: Performed By: #### L 506.0400, L500.4100, L500.2500, L501.9520 #### [facility] [address] [place], [address] COVID-19 virus antigen assay Ordered By: Dr. Mijares on 06-11-2022 SARS-CoV-2 (COVID-19) Ag IA.rapid Ql (Resp) [facility] CRPon 06-11-2022 C-REACTIVE PROT 10.10 mg/L High 0.0-3.0 [facility] Comment on above: Result Comment: C-Re active Protein (CRP) provides useful information for the diagnosis, therapy and monitoring of inflammatory processes and associated diseases. For the evaluation of Relative Risk for Cardiovascular Disease, a High Sensitivity CRP (HSCRP) should be ordered. Performed By: #### L 501.6710, L503.0105, L101.9900, L506.0250 #### [facility] [address] [place], [address] Consult: [facility] Non-Emerge nton 06-11-2022 Consult: [facility] Non-Emergent [facility] Medical Records Department [address] [place] [address] Telemedicine Confirmation Receipt 06/11/22 MR#: [id number] Acct: [id number] Name: IHSAN MARCELO Rep #: [id number] : 1960 61 From: Juvenal Mijares MD PCP: Dr. Shiela Troy MD Status:ADM IN [facility] has confirmed receipt of a request for visit. This document confirms receipt of the order initiating the consult. To find the results of the consultation, please view the patient's reports for the scanned Telemed Consult. Normal [facility] Determination of erythrocyte mean corpuscular volume (MCV)Ordered By: Dr. Mijares on 06-11-2022 MCV (RBC) [Entitic vol] 93.9 fL 81-99 [facility] Discharge Instructionon 06-01 Discharge Instruction [facility] Medical Records Department [address] [place] [address] Instructions for Home/Discharge Instructions 06/11/22 0747 MR#: [id number] Acct: [id number] Name: IHSAN MARCELO Rep #: [id number] : 1960 61 From: Juvenal Mijares MD [...] CC: Dr. Shiela Troy MD Signed Normal [facility] Erythrocyte Sed Rateon 06-11 SED RATE 5 mm/hr Normal 0-30 [facility] Comment on above: Performed By: #### L 501.6710, L503.0105, L101.9900, L506.0250 #### [facility] [address] [place], [address] Erythrocyte sedimentation ra teOrdered By: Dr. Mijares on 06-11-2022 ESR (Bld) [Velocity] 5 mm/h 0-30 [facility] Folates, (Folic Acid)on 06-01 FOLATES 10.70 ng/mL Normal 3.1-55.4 [facility] Comment on above: Performed By: #### L 501.6710, L503.0105, L101.9900, L506.0250 #### [facility] [address] [place], [place], [address] Glucose Glucometer (BldC) [M ass/Vol]Ordered By: Dr. Mijares on 06-11-2022 Glucose [Mass/Vol] 88 mg/dL 74-106 [facility] Comment on above: MANAGEMENT OF PATIEN T CARE PER NURSING PROTOCOL Hematocrit Auto (Bld) [Volum e fraction]Ordered By: Dr. Mijares on 06-11-2022 Hematocrit (Bld) [Volume fraction] 38.3 % 37-47 [facility] Hemoglobin A1con 06-11-2022 HbA1c (Bld) [Mass fraction] 5.6 % Normal 3.8-5.6 [facility] Comment on above: Result Comment: Norm al < 5.7 % Prediabetic 5.7 - 6.4 % Diabetic >or= 6.5 % Please note range changes. Performed By: #### L 506.0400, L500.4100, L500.2500, L501.9520 #### [facility] [address] [place], [address] Laboratory - Chemistry and C hemistry - challengeOrdered By: Dr. Mijares on 06-11-2022 CO2 [Moles/Vol] 25.0 mmol/L 21.0-32.0 [facility] Free T4 [Mass/Vol] 0.99 ng/dL 0.76-1.46 [facility] Urea nitrogen/Creatinine [Mass ratio] 21.5 mg/mg 10-20 [facility] - Drug toxicology Ordered By: Dr. Mijares on 06-11-2022 Amphetamines Ql (U) Negative <1000 ng/mL [facility] Benzodiazepines Ql (U) Negative < 200 ng/mL [facility] Cannabinoids Screen Ql (U) Negative < 50 ng/mL [facility] Cocaine Ql (U) Negative < 300 ng/mL [facility] Opiates Ql (U) Negative < 300 ng/mL [facility] - Hematology and Cell countsOrdered By: Dr. Mijares on 06-11-2022 Erythrocyte distribution width (RBC) [Entitic vol] 47.4 fL 35.1-43.9 [facility] Erythrocyte distribution width (RBC) [Ratio] 13.6 % 11.6-14.6 [facility] Immature granulocytes/100 WBC (Bld) 0.300 % 0.0-0.9 [facility] Comment on above: IG% - Immature Granu locytes (promyelocytes, myelocytes and metamyelocytes) > 1% indicates that a LEFT SHIFT is Present. MCH (RBC) [Entitic mass] 30.4 pg 27.0-32.0 [facility] Nucleated RBC/100 WBC (Bld) [Ratio] 0 % 0-5 [facility] Lipid Profileon 06-11-2022 Cholesterol [Mass/Vol] 121 mg/dL Normal 200 [facility] Comment on above: Result Comment: <200 mg/dL Desirable 200-240 mg/dL Borderline >240 mg/dL High Risk Performed By: #### L 506.0400, L500.4100, L500.2500, L501.4040 #### [facility] [address] [place], [address] Cholesterol in HDL [Mass/Vol] 54 mg/dL Normal [facility] Comment on above: Result Comment: The drugs N-Acetylcysteine and Metamizole may falsely depress this assay. Reference Range HDL <40 mg/dL Low HDL Cholesterol HDL >or= 60 mg/dL High HDL Cholesterol Performed By: #### L 506.0400, L500.4100, L500.2500, L501.9520 #### [facility] [address] [place], [address] Cholesterol in LDL [Mass/Vol] 57 mg/dL Normal 0-130 [facility] Comment on above: Performed By: #### L 506.0400, L500.4100, L500.2500, L501.9520 #### [facility] [address] [place], [address] Cholesterol in VLDL [Mass/Vol] 10 mg/dL Normal 5-40 [facility] Comment on above: Performed By: #### L 506.0400, L500.4100, L500.2500, L501.9520 #### [facility] [address] [place], [address] Triglyceride [Mass/Vol] 52 mg/dL Normal [facility] Comment on above: Result Comment: The drugs N-Acetylcysteine and Metamizole may falsely depress this assay. Serum Triglycerides Reference Interval Normal <150 mg/dL Borderline high 150 - 199 mg/dL High 200 - 499 mg/dL Very High > or = 500 mg/dL Performed By: #### L 506.0400, L500.4100, L500.2500, L501.9520 #### [facility] [address] [place], [address] MCHC Auto (RBC) [Mass/Vol]Or dered By: Dr. Mijares on 06-11-2022 MCHC (RBC) [Mass/Vol] 32.4 g/dL 32-36 [facility] No Panel InformationOrdered By: Dr. Mijares on 06-11-2022 MDMA (Ecstasy) Screen Positive < 500 ng/mL [facility] Urine Barbiturates Screen Negative < 200 ng/mL [facility] Urine Drug Screen Comment [facility] Comment on above: CONFIRMATORY TESTING FOR [...] Methadone Screen Negative < 300 ng/mL [facility] Estimated Creatinine Clearance Calc 42.75 ml/min [facility] Estimated GFR (MDRD) Amer 74 mL/min >60 [facility] Comment on above: GFR Calc Estimated GFR (MDRD) Non-Af Amer 61 mL/min >60 [facility] Comment on above: Non- GFR Calc Thyroid Stimulating Hormone (TSH) 1.57 uIU/mL 0.358-3.74 [facility] Platelets bldOrdered By: Dr. Mijares on 06-11-2022 Platelets (Bld) [#/Vol] 192 10*3/uL 150-450 [facility] Serum or plasma C reactive p rotein measurement (mass/volume)Ordered By: Dr. Mijares on 06-11-2022 CRP [Mass/Vol] 10.10 mg/L 0.0-3.0 [facility] Comment on above: C-Reactive Protein ( CRP) provides useful information for thediagnosis, therapy and monitoring of inflammatory processesand associated diseases. For the evaluation of Relative Riskfor Cardiovascular Disease, a High Sensitivity CRP (HSCRP)should be ordered. Serum or plasma calcium marlen urement (mass/volume)Ordered By: Dr. Mijares on 06-11-2022 Calcium [Mass/Vol] 9.1 mg/dL 8.5-10.1 [facility] Serum or plasma cholesterol in HDL measurement (mass/volume)Ordered By: Dr. Mijares on 06-11-2022 Cholesterol in HDL [Mass/Vol] 54 mg/dL >40 [facility] Comment on above: The drugs N-Acetylcy steine and Metamizole may falsely depress this assay. Reference Range HDL <40 mg/dL Low HDL Cholesterol HDL >or= 60 mg/dL High HDL Cholesterol Serum or plasma cholesterol in VLDL measurement (mass/volume)Ordered By: Dr. Mijares on 06-11-2022 Cholesterol in VLDL [Mass/Vol] 10 mg/dL 5-40 [facility] Serum or plasma creatinine m easurement (mass/volume)Ordered By: Dr. Mijares on 06-11-2022 Creatinine [Mass/Vol] 0.98 mg/dL 0.55-1.02 [facility] Comment on above: The validity of the calculated GFR & GFRAA in patients over 70 years has not been determined. Clinical correlation is essential. Serum or plasma folate measu rement (mass/volume)Ordered By: Dr. Mijares on 06-11-2022 Folate [Mass/Vol] 10.70 ng/mL 3.1-55.4 [facility] Serum or plasma low density lipoprotein (LDL) cholesterol measurement (mass/volume)Ordered By: Dr. Mijares on 06-11-2022 Cholesterol in LDL [Mass/Vol] 57 mg/dL 0-130 [facility] Serum or plasma urea nitroge n measurement (mass/volume)Ordered By: Dr. Mijares on 06-11-2022 Urea nitrogen [Mass/Vol] 21 mg/dL 7-18 [facility] T4 Free Directon 06-11-2022 T4 FREE DIRECT 0.99 ng/dL Normal 0.76-1.46 [facility] Comment on above: Performed By: #### L 506.0400, L500.4100, L500.2500, L501.9520 #### [facility] [address] [place], [address] [facility] EEG Read/Int-PSN ON [place] 06-11-2022 [facility] EEG Read/Int-PSN ONLY [facility] Medical Records Department [address] [place] [address] Telemedicine Confirmation Receipt 06/11/22 MR#: [id number] Acct: [id number] Name: IHSAN MARCELO Rep #: [id number] : 1960 61 From: Juvenal Mijares MD PCP: Dr. Shiela Sydni, MD Status:ADM IN [facility] has confirmed receipt of a request for visit. This document confirms receipt of the order initiating the consult. To find the results of the consultation, please view the patient's reports for the scanned Telemed Consult. Normal [facility] Thin prep Papanicolaou smear with manual screeningOrdered By: Dr. Mijares on 06-11-2022 Thin prep Papanicolaou smear with manual screening 8 5-15 [facility] Thyroid Stim Hormone (TSH)on 06-11-2022 TSH 1.57 uIU/mL Normal 0.358-3.74 [facility] Comment on above: Performed By: #### L 506.0400, L500.4100, L500.2500, L501.9520 #### [facility] [address] [place], [address] Urine Drug Screen (VISTA)on 06-11-2022 AMPHETAMINES Negative Normal <1000 ng/mL [facility] Comment on above: Order Comment: SENT LABEL TO FLOOR FOR COLLECTIONplease add on to urine from ED Performed By: #### L 506.0400, L500.4100, L500.2500, L501.9520 #### [facility] [address] [place], [address] BARBITIURATES Negative Normal < 200 ng/mL [facility] Comment on above: Order Comment: SENT LABEL TO FLOOR FOR COLLECTIONplease add on to urine from ED Performed By: #### L 506.0400, L500.4100, L500.2500, L501.9520 #### [facility] [address] [place], [address] BENZODIAZIPINE Negative Normal < 200 ng/mL [facility] Comment on above: Order Comment: SENT LABEL TO FLOOR FOR COLLECTIONplease add on to urine from ED Performed By: #### L 506.0400, L500.4100, L500.2500, L501.9520 #### [facility] [address] [place], [address] COCAINE Negative Normal < 300 ng/mL [facility] Comment on above: Order Comment: SENT LABEL TO FLOOR FOR COLLECTIONplease add on to urine from ED Performed By: #### L 506.0400, L500.4100, L500.2500, L501.9520 #### [facility] [address] [place], [address] ECSTACY Positive Abnormal < 500 ng/mL [facility] Comment on above: Order Comment: SENT LABEL TO FLOOR FOR COLLECTIONplease add on to urine from ED Performed By: #### L 506.0400, L500.4100, L500.2500, L501.9520 #### [facility] [address] [place], [address] METHADONE Negative Normal < 300 ng/mL [facility] Comment on above: Order Comment: SENT LABEL TO FLOOR FOR COLLECTIONplease add on to urine from ED Performed By: #### L 506.0400, L500.4100, L500.2500, L501.9520 #### [facility] [address] [place], [address] OPIATES Negative Normal < 300 ng/mL [facility] Comment on above: Order Comment: SENT LABEL TO FLOOR FOR COLLECTIONplease add on to urine from ED Performed By: #### L 506.0400, L500.4100, L500.2500, L501.9520 #### [facility] [address] [facility] [address] PCP Negative Normal < 25 ng/mL [facility] Comment on above: Order Comment: SENT LABEL TO FLOOR FOR COLLECTIONplease add on to urine from ED Performed By: #### L 506.0400, L500.4100, L500.2500, L501.9520 #### [facility] [address] [facility] [address] THC Negative Normal < 50 ng/mL [facility] Comment on above: Order Comment: SENT LABEL TO FLOOR FOR COLLECTIONplease add on to urine from ED Performed By: #### L 506.0400, L500.4100, L500.2500, L501.9520 #### [facility] [address] [place], [address] VISTA UDS PH 5 Normal [facility] Comment on above: Order Comment: SENT LABEL TO FLOOR FOR COLLECTIONplease add on to urine from ED Performed By: #### L 506.0400, L500.4100, L500.2500, L501.9520 #### [facility] [address] [place], [address] Urine phencyclidine (PCP) de tectionOrdered By: Dr. Mijares on 06-11-2022 Phencyclidine Ql (U) Negative < 25 ng/mL [facility] Whole blood hemoglobin A1c/t otal hemoglobin ratio (mass fraction)Ordered By: Dr. Mijares on 06-11-2022 HbA1c (Bld) [Mass fraction] 5.6 % 3.8-5.6 [facility] Comment on above: Normal < 5.7 % Predi abetic 5.7 - 6.4 % Diabetic >or= 6.5 % Please note range changes. Absolute lymphocyte countOrd ered By: Dr. Poole on 06-10-2022 Lymphocytes Auto (Unsp spec) [#/Vol] 0.95 10*3/uL 0.83-4.51 [facility] Basic Metabolic Profile (BMP )on 06-10-2022 BUN/CRE 21.3 RATIO High - [facility] Comment on above: Order Comment: 'TROP ' Serial specimen #1, #2 or #3: 1 Performed By: #### L 506.0400, L500.4100, L500.2500, L501.9520 #### [facility] [address] [place], [address] CA,Total 9.8 mg/dL Normal 8.5-10.1 [facility] Comment on above: Order Comment: 'TROP ' Serial specimen #1, #2 or #3: 1 Performed By: #### L 506.0400, L500.4100, L500.2500, L501.9520 #### [facility] [address] [place], [address] Chloride [Moles/Vol] 109 mmol/L High 98-107 [facility] Comment on above: Order Comment: 'TROP ' Serial specimen #1, #2 or #3: 1 Performed By: #### L 506.0400, L500.4100, L500.2500, L501.9520 #### [facility] [address] [place], [address] CO2 [Moles/Vol] 23.0 mmol/L Normal 21.0-32.0 [facility] Comment on above: Order Comment: 'TROP ' Serial specimen #1, #2 or #3: 1 Performed By: #### L 506.0400, L500.4100, L500.2500, L501.9520 #### [facility] [address] [place], [address] Creatinine [Mass/Vol] 1.08 mg/dL High 0.55-1.02 [facility] Comment on above: Order Comment: 'TROP ' Serial specimen #1, #2 or #3: 1 Result Comment: The validity of the calculated GFR GFRAA in patients over 70 years has not been determined. Clinical correlation is essential. Performed By: #### L 506.0400, L500.4100, L500.2500, L501.9520 #### [facility] [address] [place], [address] ECRCL 38.79 ml/min Normal [facility] Comment on above: Order Comment: 'TROP ' Serial specimen #1, #2 or #3: 1 Performed By: #### L 506.0400, L500.4100, L500.2500, L501.9520 #### [facility] [address] [place], [address] EST GFR - AA 66 mL/min Normal >60 [facility] Comment on above: Order Comment: 'TROP ' Serial specimen #1, #2 or #3: 1 Result Comment: Afri can [place] GFR Calc Performed By: #### L 506.0400, L500.4100, L500.2500, L501.9520 #### [facility] [address] [place], [address] GAP 10 Normal 5-15 [facility] Comment on above: Order Comment: 'TROP ' Serial specimen #1, #2 or #3: 1 Performed By: #### L 506.0400, L500.4100, L500.2500, L501.9520 #### [facility] [address] [place], [address] GFR/1.73 sq M.predicted among non-blacks MDRD (S/P/Bld) [Vol rate/Area] 55 mL/min/{1.73_m2} Low >60 [facility] Comment on above: Order Comment: 'TROP ' Serial specimen #1, #2 or #3: 1 Result Comment: Non- GFR Calc Performed By: #### L 506.0400, L500.4100, L500.2500, L501.9520 #### [facility] [address] [place], [address] Glucose [Mass/Vol] 149 mg/dL High 74-106 [facility] Comment on above: Order Comment: 'TROP ' Serial specimen #1, #2 or #3: 1 Result Comment: Fast ing Glucose result greater than or equal to 126 mg/dL suggests DIABETES MELLITUS per A.D.A. criteria. Performed By: #### L 506.0400, L500.4100, L500.2500, L501.9520 #### [facility] [address] [place], [address] Potassium [Moles/Vol] 3.6 mmol/L Normal 3.5-5.1 [facility] Comment on above: Order Comment: 'TROP ' Serial specimen #1, #2 or #3: 1 Performed By: #### L 506.0400, L500.4100, L500.2500, L501.9520 #### [facility] [address] [place], [address] Sodium [Moles/Vol] 142 mmol/L Normal 136-145 [facility] Comment on above: Order Comment: 'TROP ' Serial specimen #1, #2 or #3: 1 Performed By: #### L 506.0400, L500.4100, L500.2500, L501.9520 #### [facility] [address] [place], [address] Urea nitrogen [Mass/Vol] 23 mg/dL High 7-18 [facility] Comment on above: Order Comment: 'TROP ' Serial specimen #1, #2 or #3: 1 Performed By: #### L 506.0400, L500.4100, L500.2500, L501.9520 #### [facility] [address] [place], [address] Basophil percentageOrdered B y: Dr. Poole on 06-10-2022 Basophil percentage 0-5 SEEN /hpf 0-5 [facility] Basophils/100 WBC (Bld) 0.2 % 0-1 [facility] Chloride [Moles/Vol] 109 mmol/L 98-107 [facility] Eosinophils/100 WBC (Bld) 0.0 % 0-5 [facility] Glucose [Mass/Vol] 149 mg/dL 74-106 [facility] Comment on above: Fasting Glucose resu lt greater than or equal to 126 mg/dL suggests DIABETES MELLITUS per A.D.A. criteria. Neutrophils (Bld) [#/Vol] 9.0 10*3/uL 2.0-7.7 [facility] Neutrophils/100 WBC (Bld) 85.3 % 47-70 [facility] Potassium [Moles/Vol] 3.6 mmol/L 3.5-5.1 [facility] Sodium [Moles/Vol] 142 mmol/L 136-145 [facility] WBC (Bld) [#/Vol] 10.5 10*3/uL 4.4-11.0 [facility] Bedside Glucoseon 06-10-2022 FINGERSTICK GLU 116 mg/dL High 74-106 [facility] Comment on above: Result Comment: YADY MCCORMICK OF PATIENT CARE PER NURSING PROTOCOL Performed By: #### L 506.0400, L500.4100, L500.2500, L501.9500 #### [facility] [address] [place], [address] Bilirubin Test strip Ql (U)O rdered By: Dr. Poole on 06-10-2022 Bilirubin Ql (U) Negative Negative [facility] Blood erythrocytes count (nu mber/volume)Ordered By: Dr. Poole on 06-10-2022 RBC (Bld) [#/Vol] 4.39 10*6/uL 4.2-5.4 [facility] Blood hemoglobin measurement (mass/volume)Ordered By: Dr. Poole on 06-10-2022 Hemoglobin (Bld) [Mass/Vol] 13.4 g/dL 12.0-15.0 [facility] Blood lymphocytes/100 leukoc ytesOrdered By: Dr. Poole on 06-10-2022 Lymphocytes/100 WBC (Bld) 9.0 % 19-41 [facility] Blood monocytes/100 leukocyt esOrdered By: Dr. Poole on 06-10-2022 Monocytes/100 WBC (Bld) 5.1 % 0-10 [facility] Blood platelet mean volumeOr dered By: Dr. Poole on 06-10-2022 Platelet mean volume (Bld) [Entitic vol] 11.0 fL 6.2-12.0 [facility] Brain without Contraston Brain without Contrast [facility] Imaging Services [address] [place] [address] Brain without Contrast MR#: [id number] Acct: [id number] Name: IHSAN MARCELO Claude Rep #: [id number] : 1960 F 61 From: Sanchez Mendez MD PCP: Dr. Shiela Troy MD Status: ADM IN Study: Brain without Contrast Date of Exam: 06/10/22 Exam# [id number] Ordering Dr: Juvenal Mijares MD STUDY: MRI [...] Shiela Troy MD; Dr. Juvenal Mijares MD Coordinator Of Evaluation: Signed Normal [facility] CBC W/Diff, Automatedon 06-01 Absolute Lymph 0.95 X10 3/uL Normal 0.83-4.51 [facility] Comment on above: Performed By: #### L 506.0400, L500.4100, L500.2500, L501.9520 #### [facility] [address] [place], [place], [address] Absolute Neut 9.0 X10 3/uL High 2.0-7.7 [facility] Comment on above: Performed By: #### L 506.0400, L500.4100, L500.2500, L501.9520 #### [facility] [address] [place], [address] Basophils/100 WBC (Bld) 0.2 % Normal 0-1 [facility] Comment on above: Performed By: #### L 506.0400, L500.4100, L500.2500, L501.9520 #### [facility] [address] [place], [address] Eosinophils/100 WBC (Bld) 0.0 % Normal 0-5 [facility] Comment on above: Performed By: #### L 506.0400, L500.4100, L500.2500, L501.9520 #### [facility] [address] [place], [address] Erythrocyte distribution width (RBC) [Ratio] 13.2 % Normal 11.6-14.6 [facility] Comment on above: Performed By: #### L 506.0400, L500.4100, L500.2500, L501.9520 #### [facility] [address] [place], [address] Hematocrit (Bld) [Volume fraction] 40.4 % Normal 37-47 [facility] Comment on above: Performed By: #### L 506.0400, L500.4100, L500.2500, L501.9520 #### [facility] [address] [place], [address] Hemoglobin (Bld) [Mass/Vol] 13.4 g/dL Normal 12.0-15.0 [facility] Comment on above: Performed By: #### L 506.0400, L500.4100, L500.2500, L501.9520 #### [facility] [address] [place], [address] IG% 0.400 Normal 0.0-0.9 [facility] Comment on above: Result Comment: IG% - Immature Granulocytes (promyelocytes, myelocytes and metamyelocytes) > 1% indicates that a LEFT SHIFT is Present. Performed By: #### L 506.0400, L500.4100, L500.2500, L501.9520 #### [facility] [address] [place], [address] Lymphocytes/100 WBC (Bld) 9.0 % Low 19-41 [facility] Comment on above: Performed By: #### L 506.0400, L500.4100, L500.2500, L501.9520 #### [facility] [address] [place], [address] MCH (RBC) [Entitic mass] 30.5 pg Normal 27.0-32.0 [facility] Comment on above: Performed By: #### L 506.0400, L500.4100, L500.2500, L501.9520 #### [facility] [address] [place], [address] MCHC (RBC) [Mass/Vol] 33.2 g/dL Normal 32-36 [facility] Comment on above: Performed By: #### L 506.0400, L500.4100, L500.2500, L501.9520 #### [facility] [address] [place], [address] MCV (RBC) [Entitic vol] 92.0 fL Normal 81-99 [facility] Comment on above: Performed By: #### L 506.0400, L500.4100, L500.2500, L501.9520 #### [facility] [address] [place], [address] Monocytes/100 WBC (Bld) 5.1 % Normal 0-10 [facility] Comment on above: Performed By: #### L 506.0400, L500.4100, L500.2500, L501.9520 #### [facility] [address] [place], [address] Neutrophils/100 WBC (Bld) 85.3 % High 47-70 [facility] Comment on above: Performed By: #### L 506.0400, L500.4100, L500.2500, L501.9520 #### [facility] [address] [place], [address] Nucleated RBC (Bld) [#/Vol] 0 10*3/uL Normal 0-5 [facility] Comment on above: Performed By: #### L 506.0400, L500.4100, L500.2500, L501.9520 #### [facility] [address] [place], [address] Platelet mean volume (Bld) [Entitic vol] 11.0 fL Normal 6.2-12.0 [facility] Comment on above: Performed By: #### L 506.0400, L500.4100, L500.2500, L501.9520 #### [facility] [address] [place], [address] Platelets (Bld) [#/Vol] 209 10*3/uL Normal 150-450 [facility] Comment on above: Performed By: #### L 506.0400, L500.4100, L500.2500, L501.9520 #### [facility] [address] [place], [address] RBC (Bld) [#/Vol] 4.39 10*6/uL Normal 4.2-5.4 [facility] Comment on above: Performed By: #### L 506.0400, L500.4100, L500.2500, L501.9520 #### [facility] [address] [place], [address] RDW SD 45.4 fl High 35.1-43.9 [facility] Comment on above: Performed By: #### L 506.0400, L500.4100, L500.2500, L501.9520 #### [facility] [address] [place], [address] WBC (Bld) [#/Vol] 10.5 10*3/uL Normal 4.4-11.0 [facility] Comment on above: Performed By: #### L 506.0400, L500.4100, L500.2500, L501.9520 #### [facility] [address] [place], [address] Chest 1 Viewon 06-10-2022 Chest 1 View [facility] Imaging Services [address] [place] [address] Chest 1 View MR#: [id number] Acct: [id number] Name: IHSAN MARCELO Rep #: [id number] : 1960 F 61 From: Rocky blakely MD PCP: Care Physician,No Primary Status: [facility] ER Study: Chest 1 View Date of Exam: 06/10/22 Exam# [id number] Ordering Dr: Lc Poole MD STUDY: X-RAY [...] Lc Poole MD; No Primary Care Physician Coordinator Of Evaluation: Signed Normal [facility] Determination of erythrocyte mean corpuscular volume (MCV)Ordered By: Dr. Poole on 06-10-2022 MCV (RBC) [Entitic vol] 92.0 fL 81-99 [facility] Echo Completeon 06-10-2022 Echo Complete [facility] [address] [place] [address] Echo Complete 06/10/22 1418 MR#: [id number] Acct: [id number] Name: IHSAN MARCELO Rep #: [id number] : 1960 61 From: Mame Rock MD [...] Dictated: 06/10/22 1418 Date Transcribed: 06/10/22 151 Coordinator Of Evaluation: Signed Normal [facility] Emergency Department Summary on 06-10-2022 Emergency Department Summary [facility] Medical Records Department [address] [place] [address] Emergency Department Summary 06/10/22 MR#: [id number] Acct: [id number] Name: IHSAN MARCELO Rep #: [id number] : 1960 61 From: Lc Poole MD [...] (UN = (more content not included)... Normal [facility] H AND P Exam - Hospitaliston 06-10-2022 H&P Exam - Hospitalist [facility] Medical Records Department [address] [place] [address] H P Exam - Hospitalist 06/10/22 1221 MR#: [id number] Acct: [id number] Name: IHSAN MARCELO Rep #: [id number] : 1960 61 From: Juvenal Mijares MD PCP: Dr. Shiela Troy MD Status:ADM IN Location: [place] [id number] HPI - General General Date of Admission: [...] history: Positive for stroke in her family. [facility] Medical History delivery delivered Hypothyroid Skin cancer [...] Possible an (more content not included)... Normal [facility] Hematocrit Auto (Bld) [Volum e fraction]Ordered By: Dr. Poole on 06-10-2022 Hematocrit (Bld) [Volume fraction] 40.4 % 37-47 [facility] Hyaline casts LM.LPF (Urine sed) [#/Area]Ordered By: Dr. Poole on 06-10-2022 Hyaline casts (Urine sed) [#/Area] 0 /[LPF] 0-5 [facility] INR in Blood by Coagulation assayOrdered By: Dr. Poole on 06-10-2022 INR Coag (Bld) [Relative time] 1.1 {INR} [facility] Ketones Test strip Ql (U)Ord ered By: Dr. Poole on 06-10-2022 Ketones Ql (U) Negative Negative [facility] L501.4020on 06-10-2022 TROPONIN-I HS 15 pg/mL Normal 3.0-54.0 [facility] Comment on above: Order Comment: 'TROP ' Serial specimen #1, #2 or #3: 1 Result Comment: Plea se Note: New Test Units and Gender Specific Reference Ranges. For more information see Policy Stat Procedure [place] High Sensitivity Troponin (TNIH) and attachments. Performed By: #### L 506.0400, L500.4100, L500.2500, L501.9520 #### [facility] [address] [place], [place], [id number] Laboratory - Chemistry and C hemistry - challengeOrdered By: Dr. Poole on 06-10-2022 CO2 [Moles/Vol] 23.0 mmol/L 21.0-32.0 [facility] Urea nitrogen/Creatinine [Mass ratio] 21.3 mg/mg 10-20 [facility] Laboratory - Chemistry and C hemistry - challengeOrdered By: Dr. Mijares on 06-10-2022 Magnesium [Mass/Vol] 1.8 mg/dL 1.6-2.6 [facility] Laboratory - CoagulationOrde red By: Dr. Poole on 06-10-2022 aPTT Coag (Bld) [Time] 25.6 s 24.1-36.2 [facility] PT Coag (PPP) [Time] 13.7 s 11.7-14.9 [facility] Laboratory - Hematology and Cell countsOrdered By: Dr. Poole on 06-10-2022 Erythrocyte distribution width (RBC) [Entitic vol] 45.4 fL 35.1-43.9 [facility] Erythrocyte distribution width (RBC) [Ratio] 13.2 % 11.6-14.6 [facility] Immature granulocytes/100 WBC (Bld) 0.400 % 0.0-0.9 [facility] Comment on above: IG% - Immature Granu locytes (promyelocytes, myelocytes and metamyelocytes) > 1% indicates that a LEFT SHIFT is Present. MCH (RBC) [Entitic mass] 30.5 pg 27.0-32.0 [facility] Nucleated RBC/100 WBC (Bld) [Ratio] 0 % 0-5 [facility] MCHC Auto (RBC) [Mass/Vol]Or dered By: Dr. Poole on 06-10-2022 MCHC (RBC) [Mass/Vol] 33.2 g/dL 32-36 [facility] Magnesiumon 06-10-2022 Magnesium [Mass/Vol] 1.8 mg/dL Normal 1.6-2.6 [facility] Comment on above: Performed By: #### L 506.0400, L500.4100, L500.2500, L501.9520 #### [facility] [address] [place] [address], [address] Mucus LM Ql (Urine sed)Order ed By: Dr. Poole on 06-10-2022 Mucus Ql (Urine sed) RARE /hpf [facility] Nitrite Test strip Ql (U)Ord ered By: Dr. Poole on 06-10-2022 Nitrite Ql (U) Negative Negative [facility] No Panel InformationOrdered By: Dr. Poole on 06-10-2022 Estimated Creatinine Clearance Calc 38.79 ml/min [facility] Estimated GFR (MDRD) Amer 66 mL/min >60 [facility] Comment on above: GFR Calc Estimated GFR (MDRD) Non-Af Amer 55 mL/min >60 [facility] Comment on above: Non- GFR Calc Troponin I High Sensitivity 15 pg/mL 3.0-54.0 [facility] Comment on above: Please Note: New [place] t Units and Gender Specific Reference Ranges. For more information see Policy Stat Procedure [place] High Sensitivity Troponin (TNIH) and attachments. Partial Thromboplast Timeon 06-10-2022 aPTT Coag (Bld) [Time] 25.6 s Normal 24.1-36.2 [facility] Comment on above: Performed By: #### L 506.0400, L500.4100, L500.2500, L501.9520 #### [facility] [address] [place], [address] Platelets bldOrdered By: Dr. Poole on 06-10-2022 Platelets (Bld) [#/Vol] 209 10*3/uL 150-450 [facility] Protein Test strip Ql (U)Ord ered By: Dr. Poole on 06-10-2022 Protein Ql (U) 30 mg/dl Negative [facility] Prothrombin Time w/INRon INR Coag (PPP) [Relative time] 1.1 {INR} Normal [facility] Comment on above: Performed By: #### L 506.0400, L500.4100, L500.2500, L501.9520 #### [facility] [address] [place], [address] PT Coag (PPP) [Time] 13.7 s Normal 11.7-14.9 [facility] Comment on above: Performed By: #### L 506.0400, L500.4100, L500.2500, L501.9520 #### [facility] [address] [place], [address] STROKE Brain/Head without Co nton 06-10-2022 STROKE Brain/Head without Cont [facility] Imaging Services [address] [place] [address] STROKE Brain/Head without Cont MR#: [id number] Acct: [id number] Name: IHSAN MARCELO Rep #: [id number] : 1960 F 61 From: Rocky blakely MD PCP: Care Physician,No Primary Status: REG ER Study: STROKE Brain/Head without Cont Date of Exam: 0 06/10/22 Exam# [id number] Ordering Dr: Lc Poole MD ADDENDUM by [...] 10:53 EST Reading Location ID and State: [facility] / [place] , Service support , CC: Dr. Lc Poole MD; No Primary Care Physician Coordinator Of Evaluation: Signed Normal [facility] STROKE CTA Head AND Neck W/C onon 06-10-2022 STROKE CTA Head AND Neck W/Con [facility] [facility] [address] [place] [id number] STROKE CTA Head AND Neck W/Con MR#: [id number] Acct: [id number] Name: IHSAN MARCELO Rep #: [id number] : 1960 F 61 From: Rocky blakely MD PCP: Care Physician,No Primary Status: REG ER Study: STROKE CTA Head AND Neck W/Con Date of Exam: 0 06/10/22 Exam# [id number] Ordering Dr: Lc Poole MD ADDENDUM by [...] There is no demonstrated aneurysm of the chitina of Fink. There is no demonstrated abnormality [...] 11:12 EST Reading Location ID and State: [address] [place] [address] , Service support , 06/10/22 1119 Date [...] normal supraclino (more content not included)... Normal [facility] Serum or plasma calcium marlen urement (mass/volume)Ordered By: Dr. Poole on 06-10-2022 Calcium [Mass/Vol] 9.8 mg/dL 8.5-10.1 [facility] Serum or plasma creatinine m easurement (mass/volume)Ordered By: Dr. Poole on 06-10-2022 Creatinine [Mass/Vol] 1.08 mg/dL 0.55-1.02 [facility] Comment on above: The validity of the calculated GFR & GFRAA in patients over 70 years has not been determined. Clinical correlation is essential. Serum or plasma urea nitroge n measurement (mass/volume)Ordered By: Dr. Poole on 06-10-2022 Urea nitrogen [Mass/Vol] 23 mg/dL 7-18 [facility] Squamous epithelial cells de tection in urine sediment by light microscopyOrdered By: Dr. Poole on 06-10-2022 Epithelial cells.squamous LM Ql (Urine sed) 0-5 SEEN /hpf -10 [facility] Thin prep Papanicolaou smear with manual screeningOrdered By: Dr. Poole on 06-10-2022 Thin prep Papanicolaou smear with manual screening 10 -15 [facility] Urinalysis, Completeon 06-10 CAST,HYALINE 0-5 SEEN Normal 0-5 [facility] Comment on above: Order Comment: LOREN CTOR TO SPECIFY Performed By: #### L 400.0001 #### [facility] [address] [place], [address] EPI,SQUAMOUS 0-5 SEEN Normal -10 [facility] Comment on above: Order Comment: LOREN CTOR TO SPECIFY Performed By: #### L 400.0001 #### [facility] [address] [place], [address] Mucus Ql (Urine sed) RARE Normal [facility] Comment on above: Order Comment: COLLE CTOR TO SPECIFY Performed By: #### L 400.0001 #### [facility] [address] [place], [address] RBC 0-5 SEEN Normal 0-5 [facility] Comment on above: Order Comment: COLLE CTOR TO SPECIFY Performed By: #### L 400.0001 #### [facility] [address] [place], [address] WBC 0-5 SEEN Normal 0-5 [facility] Comment on above: Order Comment: LOREN CTOR TO SPECIFY Performed By: #### L 400.0001 #### [facility] [address] [place], [address] BACTERIA 0 SEEN Normal None Seen [facility] Comment on above: Order Comment: LOREN CTOR TO SPECIFY Performed By: #### L 400.0001 #### [facility] [address] [place], [address] Urine blood detectionOrdered By: Dr. Poole on 06-10-2022 RBC Ql (U) 10 /ul Negative [facility] RBC Ql (U) 0-5 SEEN /hpf 0-5 [facility] Urine clarityOrdered By: Dr. Poole on 06-10-2022 Clarity (U) Clear Clear [facility] Urine color determinationOrd ered By: Dr. Poole on 06-10-2022 Color (U) Yellow Yellow [facility] Urine glucose detectionOrder ed By: Dr. Poole on 06-10-2022 Glucose Ql (U) Normal mg/dl Normal [facility] Urine leukocyte esterase det ection by dipstickOrdered By: Dr. Poole on 06-10-2022 Leukocyte esterase Test strip Ql (U) 25 /ul Negative [facility] Urine pHOrdered By: Dr. Rut seaman on 06-10-2022 pH (U) 5.0 [pH] 5.0 - 8.0 [facility] Urine sediment bacteria coun t by microscopy (number/high power field)Ordered By: Dr. Poole on 06-10-2022 Bacteria LM.HPF (Urine sed) [#/Area] 0 /[HPF] None Seen [facility] Urine specific gravity measu rementOrdered By: Dr. Poole on 06-10-2022 Specific gravity (U) [Rel density] 1.025 1.002-1.030 [facility] Urobilinogen Auto test strip Ql (U)Ordered By: Dr. Poole on 06-10-2022 Urobilinogen Ql (U) Normal mg/dl Normal [facility] BASIC METABOLIC PANELon 11-01 Anion gap [Moles/Vol] 13 mmol/L Normal 10 - 20 [facility] Comment on above: Performed By: #### B MP #### [facility] [address] [place] [address] Calcium [Mass/Vol] 10.9 mg/dL High 8.6 - 10.6 [facility] Comment on above: Performed By: #### B MP #### [facility] [address] [place] [address] Chloride [Moles/Vol] 108 mmol/L High 98 - 107 [facility] [place] Comment on above: Performed By: #### B MP #### [facility] [address] [place] [address] Creatinine [Mass/Vol] 0.96 mg/dL Normal 0.50 - 1.05 [facility] Comment on above: Performed By: #### B MP #### [facility] [address] [place] [address] GFR- AM. 71 mL/min/1.73m2 Normal >60 [facility] Comment on above: Result Comment: CALC ULATIONS OF ESTIMATED GFR ARE PERFORMED USING THE MDRD STUDY EQUATION FOR THE IDMS-TRACEABLE CREATININE METHODS. CLIN CHEM 2007;53:766-72 Performed By: #### B MP #### [facility] [address] [place] [address] GFR-NON AM. 59 mL/min/1.73m2 Abnormal >60 [facility] Comment on above: Performed By: #### B MP #### [facility] [address] [place] [address] Glucose [Mass/Vol] 92 mg/dL Normal 74 - 99 [facility] Comment on above: Performed By: #### B MP #### [facility] [address] [place] [address] HCO3 (Bld) [Moles/Vol] 26 mmol/L Normal 21 - 32 [facility] Comment on above: Performed By: #### B MP #### [facility] [address] [place] [address] Potassium [Moles/Vol] 4.4 mmol/L Normal 3.5 - 5.3 [facility] Comment on above: Performed By: #### B MP #### [facility] [address] [place] [address] Sodium [Moles/Vol] 143 mmol/L Normal 136 - 145 [facility] Comment on above: Performed By: #### B MP #### [facility] [address] [place] [address] Urea nitrogen [Mass/Vol] 19 mg/dL Normal 6 - 23 [facility] Comment on above: Performed By: #### B MP #### [facility] [address] [place] [address] CBC AND DIFFERENTIALon 11-14 % AUTOMATED IMMATURE GRAN 0.2 % Normal 0.0 - 0.9 [facility] Comment on above: Result Comment: Estephania ture Granulocyte Count (IG) includes promyelocytes, myelocytes and metamyelocytes but does not include bands. Percent differential counts (%) should be interpreted in the context of the absolute cell counts (cells/L). Performed By: #### C BCDF #### [facility] [address] [place] [address] Basophils (Bld) [#/Vol] 0.03 10*3/uL Normal 0.00 - 0.1 0 [facility] Comment on above: Performed By: #### C BCDF #### [facility] [address] [place] [address] Basophils/100 WBC (Bld) 0.5 % Normal 0.0 - 2.0 [facility] Comment on above: Performed By: #### C BCDF #### [facility] [address] [place] [address] Eosinophils (Bld) [#/Vol] 0.08 10*3/uL Normal 0.00 - 0.70 [facility] Comment on above: Performed By: #### C BCDF #### [facility] [address] [place] [address] Eosinophils/100 WBC (Bld) 1.3 % Normal 0.0 - 6.0 [facility] Comment on above: Performed By: #### C BCDF #### [facility] [address] [place] [address] Erythrocyte distribution width (RBC) [Ratio] 13.2 % Normal 11.5 - 14.5 [facility] Comment on above: Performed By: #### C BCDF #### [facility] [address] [place] [address] Hematocrit (Bld) [Volume fraction] 44.2 % Normal 36.0 - 46.0 [facility] Comment on above: Performed By: #### C BCDF #### [facility] [address] [place] [address] Hemoglobin (Bld) [Mass/Vol] 14.7 g/dL Normal 12.0 - 16.0 [facility] Comment on above: Performed By: #### C BCDF #### [facility] [address] [place] [address] Lymphocytes (Bld) [#/Vol] 1.83 10*3/uL Normal 1.20 - 4.80 [facility] Comment on above: Performed By: #### C BCDF #### [facility] [address] [place] [address] Lymphocytes/100 WBC (Bld) 30.8 % Normal 13.0 - 44.0 [facility] Comment on above: Performed By: #### C BCDF #### [facility] [address] [place] [address] MCHC (RBC) [Mass/Vol] 33.3 g/dL Normal 32.0 - 36.0 [facility] Comment on above: Performed By: #### C BCDF #### [facility] [address] [place] [address] MCV (RBC) [Entitic vol] 95 fL Normal 80 - 100 [facility] Comment on above: Performed By: #### C BCDF #### [facility] [address] [place] [address] Monocytes (Bld) [#/Vol] 0.46 10*3/uL Normal 0.10 - 1.0 0 [facility] Comment on above: Performed By: #### C BCDF #### [facility] [address] [place] [address] Monocytes/100 WBC (Bld) 7.7 % Normal 2.0 - 10.0 [facility] Comment on above: Performed By: #### C BCDF #### [facility] [address] [place] [address] Neutrophils (Bld) [#/Vol] 3.53 10*3/uL Normal 1.20 - 7.70 [facility] Comment on above: Performed By: #### C BCDF #### [facility] [address] [place] [address] Neutrophils/100 WBC (Bld) 59.5 % Normal 40.0 - 80.0 [facility] Comment on above: Performed By: #### C BCDF #### [facility] [address] [place] [address] NUCLEATED RBC 0.0 /100 WBC Normal 0.0-0.0 [facility] Comment on above: Performed By: #### C BCDF #### [facility] [address] [place] [address] Platelets (Bld) [#/Vol] 198 10*3/uL Normal 150 - 450 [facility] Comment on above: Performed By: #### C BCDF #### [facility] [address] [place] [address] RBC 4.67 x10E12/L Normal 4.00 - 5.20 [facility] [place] Comment on above: Performed By: #### C BCDF #### [facility] [address] [place] [address] WBC (Bld) [#/Vol] 5.9 10*3/uL Normal 4.4 - 11.3 [facility] Comment on above: Performed By: #### C BCDF #### [facility] [address] [place] [address] LIPID PANEL (CORONARY RISK 2 )on 11-14-2020 Cholesterol [Mass/Vol] 173 mg/dL Normal 0 - 199 [facility] Comment on above: Result Comment: [...] Performed By: #### L IPID #### [facility] [address] [place] [address] Cholesterol in HDL [Mass/Vol] 57.1 mg/dL Normal [facility] Comment on above: Result Comment: . AGE VERY LOW LOW NORMAL HIGH 0-19 Y < 35 < 40 40-45 ---- 20-24 Y ---- < 40 >45 ---- >24 Y ---- < 40 40-60 >60 . Performed By: #### L IPID #### [facility] [address] [place] [address] Cholesterol in LDL [Mass/Vol] 97 mg/dL Normal 0 - 99 [facility] Comment on above: Result Comment: . NEAR BORD AGE DESIRABLE OPTIMAL HIGH HIGH VERY HIGH 0-19 Y 0 - 109 --- 110-129 >/= 130 ---- 20-24 Y 0 - 119 --- 120-159 >/= 160 ---- >24 Y 0 - 99 100-129 130-159 160-189 >/=190 . Performed By: #### L IPID #### [facility] [address] [place] [address] Cholesterol in VLDL [Mass/Vol] 19 mg/dL Normal 0 - 40 [facility] Comment on above: Performed By: #### L IPID #### [facility] [address] [place] [address] Cholesterol.total/Bea sterol in HDL [Mass ratio] 3.0 {ratio} Normal [facility] Comment on above: Result Comment: REF VALUES DESIRABLE < 3.4 HIGH RISK > 5.0 Performed By: #### L IPID #### [facility] [address] [place] [address] Triglyceride [Mass/Vol] 94 mg/dL Normal 0 - 149 [facility] Comment on above: Result Comment: . AGE [...] Performed By: #### L IPID #### [facility] [address] [place] [address] THYROXINE,FREEon 11-14-2020 THYROXINE,FREE 1.13 ng/dL Normal 0.78 - 1.48 [facility] Comment on above: Result Comment: Thyr oxine Free testing is performed using different testing methodology at [facility] than at other [facility]. Direct result comparisons should only be made within the same method. Performed By: #### T 4FRE #### [facility] [address] [place] [address] TRIIODOTHYRONINEon TRIIODOTHYRONINE 130 ng/dL Normal 60 - 200 [facility] Comment on above: Performed By: #### T 3 #### [facility] [address] [place] [address] TSHon 11-14-2020 TSH Qn 2.69 m[IU]/L Normal 0.44 - 3.98 [facility] Comment on above: Result Comment: TSH testing is performed using different testing methodology at [facility] than at other [facility]. Direct result comparisons should only be made within the same method. Performed By: #### T SH2 #### [facility] [address] [place] [address] VITAMIN D, 25-HYDROXYon 11-01 VITAMIN D, 25-HYDROXY 32 ng/mL Normal [facility] Comment on above: Result Comment: . DEFICIENCY: < 20 NG/ML INSUFFICIENCY: 20-29 NG/ML SUFFICIENCY: 30-100 NG/ML THIS ASSAY ACCURATELY QUANTIFIES THE SUM OF VITAMIN D3, 25-HYDROXY AND VIT D2,25-HYDROXY. Performed By: #### V TDOH #### [facility] [address] [place] [address] Complete Blood Count + Diffe rentialon 11-13-2020 Basophils/100 WBC (Bld) 0.5 % 0.0 - 2.0 M [facility] Work Phone: Erythrocyte distribution width (RBC) [Ratio] 13.2 % See Below [facility] Work Phone: Comment on above: Reference Range: 11. 5 - 14.5 Hematocrit (Bld) [Volume fraction] 44.2 % See Below [facility] Work Phone: Comment on above: Reference Range: 36. 0 - 46.0 Hemoglobin (Bld) [Mass/Vol] 14.7 g/dL See Below [facility] Work Phone: Comment on above: Reference Range: 12. 0 - 16.0 Lymphocytes/100 WBC (Bld) 30.8 % See Below [facility] Work Phone: Comment on above: Reference Range: 13. 0 - 44.0 MCHC (RBC) [Mass/Vol] 33.3 g/dL See Below [facility] Work Phone: Comment on above: Reference Range: 32. 0 - 36.0 MCV (RBC) [Entitic vol] 95 fL 80 - 100 [facility] Work Phone: [phone] Monocytes/100 WBC (Bld) 7.7 % 2.0 - 10.0 [facility] Work Phone: [phone] Neutrophils/100 WBC (Bld) 59.5 % See Below [facility] Work Phone: Comment on above: Reference Range: 40. 0 - 80.0 Platelets (Bld) [#/Vol] 198 10*3/uL 150 - 450 [facility] Work Phone: [phone] RBC (Bld) [#/Vol] 4.67 {x10E12/L} See Below [facility] Work Phone: Comment on above: Reference Range: 4.0 0 - 5.20 WBC (Bld) [#/Vol] 5.9 10*3/uL 4.4 - 11.3 [facility] Work Phone: [phone] Complete Blood Count + Differential 0.03 {x10E9/L} See Below [facility] Work Phone: [phone] Comment on above: Reference Range: 0.0 0 - 0.10 Complete Blood Count + Differential 0.08 {x10E9/L} See Below [facility] Work Phone: [phone] Comment on above: Reference Range: 0.0 0 - 0.70 Complete Blood Count + Differential 0.46 {x10E9/L} See Below [facility] Work Phone: [phone] Comment on above: Reference Range: 0.1 0 - 1.00 Complete Blood Count + Differential 1.83 {x10E9/L} See Below [facility] Work Phone: Comment on above: Reference Range: 1.2 0 - 4.80 Complete Blood Count + Differential 3.53 {x10E9/L} See Below [facility] Work Phone: Comment on above: Reference Range: 1.2 0 - 7.70 Complete Blood Count + Differential 1.3 % 0.0 - 6.0 [facility] Work Phone: Complete Blood Count + Differential 0.2 % 0.0 - 0.9 [facility] Work Phone: Comment on above: Immature Granulocyte Count (IG) includes promyelocytes, myelocytes and metamyelocytes but does not include bands. Percent differential counts (%) should be interpreted in the context of the absolute cell counts (cells/L). Complete Blood Count + Differential 0.0 {/100_WBC} 0.0-0.0 [facility] Work Phone: Laboratory - Chemistry and C hemistry - challengeon 11-13-2020 Anion gap [Moles/Vol] 13 mmol/L 10 - 20 [facility] Work Phone: Calcium [Mass/Vol] 10.9 mg/dL above high threshold 8.6 - 10.6 [facility] Work Phone: [phone] Chloride [Moles/Vol] 108 mmol/L above high threshold 98 - 107 [facility] Work Phone: [phone] CO2 [Moles/Vol] 26 mmol/L 21 - 32 [facility] Work Phone: [phone] Creatinine [Mass/Vol] 0.96 mg/dL See Below [facility] Work Phone: [phone] Comment on above: Reference Range: 0.5 0 - 1.05 Glucose [Mass/Vol] 92 mg/dL 74 - 99 [facility] Work Phone: [phone] Potassium [Moles/Vol] 4.4 mmol/L 3.5 - 5.3 [facility] Work Phone: Sodium [Moles/Vol] 143 mmol/L 136 - 145 [facility] Work Phone: Urea nitrogen [Mass/Vol] 19 mg/dL 6 - 23 [facility] Work Phone: Lipid Panelon 11-13-2020 Cholesterol [Mass/Vol] 173 mg/dL 0 - 199 [facility] Work Phone: Comment on above: [...] dosing. Cholesterol in HDL [Mass/Vol] 57.1 mg/dL [facility] Work Phone: Comment on above: . AGE VERY LOW LOW N ORMAL HIGH 0-19 Y < 35 < 40 40-45 ---- 20-24 Y ---- < 40 >45 ---- >24 Y ---- < 40 40-60 >60. Cholesterol in LDL [Mass/Vol] 97 mg/dL 0 - 99 [facility] Work Phone: Comment on above: . NEAR BORD AGE ANA LUISA RABLE OPTIMAL HIGH HIGH VERY HIGH 0-19 Y 0 - 109 --- 110-129 >/= 130 ---- 20-24 Y 0 - 119 --- 120-159 >/= 160 ---- >24 Y 0 - 99 100-129 130-159 160-189 >/=190. Cholesterol.total/Bea sterol in HDL [Mass ratio] 3.0 {ratio} [facility] Work Phone: Comment on above: REF VALUESDESIRABLE < 3.4HIGH RISK > 5.0 Triglyceride [Mass/Vol] 94 mg/dL 0 - 149 [facility] Work Phone: Comment on above: . AGE [...] Lipid Panel 19 mg/dL 0 - 40 [facility] Work Phone: No Panel Informationon 11-13 71 {mL/min/1.73m2} >60 [facility] Work Phone: Comment on above: CALCULATIONS OF ANGEL MATED GFR ARE PERFORMED USING THE MDRD STUDY EQUATION FOR THE IDMS-TRACEABLE CREATININE METHODS. CLIN CHEM 2007;53:766-72 59 {mL/min/1.73m2} Abnormal >60 [facility] Work Phone: Office Visit ([facility])on 11-13-2020 Follow-up visit Diagnoses/Problems Thrombocytopenia (287.5) (D69.6) Vitamin D deficiency, unspecified (268.9) (E55.9) Abnormal thyroid screen (blood) (790.6) (R79.89) Postmenopausal bleeding (627.1) (N95.0) Impetigo (684) (L01.00) Limb pain (729.5) (M79.609) Orders Abnormal thyroid screen (blood), Health Maintenance, Thrombocytopenia, Vitamin D deficiency, unspecified Basic Metabolic Panel; Status:In Progress - Specimen/Data Collected; Done: [id number] Education Material Provided for Patient; Status:Complete; Done: [id number] Complete Blood Count + Differential; Status:In Progress - Specimen/Data Collected; Done: [id number] Lipid Panel; Status:In Progress - Specimen/Data Collected; Done: [id number] T4 - Free Thyroxine, Serum; Status:In Progress - Specimen/Data Collected; Done: [id number] Triiodothyronine, Level (T3); Status:In Progress - Specimen/Data Collected; Done: [id number] TSH - Thyroid Stimulating Hormone, Serum; Status:In Progress - Specimen/Data Collected; Done: [id number] Vitamin D 25-Hydroxy; Status:In Progress - Specimen/Data Collected; Done: [id number] Impetigo Start: Cephalexin 500 MG Oral Tablet (Cephalexin Monohydrate); TAKE 1 TABLET 3 TIMES DAILY Start: Mupirocin 2 % External Ointment; APPLY A SMALL AMOUNT 3 TIMES DAILY DIRECTED Postmenopausal bleeding Gynecology Referral Evaluation and Treatment Evaluate AND Treat Status: Hold For - Scheduling Requested for: [id number] Patient Discussion/Summary By signing my name below, [...] discussion and plan. Provider Impressions Referral to ob/gyn doctor. Dr. Hernandez or Jose for breakthrough vaginal [...] Only for 1 day. 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 her dter told her to go but [...] Free T4 [Mass/Vol] 1.13 ng/dL See Below [facility] Work Phone: Comment on above: Reference Range: 0.7 8 - 1.48 Thyroxine Free testing is performed using different testing methodology at [facility] than at other [facility]. Direct result comparisons should only be made within the same method. TSH - Thyroid Stimulating Ho rmone, Serumon 11-13-2020 TSH Qn 2.69 m[IU]/L See Below [facility] Work Phone: Comment on above: Reference Range: 0.4 4 - 3.98 TSH testing is performed using different testing methodology at [facility] than at other [facility]. Direct result comparisons should only be made within the same method. Triiodothyronine, Level (T3) on 11-13-2020 T3 [Mass/Vol] 130 ng/dL 60 - 200 [facility] Work Phone: Vitamin D 25-Hydroxyon 11-13 25-hydroxyvitamin D3 [Mass/Vol] 32 ng/mL [facility] Work Phone: Comment on above: .DEFICIENCY: < 20 NG /MLINSUFFICIENCY: 20-29 NG/MLSUFFICIENCY: 30-100 NG/MLTHIS ASSAY ACCURATELY QUANTIFIES THE SUM OFVITAMIN D3, 25-HYDROXY AND VIT D2,25-HYDROXY. Complete Blood Count + Diffe rentialon 12-01-2018 Basophils (Bld) [#/Vol] 0.04 {x10E9/L} See Art ngo [facility] Work Phone: Comment on above: Reference Range: 0.0 0 - 0.10 Basophils/100 WBC (Bld) 0.7 % 0.0 - 2.0 [facility] Work Phone: Eosinophils (Bld) [#/Vol] 0.11 {x10E9/L} [facility] Below [facility] Work Phone: [phone] Comment on above: Reference Range: 0.0 0 - 0.70 Eosinophils/100 WBC (Bld) 1.9 % 0.0 - 6.0 [facility] Work Phone: [phone] Erythrocyte distribution width (RBC) [Ratio] 13.1 % See Below [facility] Work Phone: [phone] Comment on above: Reference Range: 11. 5 - 14.5 Hematocrit (Bld) [Volume fraction] 43.6 % See Below [facility] Work Phone: [phone] Comment on above: Reference Range: 36. 0 - 46.0 Hemoglobin (Bld) [Mass/Vol] 13.9 g/dL [facility] Work Phone: [phone] Comment on above: Reference Range: 12. 0 - 16.0 Lymphocytes (Bld) [#/Vol] 2.01 {x10E9/L} [facility] Below [facility] Work Phone: [phone] Comment on above: Reference Range: 1.2 0 - 4.80 Lymphocytes/100 WBC (Bld) 34.0 % See Below [facility] Work Phone: [phone] Comment on above: Reference Range: 13. 0 - 44.0 MCHC (RBC) [Mass/Vol] 31.9 g/dL below low threshold See Below [facility] Work Phone: [phone] Comment on above: Reference Range: 32. 0 - 36.0 MCV (RBC) [Entitic vol] 94 fL 80 - 100 [facility] Work Phone: [phone] Monocytes (Bld) [#/Vol] 0.51 {x10E9/L} See [facility] w [facility] Work Phone: [phone] Comment on above: Reference Range: 0.1 0 - 1.00 Monocytes/100 WBC (Bld) 8.6 % 2.0 - 10.0 [facility] Work Phone: Neutrophils (Bld) [#/Vol] 3.21 {x10E9/L} See Below [facility] Work Phone: Comment on above: Reference Range: 1.2 0 - 7.70 Neutrophils/100 WBC (Bld) 54.3 % See Below [facility] Work Phone: Comment on above: Reference Range: 40. 0 - 80.0 Platelets (Bld) [#/Vol] 189 {x10E9/L} 150 - 450 [facility] Work Phone: RBC (Bld) [#/Vol] 4.66 {x10E12/L} See Below [facility] Work Phone: Comment on above: Reference Range: 4.0 0 - 5.20 WBC (Bld) [#/Vol] 5.9 {x10E9/L} 4.4 - 11.3 [facility] Physician [facility] Work Phone: WBC (Bld) [#/Vol] 0.0 {/100_WBC} 0.0-0.0 [facility] Work Phone: Complete Blood Count + Differential 0.5 % 0.0 - 0.9 [facility] Work Phone: Comment on above: Percent differential counts (%) should be interpreted in the context of the absolute cell counts (cells/L). Lipid Panelon 12-01-2018 Cholesterol [Mass/Vol] 186 mg/dL 0 - 199 [facility] Physician [facility] Work Phone: Comment on above: . AGE [...] dosing. Cholesterol in HDL [Mass/Vol] 48.3 mg/dL [facility] Work Phone: Comment on above: . AGE VERY LOW LOW N ORMAL HIGH 0-19 Y < 35 < 40 40-45 ---- 20-24 Y ---- < 40 >45 ---- >24 Y ---- < 40 40-60 >60. Cholesterol in LDL [Mass/Vol] 123 mg/dL above high threshold 0 - 99 [facility] Work Phone: Comment on above: . NEAR BORD AGE ANA LUISA RABLE OPTIMAL HIGH HIGH VERY HIGH 0-19 Y 0 - 109 --- 110-129 >/= 130 ---- 20-24 Y 0 - 119 --- 120-159 >/= 160 ---- >24 Y 0 - 99 100-129 130-159 160-189 >/=190. Cholesterol.total/Bea sterol in HDL [Mass ratio] 3.9 {ratio} [facility] Work Phone: Comment on above: REF VALUESDESIRABLE < 3.4HIGH RISK > 5.0 Triglyceride [Mass/Vol] 76 mg/dL 0 - 149 M [facility] Work Phone: Comment on [...] Lipid Panel 15 mg/dL 0 - 40 [facility] Work Phone: Metabolic Panelon 12-01-2018 Anion gap [Moles/Vol] 13 mmol/L 10 - 20 [facility] Work Phone: Calcium [Mass/Vol] 9.8 mg/dL 8.6 - 10.6 [facility] Physician [facility] Work Phone: Chloride [Moles/Vol] 106 mmol/L 98 - 107 [facility] Physician [facility] Work Phone: CO2 [Moles/Vol] 26 mmol/L 21 - 32 [facility] Work Phone: Creatinine [Mass/Vol] 0.78 mg/dL See Below [facility] Work Phone: Comment on above: Reference Range: 0.5 0 - 1.05 Glucose [Mass/Vol] 108 mg/dL above high threshold 74 - 99 [facility] Work Phone: Potassium [Moles/Vol] 4.0 mmol/L 3.5 - 5.3 [facility] Work Phone: Sodium [Moles/Vol] 141 mmol/L 136 - 145 [facility] Work Phone: Urea nitrogen [Mass/Vol] 16 mg/dL 6 - 23 [facility] Work Phone: Otheron 12-01-2018 >[address] >60 [facility] Work Phone: Comment on above: CALCULATIONS OF ANGEL MATED GFR ARE PERFORMED USING THE MDRD STUDY EQUATION FOR THE IDMS-TRACEABLE CREATININE METHODS. CLIN CHEM 2007;53:766-72 T4 - Free Thyroxine, Serumon 12-01-2018 Free T4 [Mass/Vol] 1.00 ng/dL See Below [facility] Physician [facility] Work Phone: Comment on above: Reference Range: 0.7 8 - 1.48 Thyroxine Free testing is performed using different testing methodology at [facility] than at [facility]. Direct result comparisons should only be made within the same method.. Patients receiving more than 5 mg/day of biotin may have interference in test results. A sample should be taken no sooner than eight hours after previous dose. Contact [phone] for additional information. TSH - Thyroid Stimulating Ho estrella, Serumon 12-01-2018 TSH Qn 3.39 {mIU/L} See Below [facility] Work Phone: Comment on above: Reference Range: 0.4 4 - 3.98 TSH testing is performed using different testing methodology at [facility] than at other [facility]. Direct result comparisons should only be made within the same method.. Patients receiving more than 5 mg/day of biotin may have interference in test results. A sample should be taken no sooner than eight hours after previous dose. Contact [phone] for additional information. Vitamin D 25-Hydroxyon 12-01 Calcidiol [Mass/Vol] 29 ng/mL Abnormal [facility] Work Phone: Comment on above: .DEFICIENCY: < 20 NG /MLINSUFFICIENCY: 20-29 NG/MLOPTIMUM LEVEL: 30-80 NG/MLPOSSIBLE TOXICITY: > 80 NG/MLTHIS ASSAY ACCURATELY QUANTIFIES THE SUM OFVITAMIN D3, 25-HYDROXY AND VIT D2,25-HYDROXY. Vital Signs Date Time Vital Sign Value Performing Clinician Faci lity 06-12-2022 13:18-0400 Body mass index (BMI) [Ratio] 32.5 kg/m2 Dr. Lc Poole Work Phone: [facility] 06-12-2022 09:41-0400 Body temperature 99.6 [degF] Dr. Lc Poole Work Phone: [facility] 06-12-2022 09:41-0400 Diastolic blood pressure 51 mm[Hg] Dr. Lc Poole Work Phone: [facility] 06-12-2022 09:41-0400 Heart rate 74 /min Dr. Lc Poole Work Phone: [facility] 06-12-2022 09:41-0400 Respiratory rate 18 /min Dr. cL Poole Work Phone: [facility] 06-12-2022 09:41-0400 SaO2% (BldA) [Mass fraction] 95 % Dr. Lc Poole Work Phone: [facility] 06-12-2022 09:41-0400 Systolic blood pressure 110 mm[Hg] Dr. Lc Poole Work Phone: [facility] 06-12-2022 06:00-0400 Body weight 75.[address] Lc Poole Work Phone: [facility] 06-11-2022 13:44-0500 Body height 152.[address] Lc Poole Work Phone: [facility] 06-10-2022 12:44-0500 Body temperature 97.6 [degF] [facility] 06-10-2022 12:44-0500 Diastolic blood pressure 69 mm[Hg] [facility] 06-10-2022 12:44-0500 Heart rate 86 /min [facility] 06-10-2022 12:44-0500 Respiratory rate 16 /min [facility] 06-10-2022 12:44-0500 SaO2% (BldA) [Mass fraction] 97 % [facility] 06-10-2022 12:44-0500 Systolic blood pressure 110 mm[Hg] [facility] 06-10-2022 10:40-0500 Body height 152.4 cm [facility] 06-10-2022 10:40-0500 Body mass index (BMI) [Ratio] 34.2 kg/m2 [facility] 06-10-2022 10:40-0500 Body weight 79.4 kg [facility] 11-13-2020 11:19-0400 Body height 152.4 cm Shiela Troy Work Phone: [facility] Work Phone: 11-13-2020 11:19-0400 [...] Phone: 11-27-2018 17:13-0400 Body weight 83.01 kg [facility] Work Phone: 11-27-2018 17:13-0400 BP Diastolic 74 mm[Hg] [facility] Work Phone: 11-27-2018 17:13-0400 BP Systolic 116 mm[Hg] [facility] Work Phone: 11-27-2018 17:13-0400 BSA (Body Surface Area) 1.8 m2 [facility] Work Phone: 11-27-2018 17:13-0400 Height 152.4 cm [facility] Work Phone: 11-27-2018 17:13-0400 Pulse (Heart Rate) 60 /min [facility] Work Phone: 11-27-2018 17:13-0400 Pulse Oximetry 99 % [facility] Work Phone: Encounters Encounter Date Encounter Type Care Provider Facility Start: 07-04-2022 End: 07-04-2022 Office outpatient visit 25 minutes Shiela Troy MD Work Phone: [facility] Comment on above: Mental status change resolved (Primary Dx); Pulmonary nodule Start: 06-12-2022 Non-patient / Non-visit Dr. Vale Poole Work Phone: [facility] Start: 06-11-2022 Non-patient / Non-visit Dr. Vale Poole Work Phone: [facility] Start: 06-10-2022 ambulatory Mame Pranav Facility:[facility] Start: 06-10-2022 Non-patient / Non-visit Dr. Vale Poole Work Phone: [facility] Start: [facility] Start: 06-10-2022 End: 06-12-2022 Evaluation and management of inpatient [facility] Facility:[facility] Start: 06-10-2022 Non-patient / Non-visit Dr. Vale Poole Work Phone: [facility] Start: 06-10-2022 End: 06-12-2022 Evaluation and management of inpatient [facility] Start: 01-29-2021 AUDIT Shiela Troy Work Phone: [facility] Work Phone: Start: 11-13-2020 Office outpatient vi sit 25 minutes Shiela Troy Work Phone: [facility] Work Phone: Start: 11-27-2018 Patient encounter procedure Shiela Troy [facility] Work Phone: Start: 10-03-2017 Patient encounter procedure Shiela Troy [facility] Work Phone: Procedures Date [...] Author Start: 11-13-2025 Lipid panel Lipid Panel [facility] Start: 12-02-2022 Influenza vaccination Influenz a Vaccine (Season Ended) [facility] Start: 08-10-2022 End: 08-10-2022 Patient encounter procedure 08/10/2022 4:00 PM EDT Office Visit [facility] [address] [facility] [address] [place] [address] Shiela Troy MD [address] [facility], [facility] [address] [place] [address] [facility] Start: 07-04-2022 End: 07-05-2023 25-hydroxyvitamin D3 [Mass/volume] in Serum or Plasma Vitamin D 25-Hydroxy,Total Lab Routine Mental status change resolved Expected: 07/04/2022 (Approximate), Expires: 07/05/2023 [facility] Work Phone: Comment on above: Expected: 07/04/2022 (Approximate), Expires: 07/05/2023 Start: 07-04-2022 End: 07-05-2023 C reactive protein [Mass/volume] in Serum or Plasma C-Reactive Protein Lab Routine Mental status change resolved Expected: 07/04/2022 (Approximate), Expires: 07/05/2023 [facility] Work Phone: Comment on above: Expected: 07/04/2022 (Approximate), Expires: 07/05/2023 Start: 07-04-2022 End: 07-05-2023 CBC W Auto Differential panel - Blood CBC and Auto Differential Lab Routine Mental status change resolved Expected: 07/04/2022 (Approximate), Expires: 07/05/2023 [facility] Service Area Work Phone: Comment on above: Expected: 07/04/2022 (Approximate), Expires: 07/05/2023 Start: 07-04-2022 End: 07-05-2023 Comprehensive metabolic 2000 panel - Serum or Plasma Comprehensive Metabolic Panel Lab Routine Mental status change resolved Expected: 07/04/2022 (Approximate), Expires: 07/05/2023 [facility] Work Phone: Comment on above: Expected: 07/04/2022 (Approximate), Expires: 07/05/2023 Start: 07-04-2022 End: 07-05-2023 CT Chest W contrast IV CT chest w IV contrast Imaging Routine Pulmonary nodule Expected: 07/04/2022, Expires: 07/05/2023 [facility] Work Phone: Comment on above: Expected: 07/04/2022 , Expires: 07/05/2023 Start: 07-04-2022 End: 07-05-2023 Magnesium [Mass/volume] in Serum or Plasma Magnesium Lab Routine Mental status change resolved Expected: 07/04/2022 (Approximate), Expires: 07/05/2023 [facility] Work Phone: Comment on above: Expected: 07/04/2022 (Approximate), Expires: 07/05/2023 Start: 07-04-2022 End: 07-05-2023 TSH with reflex to Free T4 if abnormal TSH with reflex to Free T4 if abnormal Lab Routine Mental status change resolved Expected: 07/04/2022 (Approximate), Expires: 07/05/2023 [facility] Work Phone: Comment on above: Expected: 07/04/2022 (Approximate), Expires: 07/05/2023 Start: 06-12-2022 Patient discharge [facility] Start: 06-11-2022 Vitamin B12 measurement [facility] Start: 06-11-2022 [facility] Start: 06-11-2022 Consultation [facility] Start: 06-11-2022 Thyroid stimulating hormone measurement [facility] Start: 06-10-2022 [facility] Start: 06-10-2022 Following clinical pathway protocol [facility] Start: 06-10-2022 Ambulation without limitation [facility] Start: 06-10-2022 Assessment of risk o f venous thromboembolism [facility] Start: 06-10-2022 Cardiac monitoring [facility] Start: 06-10-2022 Care regimes management [facility] Start: 06-10-2022 Catheterization of vein [facility] Start: 06-10-2022 Elevation of head of bed [facility] Start: 06-10-2022 Exercises [facility] Start: 06-10-[address] anned interventions [facility] Start: 06-10-2022 Insertion of cathete r into peripheral vein [facility] Start: 06-10-2022 Measuring intake and output [facility] Start: 06-10-2022 Notification of physician [facility] Start: 06-10-2022 Providing care accor ding to standard [facility] Start: 06-10-2022 Referral to occupati onal therapist [facility] Start: 06-10-2022 Referral to service [facility] Start: 06-10-2022 Speech therapy assessment [facility] Start: 06-10-2022 Tobacco use cessatio n education [facility] Start: 06-10-2022 [facility] Start: 06-10-2022 Admission procedure [facility] Start: 06-10-2022 Oxygen therapy [facility] Start: 06-10-2022 End: 06-10-2022 [facility] Start: 06-10-2022 Patient referral to dietitian [facility] Start: 11-13-2021 Thyroid stimulating hormone measurement TSH Level [facility] Start: 11-28-2009 Zoster Vaccines (1 of 2) Zoste r Vaccines (1 of 2) [facility] Start: 1999 Screening for malign ant neoplasm of breast Mammogram [facility] Start: 11-28-1981 DTaP/Tdap/Td Vaccine s (1 - Tdap) DTaP/Tdap/Td Vaccines (1 - Tdap) [facility] Start: 11-28-1980 Screening for malign ant neoplasm of cervix [facility] Start: 11-28-1977 Diabetes mellitus screening Diabetes Screening [facility] Start: 11-28-1977 Hepatitis C screening Hepatitis C [facility] Start: 11-28-1960 MMR Vaccines (1 of 1 - Standard series) MMR Vaccines (1 of 1 - Standard series) [facility] Start: 05-31-1960 COVID-19 Vaccine (#1) COVID-19 Vacci ne (#1) [facility] Start: 1960 HIV screening HIV Screening [facility] Start: 1959 Screening for malign ant neoplasm of colon [facility] Start: 1960 Yearly Adult Physical Yearly Adult P hysical [facility] Antibody to lupus La protein measurement [facility] Antibody to SS-A measurement [facility] Centromere protein B Ab [Units/volume] in Serum [facility] Chromatin Ab [Units/volume] in Serum or Plasma [facility] DNA double strand Ab [Units/volume] in Serum [facility] Rayne-1 extractable nuc lear Ab [Units/volume] in Serum [facility] Patient referral [facility] Work Phone: SCL-70 extractable nuclear Ab [Units/volume] in Serum by Immunoassay [facility] Mckeon extractable nu clear Ab [Presence] in Serum [facility] Payers Date Payer Category Payer Self-pay [id number] 2022 Unknown [id number] 2021 Unknown Unknown [id number] Unknown [id number] [id number] [id number] Unknown [id number] 2.16.8 [id number] Unknown [id number] [id number] [id number] Unknown [id number] [id number] [id number] Social History Date Type Detail Facility Assertion Unknown if ever smoked [facility] Work Phone: [facility] Work Phone: Start: 06-10-2022 End: 06-12-2022 Tobacco smoking status NHIS Unknown if ever smoked [facility] Start: 1960 Sex Assigned At Female [facility] Start: 1960 Sex Assigned At Not on file [facility] Work Phone: Gender identity Not on file [facility] Work Phone: Start: 06-24-2022 End: 07-04-2022 Exposure to SARS-CoV-2 (event) Not sure [facility] NEGATED: Highlighted row Denies Social alcohol use Denies Social alcohol use [facility] Work Phone: Goals Date Patient Goal Desired Activity /State Functional Status Date Assessment Result Facility 06-12-2022 Functional status Ambulates;Bath room Privilege [facility] Work Phone: NEGATED: Highlighted row Functional performance Functional status health issues are not documented Disease [facility] Work Phone: Mental Status Date Assessment Result Facility 06-12-2022 Cognitive function Voice/Name [facility] Work Phone: 06-10-2022 Cognitive function Alert;Drowsy [facility] Work Phone: NEGATED: Highlighted row Cognitive function [Interpretation] Cognitive status health issues are not documented Disease [facility] Work Phone: Clinical Notes 09-15-2020 to 07-04-2022 Shiela Troy MD - 07/04/2022 2:45 PM EDT Note Date & Type Note Facility 07-04-2022 History of Present illness Narrative Subjective Patient ID: Alejandra Marcelo is a 61 y.o. female who presents for No chief complaint on file.. HPI Patient presents today for follow-up hospital. She was discharged from [facility] on 313. She was admitted for 4 [...] Shiela Troy MD documented in this encounter [facility] Work Phone: 06-12-2022 Discharge summary Note Date/Time June 12, 2022 11:41am [facility] Medical Records Department [address] [place] [address] Discharge Summary 06/12/22 1135 MR#: [id number] Acct: [id number] Name: IHSAN MARCELO Rep #:[id number] : 1960 61 From: Juvenal Degroot PCP: Dr. Shiela Troy MD Status:ADM I N Location: [place] [address] Providers Date of Admission: 06/10/22 Date of [...] any substance use. She denies any recent lkui-wjy-vtbmupe cold medication, antispasmodic, antidepressant or SSRI. Earlier [...] SS-B/La IgGAntibody Pending, Sm (Mckeon) Antibody Pending, EDGER SAW OPERATOR Antibody Pending, Scl-70 Scleroderma Ab Pending, [...] encephalopathy) Chandu Woodruff DO [Med Staff - Transportation Planning Technician] - Within 1 Month Care Physician,No Primary [Non-Staff] - Disposition Disposition (needs filled in before D/C Order can be placed): Home, Self Care Charges/Coding Visit Charges Inpatient E&M: 18153 Disch Hosp >30min 06/12/22 1226 <Electronically signed by Juvenal Mijares MD> Cosigner Signature (if applicable): CC: Dr. Shiela Troy MD; Dr. Juvenal Mijares MD~ Signed [facility] Work Phone: 1(779) 539-424603-12-[address] [facility] June 12, 2022 12:24pm Note Date/Time June 12, 2022 11: 34am [facility] Medical Records Department [address] [place] [address] Instructions for Home/Discharge Instructions 06/12/22 1045 MR#: [id number] Acct: [id number] Name: IHSAN MARCELO Rep #:[id number] : [...] encephalopathy) Chandu Woodruff DO [Med Staff - Transportation Planning Technician] - Within 1 Month Care Physician,No Primary [Non-Staff] - Disposition Disposition (needs filled in before D/C Order can be placed): Home, Self Care 06/12/22 1224<Electronically signed by Juvenal Mijares MD>Juvenal Mijares MD CC: Dr. Shiela Troy MD ~ Signed [facility] Work Phone: 1(198) 754-186503-12-2023 [facility] Medical Records Department [address] [place] [address] Discharge Summary 06/12/22 1135 MR#: [id number] Acct: [id number] Name: IHSAN MARCELO Rep #: [id number] : 1960 61 From: Juvenal Mijares MD PCP: Dr. Shiela Troy MD Status:ADM IN Location: [facility] [id number] Providers Date of Admission: 06/10/22 Date of [...] any substance use. She denies any recent ogaq-qkn-zrkdyat cold medication, antispasmodic, antidepressant or SSRI. Earlier [...] DNR CC, patient's husban (more content not included)...[facility]03-11-[address] Mijares [facility] June 11, 2022 5:29pm Note Date/Time June 11, 2022 5:2 9pm [facility] Medical Records Department [address] [place] [address] Telemedicine Confirmation Receipt 06/11/22 MR#: [id number] Acct: [id number] Name: IHSAN MARCELO Rep #:[id number] : 1960 61 From: Juvenal Degroot PCP: Dr. Shiela Troy MD Status:ADM I N [facility] has confirmed receipt of a request for visit. This document confirms receipt of the order initiating the consult. To find the results of the consultation, please view the patient's reports for the scanned Telemed Consult. [facility] Work Phone: 1(790) 295-929703-11-[address] Mijares [facility] June 11, 2022 2:51pm Note Date/Time June 11, 2022 12: 04pm [facility] Medical Records Department [address] [place] [address] Progress Note - Hospitalist 06/11/22 1156 MR#: [id number] Acct: [id number] Name: IHSAN MARCELO Rep #:[id number] : 1960 61 From: Juvenal Degroot PCP: Dr. Shiela Troy MD Status:ADM I N Location: [place] [address] Reason for Visit Reason for Visit: Diagnoses [...] % (Auto) 68.4, Lymph % (Auto) 23.0, Tyrrell % (Auto) 7.4, Eos % (Auto) 0.3, [...] hallucination, weird thinking and feelsextra sensitive to desk monitor stated heart sore pinches. Physical exam General: [...] 85.3 H, Lymph % (Auto) 9.0 L, Tyrrell %(Auto) 5.1, Eos % (Auto) 0.0, Baso [...] Clarity Clear, Urine pH 5.0, Ur Specific Torrance 1.025, Urine Protein 30 H, Urine Glucose [...] % (Auto) 68.4, Lymph % (Auto) 23.0, Tyrrell % (Auto) 7.4, Eos % (Auto) 0.3, Baso % (Auto) 0.6, Absolute Neuts (auto) 4.9, Absolute Lymphs (auto) 1.65, Nucleated RBC % 0 Charges/Coding Visit Charges Inpatient E&M: 47437 Subs Hosp L3 06/11/22 1204 <Electronically signed [...] Cosigner Signature (if applicable): cc: ~* Signed [facility] Work Phone: 1(197) 389-555903-11-[address] Mijares [facility] June 11, 2022 11:23am Note Date/Time June 11, 2022 11: 23am [facility] Medical Records Department [address] [place] [address] Telemedicine Confirmation Receipt 06/11/22 MR#: [id number] Acct: [id number] Name: IHSAN MARCELO Rep #:[id number] : 1960 61 From: Juvenal Degroot PCP: Dr. Shiela Troy MD Status:ADM I N [facility] has confirmed receipt of a request for visit. This document confirms receipt of the order initiating the consult. To find the results of the consultation, please view the patient's reports for the scanned Telemed Consult. [facility] Work Phone: 1(580) 925-865603-11-[address] Mijares [facility] June 11, 2022 10:56am Note Date/Time June 11, 2022 10: 56am [facility] Medical Records Department [address] [place] [address] Discharge Summary 06/11/22 1048 MR#: [id number] Acct: [id number] Name: IHSAN MARCELO Rep #:[id number] : 1960 61 From: Juvenal Degroot PCP: Dr. Shiela Troy MD Status:ADM I N Location: [facility] [place] [address] Providers Date of Admission: 06/10/22 Date of [...] 85.3 H, Lymph % (Auto) 9.0 L, Tyrrell %(Auto) 5.1, Eos % (Auto) 0.0, Baso [...] Clarity Clear, Urine pH 5.0, Ur Specific Torrance 1.025, Urine Protein 30 H, Urine Glucose [...] % (Auto) 68.4, Lymph % (Auto) 23.0, Tyrrell % (Auto) 7.4, Eos % (Auto) 0.3, [...] 85.3 H, Lymph % (Auto) 9.0 L, Tyrrell %(Auto) 5.1, Eos % (Auto) 0.0, Baso [...] Clarity Clear, Urine pH 5.0, Ur Specific Torrance 1.025, Urine Protein 30 H, Urine Glucose [...] % (Auto) 68.4, Lymph % (Auto) 23.0, Tyrrell% (Auto) 7.4, Eos % (Auto) 0.3, Baso [...] The above Results were Read Back by Rocyk Pride MD to [facility] and understanding confirmed on 06/10/2022 10:51:52 (ET). Electronically Signed: Rocky Pride MD at 10:53 EST , Head/Neck CTA 06/10/22 10:40 IMPRESSION: Normal CTA Head and neck with contrast. N.B. : The above Results were Read Back by Rocky Pride MD to [facility] and understanding confirmed on 06/10/2022 11:11:39 (ET). [...] seems psychogenic etiology. Visit Charges Inpatient E&M: 73448 Disch Hosp >30min 06/11/22 1056 <Electronically signed by Juvenal Mijares MD> Cosigner Signature (if applicable): CC: Dr. Shiela Troy MD; Dr. Juvenal Mijares MD~ Signed [facility] Work Phone: 1(240) 506-296503-11-[address] Mijares [facility] June 11, 2022 10:48am Note Date/Time June 11, 2022 7:4 8am [facility] Medical Records Department [address] [place] [address] Instructions for Home/Discharge Instructions 06/11/22 0747 MR#: [id number] Acct: [id number] Name: IHSAN MARCELO Rep #:[id number] : [...] CC: Dr. Shiela Troy MD ~ Signed [facility] Work Phone: [phone]) 140-276503-11-2023 [facility] Medical Records Department [address] [place] [address] Discharge Summary 06/11/22 1048 MR#: [id number] Acct: [id number] Name: IHSAN MARCELO Rep #: [id number] : 1960 61 From: Juvenal Mijares MD PCP: Dr. Shiela Troy MD Status:ADM IN [facility] Providers Date of Admission: 06/10/22 Date of [...] 85.3 H, Lymph % (Auto) 9.0 L, Tyrrell % (Auto) 5.1, Eos % (Auto) 0.0, [...] Clarity Clear, Urine pH 5.0, Ur Specific [place] 1.025, Urine Protein 30 H, Urine Glucose [...] Chloride 109 H, Carbon (more content not included)...[facility]03-10-2023 History and physical note Author Dr. Mijares [facility] June 10, 2022 1:28pm Note Date/Time June 10, 2022 12: 22pm [facility] Medical Records Department [address] [place] [address] H&P Exam - Hospitalist 06/10/22 1221 MR#: [id number] Acct: [id number] Name: IHSAN MARCELO Rep #:[id number] : 1960 61 From: Juvenal Degroot PCP: Dr. Shiela Troy MD Status:ADM I N Location: [place] [address] HPI - General General Date of Admission: [...] history: Positive for stroke in her family. [facility] Medical History delivery delivered Hypothyroid Skin cancer [...] 85.3 H, Lymph % (Auto) 9.0 L, Tyrrell %(Auto) 5.1, Eos % (Auto) 0.0, Baso [...] Clarity Clear, Urine pH 5.0, Ur Specific [place] 1.025, Urine Protein 30 H, Urine Glucose [...] Read Back by Rocky Pride MD to [facility] and understanding confirmed on 06/10/2022 10:51:52 (ET). Electronically Signed: Rocky Pride MD at 10:53 EST , ADDENDUM: 06/10/22 1100 IMPRESSION: Normal unenhanced CT scan of the brain. N.B. : The above Results were Read Back by Rocky Pride MD to [facility] and understanding confirmed on 06/10/2022 10:51:52 (ET). [...] shock if needed Total time spent in [id number] encounter in discussion of advanced directive 17 minutes. Clinical Impression(s) from Imaging Studies Brain CT 06/10/22 10:39 IMPRESSION: Normal unenhanced CT scan of the brain. N.B. : The above Results were Read Back by Rocky Pride MD to [facility] and understanding confirmed on 06/10/2022 10:51:52 (ET). Electronically Signed: Rocky Pride MD at 10:53 EST , ADDENDUM: 06/10/22 1100 IMPRESSION: Normal unenhanced CT scan of the brain. N.B. : The above Results were Read Back by Rocky Pride MD to [facility] and understanding confirmed on 06/10/2022 10:51:52 (ET). Electronically Signed: Rocky Pride MD at 10:53 EST , Head/Neck CTA 06/10/22 10:40 IMPRESSION: Normal CTA Head and neck with contrast. Chest X-Ray 06/10/22 11:27 IMPRESSION: Questionable 8 mm calcified granuloma in the lateral aspect of the left midlung. Electronically Signed: Rocky Pride MD at 12:05 EST Reading Location ID and State: [address] [place] [address] , Service support , Charges/Coding Visit Charges Inpatient E&M: 82762 Init Hosp L3 Procedures Hospitalists Procedures: 69456 Advncd Care Plan 30 Min 06/10/22 1328 <Electronically signed by Juvenal Mijares MD> Cosigner Signature (if applicable): CC: Dr. Shiela Troy MD; Dr. Juvenal Mijares MD~ Signed [facility] Work Phone: 1(700) 682-809703-10-[address] Poole [facility] June 10, 2022 12:24pm Note Date/Time June 10, 2022 10: 51am [facility] Medical Records Department [address] [place] [address] Emergency Department Summary 06/10/22 MR#: [id number] Acct: [id number] Name: IHSAN MARCELO Rep #:[id number] : [...] 85.3 H Lymph % (Auto) 9.0 L Tyrrell % (Auto) 5.1 Eos % (Auto) 0.0 [...] Color Urine Clarity Urine pH Ur Specific [place] Urine Protein Urine Glucose (UA) Urine Ketones Urine Occult Blood Urine Nitrite Urine Bilirubin Urine Urobilinogen Ur Leukocyte Esterase Urine RBC Urine WBC Ur Squamous Epith Cells Urine Bacteria Hyaline Casts Urine Mucus 06/10/22 11:15 WBC RBC Hgb Hct MCV MCH MCHC RDW Std Deviation RDW Coeff of Valentine Plt Count MPV Immature Gran % (Auto) Neut % (Auto) Lymph % (Auto) Tyrrell % (Auto) Eos % (Auto) Baso % (Auto) Absolute Neuts (auto) Absolute Lymphs (auto) Nucleated RBC % PT INR APTT Sodium Potassium Chloride Carbon Dioxide Anion Gap BUN Creatinine Estim Creat Clear Calc Est GFR (MDRD) Af Amer Est GFR (MDRD) Non-Af BUN/Creatinine Ratio Glucose Calcium Troponin I High Sens Urine Color Yellow Urine Clarity Clear Urine pH 5.0 Ur Specific [place] 1.025 Urine Protein 30 H Urine Glucose [...] Read Back by Rocky Pride MD to [facility] and understanding confirmed on 06/10/2022 10:51:52 (ET). Electronically Signed: Rocky Pride MD at 10:53 EST , ADDENDUM: 06/10/22 1100 IMPRESSION: Normal unenhanced CT scan of the brain. N.B. : The above Results were Read Back by Rocky Pride MD to [facility] and understanding confirmed on 06/10/2022 10:51:52 (ET). Electronically Signed: Rocky Pride MD at 10:53 EST , Head/Neck CTA 06/10/22 10:40 IMPRESSION: Normal CTA Head and neck with contrast. N.B. : The above Results were Read Back by Rocky Pride MD to [facility] and understanding confirmed on 06/10/2022 11:11:39 (ET). [...] evidence of first-degree AV block with a LA interval of 216 ms. Cures duration 100 ms. QT duration is 374 ms. [place] to the right. There is no acute ischemic changes noted.) Differential Diagnosis Differential Diagnosis: Documented in the MDM portion of the chart Management Discussion w/another healthcare provider: Hospitalist, School Bus Mechanic (Neurologist at [facility]. Plan is transfer if evidence of LVO otherwise admit for stroke work-up at [facility].) and Radiologist (I spoke to Dr. Menendez at 1051. The unenhanced scan is unremarkable.) Stroke Documentation Questions Stroke Team Activated: Yes Reviewed Inclusion/Exclusion criteria: No IV Thrombolytic Administered: No (Patient outside window) No contraindications from thrombolytic administration: No Discharge Plan Dx/Rx/DC Orders Clinical Impression: Acute cerebrovascular accident (CVA), Elevated blood sugar level, Acute renal insufficiency Disposition Disposition: [facility] What to do if you have Problems For any increased pain, shortness of breath, bleeding, nausea or vomiting, chestpain, or any unexpected problems, contact your Primary Care Provider. Call [facility] ([phone]) or report to the closest Emergency Room. [...] no prior for comparison. This will need magre evaluated. This was independently viewed and interpreted by me. 06/10/22 1224<Electronically signed by Lc Poole MD> Cosigner Signature (if applicable): cc: Dr. Shiela Troy MD ~* Signed [facility] Work Phone: [phone]) 931-257903-10-[address] Poole [facility] June 10, 2022 12:24pm Note Date/Time June 10, 2022 10: 51am [facility] Medical Records Department [address] [place] [address] Emergency Department Summary 06/10/22 MR#: [id number] Acct: [id number] Name: IHSAN MARCELO Rep #:[id number] : [...] 85.3 H Lymph % (Auto) 9.0 L Tyrrell % (Auto) 5.1 Eos % (Auto) 0.0 [...] Color Urine Clarity Urine pH Ur Specific [place] Urine Protein Urine Glucose (UA) Urine Ketones Urine Occult Blood Urine Nitrite Urine Bilirubin Urine Urobilinogen Ur Leukocyte Esterase Urine RBC Urine WBC Ur Squamous Epith Cells Urine Bacteria Hyaline Casts Urine Mucus 06/10/22 11:15 WBC RBC Hgb Hct MCV MCH MCHC RDW Std Deviation RDW Coeff of Valentine Plt Count MPV Immature Gran % (Auto) Neut % (Auto) Lymph % (Auto) Tyrrell % (Auto) Eos % (Auto) Baso % (Auto) Absolute Neuts (auto) Absolute Lymphs (auto) Nucleated RBC % PT INR APTT Sodium Potassium Chloride Carbon Dioxide Anion Gap BUN Creatinine Estim Creat Clear Calc Est GFR (MDRD) Af Amer Est GFR (MDRD) Non-Af BUN/Creatinine Ratio Glucose Calcium Troponin I High Sens Urine Color Yellow Urine Clarity Clear Urine pH 5.0 Ur Specific [place]rance 1.025 Urine Protein 30 H Urine Glucose [...] Read Back by Rocky Pride MD to [facility] and understanding confirmed on 06/10/2022 10:51:52 (ET). Electronically Signed: Rocky Pride MD at 10:53 EST , Head/Neck CTA 06/10/22 10:40 IMPRESSION: Normal CTA Head and neck with contrast. N.B. : The above Results were Read Back by Rocky Pride MD to [facility] and understanding confirmed on 06/10/2022 11:11:39 (ET). [...] evidence of first-degree AV block with a LA interval of 216 ms. Cures duration 100 ms. QT duration is 374 ms. [place] to the right. There is no acute ischemic changes noted.) Differential Diagnosis Differential Diagnosis: Documented in the MDM portion of the chart Management Discussion w/another healthcare provider: Hospitalist, School Bus Mechanic (Neurologist at [facility]. Plan is transfer if evidence of LVO otherwise admit for stroke work-up at [facility].) and Radiologist (I spoke to Dr. Menendez at 1051. The unenhanced scan is unremarkable.) Stroke Documentation Questions Stroke Team Activated: Yes Reviewed Inclusion/Exclusion criteria: No IV Thrombolytic Administered: No (Patient outside window) No contraindications from thrombolytic administration: No Discharge Plan Dx/Rx/DC Orders Clinical Impression: Acute cerebrovascular accident (CVA), Elevated blood sugar level, Acute renal insufficiency Disposition Disposition: [facility] What to do if you have Problems For any increased pain, shortness of breath, bleeding, nausea or vomiting, chestpain, or any unexpected problems, contact your Primary Care Provider. Call [facility] ([phone]) or report to the closest Emergency Room. [...] cc: Dr. Shiela Troy MD ~* Signed [facility] Work Phone: 1(349) 546-852606-24-2021 History of Present illness Narrative* 59 year [...] for 1 day. * Does not have environmental planning engineer. her dter told her to go but she did not * Has thigh pain. * Has started walking. * Thinks pain is due to weight. feels better since started walking * no blood work in a long time [facility] Work Phone: [phone]) 321-807806-16-2021 History of Present illness Narrative* 59 year [...] for 1 day. * Does not have environmental planning engineer. her dter told her to go but she did not * Has thigh pain. * Has started walking. * Thinks pain is due to weight. feels better since started walking * no blood work in a long time [facility] Work Phone: [phone]) [phone] History of Present illness Narrative* 59 year [...] for 1 day. * Does not have environmental planning engineer. her dter told her to go but she did not * Has thigh pain. * Has started walking. * Thinks pain is due to weight. feels better since started walking * no blood work in a long time [facility] Work Phone: Evaluation note* Diagnosis Onset Date Resolution Status Acute cerebrovascular accident (CVA) acute Acute encephalopathy acute Acute renal insufficiency ac n[place]ana Elevated blood sugar level a [facility] Work Phone: Evaluation note* Diagnosis Mental status change resolved- Primary Pulmonary nodule Other diseases of lung, not elsewhere classified documented in this encounter [facility] Work Phone: Family History Mother Name Dates [...] No June 10, 2022 10:40am Power of Superintendent Drivers No June 10 10:40am Advance Directive Response Recorded Date/ Time Living Will No June 10, 2022 2:32pm Power of Superintendent Drivers No June 10 2:32pm Chief Complaint Chief [...] contrast Shiela Troy MD [address] [facility], [place] [address] Referral ID Status Reason Start Date Expiration Date Visits Requested Visits Authorized [id number] Authorized Perform Procedure 07/04/2022 12/31/2022 1 1 Specialty Diagnoses / Procedures Referred By Contac t Referred To Contact Neurology Diagnoses Mental status change resolved Procedures LA OFFICE/OUTPATIENT NEW HIGH MDM 60-74 MINUTES Shiela Troy MD [address] [facility], [place] [address] Referral ID Status Reason Start Date Expiration Date Visits Requested Visits Authorized [id number] Authorized Specialty Services Required 07/04/2022 12/31/2022 1 1 Additional Source Comments INFORMATION SOURCE (unrecogn ized section and content) DATE CREATED AUTHOR 11/14/2020 [facility] DATE CREATED AUTHOR AUTHOR'S ORGANIZ ATION 11/15/2020 [facility] DATE CREATED AUTHOR AUTHOR'S ORGANIZ ATION [facility]22/20[facility] Care Teams (unrecognized sec tion and content) [...] MD Admit Provider, Attending Provi bon Active Manager Welding Relationship Specialty Start Date End Date Shiela Troy MD [address] [facility], [facility] [address] [place] [address] PCP - General 10/04/17 Shiela Troy MD [address] [facility], [facility] [address] [place] [address] PCP - Brissa ACO PCP 09/01/21 Juanito Braxton, sdv pilot/navigator/dds operatorRelay Telegrapher 06/13/22 Goals (unrecognized section and content) Goals [...] BE BASED ON THE PRIMARY CLINICAL RECORDS. [facility]. provides no warranty or guarantee of the accuracy or completeness of information in this document.
[2024-11-25] MEDS: Lactated Ringers 1,000 ML 15 ML IV (09:59)
--- NOTE | 2024-11-25 10:28 | PRE.ANES_ITS ---
ASA Classification* ASA Classification ASA Classification: 2 and E Assessment & Plan Anesthesia* Anesthesia Assessment Anesthesia Assessment: Discussed sedation and/or anesthesia options, risks, benefits, and alternatives with patient/parents/legal guardian/POA. Questions invited. The patient/parents/legal guardian/POA seems to understand and agrees to proceed with anesthesia plan. Reviewed the physical assessment, medical history, allergy history and patient home medications list prior to surgery/procedure/anesthetic and documented any changes. Performed airway and anesthesia risk assessments. Anesthesia Type Anesthesia Type: General History Source History Obtained from:: Patient and Chart Anesthesia Focused Assessment* Temperature: 98 F Pulse Rate: 56 Blood Pressure: 140/68 Respiratory Rate: 12 Pulse Ox: 100 Oxygen Delivery Method: Room Air Airway Assessment Mouth opens: 2 cm Mallampati Score: II Teeth Condition: Intact Labs Anesthesia Preop lab: CBC WBC 10.3 K/mm3 (4.4-11.0) 11/25/24 03:17 11/25/24 RBC 4.73 M/mm3 (4.2-5.4) 11/25/24 03:17 11/25/24 Hgb 14.4 g/dL (12.0-15.0) 11/25/24 03:17 11/25/24 Hct 42.6 % (37-47) 11/25/24 03:17 11/25/24 Plt Count 178 K/mm3 (150-450) 11/25/24 03:17 11/25/24 CHEMISTRY Potassium 3.9 mmol/L (3.3-5.1) 11/25/24 03:17 11/25/24 Sodium 141 mmol/L (133-145) 11/25/24 03:17 11/25/24 Magnesium 1.8 mg/dL (1.6-2.6) 06/10/22 10:50 06/10/22 BUN 21 mg/dL (4-19) H 11/25/24 03:17 11/25/24 Creatinine 0.92 mg/dL (0.70-1.20) 11/25/24 03:17 11/25/24 Glucose 126 mg/dL (70-99) H 11/25/24 03:17 11/25/24 POC Glucose 88 mg/dL (74-106) 06/11/22 06:33 06/11/22 TSH 1.57 uIU/mL (0.358-3.74) 06/11/22 06:42 COAG PT 13.7 SECONDS (11.7-14.9) 06/10/22 10:50 Pre-Assessment Diagnosis/Proposed Procedure Planned Operative Procedure(s): lap Appy Anesthesia History 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 When Was Last Pacemaker Check QUESTION #4 FULL TEXT: You/Your Family Experience fever (hyperthermia) with Anesthesia Last Oral Intake Last Oral intake: Last Oral Intake NPO since Meds taken in AM with sips of water? Meds patient instructed to take am of surgery PONV PONV - business development executive: PONV - business development executive Female HX of Motion Sickness HX of N/V After Surgery Non-Smoker Duration of Surgery greater than 60 minutes Number of Risk Factors PONV Score Height & Weight Height & Weight: Anesthesia: Height & Weight Height 5 ft 11/25/24 09:17 Weight: 82 kg 11/25/24 09:17 Body Mass Index (BMI) 35.3 11/25/24 09:17 Respiratory Assessment Respiratory Assessment - business development executive: Respiratory Tract Infection Hx - business development executive Hx Respiratory Tract Infection STOP Sleep Apnea STOP Sleep Apnea - business development executive: STOP Sleep Apnea - business development executive Hx Hypertension No 06/12/22 13:18 Hx Sleep Apnea No 06/10/22 13:32 CPAP BIPAP Do you snore loudly (louder than talking or can be heard Do you often feel tired/ fatigued/ sleepy during daytime? Has anyone observed you stop breathing during sleep? STOP Results QUESTION #5 FULL TEXT : Do you snore loudly (louder than talking or can be heard through closed doors)? 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 Specify any problems Hx of Preganancy in last 3 Months Nurse Filling Out Transfusion & Questions: Date: Time: Patient unable to answer at this time (ie. confused, unrespo /Reproduction History /Reproductive History - business development executive: /Reproductive Hx- business development executive Hx Now Gestational Age (in weeks): EDC: Hx Hx Para Hx Section SAB Active Medications Active Medications: Current Medications Generic Name Dose Route Start Last Admin Trade Name Freq PRN Reason Stop Dose Admin Sodium Chloride 250 mls @ 15 mls/hr 11/25/24 09:24 IV .[id number] PRN Saline Flush Sodium Chloride 250 mls @ 15 mls/hr 11/25/24 09:24 IV .[id number] PRN Additional IVPB Infusion Lactated Ringer's 1,000 mls @ 15 mls/hr 11/25/24 09:45 11/25/24 09:59 IV 15 mls/hr .Q48H JOSH Administration Sodium Chloride 10 - 40 ml 11/25/24 09:24 0.9% Saline Lock 10 Ml Syringe IV UD PRN SALINE FLUSH PFSH Medical History Hypertension Elevated blood sugar level Skin cancer delivery delivered Hypothyroid Home Medications ?Medication ?Instructions ?Recorded ?Last Taken ?Type omeprazole 20 mg capsule,delayed 20 mg PO DAILY 06/09/22 History release Allergy/AdvReac Type Severity Reaction Status Date / Time Penicillins Allergy PT UNSURE Verified 11/25/24 09:32 OF REACTION meperidine (From Demerol) AdvReac Nausea Verified 11/25/24 09:32 Social History household members: spouse and children Smoking Status: Never smoker Review of Systems (Anesthesia) ROS Narrative System reviewed and no additional complaints, except as documented.
--- NOTE | 2024-11-25 10:30 | APP_PTH ---
PATIENT: ALAYNA ERAZO LOC: MS3 U#:[id number] AGE/SX: 63/F ROOM: [facility] RE11/25/[address]: Dr. Randolph Do MD : 1960 BED: 1 DIS: 11/25/2024 SPEC #: [id number] RECD: 11/25/24 11:53 STATUS: KALANI REQ #: [id number] CHRISTOPHER: 11/25/24 10:[address]: Randolph Do DEPT: SURGICAL PATHOLOGY RECD BY: Joe Ojeda ENTERED: 11/25/24 13:29 SP TYPE: APPENDIX OTHR DR: Dr. Shiela Troy MD Tissues: A - Appendix, NOS Procedures: Surgery Specimen Level III HEADER OPERATION: Laparoscopic appendectomy PRE-OP DIAGNOSIS: Acute appendicitis TISSUE SUBMITTED: A- Appendix MICROSCOPIC DIAGNOSIS A. Appendix, laparoscopic appendectomy: - Acute appendicitis. MICROSCOPIC DESCRIPTION Slides are reviewed. GROSS DESCRIPTION A. Received in formalin labeled with the patient's name and date of . Designated as appendix is a 7.7 x 1.2 cm pink-ambrose to red appendix with patchy serosal congestion and attached mesoappendix with patchy fibrinous exudate. The margin is inked black and shaved. Sectioning reveals ambrose-pink, somewhat congested mucosa with semisolid fecal material within the lumen, to include a possible fecalith. Canvas Shop Laborer sections are submitted in 2 cassettes as follows: A1. Distal tip A2. Margins, cross sections MS 11/25/2024 CPT:71774
[2024-11-25] MEDS: Midazolam 2 MG/2 ML Syringe IV (10:39)
[2024-11-25] MEDS: Lidocaine 1% (5 ml sdv) 5 ML Vial 10 ML IV (10:45)
[2024-11-25] MEDS: fentaNYL 100 MCG/2 ML Ampul IV (11:16)
[2024-11-25] MEDS: Bupiv/Epi 0.25% 30 ML Vial (11:21)
--- NOTE | 2024-11-25 11:29 | PCM.OPRPT ---
Procedures Digestive 40xxx-49xxx: [address]29 Laparoscopy appendectomy Operative Report (Standard) Operative Information Date of Procedure: 11/25/24 Pre-Operative Diagnosis: Acute appendicitis Post-Operative Diagnosis: Acute uncomplicated appendicitis Surgery/Procedure Performed: Laparoscopic appendectomy web portal developer: No Type of Anesthesia: General/Supplemental RN Documented Start/Stop Times: Operation Date: 11/25/24 10:30 Case Time Into Pre-Op 11/25/24 09:29 Out of Pre-Op 11/25/24 10:36 Anesthesia Start 11/25/24 10:40 Into Room 11/25/24 10:40 Procedure Start 11/25/24 11:02 Procedure End 11/25/24 11:30 Anesthesia End 11/25/24 11:37 Out of Room 11/25/24 11:37 Into Recovery 11/25/24 11:40 Procedure Start Time: 11:02 Procedure Stop Time: 11:30 Select all DRAINS/GRAFTS/IMPLANTS that apply: None Estimated Blood Loss: 2 Specimen collected: Yes Description of specimen(s) removed: Appendix Description of surgery: After appropriate identification in the preoperative holding area, the patient was brought to the operating room and placed supine on the operating room table. Antibiotics had been preoperatively administered. Patient was then induced with general endotracheal anesthetic. The abdomen was prepped and draped in usual sterile fashion. Formal timeout was conducted to confirm both the patient and the procedure. A supraumbilical incision was made and carried down to the level of the fascia which was sharply opened. After opening the peritoneum in like fashion a finger sweep was made to confirm position, and a balloon trocar was placed and pneumoperitoneum was established to 15 mmHg. Patient was positioned in Trendelenburg with the left side down. Two additional 5 mm trocars were placed in the left lower quadrant and suprapubic positions. The peritoneum was inspected and there were no signs of inadvertent injury from this Gould entry. The appendix was visualized with distention and mild inflammation. Using blunt laparoscopic dissection, a window was made in the mesoappendix adjacent to the appendiceal base. The mesoappendix was divided with application of a laparoscopic harmonic. Then the base of the appendix was sealed and amputated with the use of an Endo MEMO stapler. The appendix was placed in an Endo Catch bag. The staple line was inspected for hemostasis. After hemostasis was confirmed the appendix was removed from the umbilical port site. Pneumoperitoneum was then evacuated and the supraumbilical port site fascia was closed with #1 Vicryl in a [id number] fashion. The port sites were infiltrated with 30 mL local anesthetic. The skin of each port site was closed with 4-0 Monocryl in a subcuticular fashion. Steri-Strips and OpSite dressings were applied. Patient tolerated procedure well without any apparent complications. They were awoken from general anesthetic without issue and transferred to post anesthesia care unit for ongoing recovery. Surgical Findings: ? Dilated and injected appendix with evidence of mild inflammation Complications Complications: No Admit VTE Documentation VTE Mechan Device Prophylaxis: SCD's
--- NOTE | 2024-11-25 11:43 | PCM.POST.ANE ---
Anesthesia: Postop Eval I Current Vital Signs Temperature: 97.1 F Pulse Rate: 83 Blood Pressure: 134/74 Respiratory Rate: 16 Pulse Ox: 95 Assessment Airway patent: Yes Spontaneous unlabored respirations: Yes nausea: No Vomiting: No Anesthesia Complication: No Fluid Hydration Crystalloid volume administer (ml): 800 Total IV fluid infused: 800 Progress Note Anesthesia document: Postop Eval 1 completed: Yes
[2024-11-25] MEDS: 0.9% Normal Saline (1000mL) 1,000 ML 100 ML IV (13:25)
--- NOTE | 2024-11-25 14:29 | DCINST_ITS ---
Discharge Instructions DC O2, CPAP, BIPAP needs Home O2 Discharge instructions: No Dressing / Incision Discharge Activity: May Not Drive (3-5 days or while taking narcotic pain medication) and May Not Shower (For 48 hours after the procedure) Lifting Restrictions: 15 pounds for 2 weeks Dressing / Incision Call your doctor if your incision/area has: Continuous Slow Oozing, Sudden Increased Bleeding, Increased Pain/ Swelling, Increased Redness, Foul Smelling Discharge and Swelling at the incision site Call your doctor if you observe: Fever of 101 or Higher Suture Line Care: Avoid Pulling/Pushing and Avoid Pinching/Bending Remove Dressing in: 2 days Cleanse incision/area with: Soap & Water Follow Up Care Please Follow Up With: Svetlana Causey PA-C When: Please contact our office at [phone], option #2, to schedule a 2 weeks follow-up with our office Test Results: Test results from this visit will be discussed in further detail at your follow- up appointment, if applicable. Discharge Plan Admission Admit Date/Time: 11/25/24 08:01 Primary Reason for Your Visit: Acute appendicitis Attending Provider: Randolph Do Primary Care Provider: Shiela Troy Instructions Additional Instructions / Restrictions: Appendectomy Diet ? Start light with soups and soft bland foods. You may advance diet as tolerated. Activity ? You may drive in 3-5 days but not while taking narcotic pain medication. ? I encourage walking. You may go up steps, one at a time. ? Do not swim or use hot tubs for 2 weeks. ? For comfort, you may use warm compresses or ice as needed for 15-20 minutes at a time. Lifting ? You may lift up to 15 pounds for 2 weeks. Dressings/Incision ? You may shower in 48 hours from the procedure ? Do NOT tub bathe for 1 week ? Leave plastic dressings on for 2 days. ? When plastic dressings are removed, you will find steri-strips. It is okay to continue showering with them in place, pat them dry. ? You may remove steri-strips after 1 week. We recommend getting them soaking wet for easier removal. Medications ? Anesthesia used during surgery and pain medications may cause constipation. I recommend initiating on the day of surgery a fiber supplement like, Metamucil, Citrucel, FiberCon, Benefiber, or a generic form of these medications. 1 heaping tablespoon in water daily. You may continue to utilize any bowel regimen or oral laxatives that you routinely take. ? As long as you are not intolerant to Tylenol, acetaminophen, ibuprofen, Motrin, Advil, Aleve, or similar medications, I would recommend transitioning to these [id number] medicines as soon as possible instead of continued use of narcotic pain medication. Follow up ? You should call [facility] soon after surgery, at [phone] option 2 to make a follow up appointment for 14 days after your surgery. Discharge Orders/Prescriptions Prescriptions: New oxycodone 5 mg tablet 5 mg PO Q6H PRN (Reason: pain) 3 Days Qty: 10 0RF Continued omeprazole 20 mg Capsule,Delayed Release(Dr/Ec) 20 mg PO DAILY Referrals / Follow Up: Shiela Troy MD [Primary Care Provider] - Svetlana Causey PA-C [Med Staff - [facility] Practice Prof] - 12/09/24 Disposition Disposition (needs filled in before D/C Order can be placed): Home, Self Care
--- NOTE | 2024-11-25 16:01 | PHA.DC_ITS ---
Pharmacy [facility] Counseling Pharmacy Service has performed discharge medication reconciliation and counseling for this patient. 1. OXYCODONE 5MG PO Q6H PRN PAIN The patient's discharge medication list was reviewed for discrepancies and discrepancies were resolved. The patient was counseled on the following discharge medications and changes in medications for homegoing were reviewed. The Reason for Use, instructions for use, and potential side effects were reviewed for all new medications. The patient's questions regarding all of their medications were answered. The patient was able to verbally demonstrate an understanding of their discharge medications. Medications at Discharge Home Medications omeprazole 20 mg capsule,delayed release 20 mg PO DAILY 06/10/22 oxycodone 5 mg tablet 5 mg PO Q6H PRN pain 3 days #10 tabs 11/25/24
== END 2024-11-25 18:52 | disposition home or self-care (01) ==
LOC: ED 07:17 → MS3 08:12
PROVIDERS: Admitting Provider Surgery; Emergency Provider Emergency Medicine; PCP Pediatrics; Visit Provider Surgery
PROC: 0DTJ4ZZ Resection of Appendix, Percutaneous Endoscopic Approach (ICD-10-PCS; CPT 44970; principal; 2024-11-25 10:10)
DX: K35.30 Acute appendicitis with localized peritonitis, without perforation or gangrene (principal); K44.9 Diaphragmatic hernia without obstruction or gangrene; K29.70 Gastritis, unspecified, without bleeding; I10 Essential (primary) hypertension; Z79.899 Other long term (current) drug therapy
CPT/HCPCS: 44970; 74177; 80048; 80076; 83605; 83690; 85025; 88304; 94668; 96361; 96374; 96375; 96376; 99221; 99285; Q9967; A4216; G0378; J2405

== ENCOUNTER → 2025-02-07 | Outpatient (CLI) | payer MEDICARE, OTHER, SELFPAY ==
[2025-02-08 13:08] LABS: H. PYLORI STOOL AG Negative (Negative)
== END | disposition home or self-care (01) ==
LOC: LABSPEC 11:54
PROVIDERS: PCP Pediatrics; Referring Provider Surgery; Visit Provider Surgery
DX: R11.0 Nausea (principal); K29.70 Gastritis, unspecified, without bleeding; Z98.890 Other specified postprocedural states
CPT/HCPCS: 87338